=== PATIENT | male | born 1950 | race Caucasian/White ===

== ENCOUNTER → 2020-01-22 08:43 | Outpatient (BNVA) | payer MEDICARE, OTHER, SELFPAY | PROVIDERS: Family Provider Internal Medicine; PCP Internal Medicine; Visit Provider Internal Medicine | DX: D50.9 Iron deficiency anemia, unspecified (principal) | CPT/HCPCS: 80053; 82607; 83550; 84443; 85025 ==

== ENCOUNTER 2020-02-01 10:41 | Outpatient (CLI) | payer MEDICARE, OTHER, SELFPAY ==
[2020-02-01 11:18] VITALS: BP 116/69; PULSE 96; RESP 18; TEMP 36.6; O2SAT 96
== END 2020-02-01 10:42 | disposition home or self-care (01) ==
LOC: GILAB 10:47
PROVIDERS: Family Provider Internal Medicine; PCP Internal Medicine; Visit Provider Internal Medicine
DX: D50.9 Iron deficiency anemia, unspecified (principal)
CPT/HCPCS: 96365; 96374; 96375; J1439

== ENCOUNTER → 2020-06-03 11:39 | Outpatient (BNVA) | payer MEDICARE, OTHER, SELFPAY | PROVIDERS: Family Provider Internal Medicine; PCP Internal Medicine; Visit Provider Internal Medicine | DX: J06.9 Acute upper respiratory infection, unspecified (principal) | CPT/HCPCS: 87635 ==

== ENCOUNTER → 2020-06-23 08:06 | Outpatient (BNVA) | payer MEDICARE, OTHER, SELFPAY | PROVIDERS: Family Provider Internal Medicine; PCP Internal Medicine; Visit Provider Internal Medicine | DX: E11.9 Type 2 diabetes mellitus without complications (principal); D50.9 Iron deficiency anemia, unspecified; D51.9 Vitamin B12 deficiency anemia, unspecified; I10 Essential (primary) hypertension | CPT/HCPCS: 80053; 82607; 82746; 83036; 83550; 84443; 85025 ==

== ENCOUNTER 2020-07-06 08:47 | Outpatient (CLI) | payer MEDICARE, OTHER, SELFPAY ==
[2020-07-06] MEDS: iohexol 300 mg/mL 50 mL Btl PO (09:07)
--- NOTE | 2020-07-06 10:30 | CT_ITS ---
WS: [id number] CT ABDOMEN PELVIS TECHNIQUE: Contrast-enhanced CT of the abdomen and pelvis with coronal and sagittal reformatted image s. CLINICAL INFORMATION: JAUNDICE COMPARISON: May 28, 2018 DLP: 1231.[address] scans at [facility] use at least one of these dose optimization techniques: automat ed exposure control; mA and/or kV adjustment per patient size (includes targeted exams where dose is matched to clinical indication); or iterative reconstruction. FINDINGS: Polycystic left kidney with the largest cyst measuring 12.2 x 14.4 x 15.1 CM. This is not significant ly changed since 2019. Anterior upper pole cyst larger today measuring 7.3 x 6.7 x 6.5 cm. Remainder of the cysts are relatively stable in size. No hydronephrosis. Right kidney is unchanged in appearanc e. Largest cyst right kidney measures 3.6 cm. Adrenal glands are normal. Normal liver. Normal portal vein and splenic vein. Normal gallbladder. Sma ll splenule. Large esophageal hiatal hernia with intrathoracic stomach. Lung bases are well aerated. Normal caliber abdominal aorta. No aneurysm. Prior postoperative changes proctocolectomy with right lower quadrant ileostomy. Stable peristomal f at-containing hernia. Supraumbilical hernia appears to have been repaired in the interval. No herniat ed bowel. Prominent lymph nodes along the peristomal hernia likely reactive. These were present previ ously. No evidence of high-grade small or large bowel obstruction. Moderate to severe central canal s tenosis L2-L3 L3-L4 and L4-L5 unchanged. Prostate TURP defect CT/CT abdomen pelvis w con* [id number] IMPRESSION: 1. Polycystic left kidney with the largest cyst measuring 12.2 x 14.4 x 15.1 C M described above. No hydronephrosis in either kidney. 2. Prior postoperative changes proctocolectomy with right lower quadrant ileos thad. No evidence of high-grade small or large bowel obstruction. 3. Stable right peristomal fat-containing hernia. No obstruction. 4. Interval repair of small supraumbilical hernia today containing only fat. N o herniated bowel. 5. Moderate to severe central canal stenosis L2-L3 and L3-L4 unchanged.
[2020-07-06] MEDS: iodixanol 320 mg/mL 100mL Btl IV (10:41)
== END 2020-07-06 08:48 | disposition home or self-care (01) ==
LOC: RADWPI 08:53
PROVIDERS: Family Provider Internal Medicine; PCP Internal Medicine; Visit Provider Internal Medicine
DX: R17 Unspecified jaundice (principal); R94.5 Abnormal results of liver function studies; Q61.3 Polycystic kidney, unspecified; M48.061 Spinal stenosis, lumbar region without neurogenic claudication; K46.9 Unspecified abdominal hernia without obstruction or gangrene
CPT/HCPCS: 74177; Q9967

== ENCOUNTER 2020-07-12 14:42 | Outpatient (CLI) | payer MEDICARE, OTHER, SELFPAY | END 2020-07-12 14:43 | disposition home or self-care (01) | LOC: LAB 14:46 | PROVIDERS: PCP Internal Medicine; Visit Provider Internal Medicine | DX: R19.7 Diarrhea, unspecified (principal) | CPT/HCPCS: 83630; 87493; 87506 ==

== ENCOUNTER → 2020-08-25 08:42 | Outpatient (BNVA) | payer MEDICARE, OTHER, SELFPAY | PROVIDERS: PCP Internal Medicine; Visit Provider Pediatrics | DX: Z20.828 Contact with and (suspected) exposure to other viral communicable diseases (principal) | CPT/HCPCS: 87635 ==

== ENCOUNTER 2020-09-17 11:29 | Emergency (ER) | payer MEDICARE, OTHER, SELFPAY ==
[2020-09-17 11:38] VITALS: BP 123/86; PULSE 85; RESP 18; TEMP 36.4; O2SAT 96; BMI 36.6
[2020-09-17 12:34] VITALS: BP 121/78; PULSE 87; RESP 18; O2SAT 93
--- NOTE | 2020-09-17 13:01 | ED_ITS ---
HPI - Skin/Abscess/Foreign Bdy General: Chief complaint: Skin/Abscess/Foreign Body Stated complaint: SPIDER BITE Time Seen by Provider: 09/17/20 11:33 Source: patient Mode of arrival: ambulatory Limitations: no limitations History of Present Illness: HPI narrative: 70-year-old male patient presents to the emergency department with what appears to be an abscess to his right fore arm. Patient states he believes it started with a spider bite and has progressively worsened over the last few days. Patient states he has had some doxycycline at home that he is trying to take but it has not improved his symptoms. Patient denies any fever. Patient denies any spreading of erythema. Patient denies any chest pain or shortness of breath. Patient denies any other complaints at this time Associated symptoms: Deny chills, fever(s), nausea or vomiting Review of Systems Const: Denies: fever(s) or chills Card: Denies: chest pain, palpitations or irregular heart rhythm Resp: Denies: dyspnea, productive cough, non-productive cough or wheezing GI: Denies: abdominal pain, nausea, vomiting, diarrhea or constipation : Denies: flank pain, difficulty urinating or dysuria Musc: Reports: extremity pain; Denies: neck pain, back pain, joint pain or joint swelling Skin/Breast: Reports: new lesions Neuro: Denies: headache(s), numbness in extremities or weakness in extremities Psych: Denies: anxiety, depression, suicidal ideation or homicidal ideation [facility] ED PFSH: Medical History GERD (gastroesophageal reflux disease) HTN (hypertension) Iron deficiency anemia EDITH on CPAP Paroxysmal atrial fibrillation Surgical History History of shoulder surgery History of total colectomy Family History Mother Atrial fibrillation Social History Smoking and tobacco status: never smoked Alcohol intake: never Physical Exam Const: COMMON NORMALS: no acute distress, average body habitus, patient oriented x3, no limitations, healthy appearing, alert and well nourished HENMT: COMMON NORMALS: normocephalic and atraumatic HEAD & SCALP: normocephalic and atraumatic FACE & SINUS: normal facial exam Eye: COMMON NORMALS: Equal, round and reactive pupils present, EOMs intact bilaterally and conjunctivae normal CONJUNCTIVA: Yes conjunctivae normal PUPIL: Yes Equal, round and reactive pupils present Neck/C-Spine: COMMON NORMALS: full ROM, no lymphadenopathy and no JVD Lymph: LYMPHATIC: no lymphadenopathy noted and no lymphedema noted Resp: COMMON NORMALS: normal respiratory effort and No retractions Cardio: COMMON NORMALS: no JVD, regular rate and regular rhythm RATE: regular rate RHYTHM: regular rhythm Extremity: COMMON NORMALS: normal to inspection, full ROM, capillary refill normal, no joint enlargement and no clubbing, cyanosis or edema RIGHT UPPER EXTREMITY: Yes upper arm (There is a 2 cm area consistent with an abscess that has fluctuation and po) Neuro: COMMON NORMALS: patient oriented x3, CN's II-XII intact bilaterally, moves all extremities, no focal motor deficits and no sensory deficits noted SENSORIUM/ORIENTATION: Yes alert Psych: COMMON NORMALS: denies homicidal ideation and denies suicidal ideation Skin: NARRATIVE SKIN EXAM: There is a 2 cm area consistent with an abscess that has fluctuation and po SKIN IMAGES (MALE): 1. There is a 2 cm area consistent with an abscess that has fluctuation and po Procedures Abscess I/D Site: upper extremity Side (if applicable): right Sedation/analgesia: none Local Anesthetic: lidocaine 1% Amount of anesthesia used (mL): 2 Technique: incised with #11 blade Amount of fluid expressed (mL): 2 Irrigation: Yes Packing used?: plain Course Vital Signs: Vital signs: Vital Signs Temperature 97.6 F 09/17/20 11:38 Pulse Rate 87 09/17/20 12:34 Respiratory Rate 18 09/17/20 12:34 Blood Pressure 121/78 09/17/20 12:34 Pulse Oximetry 93 09/17/20 12:34 MDM - Skin/Abscess/Foreign Bdy MDM Narrative: Medical decision making narrative: Patient is well-appearing nontoxic and in no acute distress. Patient does not have any systemic symptoms of illness. Patient does have what appears to be an abscess to the right upper arm please see procedure note for incision and drainage.There is a 2 cm area consistent with an abscess that has fluctuation and pointing. Incision and drainage was successful and packing was applied. Patient has been advised to return to the emergency department in 24 to 48 hours for packing removal and wound recheck. Patient tolerated procedure well. I will place patient on clindamycin at this time. Return precautions have been advised home care instructions have been reviewed patient is medically cleared and appropriate for discharge Discharge Plan Discharge Patient Disposition: Home Clinical Impression: Abscess of skin or subcutaneous tissue Qualifiers: Site of cutaneous abscess: extremity Site of cutaneous abscess of extremity: upper extremity Laterality: right Qualified Code(s): L02.413 - Cutaneous abscess of right upper limb Condition: Stable Prescriptions: New clindamycin HCl 300 mg capsule 300 mg PO BID 7 Days Qty: 14 RF: 0 No Action triamcinolone acetonide 0.1 % ointment 1 applic TOPICAL DAILY PRNRF: 0 Xarelto 20 mg tablet 20 mg PO DAILY RF: 0 lisinopril 2.5 mg tablet 2.5 mg PO DAILY RF: 0 melatonin 5 mg capsule PO .hs RF: 0 B-complex with vitamin C [Super B Complex-Vitamin C] Tablet 1 tab PO DAILY RF: 0 pantoprazole 40 mg tablet,delayed release (DR/EC) 40 mg PO BID Qty: 60 RF: 8 Questran Light 4 gram powder 4 gm PO DAILY Qty: 210 RF: 6 metoprolol succinate 50 mg tablet extended release 24 hr 75 mg PO BID RF: 0 simvastatin 40 mg tablet 40 mg PO .AT BEDTIME 90 Days Qty: 90 RF: 3 chlorthalidone 25 mg tablet 25 mg PO DAILY Qty: 90 RF: 3 syringe with needle, safety [BD Safety-Sally Detachable Needl] 3 mL 22 gauge x 1 1/2 syringe See Rx Instructions .ROUTE .COMPLEX Qty: 12 RF: 0 clopidogrel [Plavix] 75 mg tablet 75 mg PO DAILY Qty: 30 RF: 5 cyanocobalamin (vitamin B-12) 1,000 mcg/mL solution 1,000 mcg IM .monthly Qty: 1 RF: 3 levofloxacin 750 mg tablet 750 mg PO DAILY 7 Days Qty: 7 RF: 0 prednisone 20 mg tablet 20 mg PO DAILY 5 Days Qty: 5 RF: 0 Discharge Orders: Discharge ED (Routine); Ordered 09/17/20 Ordered By: Natalie Roach Referrals: Luis Yang MD [Primary Care Provider] - Discharge Diet: Advance as tolerated Discharge Activity: Resume usual activity Activity Restrictions/Additional Instructions: Please take medications as prescribed Please return to ER in 24-48 hours for packing removal and wound recheck or sooner as needed Please follow wound care instructions as discussed Coding Level of Care Code ED Trace Clerk for Pankaj Mooney
== END 2020-09-17 12:34 | disposition home or self-care (01) ==
PROVIDERS: Emergency Provider Registered Nurse; PCP Internal Medicine
DX: L02.413 Cutaneous abscess of right upper limb (principal); Z79.02 Long term (current) use of antithrombotics/antiplatelets; I10 Essential (primary) hypertension; I48.0 Paroxysmal atrial fibrillation
CPT/HCPCS: 10060; 12345; 99281; 99282

== ENCOUNTER 2020-09-30 12:20 | Inpatient (IN) | payer MEDICARE, OTHER, SELFPAY ==
[2020-09-30] VITALS (11 sets, daily range): BP systolic 85–131; BP diastolic 52–64; PULSE 49–96; RESP 16–20; TEMP 36.4–36.8; O2SAT 95–99; BMI 34.5
--- NOTE | 2020-09-30 13:09 | W.ED.MALEGU ---
HPI - Male Genitourinary General: Chief complaint: Urogenital-Male Stated complaint: kidney pain/ reanal failure Time Seen by Provider: 09/30/20 12:48 Source: patient Mode of arrival: ambulatory History of Present Illness: HPI Narrative: 70-year-old male presenting with complaints of dysuria and hesitancy with onset this morning. He has history of BPH, and has had a TURP in the past. Denies any abdominal pain or distention. No diarrhea or constipation. He noticed that his urine was very dark this morning, and it was hard to urinate. After that he started trying to drink a lot of fluids. He has a history of renal insufficiency, and PCKD. He was recently treated for an abscess and developed antibiotic associated diarrhea for which he was prescribed Xifaxan which he is currently still taking. He denies any new lower extremity weakness or sensory changes. No difficulty walking this morning. He has had frequent dizziness on standing recently, as well as low blood pressure readings. No fever. No night sweats. Occasional intermittent nausea without vomiting. Associated symptoms: Reports dysuria, hematuria, nausea and urinary retention; Deny vomiting Review of Systems General: Reports: 10 or more systems reviewed and unremarkable except in HPI and below Const: Reports: fatigue and malaise; Denies: fever(s), chills, body aches or change in weight Eyes: Denies: change in vision or blurry vision ENMT: Denies: hoarseness or swelling of lips/tongue Card: Denies: chest pain, palpitations or irregular heart rhythm Resp: Denies: dyspnea, productive cough or wheezing GI: Reports: nausea; Denies: abdominal pain, vomiting, fecal incontinence, change in bowel habits or rectal pain : Reports: difficulty urinating, dysuria, urinary frequency, urinary urgency, urinary hesitancy, urinary dribbling, oliguria and hematuria; Denies: flank pain Musc: Denies: muscle weakness or decrease in muscle mass Skin/Breast: Denies: rash, erythema or skin swelling Neuro: Denies: headache(s), numbness in extremities, weakness in extremities or lack of coordination Psych: Denies: anxiety or depression PFS ED PFSH: Medical History GERD (gastroesophageal reflux disease) Gout of ankle History of SCC (squamous cell carcinoma) of skin HTN (hypertension) Iron deficiency anemia EDITH on CPAP Paroxysmal atrial fibrillation Polycystic kidney disease Surgical History History of circumcision History of colectomy History of hernia repair History of shoulder surgery History of total colectomy History of total knee replacement Family History Mother Atrial fibrillation Social History Smoking and tobacco status: never smoked Alcohol intake: never Substance/Drug Use: never Household members: spouse Housing: House Physical Exam Const: COMMON NORMALS: no acute distress, patient oriented x3 and alert GENERAL APPEARANCE: cooperative; not in distress, not ill appearing and not diaphoretic NUTRITIONAL APPEARANCE: overweight ORIENTATION/CONSCIOUSNESS: Yes oriented to person and Yes oriented to place HENMT: COMMON NORMALS: normocephalic and atraumatic HEAD & SCALP: normocephalic and atraumatic FACE & SINUS: normal facial exam and face symmetric Eye: COMMON NORMALS: Equal, round and reactive pupils present, EOMs intact bilaterally, conjunctivae normal and no scleral icterus CONJUNCTIVA: Yes conjunctivae normal PUPIL: Yes Equal, round and reactive pupils present Resp: COMMON NORMALS: normal respiratory effort and No use of accessory muscles EFFORT & INSPECTION: Yes able to speak in complete sentences Cardio: COMMON NORMALS: regular rate and regular rhythm RATE: regular rate RHYTHM: regular rhythm GI: COMMON NORMALS: Soft to palpation INSPECTION: No abdominal wall ecchymosis, No Abdominal wall edema, Yes abdominal distension and Yes GI ostomy present PALPATION: Yes Soft to palpation, Yes Tenderness to palpation present (GI), No Guarding due to palpation present (GI), No Rigid due to palpation, Yes Palpable mass present, No Pulsatile mass present, No Rebound tenderness present and No Bladder palpation abnormal : BLADDER/KIDNEY EXAM: No Bladder palpation abnormal Extremity: COMMON NORMALS: normal to inspection, full ROM and capillary refill normal GENERAL: Yes normal exam except as noted Neuro: COMMON NORMALS: patient oriented x3, moves all extremities, no focal motor deficits and no sensory deficits noted SENSORIUM/ORIENTATION: Yes alert, Yes oriented to person and Yes oriented to place CRANIAL NERVES: Yes CN normal except as noted SPEECH: speech normal Skin: COMMON NORMALS: no rashes or lesions noted GENERAL SKIN EXAM: no rashes or lesions noted, no ecchymo and no erythema Course Vital Signs: Vital signs: Vital Signs Temperature 98.6 F 10/02/20 04:00 Pulse Rate 89 10/02/20 04:00 Respiratory Rate 19 H 10/02/20 04:00 Blood Pressure 93/55 10/02/20 04:00 Pulse Oximetry 94 10/02/20 04:00 MDM - Male MDM Narrative: Medical decision making narrative: 70-year-old male with acute acute urinary retention since this morning. Initial bladder scan showed near 0 residual volume. Repeat scan slightly superior position showed greater than 999 mL. Dixon catheter was placed but no urine output. Due to discomfort catheter was removed. After looking at some of his previous imaging, he does have very large cyst, especially on the left and that was probably what the bladder scan was registering as residual volume. His lab work shows that he is in acute kidney failure with creatinine of 12.2. His urine is concentrated, I suspect prerenal JULES. No acute infection. Potassium 5.9, without any significant EKG changes. He is in A. fib which is his baseline. We will repeat chemistry after second fluid bolus?if there is significant improvement will discuss admission for further fluids and monitoring his renal function. If it is unchanged or worsen, he will need to be transferred to [facility] for nephrology consult. Differential Diagnosis: Urogenital Male Differential Diagnosis: Likely urinary tract infection, urethritis, prostatitis and acute retention of urine Medical Records: Attestation: I reviewed the patient's medical records. Lab Data: Attestation: I reviewed the patient's lab results. Labs: Lab Results 09/30/20 09/30/20 09/30/20 Range/Units 13:04 13:13 13:13 WBC 10.2 H (4.0-10.0) 10^3/ uL RBC 6.93 H (4.1-5.3) 10^6/u L Hgb 18.8 H (11.7-16.6) g/dL Hct 58.3 H (42.0-52.0) % MCV 84.1 (80-94) fL MCH 27.1 L (28.0-34.0) pg MCHC 32.2 (30.0-36.0) g/dL RDW 17.4 H (12.1-15.1) % Plt Count 240 (130-400) 10^3/c mm MPV 9.6 (7.4-10.4) fL Neut % (Auto) 66.4 % Lymph % (Auto) 20.8 % [place] % (Auto) 12.0 % Eos % (Auto) 0.0 % Baso % (Auto) 0.4 % Neut # (Auto) 6.80 (1.8-7.7) 10^3/u L Lymph # (Auto) 2.1 (0.8-4.8) 10^3/u L [place] # (Auto) 1.2 H (0.2-0.9) 10^3/u L Eos # (Auto) 0.0 (0.0-0.8) 10^3/u L Baso # (Auto) 0.0 (0.0-0.1) 10^3/u L Nucleated RBC % (a uto) 0 % Nucleated RBCs # 0.0 /100WBC Sodium Cancelled Potassium Cancelled Chloride Cancelled Carbon Dioxide Cancelled Anion Gap Cancelled BUN Cancelled Creatinine Cancelled GFR Calculation Cancelled Glucose Cancelled Calculated Osmolal ity Cancelled Calcium Cancelled Total Bilirubin Cancelled AST Cancelled ALT Cancelled Alkaline Phosphata se Cancelled Creatine Kinase (39-308) U/L Total Protein Cancelled Albumin Cancelled Globulin Cancelled Urine Color Brown (Yellow) Urine Appearance Cloudy (CLEAR) Urine pH 5 (5-7) Ur Specific Gravit y 1.030 (1.005-1.030) Urine Protein 3+ H (Negative) Urine Glucose (UA) Norm (Normal) Urine Ketones 1+ H (Negative) Urine Blood 3+ H (Negative) Urine Nitrate Negative (Negative) Urine Bilirubin 1+ H (Negative) Urine Urobilinogen Norm (Negative) mg/dL Ur Leukocyte Priti ase Negative (Negative) Urine RBC Too numerous to c nt H (0-2) /hpf Urine WBC 5-10 H (0-5) /hpf Ur Squamous Epith Cells 0-4 H (0-5) /hpf Amorphous Sediment Not Reportable Urine Bacteria 1+ H (NONE) /hpf 09/30/20 09/30/20 09/30/20 Range/Units 14:30 14:30 17:27 WBC (4.0-10.0) 10^3/ uL RBC (4.1-5.3) 10^6/u L Hgb (11.7-16.6) g/dL Hct (42.0-52.0) % MCV (80-94) fL MCH (28.0-34.0) pg MCHC (30.0-36.0) g/dL RDW (12.1-15.1) % Plt Count (130-400) 10^3/c mm MPV (7.4-10.4) fL Neut % (Auto) % Lymph % (Auto) % [place] % (Auto) % Eos % (Auto) % Baso % (Auto) % Neut # (Auto) (1.8-7.7) 10^3/u L Lymph # (Auto) (0.8-4.8) 10^3/u L [place] # (Auto) (0.2-0.9) 10^3/u L Eos # (Auto) (0.0-0.8) 10^3/u L Baso # (Auto) (0.0-0.1) 10^3/u L Nucleated RBC % (a uto) % Nucleated RBCs # /100WBC Sodium 134 L 135 L Potassium 5.9 H 5.1 Chloride 99 105 Carbon Dioxide 19 L 17 L Anion Gap 21.9 H 18.1 BUN 69 H 67 H Creatinine 12.2 H* 9.2 H* GFR Calculation 4.1 L 5.7 L Glucose 78 92 Calculated Osmolal ity 297 H 299 H Calcium 8.5 7.2 L Total Bilirubin 1.7 H AST 12 ALT 14 Alkaline Phosphata se 76 Creatine Kinase 39 (39-308) U/L Total Protein 6.6 Albumin 3.5 Globulin 3.1 Urine Color (Yellow) Urine Appearance (CLEAR) Urine pH (5-7) Ur Specific Gravit y (1.005-1.030) Urine Protein (Negative) Urine Glucose (UA) (Normal) Urine Ketones (Negative) Urine Blood (Negative) Urine Nitrate (Negative) Urine Bilirubin (Negative) Urine Urobilinogen (Negative) mg/dL Ur Leukocyte Priti ase (Negative) Urine RBC (0-2) /hpf Urine WBC (0-5) /hpf Ur Squamous Epith Cells (0-5) /hpf Amorphous Sediment Urine Bacteria (NONE) /hpf EKG Data: EKG 1: Attestation: I personally reviewed and interpreted this EKG as follows: EKG Data: 09/30/20 EKG interpretation time: 15:35 Prior EKG tracings: not available for review Interpretation: Atrial fibrillation, rate 87 Normal axis No acute ST segment elevation or depression. No abnormal T wave inversion. Critical Care Time Critical Care Time: Critical Care Time: Yes Total Critical Care Time: 45 Attestation: This case had a high probability of a clinically significant, sudden, or life threatening deterioration of this patient's condition which required my full and direct attention, intervention and personal management. Acute kidney failure with hyperkalemia, repeat lab work, serial patient exam, frequent monitoring Dehydration with significant metabolic changes Discharge Plan Discharge Patient Disposition: Admitted As Inpatient Admit Provider: Dina Taveras Clinical Impression: Abdominal pain in male, Acute urinary retention, Acute kidney injury superimposed on chronic kidney disease Condition: Stable Coding Level of Care Code ED Mental Health Technician for Chg Fwd Exam Comprehensive
[2020-09-30 13:20] LABS: Basophils % 0.4 %; Hematocrit 58.3 % (42.0-52.0); Hemoglobin 18.8 g/dL (11.7-16.6); Lymphocytes # 2.1 10^3/uL (0.8-4.8); Lymphocytes % 20.8 %; Mean Corpuscular HGB Conc 32.2 g/dL (30.0-36.0); Mean Corpuscular Hemoglobin 27.1 pg (28.0-34.0); Mean Corpuscular Volume 84.1 fL (80-94); Mean Platelet Volume 9.6 fL (7.4-10.4); Monocytes # 1.2 10^3/uL (0.2-0.9); Neutrophils % 66.4 %; Nucleated Red Blood Cells % 0 %; Platelet Count 240 10^3/cmm (130-400); Red Blood Count 6.93 10^6/uL (4.1-5.3); Red Cell Distribution Width 17.4 % (12.1-15.1); White Blood Count 10.2 10^3/uL (4.0-10.0)
[2020-09-30] MEDS: lactated ringers 1,000 ML 999 ML IV (13:24)
[2020-09-30] MEDS: tamsulosin 0.4 mg Capsule 0.8 MG PO ×2 (13:24→13:34)
[2020-09-30 14:08] LABS: Glucose Urine UA Norm (Normal); Ketones Urine 1+ (Negative); Protein Urine 3+ (Negative); Urine Appearance Cloudy (CLEAR); Urine Color Brown (Yellow); pH Urine 5 (5-7)
[2020-09-30 14:09] LABS: Add Urine Microscopic? YES; Bilirubin Urine 1+ (Negative); Blood Urine 3+ (Negative); Leukocyte Esterase Urine Negative (Negative); Nitrate Urine Negative (Negative); Urobilinogen Urine Norm (Negative)
[2020-09-30 14:11] LABS: Add Urine Culture? Yes; Bacteria Urine 1+ /hpf; RBC Urine TOO NUMEROUS TO CNT /hpf (0-2); Squamous Epithelial Cell Urine 0-4 /hpf (0-5)
--- NOTE | 2020-09-30 14:50 | XRR_ITS ---
PROCEDURE INFORMATION: Exam: XR Abdomen, 1 View Exam date and time: 09/30/2020 2:51 PM Age: 70 years old Clinical indication: Abdominal pain; Generalized; Prior surgery; Surgery type: Colon, hernina; Additional info: Pain, distention, TECHNIQUE: Imaging protocol: XR of the abdomen. Views: Frontal supine view of the abdomen. 1 View. COMPARISON: CT abdomen pelvis w con* [id number] 07/06/2020 10:37 AM FINDINGS: Gastrointestinal tract: Unremarkable. No bowel dilation. Organs: Enlarged left kidney (multiple large cysts) redemonstrated. Vasculature: Right pelvic phleboliths. Bones/joints: There is degenerative disc disease at multiple lumbar spine disk levels. XR/XR abdomen 1V* [id number] IMPRESSION: 1. Enlarged left kidney redemonstrated. 2. No acute abdominal or pelvic abnormality identified.
[2020-09-30 15:03] LABS: Alanine Aminotransferase 14 U/L (0-41); Albumin Level 3.5 g/dL (3.5-5.2); Alkaline Phosphatase 76 IU/L (40-130); Anion Gap 21.9 (5-19); Aspartate Amino Transferase 12 U/L (0-40); Blood Urea Nitrogen 69 mg/dL (8-23); Calcium 8.5 mg/dL (8.5-10.5); Carbon Dioxide 19 mmol/L (22-29); Chloride 99 mmol/L (98-107); Globulin 3.1 g/dL (1.3-4.6); Glomerular Filtration Rate 4.1 mL/min (90-130); Glucose 78 mg/dL (65-115); Osmolality Calculated 297 mOsm/kg (285-295); Potassium 5.9 mmol/L (3.5-5.1); Sodium 134 mmol/L (136-145); Total Bilirubin 1.7 mg/dL (0.15-1.2); Total Protein 6.6 g/dL (6.6-8.7)
--- NOTE | 2020-09-30 15:16 | ECG_ITS ---
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 Measurements Intervals [place] Rate: 87 P: HI: QRS: 112 QRSD: 111 T: 8 QT: 361 QTc: 436 Interpretive Statements ATRIAL FIBRILLATION INCOMPLETE RIGHT BUNDLE BRANCH BLOCK [90+ ms QRS DURATION, TERMINAL R IN V1/V2, 40+ ms S IN I/aVL/V4/V5/V6] POSSIBLE RIGHT VENTRICULAR HYPERTROPHY [SOME/ALL OF: PROMINENT R IN V1, LATE TRANSITION, RAD, ALYSHA, SSS] Compared to ECG 10/22/2018 16:17:47 Left-axis deviation no longer present Myocardial infarct finding no longer present Electronically Signed On 09-30-2020 17:50:45 [employer] by Garry Russell M.D. [id number]
[2020-09-30] MEDS: sodium chloride 0.9% 1,000 ML 999 ML IV (15:28)
[2020-09-30 15:48] LABS: Creatine Phosphokinase 39 U/L (39-308)
[2020-09-30 18:02] LABS: Blood Urea Nitrogen 67 mg/dL (8-23); Calcium 7.2 mg/dL (8.5-10.5); Carbon Dioxide 17 mmol/L (22-29); Chloride 105 mmol/L (98-107); Glomerular Filtration Rate 5.7 mL/min (90-130); Glucose 92 mg/dL (65-115); Osmolality Calculated 299 mOsm/kg (285-295); Sodium 135 mmol/L (136-145)
[2020-09-30 18:03] LABS: Anion Gap 18.1 (5-19); Potassium 5.1 mmol/L (3.5-5.1)
[2020-09-30] MEDS: lactated ringers 1,000 ML 250 ML IV (18:56)
--- NOTE | 2020-09-30 19:36 | PC.NURSE ---
report recd from rn @ [id number]
--- NOTE | 2020-09-30 19:46 | PM.HP ---
Providers/Chief Complaint Primary Care Provider: Luis Yang MD Chief Complaint: kidney pain/ reanal failure History of Present Illness Earle Mireles is a 70 year old male who has history of BPH, status post TURP, left sided polycystic kidney disease presented to the hospital with chief complaint of not been able to urinate for last few days. Patient is stating that his symptoms started last with increased output from colostomy bag, Dr. Yang started him on cholestyramine, he also came to the ER for evaluation of skin ulcer on right arm for which she was prescribed doxycycline, he thinks his colostomy output increased after taking antibiotic, he did not notice any fever, nausea, vomiting but his urine output has been decreasing, is trying to eat and drink regular amount, he also eats junk food such as chocolate and chips but urine output has been decreasing for last 3 to 4 days and today it started bothering him. He started feeling heaviness in hypogastric region when he went to the bathroom he only could pass few drops of urine, his urine color would be very dark and muddy brown. 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 Of note, he recently started taking colchicine as well for gout for right ankle pain, his Protonix dose was also increased due to increased colostomy bag output Review of Systems Const: Reports: chills, body aches and fatigue; Denies: fever(s) Eyes: Denies: change in vision ENMT: Denies: throat pain Card: Denies: chest pain Resp: Denies: dyspnea GI: Reports: abdominal pain and diarrhea; Denies: nausea or vomiting : Reports: difficulty urinating, difficulty starting urination, oliguria and hematuria; Denies: flank pain Musc: Denies: neck pain Skin/Breast: Reports: lesions Neuro: Denies: headache(s) Endo: Reports: polydipsia and tired all the time Yoseph/Lymph: Denies: easy bruising All/Imm: Denies: urticaria Medications/Allergies Home Medications Medication Instructions Recorded Confirmed Last Taken Type B-complex with vitamin C 1 tab PO DAILY@1200 01/07/20 09/30/20 09/30/20 History melatonin 5 mg capsule 5 mg PO BEDTIME@2200 cap 01/07/20 09/30/20 Unknown History rivaroxaban 20 mg tablet 20 mg PO DAILY@2200 tab 01/07/20 09/30/20 09/29/20 History triamcinolone acetonide 0.1 % 1 applic TOPICAL DAILY PRN 01/07/20 09/30/20 Unknown History topical ointment syringe with needle, safety 3 mL See Rx Instructions .ROUTE 05/16/20 09/30/20 Unknown Rx 22 gauge x 1 1/2 .COMPLEX #12 each cyanocobalamin (vitamin B-12) 1,000 mcg IM .monthly #1 ml 08/05/20 09/30/20 Unknown Rx 1,000 mcg/mL injection solution lisinopril 2.5 mg tablet See Rx Instructions .ROUTE 09/19/20 09/30/20 09/29/20 Rx .COMPLEX #90 tab ondansetron HCl 4 mg tablet 4 mg PO Q8H PRN #30 tab 09/26/20 09/30/20 09/30/20 Rx Plavix 75 mg PO DAILY@1200 09/30/20 09/30/20 09/30/20 History chlorthalidone 25 mg PO DAILY@1200 09/30/20 09/30/20 09/30/20 History metoprolol tartrate 25 mg PO BID@1200,2200 09/30/20 09/30/20 09/30/20 History metoprolol tartrate 50 mg PO BID@1200,2200 09/30/20 09/30/20 09/30/20 History pantoprazole 40 mg PO BID@1200,2200 09/30/20 09/30/20 09/30/20 History simvastatin 40 mg PO BEDTIME@2200 09/30/20 09/30/20 09/29/20 History Allergies Allergy/AdvReac Type Severity Reaction Status Date / Time No Known Allergies Allergy Verified 09/26/20 12:03 PFSH Acute PFSH: Medical History (Updated 09/30/20 @ 19:49 by Dina Taveras MD) GERD (gastroesophageal reflux disease) Gout of ankle History of SCC (squamous cell carcinoma) of skin HTN (hypertension) Iron deficiency anemia EDITH on CPAP Paroxysmal atrial fibrillation Polycystic kidney disease Surgical History (Updated 09/30/20 @ 19:49 by Dina Taveras MD) History of circumcision History of colectomy History of hernia repair History of shoulder surgery History of total colectomy History of total knee replacement Family History Mother Atrial fibrillation Social History (Updated 09/30/20 @ 22:52 by Dina Taveras MD) Smoking and tobacco status: never smoked Alcohol intake: never Substance/Drug Use: never Household members: spouse Housing: House Vitals/I&O/Wt Last Vital Signs Temp 97.5 F L 09/30/20 18:41 Pulse 70 09/30/20 19:10 Resp 18 09/30/20 19:10 BP 98/64 09/30/20 19:10 Pulse Ox 97 09/30/20 19:10 09/30/20 09/30/20 09/30/20 06:59 14:59 22:59 Intake Total 1000 / 1000 Output Total 5 / 5 Balance 995 / 995 Weight last 48 hrs Weight 115.666 kg Physical Exam Narrative: EXAM NARRATIVE: Very pleasant elderly male who appears younger than stated age Well-hydrated does not look dehydrated No active distress No chest pain or shortness of breath S1, S2 variable no active signs of heart failure Abdomen soft nondistended colostomy bag with minimal stool no active drainage or tenderness, peristomal hernia Lower extremity no edema gangrene or ulcer Right forearm has open ulcer without active drainage Appropriate mood and affect EOMI, PERRLA GCS 15 Bilateral breath sounds without adventitious rhonchi or crackles No genital edema Urinary Catheter Management^: Dixon: Cath Placed During This Visit: yes Urinary Catheter Date of Insertion: 09/30/20 Urinary Catheter Time of Insertion: 14:40 Data : 09/30/20 13:13 09/30/20 17:27 A&P Assessment and plan (1) Acute urinary retention: Status: Acute (2) Abdominal pain in male: Status: Acute (3) Acute kidney injury superimposed on chronic kidney disease: Status: Acute (4) Diarrhea: Status: Acute Additional A&P Information Acute on chronic kidney disease stage IV Left polycystic kidney disease, also taking lisinopril, recently has been noticing increased output from colostomy bag has tried cholestyramine, & higher Protonix dose History of TURP and BPH I would request Dixon catheter for accurate urine output measurement We will keep him on fluids overnight for hydration Stop lisinopril Reduce rivaroxaban dosage to 10 mg His creatinine improved from 12 to 9 , potassium 5.1 without any EKG changes I do suspect ATN oliguria secondary to dehydration with underlying polycystic kidney disease, if his creatinine is worsening would recommend nephro consult in the morning no urgent need of dialysis at this point No signs of uremia CT abdomen did not reveal hydronephrosis, no acute pathologies were noted A. fib without RVR continue AV nikolay blocking agent home regimen Full code Renal dialysis diet DVT prophylaxis not needed currently he is on rivaroxaban For skin ulcer I would only use topical antibiotics for now Attestations Medical Necessity Statement*: Anticipating stay in the hospital course more than 2 midnights I do suspect ATN secondary to dehydration for now which takes long time to recover Time Spent in Patient Care: (>than 50% of time spent in counselling and/or direct pt care on unit). 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
--- NOTE | 2020-09-30 19:47 | CTR_ITS ---
PROCEDURE INFORMATION: Exam: CT Abdomen And Pelvis Without Contrast Exam date and time: 09/30/2020 7:49 PM Age: 70 years old Clinical indication: Patient HX: Dysuria. ; Additional info: Deangelo TECHNIQUE: Imaging protocol: Computed tomography of the abdomen and pelvis without contrast. Sagittal and coronal reformatted images were created and reviewed. Radiation optimization: All CT scans at this facility use at least one of these dose optimization techniques: automated exposure control; mA and/or kV adjustment per patient size (includes targeted exams where dose is matched to clinical indication); or iterative reconstruction. COMPARISON: CT abdomen pelvis w con* [id number] 07/06/2020 10:37 AM RADIATION DOSE METRICS: Total DLP (mGy-cm): 1678.69 FINDINGS: Limitations: Evaluation of solid organs and vasculature is limited without intravenous contrast. Lungs: Compressive atelectasis in the left lower lobe secondary to a large hiatal hernia. Pleural space: No pleural effusion. Heart: Stable mild enlargement of the visualized portions of the heart. Mediastinal space: Stable large hiatal hernia. Liver: The liver is unremarkable. Gallbladder and bile ducts: The gallbladder is contracted. This may be due to a postprandial state. No pericholecystic fluid. No biliary ductal dilatation. Pancreas: The pancreas is unremarkable. No pancreatic ductal dilatation. Spleen: The spleen is unremarkable. Small splenule in the left upper quadrant. Adrenal glands: The right and left adrenal glands are unremarkable. Kidneys and ureters: Four cysts in the right kidney, the largest measures 2.7 x 3.8 cm (series 2, image 38). Numerous cysts in the left kidney, some of which show foci of wall calcification. The largest mildly complex cyst measures 11.0 x 14.5 cm (series 2, image 61). The largest simple cyst in the left kidney measures 7.1 x 7.5 cm (series 2, image 36). The right and left ureters are unremarkable. Stomach and bowel: Ingested contents in the stomach. Stable findings consistent with a prior subtotal colectomy and right lower quadrant ileostomy. No evidence for bowel obstruction. Appendix: The patient has had a previous appendectomy. Intraperitoneal space: No free intraperitoneal air. No ascites. No loculated fluid collections to suggest an abscess. Vasculature: Mild atherosclerotic calcification in the coronary arteries. Mild atherosclerotic changes in the visualized arteries. No evidence for aortic aneurysm. Lymph nodes: No lymphadenopathy. Urinary bladder: The bladder is incompletely filled, which can limit evaluation. No focal abnormality in the bladder however. Reproductive: There are findings suggesting a prior TURP in the prostate gland. Findings are stable. Bones/joints: Moderate degenerative changes at both the right and left hips. Moderate degenerative changes of the right and left sacroiliac joints. Multilevel degenerative changes of varying severity in the visualized spine. Moderate spinal canal stenosis at L2-L3, L3-L4, and L4-L5. Multilevel foraminal stenosis of varying severity in the lumbar spine. Soft tissues: Small fat containing parastomal hernia at the right lower quadrant ileostomy site. No evidence for strangulation. No acute abnormality in the extra-abdominal soft tissues. CT/CT abdomen pelvis wo con [id number] IMPRESSION: 1. No acute abnormality in the abdomen or pelvis. 2. Stable polycystic left kidney with both simple and Bosniak type 2 cysts. 3. Four cysts in the right kidney are stable. 4. Stable large hiatal hernia. 5. Stable findings consistent with a prior subtotal colectomy and right lower quadrant ileostomy. No evidence for bowel obstruction. 6. Small fat containing parastomal hernia at the right lower quadrant ileostomy site. No evidence for strangulation. 7. Incidental/nonacute findings are listed in the report. COMMENTS: Consistent with the [employer]'s Incidental Findings Committee white paper (J Am Oleg Radiol 2018): Any incidental renal lesion less than 1 cm or classified as too small to characterize, or any incidental cystic renal lesion characterized as simple-appearing, is likely benign. No follow-up imaging is recommended for these lesions per consensus recommendations based on imaging criteria. Radiation Dose CTDIVOL = (mGy): DLP = 1678.69 (mGy-cm)
[2020-10-01] MEDS: rivaroxaban 10 mg Tablet PO ×2 (01:06→21:50)
[2020-10-01] MEDS: sodium chloride 0.9% 1,000 ML 75 ML IV (01:07)
[2020-10-01 05:00] VITALS: BP 84/50; PULSE 92; RESP 21; TEMP 36.7; O2SAT 94
[2020-10-01 05:37] LABS: Basophils % 0.4 %; Hematocrit 52.3 % (42.0-52.0); Hemoglobin 16.5 g/dL (11.7-16.6); Lymphocytes # 1.7 10^3/uL (0.8-4.8); Lymphocytes % 20.7 %; Mean Corpuscular HGB Conc 31.5 g/dL (30.0-36.0); Mean Corpuscular Volume 85.5 fL (80-94); Mean Platelet Volume 9.7 fL (7.4-10.4); Monocytes # 0.8 10^3/uL (0.2-0.9); Monocytes % 9.3 %; Neutrophils # 5.62 10^3/uL (1.8-7.7); Neutrophils % 69.1 %; Nucleated Red Blood Cells % 0 %; Platelet Count 204 10^3/cmm (130-400); Red Blood Count 6.12 10^6/uL (4.1-5.3); Red Cell Distribution Width 16.9 % (12.1-15.1); White Blood Count 8.1 10^3/uL (4.0-10.0)
[2020-10-01 06:03] LABS: Blood Urea Nitrogen 67 mg/dL (8-23); Calcium 8.3 mg/dL (8.5-10.5); Carbon Dioxide 19 mmol/L (22-29); Chloride 103 mmol/L (98-107); Glomerular Filtration Rate 5.8 mL/min (90-130); Glucose 93 mg/dL (65-115); Osmolality Calculated 299 mOsm/kg (285-295); Sodium 135 mmol/L (136-145)
[2020-10-01 07:00] VITALS: BP 94/57; PULSE 96; RESP 18; TEMP 36.7; O2SAT 95
--- NOTE | 2020-10-01 08:40 | P.CONIM_ITS ---
Providers/Reason For Consult Consulting Physican/Specialty*: Teresa Handy DO, [email or web address] Reason for Consult*: Acute kidney injury Attending Physician: Geovanni Rich MD Primary Care Provider: Luis Yang MD History of Present Illness History of Present Illness Earle Mireles is a 70 year old male, presented for evaluation yesterday due to difficulty urinating. He was bit by a spider a couple of weeks ago, developed an abscess, was treated with antibiotic. Towards end of antibiotic, he developed diarrhea. Has ileostomy. Reports a couple of days of water coming out of ileostomy. Was prescribed Xifaxin. States diarrhea has improved. Reports a prior episode of UJLES with serum Cr in the 9s in 2018, also related to volume depletion. 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 Does not regularly weigh himself at home. Does not use NSAIDs. Meds/Allergies Home Medications and Allergies Home Medications Medication Instructions Recorded Confirmed Last Taken Type B-complex with vitamin C 1 tab PO DAILY@1200 01/07/20 09/30/20 09/30/20 History melatonin 5 mg capsule 5 mg PO BEDTIME@2200 cap 01/07/20 09/30/20 Unknown History rivaroxaban 20 mg tablet 20 mg PO DAILY@2200 tab 01/07/20 09/30/20 09/29/20 History triamcinolone acetonide 0.1 % 1 applic TOPICAL DAILY PRN 01/07/20 09/30/20 Unknown History topical ointment syringe with needle, safety 3 mL See Rx Instructions .ROUTE 05/16/20 09/30/20 Unknown Rx 22 gauge x 1 1/2 .COMPLEX #12 each cyanocobalamin (vitamin B-12) 1,000 mcg IM .monthly #1 ml 08/05/20 09/30/20 Unknown Rx 1,000 mcg/mL injection solution lisinopril 2.5 mg tablet See Rx Instructions .ROUTE 09/19/20 09/30/20 09/29/20 Rx .COMPLEX #90 tab ondansetron HCl 4 mg tablet 4 mg PO Q8H PRN #30 tab 09/26/20 09/30/20 09/30/20 Rx Plavix 75 mg PO DAILY@1200 09/30/20 09/30/20 09/30/20 History chlorthalidone 25 mg PO DAILY@1200 09/30/20 09/30/20 09/30/20 History metoprolol tartrate 25 mg PO BID@1200,2200 09/30/20 09/30/20 09/30/20 History metoprolol tartrate 50 mg PO BID@1200,2200 09/30/20 09/30/20 09/30/20 History pantoprazole 40 mg PO BID@1200,2200 09/30/20 09/30/20 09/30/20 History simvastatin 40 mg PO BEDTIME@2200 09/30/20 09/30/20 09/29/20 History Allergies Allergy/AdvReac Type Severity Reaction Status Date / Time No Known Allergies Allergy Verified 09/26/20 12:03 Current Medications Current Medications Generic Name Dose Route Start Last Admin Trade Name Freq PRN Reason Stop Dose Admin Sodium Chloride 1,000 mls @ 75 mls/hr 09/30/20 23:35 10/01/20 01:07 Sodium Chloride 0.9% IV 75 mls/hr .[id number] KELLEN Administration Rivaroxaban 10 mg 09/30/20 23:35 10/01/20 01:06 Rivaroxaban 10 Mg Tablet PO 10 mg DAILY@2200 KELLEN Administration PFSH Acute PFSH: Medical History GERD (gastroesophageal reflux disease) Gout of ankle History of SCC (squamous cell carcinoma) of skin HTN (hypertension) Iron deficiency anemia EDITH on CPAP Paroxysmal atrial fibrillation Polycystic kidney disease Surgical History History of circumcision History of colectomy History of hernia repair History of shoulder surgery History of total colectomy History of total knee replacement Family History Mother Atrial fibrillation Social History Smoking and tobacco status: never smoked Alcohol intake: never Substance/Drug Use: never Household members: spouse Housing: House Vitals/I&O/Wt Last Vital Signs Temp 98.1 F 10/01/20 07:00 Pulse 96 10/01/20 07:00 Resp 18 10/01/20 07:00 BP 94/57 10/01/20 07:00 Pulse Ox 95 10/01/20 07:00 09/30/20 10/01/20 10/01/20 22:59 06:59 14:59 Intake Total 300 / 1300 Output Total 600 / 605 400 / 400 Balance -300 / 695 -400 / -400 Weight last 48 hrs Weight 115.666 kg Physical Exam Const: COMMON NORMALS: no acute distress Extremity: COMMON NORMALS: no pedal edema Urinary Catheter Management^: Yu: Cath Placed During This Visit: yes Reason for Continuing Indwelling Catheter: Not indwelling catheter Urinary Catheter Date of Insertion: 09/30/20 Urinary Catheter Time of Insertion: 14:40 Data Imaging^: CT Abd/Pel: Radiologist's impression: Kidneys and ureters: Four cysts in the right kidney, the largest measures 2.7 x 3.8 cm (series 2, image 38). Numerous cysts in the left kidney, some of which show foci of wall calcification. The largest mildly complex cyst measures 11.0 x 14.5 cm (series 2, image 61). The largest simple cyst in the left kidney measures 7.1 x 7.5 cm (series 2, image 36). The right and left ureters are unremarkable. Stomach and bowel: Ingested contents in the stomach. Stable findings consistent with a prior subtotal colectomy and right lower quadrant ileostomy. No evidence for bowel obstruction. Appendix: The patient has had a previous appendectomy. Intraperitoneal space: No free intraperitoneal air. No ascites. No loculated fluid collections to suggest an abscess. Vasculature: Mild atherosclerotic calcification in the coronary arteries. Mild atherosclerotic changes in the visualized arteries. No evidence for aortic aneurysm. Lymph nodes: No lymphadenopathy. Urinary bladder: The bladder is incompletely filled, which can limit evaluation. No focal abnormality in the bladder however. Reproductive: There are findings suggesting a prior TURP in the prostate gland. Findings are stable. A&P Additional A&P Information 1. Acute kidney injury due to volume depletion, diarrhea related to antibiotic 2. Chronic kidney disease due to polycystic kidney disease 3. Hyperkalemia, resolved 4. Metabolic acidosis, possibly chronic due to ileostomy 5. Hematuria, possibly related to yu trauma and/or ADPKD Recommend: continue IVF hydration. Add oral sodium bicarbonate. Keep off ACEi for now. We discussed daily weights at home and oral hydration solution when illness occurs. 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
[2020-10-01 09:00] VITALS: BP 95/57; PULSE 95; RESP 18; TEMP 36.7; O2SAT 95
[2020-10-01] MEDS: pantoprazole DR 40 mg Tablet 20 MG PO (09:18)
[2020-10-01 11:00] VITALS: BP 97/55; PULSE 90; RESP 17; TEMP 36.8; O2SAT 95
[2020-10-01] MEDS: clopidogrel 75 mg Tablet PO (11:57)
[2020-10-01] MEDS: sodium chloride 0.9% 1,000 ML 125 ML IV ×2 (13:34→21:51)
--- NOTE | 2020-10-01 14:17 | P.PN_ITS ---
Subjective Subjective: Interval history: Patient deny any difficulty passing urine, has no dysuria, good urine output. Was complaining of dizziness while standing.But deny any chest pain, sob, naus ea, vomiting. Has remained afebrile, is tolerating diet, saturating well on room air. Total urine output: 2.2Ls Medications: Reviewed: Yes Vitals/I&O/Wt Last Vital Signs Temp 98.3 F 10/01/20 11:00 Pulse 90 10/01/20 11:00 Resp 17 10/01/20 11:00 BP 97/55 10/01/20 11:00 Pulse Ox 95 10/01/20 11:00 09/30/20 10/01/20 10/01/20 22:59 06:59 14:59 Intake Total 300 / 1300 1353.75 / 1353.75 Output Total 600 / 605 600 / 600 Balance -300 / 695 753.75 / 753.75 Weight last 48 hrs Weight 115.666 kg Physical Exam Const: COMMON NORMALS: patient oriented x3 HENMT: COMMON NORMALS: normocephalic and atraumatic HEAD & SCALP: normocephalic and atraumatic Chest: COMMONS NORMALS: normal inspection of the chest CHEST: Yes Symmetrical chest wall rise Resp: COMMON NORMALS: normal respiratory effort and clear to auscultation bilaterally EFFORT & INSPECTION: Yes symmetric chest movement AUSCULTATION: clear to auscultation bilaterally Cardio: COMMON NORMALS: regular rate, regular rhythm, S1 normal heart sound present, S2 normal heart sound present, No gallops present (Cardio), No murmurs present (Cardio), No rub (Cardio) and Peripheral pulses 2+ throughout RATE: regular rate RHYTHM: regular rhythm HEART SOUNDS: S1 normal heart sound present and S2 normal heart sound present PERIPHERAL PULSES: Peripheral pulses 2+ throughout GI: COMMON NORMALS: Normal to inspection, nondistended, normoactive bowel sounds present, Soft to palpation, non-tender, No hepatosplenomegaly present and no masses AUSCULTATION: Yes normoactive bowel sounds PALPATION: Yes Soft to palpation and Yes No hepatosplenomegaly present RECTAL EXAM: Yes deferred Extremity: COMMON NORMALS: no clubbing, cyanosis or edema and no pedal edema Neuro: COMMON NORMALS: patient oriented x3 Urinary Catheter Management^: Dixon: Cath Placed During This Visit: yes, but has since been removed by the nurse Reason for Continuing Indwelling Catheter: Decision to DC Catheter Urinary Catheter Date of Insertion: 09/30/20 Urinary Catheter Time of Insertion: 14:40 Date Urinary Catheter Removed: 10/01/20 Time Urinary Catheter Discontinued: 06:00 Data : 10/01/20 04:36 10/01/20 04:36 Micro: Microbiology 09/30/20 13:04 Urine Culture - Preliminary Urine,Clean Catch A&P Assessment and plan (1) Acute urinary retention: Status: Acute (2) Acute kidney injury superimposed on chronic kidney disease: Status: Acute (3) Diarrhea: Status: Acute (4) A-fib: Status: Acute (5) Elevated brain natriuretic peptide (BNP) level: Status: Acute (6) EDITH on CPAP: Status: Acute (7) HTN (hypertension): Status: Acute Additional A&P Information #Acute on chronic kidney disease stage IV: Pre renal due to dirrhea, diuretic,poor oral intake. Left polycystic kidney disease, also taking lisinopril, recently has been noticing increased output from colostomy bag has tried cholestyramine, & higher Protonix dose History of TURP and BPH Continue Stop lisinopril Continue I.V Hydration ( ns @125 cc/hr) His creatinine improved from 12 to 9 I do suspect ATN oliguria secondary to dehydration with underlying polycystic kidney disease, if his creatinine is worsening would recommend nephro consult in the morning no urgent need of dialysis at this point No signs of uremia CT abdomen did not reveal hydronephrosis, no acute pathologies were noted #A. fib rate controlled. 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
[2020-10-01 16:00] VITALS: BP 113/60; PULSE 94; RESP 19; TEMP 36.3; O2SAT 97
[2020-10-01] MEDS: sodium bicarbonate 650 mg Tablet PO ×2 (17:18→21:50)
[2020-10-01 18:13] LABS: NT Pro B Type Natriuretic Pept 1160 pg/mL (0-125)
[2020-10-01 20:00] VITALS: BP 91/60; PULSE 81; RESP 20; TEMP 37.1; O2SAT 99
[2020-10-01 20:05] LABS: Anion Gap 13.8 (5-19); Blood Urea Nitrogen 60 mg/dL (8-23); Calcium 8.3 mg/dL (8.5-10.5); Carbon Dioxide 22 mmol/L (22-29); Chloride 106 mmol/L (98-107); Glomerular Filtration Rate 11.3 mL/min (90-130); Glucose 118 mg/dL (65-115); Osmolality Calculated 302 mOsm/kg (285-295); Potassium 4.8 mmol/L (3.5-5.1); Sodium 137 mmol/L (136-145)
[2020-10-01] MEDS: metoprolol tartrate 50 mg Tablet PO (21:50)
[2020-10-02] VITALS (8 sets, daily range): BP systolic 87–131; BP diastolic 53–76; PULSE 72–111; RESP 16–20; TEMP 36.4–37; O2SAT 91–98
[2020-10-02] MEDS: sodium bicarbonate 650 mg Tablet PO ×2 (08:36→17:37)
[2020-10-02] MEDS: pantoprazole DR 40 mg Tablet 20 MG PO (08:37)
[2020-10-02] MEDS: sodium chloride 0.9% 1,000 ML 125 ML IV (08:39)
--- NOTE | 2020-10-02 09:16 | PM.PN ---
Subjective Subjective: Interval history: feels better. still w/ high ostomy output. no sob or cp. + nausea Medications: Reviewed: Yes Medication Review Details: Current Medications Clopidogrel Bisulfate (Clopidogrel 75 Mg Tablet) 75 mg PO DAILY@1200 [facility] Last Admin: 10/01/20 11:57 Dose: 75 mg Documented by: Sodium Chloride (Sodium Chloride 0.9%) 1,000 mls @ 125 mls/hr IV .Q8H [facility] Last Admin: 10/02/20 08:39 Dose: 125 mls/hr Documented by: Metoprolol Tartrate (Metoprolol Tartrate 50 Mg Tablet) 50 mg PO BID@1200,2200 [facility] Last Admin: 10/01/20 21:50 Dose: 50 mg Documented by: Pantoprazole Sodium (Pantoprazole Dr 40 Mg Tablet) 20 mg PO DAILY [facility] Last Admin: 10/02/20 08:37 Dose: 20 mg Documented by: Rivaroxaban (Rivaroxaban 10 Mg Tablet) 10 mg PO DAILY@2200 [facility] Last Admin: 10/01/20 21:50 Dose: 10 mg Documented by: Sodium Bicarbonate (Sodium Bicarbonate 650 Mg Tablet) 650 mg PO TID [facility] Last Admin: 10/02/20 08:36 Dose: 650 mg Documented by: Vitals/I&O/Wt Last Vital Signs Temp 97.6 F 10/02/20 08:00 Pulse 111 H 10/02/20 08:00 Resp 17 10/02/20 08:00 BP 124/72 10/02/20 08:00 Pulse Ox 94 10/02/20 08:00 10/01/20 10/02/20 10/02/20 22:59 06:59 14:59 Intake Total 1000 / 2353.75 1240 / 3593.75 Output Total 1800 / 2400 1750 / 4150 Balance -800 / -46.25 -510 / -556.25 Weight last 48 hrs Weight 115.666 kg Physical Exam Narrative: EXAM NARRATIVE: comfortable in bed, NARD vss heent- nc/at, eomi, anicteric neck no jvp, supple lungs clear heart reg abd soft, + bs, diffuse tenderness, ileostomy+ ext no edema neuro- a,a, o x 3 Urinary Catheter Management^: Yu: Cath Placed During This Visit: yes, but has since been removed by the nurse Reason for Continuing Indwelling Catheter: Decision to DC Catheter Urinary Catheter Date of Insertion: 09/30/20 Urinary Catheter Time of Insertion: 14:40 Date Urinary Catheter Removed: 10/01/20 Time Urinary Catheter Discontinued: 06:00 Data : 10/01/20 04:36 10/01/20 19:18 Micro: Microbiology 09/30/20 13:04 Urine Culture - Final Urine,Clean Catch A&P Additional A&P Information 1. Acute kidney injury due to volume depletion, diarrhea related to antibiotic 2. Chronic kidney disease due to polycystic kidney disease- stage 3 ckd baseline cr 1.8 3. Hyperkalemia, resolved 4. Metabolic acidosis, possibly chronic due to ileostomy - improved- lower na bicarb pills 5. Hematuria, possibly related to yu trauma and/or ADPKD - outpt eval and f/u 6. high ileostomy output and diarrhea per medicine Recommend: continue IVF hydration. Add oral sodium bicarbonate. Keep off ACEi for now. We discussed daily weights at home and oral hydration solution when illness occurs. Attestations Medical Necessity Statement*: diarrhea, JULES Time Spent in Patient Care: 16 - 35 minutes Coding Level of Care Code Acute Carburetor Rebuilder for Pankaj Mooney
[2020-10-02 09:46] LABS: Basophils % 0.3 %; Hematocrit 52.1 % (42.0-52.0); Hemoglobin 16.6 g/dL (11.7-16.6); Lymphocytes # 1.1 10^3/uL (0.8-4.8); Mean Corpuscular HGB Conc 31.9 g/dL (30.0-36.0); Mean Corpuscular Hemoglobin 26.9 pg (28.0-34.0); Mean Corpuscular Volume 84.3 fL (80-94); Mean Platelet Volume 9.2 fL (7.4-10.4); Monocytes # 0.6 10^3/uL (0.2-0.9); Monocytes % 8.9 %; Neutrophils # 5.12 10^3/uL (1.8-7.7); Neutrophils % 74.5 %; Nucleated Red Blood Cells % 0 %; Platelet Count 202 10^3/cmm (130-400); Red Blood Count 6.18 10^6/uL (4.1-5.3); Red Cell Distribution Width 17.2 % (12.1-15.1); White Blood Count 6.9 10^3/uL (4.0-10.0)
[2020-10-02 10:14] LABS: Alanine Aminotransferase 10 U/L (0-41); Albumin Level 3.4 g/dL (3.5-5.2); Alkaline Phosphatase 64 IU/L (40-130); Anion Gap 15.7 (5-19); Aspartate Amino Transferase 11 U/L (0-40); Blood Urea Nitrogen 47 mg/dL (8-23); Calcium 8.7 mg/dL (8.5-10.5); Carbon Dioxide 19 mmol/L (22-29); Chloride 111 mmol/L (98-107); Globulin 2.6 g/dL (1.3-4.6); Glucose 131 mg/dL (65-115); Osmolality Calculated 306 mOsm/kg (285-295); Phosphorus 3.5 mg/dL (2.5-4.5); Potassium 4.7 mmol/L (3.5-5.1); Sodium 141 mmol/L (136-145); Total Bilirubin 1.6 mg/dL (0.15-1.2)
[2020-10-02 11:52] LABS: Glucose Urine UA Norm (Normal); Ketones Urine Negative (Negative); Protein Urine Neg (Negative); Urine Appearance Clear (CLEAR); Urine Color Yellow (Yellow); pH Urine 5 (5-7)
[2020-10-02 11:53] LABS: Bilirubin Urine Neg (Negative); Blood Urine 2+ (Negative); Leukocyte Esterase Urine Negative (Negative); Nitrate Urine Negative (Negative); Urobilinogen Urine Norm (Negative)
[2020-10-02 12:03] LABS: Bacteria Urine TRACE /hpf; RBC Urine 0-4 /hpf (0-2); Squamous Epithelial Cell Urine RARE /hpf (0-5); WBC Urine RARE /hpf (0-5)
[2020-10-02 12:04] LABS: Add Urine Culture? No
[2020-10-02] MEDS: clopidogrel 75 mg Tablet PO (12:10)
--- NOTE | 2020-10-02 13:14 | PM.PN ---
Subjective Subjective: Interval history: is doing fine.Though he still has diarrhea.But his SCR has significantly improved with I.V hydration. He deny any other complain. Vital and labs have been reviewed. Medications: Reviewed: Yes Vitals/I&O/Wt Last Vital Signs Temp 98.0 F 10/02/20 12:00 Pulse 93 10/02/20 12:00 Resp 16 10/02/20 12:00 BP 105/70 10/02/20 12:00 Pulse Ox 98 10/02/20 12:00 10/01/20 10/02/20 10/02/20 22:59 06:59 14:59 Intake Total 1000 / 2353.75 1240 / 3593.75 722.917 / 722.917 Output Total 1800 / 2400 1750 / 4150 Balance -800 / -46.25 -510 / -556.25 722.917 / 722.917 Physical Exam Const: COMMON NORMALS: patient oriented x3 HENMT: COMMON NORMALS: normocephalic and atraumatic HEAD & SCALP: normocephalic and atraumatic Chest: COMMONS NORMALS: normal inspection of the chest and normal palpation of entire chest wall CHEST: Yes Symmetrical chest wall rise Resp: COMMON NORMALS: normal respiratory effort and clear to auscultation bilaterally EFFORT & INSPECTION: Yes symmetric chest movement AUSCULTATION: clear to auscultation bilaterally Cardio: COMMON NORMALS: regular rate, regular rhythm, S1 normal heart sound present, S2 normal heart sound present, No gallops present (Cardio), No murmurs present (Cardio), No rub (Cardio) and Peripheral pulses 2+ throughout RATE: regular rate RHYTHM: regular rhythm HEART SOUNDS: S1 normal heart sound present and S2 normal heart sound present PERIPHERAL PULSES: Peripheral pulses 2+ throughout GI: COMMON NORMALS: Soft to palpation, non-tender, No hepatosplenomegaly present and no masses AUSCULTATION: Yes normoactive bowel sounds PALPATION: Yes Soft to palpation and Yes No hepatosplenomegaly present RECTAL EXAM: Yes deferred OTHER: colostomy bag with minimal watery stool. Extremity: COMMON NORMALS: no clubbing, cyanosis or edema and no pedal edema Neuro: COMMON NORMALS: patient oriented x3 Urinary Catheter Management^: Dixon: Cath Placed During This Visit: yes, but has since been removed by the nurse Reason for Continuing Indwelling Catheter: Decision to DC Catheter Urinary Catheter Date of Insertion: 09/30/20 Urinary Catheter Time of Insertion: 14:40 Date Urinary Catheter Removed: 10/01/20 Time Urinary Catheter Discontinued: 06:00 Data : 10/02/20 09:15 10/02/20 09:15 Micro: Microbiology 09/30/20 13:04 Urine Culture - Final Urine,Clean Catch A&P Assessment and plan (1) Acute urinary retention: Resolved Status: Acute (2) Acute kidney injury superimposed on chronic kidney disease: Improving Status: Acute (3) Diarrhea: Chronic diarrhea likely 2/2 to Short Bowel Syndrome Status: Acute (4) A-fib: Status: Acute (5) Elevated brain natriuretic peptide (BNP) level: Status: Acute (6) EDITH on CPAP: Status: Acute (7) HTN (hypertension): Status: Acute Additional A&P Information #Acute on chronic kidney disease stage IV: Pre renal due to dirrhea, diuretic,poor oral intake. Left polycystic kidney disease, also taking lisinopril, recently has been noticing increased output from colostomy bag has tried cholestyramine, & higher Protonix dose History of TURP and BPH Continue Stop lisinopril Continue I.V Hydration ( ns @125 cc/hr) His creatinine improved from 12 to 3.4 I do suspect ATN oliguria secondary to dehydration with underlying polycystic kidney disease, if his creatinine is worsening would No signs of uremia CT abdomen did not reveal hydronephrosis, no acute pathologies were noted #A. fib rate controlled. rivaroxaban 10 mg oral daily per GFR ( Will adjust dose accordingly ) M.T: 50 MG Q12 H DAILY #Diarrhea Patient started having Diarrhea after he took abxs for spider bite from ER.Going on for the last 10 days. He has completed Rifaximin course as outpatient.Which has improved his diarrhea some. Stool Studies Pending.Including and not limited to C.Diff. Currently no indications for ABXs Will continue with I.V Hydration #Renal dialysis diet #DVT prophylaxis not needed currently he is on rivaroxaban #skin Ulcer : topical antibiotics for now #Full code Disposition : Likely DC in am Attestations Medical Necessity Statement*: Patient needs to be in hospital for the management of JULES on CKD Coding Level of Care Code Acute Calculating Machine Operator for Yung Fwd Diagnoses Acute urinary retention R33.8 Acute kidney injury superimposed on chronic kidney disease N17.9; N18.9 Diarrhea R19.7 A-fib I48.91 Elevated brain natriuretic peptide (BNP) level R79.89 EDITH on CPAP G47.33; Z99.89 HTN (hypertension) I10
[2020-10-02] MEDS: sodium chloride 0.9% 1,000 ML 90 ML IV (20:34)
[2020-10-02] MEDS: metoprolol tartrate 50 mg Tablet PO (23:22)
[2020-10-02] MEDS: rivaroxaban 10 mg Tablet PO (23:23)
[2020-10-03] VITALS (8 sets, daily range): BP systolic 91–141; BP diastolic 37–86; PULSE 81–106; RESP 18–20; TEMP 36.4–36.7; O2SAT 94–99
--- NOTE | 2020-10-03 05:43 | NUR.SHIFT ---
Patient mainly slept, no issues, appeared eager to be discharged.
--- NOTE | 2020-10-03 07:19 | PM.PN ---
Subjective Subjective: Interval history: feels better. stool still liquid- eating. no n/v/sob/cp Medications: Reviewed: Yes Medication Review Details: Current Medications Clopidogrel Bisulfate (Clopidogrel 75 Mg Tablet) 75 mg PO DAILY@1200 [facility] Last Admin: 10/02/20 12:10 Dose: 75 mg Documented by: Sodium Chloride (Sodium Chloride 0.9%) 1,000 mls @ 90 mls/hr IV .Q11H7M [facility] Last Admin: 10/02/20 20:34 Dose: 90 mls/hr Documented by: Metoprolol Tartrate (Metoprolol Tartrate 50 Mg Tablet) 50 mg PO BID@1200,2200 [facility] Last Admin: 10/02/20 23:22 Dose: 50 mg Documented by: Pantoprazole Sodium (Pantoprazole Dr 40 Mg Tablet) 20 mg PO DAILY [facility] Last Admin: 10/02/20 08:37 Dose: 20 mg Documented by: Rivaroxaban (Rivaroxaban 10 Mg Tablet) 10 mg PO DAILY@2200 [facility] Last Admin: 10/02/20 23:23 Dose: 10 mg Documented by: Sodium Bicarbonate (Sodium Bicarbonate 650 Mg Tablet) 650 mg PO BID [facility] Last Admin: 10/02/20 17:37 Dose: 650 mg Documented by: Vitals/I&O/Wt Last Vital Signs Temp 97.6 F 10/03/20 04:00 Pulse 81 10/03/20 04:00 Resp 20 H 10/03/20 04:00 BP 103/69 10/03/20 04:00 Pulse Ox 96 10/03/20 04:00 10/02/20 10/03/20 10/03/20 22:59 06:59 14:59 Intake Total 1777.083 / 2760.000 Output Total 0 / 0 300 / 300 Balance 1777.083 / 2760.000 -300 / 2460.000 Physical Exam Narrative: EXAM NARRATIVE: comfortable in bed, NARD vss heent- nc/at, eomi, anicteric neck no jvp, supple lungs clear heart reg abd soft, + bs, non tender, ileostomy+ ext no edema neuro- a,a, o x 3 Urinary Catheter Management^: Yu: Cath Placed During This Visit: yes, but has since been removed by the nurse Reason for Continuing Indwelling Catheter: Decision to DC Catheter Urinary Catheter Date of Insertion: 09/30/20 Urinary Catheter Time of Insertion: 14:40 Date Urinary Catheter Removed: 10/01/20 Time Urinary Catheter Discontinued: 06:00 Data : 10/02/20 09:15 10/02/20 09:15 Micro: Microbiology 09/30/20 13:04 Urine Culture - Final Urine,Clean Catch A&P Additional A&P Information 1. Acute kidney injury due to volume depletion, diarrhea related to antibiotic 2. Chronic kidney disease due to polycystic kidney disease- stage 3 ckd baseline cr 1.8 3. Hyperkalemia, resolved 4. Metabolic acidosis, possibly chronic due to ileostomy - improved 5. Hematuria, possibly related to yu trauma and/or ADPKD - outpt eval and f/u 6. high ileostomy output and diarrhea per medicine if eating well- can d/c ivf. Attestations Medical Necessity Statement*: davey, high ileostomy output Time Spent in Patient Care: 16 - 35 minutes Coding Level of Care Code Acute Marine Service Operator for Pankaj Mooney
[2020-10-03] MEDS: pantoprazole DR 40 mg Tablet 20 MG PO (10:15)
[2020-10-03] MEDS: sodium chloride 0.9% 1,000 ML 90 ML IV (10:16)
[2020-10-03] MEDS: sodium bicarbonate 650 mg Tablet PO (10:16)
--- NOTE | 2020-10-03 10:39 | PC.SOCIAL ---
IMM Update Pg. 2 of IMM updated and reviewed with patient who verbalized understanding. Copy provided.
[2020-10-03 11:38] LABS: Basophils % 0.4 %; Hematocrit 52.3 % (42.0-52.0); Hemoglobin 16.8 g/dL (11.7-16.6); Lymphocytes # 1.1 10^3/uL (0.8-4.8); Lymphocytes % 20.5 %; Mean Corpuscular HGB Conc 32.1 g/dL (30.0-36.0); Mean Corpuscular Hemoglobin 27.2 pg (28.0-34.0); Mean Corpuscular Volume 84.6 fL (80-94); Mean Platelet Volume 9.3 fL (7.4-10.4); Monocytes # 0.7 10^3/uL (0.2-0.9); Monocytes % 14.5 %; Neutrophils # 3.29 10^3/uL (1.8-7.7); Neutrophils % 64.4 %; Nucleated Red Blood Cells % 0 %; Platelet Count 192 10^3/cmm (130-400); Red Blood Count 6.18 10^6/uL (4.1-5.3); Red Cell Distribution Width 17.2 % (12.1-15.1); White Blood Count 5.1 10^3/uL (4.0-10.0)
[2020-10-03 12:05] LABS: Alanine Aminotransferase 9 U/L (0-41); Albumin Level 3.5 g/dL (3.5-5.2); Alkaline Phosphatase 61 IU/L (40-130); Aspartate Amino Transferase 12 U/L (0-40); Blood Urea Nitrogen 29 mg/dL (8-23); Calcium 8.8 mg/dL (8.5-10.5); Carbon Dioxide 24 mmol/L (22-29); Chloride 108 mmol/L (98-107); Globulin 2.6 g/dL (1.3-4.6); Glomerular Filtration Rate 35.2 mL/min (90-130); Glucose 87 mg/dL (65-115); Magnesium 1.4 mg/dL (1.7-2.3); Osmolality Calculated 299 mOsm/kg (285-295); Sodium 142 mmol/L (136-145); Total Bilirubin 1.9 mg/dL (0.15-1.2); Total Protein 6.1 g/dL (6.6-8.7)
[2020-10-03] MEDS: metoprolol tartrate 25 mg Tablet PO (13:23)
[2020-10-03] MEDS: clopidogrel 75 mg Tablet PO (13:23)
--- NOTE | 2020-10-03 15:13 | PM.DCS ---
Discharge Providers Date of Admission: 09/30/20 18:23 Date of Discharge: October 03, 2020 Attending Provider at Admission: Dina Taveras MD Attending Provider at Discharge: Geovanni Rich MD Primary Care Provider: Luis Yang MD Diagnoses at Discharge Discharge Diagnosis (1) Acute urinary retention: Permanent problem details: Resolved (2) Acute kidney injury superimposed on chronic kidney disease: Permanent problem details: Resolved (3) Diarrhea: Permanent problem details: Chronic (4) A-fib: (5) Elevated brain natriuretic peptide (BNP) level: (6) EDITH on CPAP: (7) HTN (hypertension): Reason for Visit Reason for Visit: kidney pain/ reanal failure Hospital Course Hospital Course Earle Mireles is a 70 year old male who has history of BPH, status post TURP, s/p colostomy , left sided polycystic kidney disease presented to the hospital with chief complaint of not been able to urinate for last few days.On the day of admission he was stating that his symptoms started last with increased output from colostomy bag, Dr. Yang started him on cholestyramine, he also came to the ER for evaluation of skin ulcer on right arm for which she was prescribed doxycycline, he thinks his colostomy output increased after taking antibiotic, he did not notice any fever, nausea, vomiting but his urine output has been decreasing, is trying to eat and drink regular amount, he also eats junk food such as chocolate and chips but urine output has been decreasing for last 3 to 4 days and today it started bothering him. He started feeling heaviness in hypogastric region when he went to the bathroom he only could pass few drops of urine, his urine color would be very dark and muddy brown. Work up in ER revealed soft blood pressure 98/64, he was afebrile, Dixon catheter did not increase urine output, however after catheterization he was able to urinate about 15 mL which was muddy brown, he was not complaining of abdominal pain, CT abdomen without contrast failed to show any hydronephrosis, he has history of polycystic kidney disease left greater than right, has seen rotary furnace tender who prescribed him lisinopril to decrease progression of cholecystic kidney disease. Of note, he recently started taking colchicine as well for gout for right ankle pain,one possibilty of worsening diarrhea in his case could be recent initiation of colchicine (colchicine is notorious for causing diarrhea ) his Protonix dose was also increased due to increased colostomy bag output. He was admitted for the management of pre renal JULES with superimposed ATN on chronic kidney disease stage IV multifactorial likely 2/2 severe dehydration, lisinopril use.His admission SCR was 12 baseline SCR ( 1.5-1.8 ) ,he was started on I.V hydration, anti hypertensive medications were kept on hold , dose of rivaroxaban was reduced to 10 mg.Renal was on board,with continued I.V hydration his SCR at the time of discharge was back to baseline. Hyperkalemia without EKG changes on day of admission also resolved with conservative management.Chronic A.fib was rate controlled on nikolay blocking agent.Had no urinary retention during the hospital stay,Dixon was not used,hematuria present on admission which was likely due to traumatic Dixon insertion had resolved on repeat u/a,he will continue to follow and as outpatient ( both are good friends of him ) unfortunately his another good friend ( brick and blocker aid labor has retired and he is in search of a new hotel housekeeper ). Patient has h/o of chronic diarrhea for which he sees and has been tried on Rifaximin, as well as metro and cipro, imodium, recent C.Diff studies have been negative. At least for this recent episode of Acutely worsening diarrhea I will prefer to focus on his recent initiation of colchicine notorious to cause diarrhea and leave upto the discretion of his PCP to decide on its continued use. Stool studies for Ova cyst and parasite was negative. His in all likelihood is a big fan of [employer] shows and gets too much information from there ( was contemplating bowel transplant,will leave upto the discretion of his ). At the time of discharge he was stable and diarrhea was not overtly bad.He was advised to continue with proper oral hydration and continue to hold Anti HTN medications till he sees his PCP. Physical Exam Narrative: EXAM NARRATIVE: Const COMMON NORMALS: patient oriented x3 [facility] COMMON NORMALS: normocephalic and atraumatic HEAD & SCALP: normocephalic and atraumatic Chest COMMONS NORMALS: normal inspection of the chest and normal palpation of entire chest wall CHEST: Yes Symmetrical chest wall rise Resp COMMON NORMALS: normal respiratory effort and clear to auscultation bilaterally EFFORT & INSPECTION: Yes symmetric chest movement AUSCULTATION: clear to auscultation bilaterally Cardio COMMON NORMALS: regular rate, regular rhythm, S1 normal heart sound present, S2 normal heart sound present, No gallops present (Cardio), No murmurs present (Cardio), No rub (Cardio) and Peripheral pulses 2+ throughout RATE: regular rate RHYTHM: regular rhythm HEART SOUNDS: S1 normal heart sound present and S2 normal heart sound present PERIPHERAL PULSES: Peripheral pulses 2+ throughout GI COMMON NORMALS: Soft to palpation, non-tender, No hepatosplenomegaly present and no masses AUSCULTATION: Yes normoactive bowel sounds PALPATION: Yes Soft to palpation and Yes No hepatosplenomegaly present RECTAL EXAM: Yes deferred OTHER: colostomy bag with minimal watery stool. Extremity COMMON NORMALS: no clubbing, cyanosis or edema and no pedal edema Neuro COMMON NORMALS: patient oriented x3 Urinary Catheter Management^: Dixon: Cath Placed During This Visit: yes, but has since been removed by the nurse Reason for Continuing Indwelling Catheter: Decision to DC Catheter Urinary Catheter Date of Insertion: 09/30/20 Urinary Catheter Time of Insertion: 14:40 Date Urinary Catheter Removed: 10/01/20 Time Urinary Catheter Discontinued: 06:00 Discharge Data Data Completed and Pending: Completed Studies During Hospitalization Category Date Time Status CT abdomen pelvis wo con [id number] Stat Cat Scan 09/30/20 19:47 Completed XR abdomen 1V* [id number] Stat Exams 09/30/20 14:50 Completed Pending at discharge Category Date Time Status Complete Blood Co unt w/Auto AM LABS Lab 10/04/20 04:00 Ordered Complete Blood Co unt w/Auto AM LABS Lab 10/05/20 04:00 Ordered Comprehensive Met abolic Panel AM LA BS Lab 10/04/20 04:00 Ordered Comprehensive Met abolic Panel AM LA BS Lab 10/05/20 04:00 Ordered Magnesium AM LABS Lab 10/04/20 04:00 Ordered Magnesium AM LABS Lab 10/05/20 04:00 Ordered Miscellaneous Lauren t Routine Lab 10/03/20 10:30 Received Miscellaneous Lauren t Routine Lab 10/03/20 10:30 Received OVA and Parasites , Conc and PE Rout ine Lab 10/03/20 10:30 Received Phosphorus AM LAB S Lab 10/04/20 04:00 Ordered Phosphorus AM LAB S Lab 10/05/20 04:00 Ordered Labs from last 24 hours 10/03/20 10/03/20 10/03/20 11:20 11:20 10:30 WBC 5.1 RBC 6.18 H Hgb 16.8 H Hct 52.3 H MCV 84.6 MCH 27.2 L MCHC 32.1 RDW 17.2 H Plt Count 192 MPV 9.3 Neut % (Auto) 64.4 Lymph % (Auto) 20.5 [place] % (Auto) 14.5 Eos % (Auto) 0.0 Baso % (Auto) 0.4 Neut # (Auto) 3.29 Lymph # (Auto) 1.1 [place] # (Auto) 0.7 Eos # (Auto) 0.0 Baso # (Auto) 0.0 Nucleated RBC % (a uto) 0 Nucleated RBCs # 0.0 Sodium 142 Potassium 4.0 Chloride 108 H Carbon Dioxide 24 Anion Gap 14.0 BUN 29 H Creatinine 1.9 H GFR Calculation 35.2 L Glucose 87 Calculated Osmolal ity 299 H Calcium 8.8 Phosphorus 2.0 L Magnesium 1.4 L Total Bilirubin 1.9 H AST 12 ALT 9 Alkaline Phosphata se 61 Total Protein 6.1 L Albumin 3.5 Globulin 2.6 Misc Test Referenc e Pending 10/03/20 10/01/20 10:30 17:25 WBC RBC Hgb Hct MCV MCH MCHC RDW Plt Count MPV Neut % (Auto) Lymph % (Auto) [place] % (Auto) Eos % (Auto) Baso % (Auto) Neut # (Auto) Lymph # (Auto) [place] # (Auto) Eos # (Auto) Baso # (Auto) Nucleated RBC % (a uto) Nucleated RBCs # Sodium Potassium Chloride Carbon Dioxide Anion Gap BUN Creatinine GFR Calculation Glucose Calculated Osmolal ity Calcium Phosphorus Magnesium Total Bilirubin AST ALT Alkaline Phosphata se Total Protein Albumin Globulin Misc Test Referenc e Pending See comment Vitals: Last Vital Signs Temp 97.7 F 10/03/20 12:00 Pulse 87 10/03/20 13:00 Resp 18 10/03/20 12:00 BP 141/70 10/03/20 13:00 Pulse Ox 99 10/03/20 12:00 Discharge Plan Discharge Patient Disposition: Home Condition: Stable Prescriptions: Continued triamcinolone acetonide 0.1 % ointment 1 applic TOPICAL DAILY PRN (Reason: unknown) RF: 0 Xarelto 20 mg tablet 20 mg PO DAILY@2200 RF: 0 melatonin 5 mg capsule 5 mg PO BEDTIME@2200 RF: 0 B-complex with vitamin C [Super B Complex-Vitamin C] Tablet 1 tab PO DAILY@1200 RF: 0 ondansetron HCl [Zofran] 4 mg tablet 4 mg PO Q8H PRN (Reason: nausea and vomiting) Qty: 30 RF: 0 syringe with needle, safety [BD Safety-Sally Detachable Needl] 3 mL 22 gauge x 1 1/2 syringe See Rx Instructions .ROUTE .COMPLEX Qty: 12 RF: 0 cyanocobalamin (vitamin B-12) 1,000 mcg/mL solution 1,000 mcg IM .monthly Qty: 1 RF: 3 metoprolol tartrate 25 mg tablet 25 mg PO BID@1200,2200 RF: 0 Plavix 75 mg tablet 75 mg PO DAILY@1200 RF: 0 simvastatin 40 mg tablet 40 mg PO BEDTIME@2200 RF: 0 pantoprazole 40 mg tablet,delayed release (DR/EC) 40 mg PO BID@1200,2200 RF: 0 Held lisinopril 2.5 mg tablet See Rx Instructions .ROUTE .COMPLEX Qty: 90 RF: 0 Hold Instructions: Resume on 10/10/20. chlorthalidone 25 mg tablet 25 mg PO DAILY@1200 RF: 0 Hold Instructions: Resume on 10/10/20. Discontinued metoprolol tartrate 50 mg tablet 50 mg PO BID@1200,2200 RF: 0 No Action ciprofloxacin HCl [Cipro] 500 mg tablet 500 mg PO BID Qty: 60 RF: 0 metronidazole [Flagyl] 500 mg tablet 500 mg PO BID Qty: 60 RF: 0 codeine sulfate 30 mg tablet 30 mg PO BID 30 Days Qty: 60 RF: 0 Discharge Orders: Discharge Order (Routine); Ordered 10/03/20 Ordered By: Geovanni Rich Referrals: Luis Yang MD [Primary Care Provider] - 10/13/20 10:45 am Discharge Diet: Usual diet Discharge Activity: Resume usual activity Patient Instructions: Atrial Fibrillation (DC), Urinary Retention in Men (GEN), Abdominal Pain (ED) Discharge Attestations Time Spent in Discharge Care*: greater than 30 min Specific Discharge Activities: educating patient, educating and/or supporting family/caregiver, discussing with pcp/other providers, discussing with nurse case management/social workers/dc planners, documenting/other paperwork and evaluating patient/reviewing data Status at Discharge: Cognitive status at discharge: cognitively intact, Behavioral status at discharge: cooperative, Functional status at discharge: independent ambulation Overall status at discharge: patient is back to baseline Quality Metrics Clinical Quality Measures During this hospital stay, did patient experience: None Coding Level of Care Code Acute Palaeontologist for Chg Fwd Diagnoses Acute urinary retention R33.8 Acute kidney injury superimposed on chronic kidney disease N17.9; N18.9 Diarrhea R19.7 A-fib I48.91 Elevated brain natriuretic peptide (BNP) level R79.89 EDITH on CPAP G47.33; Z99.89 HTN (hypertension) I10
== END 2020-10-03 15:45 | disposition home or self-care (01) | DRG 683 ==
LOC: ER 16:01 → MEDSURG 21:55
PROVIDERS: Internal Medicine; Internal Medicine Nephrology; Admitting Provider Internal Medicine; Emergency Provider Family Medicine; PCP Internal Medicine; Visit Provider Internal Medicine
DX: N17.0 Acute kidney failure with tubular necrosis (principal); Q61.3 Polycystic kidney, unspecified; E87.2 Acidosis; I48.20 Chronic atrial fibrillation, unspecified; N40.1 Benign prostatic hyperplasia with lower urinary tract symptoms; R33.8 Other retention of urine; Z93.3 Colostomy status; K21.9 Gastro-esophageal reflux disease without esophagitis; M10.9 Gout, unspecified; Z85.828 Personal history of other malignant neoplasm of skin; I12.9 Hypertensive chronic kidney disease with stage 1 through stage 4 chronic kidney disease, or unspecified chronic kidney disease; N18.4 Chronic kidney disease, stage 4 (severe); D50.9 Iron deficiency anemia, unspecified; G47.33 Obstructive sleep apnea (adult) (pediatric); I48.0 Paroxysmal atrial fibrillation; Z96.659 Presence of unspecified artificial knee joint; K52.9 Noninfective gastroenteritis and colitis, unspecified; T50.4X5A Adverse effect of drugs affecting uric acid metabolism, initial encounter; E86.0 Dehydration; E87.5 Hyperkalemia; R31.9 Hematuria, unspecified; Z79.01 Long term (current) use of anticoagulants; Z79.02 Long term (current) use of antithrombotics/antiplatelets
CPT/HCPCS: 12345; 36415; 51702; 74018; 74176; 80048; 80053; 81001; 82550; 83630; 83735; 83880; 84100; 85025; 87046; 87086; 87177; 87209; 87493; 93005; 99283; J7030; Q3014

== ENCOUNTER → 2020-10-05 16:41 | Outpatient (BNVA) | payer MEDICARE, OTHER, SELFPAY | PROVIDERS: PCP Internal Medicine; Visit Provider Internal Medicine | DX: K52.9 Noninfective gastroenteritis and colitis, unspecified (principal); E87.6 Hypokalemia | CPT/HCPCS: 80048 ==

== ENCOUNTER → 2021-01-25 16:14 | Outpatient (BNVA) | payer MEDICARE, OTHER, SELFPAY | PROVIDERS: PCP Internal Medicine; Visit Provider Internal Medicine | DX: G62.9 Polyneuropathy, unspecified (principal); M10.9 Gout, unspecified; K52.9 Noninfective gastroenteritis and colitis, unspecified; I10 Essential (primary) hypertension; I82.409 Acute embolism and thrombosis of unspecified deep veins of unspecified lower extremity; D50.9 Iron deficiency anemia, unspecified; K21.9 Gastro-esophageal reflux disease without esophagitis | CPT/HCPCS: 83036; 83550 ==

== ENCOUNTER → 2021-02-08 08:54 | Day surgery (SDC) | payer MEDICARE, OTHER, SELFPAY ==
[2021-02-08] MEDS: ferric carboxy (IVPB) 750 MG in sodium chloride 0.9% (100 ml) 100 ML 345 MG IV (09:21)
[2021-02-08 09:26] VITALS: BP 136/82; PULSE 84; RESP 18; TEMP 36.4; O2SAT 96
== END ==
PROVIDERS: PCP Internal Medicine; Visit Provider Internal Medicine
DX: D50.9 Iron deficiency anemia, unspecified (principal)
CPT/HCPCS: 96365; J1439

== ENCOUNTER → 2021-02-15 08:52 | Day surgery (SDC) | payer MEDICARE, OTHER, SELFPAY ==
[2021-02-15 09:09] VITALS: BP 125/71; PULSE 88; RESP 18; TEMP 36.4; O2SAT 96; BMI 36.6
[2021-02-15] MEDS: ferric carboxy (IVPB) 750 MG in sodium chloride 0.9% (100 ml) 100 ML 345 MG IV (09:18)
== END ==
PROVIDERS: PCP Internal Medicine; Visit Provider Internal Medicine
DX: D50.9 Iron deficiency anemia, unspecified (principal)
CPT/HCPCS: 96365; J1439

== ENCOUNTER 2021-03-24 09:17 | Outpatient (CLI) | payer MEDICARE, OTHER, SELFPAY ==
[2021-03-24 09:30] VITALS: BMI 36.6
--- NOTE | 2021-03-24 09:53 | ECG_ITS ---
[facility] Test Date: 2021-03-24 Pat Name: Earle Mireles Department: Room: Gender: Male Hand Clerical Verifier: : 1950 Requested By: Luis Yang Order Number: [id number] Ana MD: Paula Walker M.D. Interpretive Statements Name of study: Lexiscan sestamibi myocardial perfusion imaging Indication: Shortness of breath PROCEDURE: At the baseline, the blood pressure was 141/85 mmHg with a heart rate of 86 beats per minute. The electrocardiogram showed atrial fibrillation, left axis deviation. Incomplete right bundle branch block. Nonspecific ST-T wave changes. The Lexiscan was infused over a period of 20 seconds. A total of 0.4 milligrams of Lexiscan was infused. The stress phase was continued for a total of 5 minutes. Heart rate at the end of the stress phase was 100 bpm with a blood pressure of 157/88 mmHg. The EKG at the peak infusion revealed no significant ST-T wave changes. The study was terminated due to protocol completion. Sestamibi was injected 20 seconds after the Lexiscan infusion. Blood pressure at the end of the recovery phase was 134/87 mmHg with a heart rate of 98 beats per minute. CONCLUSION: 1. No significant EKG changes with the LexiScan infusion. 2. No LexiScan induced chest pain or cardiac arrhythmia. 3. Normal blood pressure and heart rate response. 4. Sestamibi/sestamibi perfusion scan pending; see separate report. Electronically Signed On 03-27-2021 13:08:03 CDT by Paula Walker M.D. [email or web address]
--- NOTE | 2021-03-24 09:54 | NMCV_ITS ---
NM akin perf SPECT r/s* [id number] Earle Mireles Age: 70 Gender: M : 1950 Exam Date: 03/24/2021 10:27 Ordering Phys: Luis Yang MD Technologist: SMOOTH Sloan Exam Location: [facility] Indications: SHORTNESS OF BREATH STRESS TEST Please see separate stress [facility] for full findings IMAGE PROTOCOL Rest/Stress 1 Lexiscan Day Radiopharmaceutical Dose (mCi) Administration Site Administered by Rest: Tc-99m 10.9 IV Ole Canada, SMOOTH Sestamibi Stress:Tc-99m 32.2 IV SMOOTH Champion Sestamibi Rest: 24-Mar-2021 60 Discovery 630 Stress: 24-Mar-2021 30 Discovery 630 0.4mg Lexiscan. Images obtained in supine and prone position. SPECT RESULTS Technical Quality: Excellent Raw Data Analysis: Normal Image Corrections: No attenuation or motion correction applied Summed Stress Score: 8 Summed Rest Score: 13 Summed Difference Score: 0 PERFUSION FINDINGS Large size perfusion abnormality of mild to moderate severity of basal to apical inferior, apical septal, apical lateral, apical anterior and apical nunez on rest images with improved tracer uptake in entire inferior, apical septal and apical lateral nunez on stress images. FUNCTIONAL RESULTS (calculated via Gated SPECT) Stress Image LV EF (%): 70 Stress EDV (mL):104 TID: 1.12 Stress ESV (mL):31 FUNCTIONAL FINDINGS: The left ventricle is normal in size. Transient Ischemia Dilatation of 1.1. There is normal left ventricular systolic function. The left ventricular ejection fraction is normal with a value of 70%. There is normal left ventricular wall thickening with no regional wall motion abnormality. Normal end-diastolic and end-systolic volumes. IMPRESSIONS 1. Large sized perfusion abnormality of mild to moderate severity of basal to apical inferior, apical septal, apical lateral, apical anterior and apical nunez with improved tracer uptake on stress images. 2. This likely represents attenuation artifact. However old myocardial infarction in right coronary artery territory cannot be completely ruled out. 3. Overall left ventricular systolic function is normal without regional wall motion abnormalities. 4. The left ventricular ejection fraction is normal with a value of 70%. 5. No significant coronary ischemia based on the study. Paula Walker MD (Electronically Signed) Final Date: 27 March 2021 13:18 S
[2021-03-24] MEDS: regadenoson 0.4 Mg/5 ml Syringe IVP (11:15)
[2021-03-24 11:28] VITALS: BP 134/87; PULSE 97
== END 2021-03-24 09:18 | disposition home or self-care (01) ==
LOC: CDL 09:18
PROVIDERS: PCP Internal Medicine; Visit Provider Internal Medicine
DX: R06.00 Dyspnea, unspecified (principal); R06.02 Shortness of breath
CPT/HCPCS: 78452; 93017; A9500; J2785

== ENCOUNTER → 2021-03-28 08:29 | Outpatient (BNVA) | payer MEDICARE, OTHER, SELFPAY | PROVIDERS: PCP Internal Medicine; Visit Provider Internal Medicine | DX: D50.9 Iron deficiency anemia, unspecified (principal) | CPT/HCPCS: 83550 ==

== ENCOUNTER 2021-05-10 14:58 | Outpatient (CLI) | payer MEDICARE, OTHER, SELFPAY ==
--- NOTE | 2021-05-10 15:00 | US_ITS ---
WS: [id number] ULTRASOUND SOFT TISSUES inner RIGHT thigh. HISTORY: Cellulitis of groin COMPARISON: None available. TECHNIQUE: 2-D and color Doppler imaging is submitted. Moderate amount of soft tissue edema infiltrating throughout the soft tissues of the inner RIGHT thig h in the area of clinical concern. There is no focal area of consolidation or localized collection. US/US soft tissue/extremity [id number] IMPRESSION: Cellulitis inner RIGHT thigh. No focal abscess.
== END 2021-05-10 14:59 | disposition home or self-care (01) ==
PROVIDERS: PCP Internal Medicine; Visit Provider Internal Medicine
DX: L03.314 Cellulitis of groin (principal)
CPT/HCPCS: 76882

== ENCOUNTER → 2021-05-16 10:52 | Outpatient (BNVA) | payer MEDICARE, OTHER, SELFPAY | PROVIDERS: PCP Internal Medicine; Visit Provider Internal Medicine | DX: M10.9 Gout, unspecified (principal); R09.1 Pleurisy | CPT/HCPCS: 80053 ==

== ENCOUNTER → 2021-05-24 13:38 | Outpatient (BNVA) | payer MEDICARE, OTHER, SELFPAY | PROVIDERS: PCP Internal Medicine; Visit Provider Internal Medicine | DX: N52.2 Drug-induced erectile dysfunction (principal); M10.9 Gout, unspecified | CPT/HCPCS: 84403; G0103 ==

== ENCOUNTER 2021-05-31 15:01 | Outpatient (CLI) | payer MEDICARE, OTHER, SELFPAY ==
--- NOTE | 2021-05-31 15:06 | XR_ITS ---
WS: [id number] Exam: XR ankle LT 2V [id number] Date/Time of Exam: 05/31/2021 3:17 PM Reason For Exam: ankle pain No acute fracture or dislocation. Fracture of the midportion of the fibula partially visualized. Soft tissue swelling or mass seen along the lateral aspect of the ankle. XR/XR ankle LT 2V [id number] IMPRESSION: 1. No acute fracture. 2. Old fibular fracture partially visualized. 3. Soft tissue swelling and/or mass along the lower fibula.
== END 2021-05-31 15:02 | disposition home or self-care (01) ==
PROVIDERS: PCP Internal Medicine; Visit Provider Internal Medicine
DX: M25.572 Pain in left ankle and joints of left foot (principal)
CPT/HCPCS: 73600

== ENCOUNTER 2021-06-03 22:35 | Emergency (ER) | payer MEDICARE, OTHER, SELFPAY ==
[2021-06-03 23:04] VITALS: BP 146/84; PULSE 91; RESP 16; TEMP 36.8; O2SAT 93; BMI 37.3
--- NOTE | 2021-06-04 00:53 | ED_ITS ---
HPI - General Adult General: Chief complaint: General Medical Stated complaint: lump in scrotum Time Seen by Provider: 06/04/21 00:53 History of Present Illness: HPI narrative: 71-year-old male patient comes in today with complaints of swelling and tenderness to the lower scrotum. Patient reports noticing the area yesterday. Patient appears well. Patient appears no acute distress. Patient does have a history of intact ileostomy, gout, GERD, anemia, and recent cellulitis of the groin. Patient has to take Cipro routinely for chronic loose stools. Patient reports the Cipro helps control the diarrhea. Patient denies any history of diabetes. Review of Systems General: Reports: 10 or more systems reviewed and unremarkable except in HPI and below Skin/Breast: Reports: other (knot to the scrotum) PFSH ED PFSH: Medical History A-fib Abdominal pain in male Acute kidney injury superimposed on chronic kidney disease Resolved Acute urinary retention Resolved Diarrhea Chronic Elevated brain natriuretic peptide (BNP) level GERD (gastroesophageal reflux disease) Gout of ankle History of SCC (squamous cell carcinoma) of skin HTN (hypertension) Iron deficiency anemia EDITH on CPAP Paroxysmal atrial fibrillation Polycystic kidney disease Surgical History History of circumcision History of colectomy History of hernia repair History of shoulder surgery History of total colectomy History of total knee replacement Family History Mother Atrial fibrillation Social History Smoking and tobacco status: never smoked Alcohol intake: never Household members: spouse Housing: House History of recent travel: No Physical Exam Const: COMMON NORMALS: no acute distress and patient oriented x3 GENERAL APPEARANCE: cooperative HENMT: COMMON NORMALS: normocephalic and Normal external nose present HEAD & SCALP: normal to inspection and normocephalic NOSE: Normal external nose present Eye: GENERAL EYE: appearance normal, both eyes and all related structures Neck/C-Spine: COMMON NORMALS: full ROM Chest: COMMONS NORMALS: normal inspection of the chest Resp: COMMON NORMALS: normal respiratory effort EFFORT & INSPECTION: Yes able to speak in complete sentences Cardio: COMMON NORMALS: regular rate and regular rhythm RATE: regular rate RHYTHM: regular rhythm GI: COMMON NORMALS: non-tender Extremity: COMMON NORMALS: normal to inspection Neuro: COMMON NORMALS: patient oriented x3 and moves all extremities Psych: COMMON NORMALS: mental status grossly normal and cooperative Skin: NARRATIVE SKIN EXAM: To the lower scrotum on the right side there is a 1 cm nodule with some serous drainage from a pinpoint opening. Surrounding tissue has about a 2 cm area of redness with mild induration. Course Vital Signs: Vital signs: Vital Signs Temperature 98.2 F 06/03/21 23:04 Pulse Rate 91 06/03/21 23:04 Respiratory Rate 16 06/03/21 23:04 Blood Pressure 146/84 06/03/21 23:04 Pulse Oximetry 93 06/03/21 23:04 MDM - General Adult MDM Narrative: Medical decision making narrative: Patient comes in today with complaints of a knot to the lower scrotum. On exam there is a palpable 1 cm knot to the lower scrotum with a area of drainage. There is a surrounding redness to the nodule that does not extend off the scrotum. Vital signs are normal. Differential diagnosis includes abscess, inclusion of cyst, cellulitis. Will place patient on Bactrim 1 tablet twice a day for 10 days. Case management to refer to surgery for further evaluation and treatment. Patient will monitor for high fever and worsening symptoms return as needed. Discharge Plan Discharge Patient Disposition: Home Clinical Impression: Scrotal abscess Condition: Stable Prescriptions: New Bactrim DS 800-160 mg tablet 1 tab PO DAILY 10 Days RF: 0 No Action triamcinolone acetonide 0.1 % ointment 1 applic TOPICAL DAILY PRN (Reason: unknown) RF: 0 melatonin 5 mg capsule 5 mg PO BEDTIME@2200 RF: 0 B-complex with vitamin C [Super B Complex-Vitamin C] Tablet 1 tab PO DAILY@1200 RF: 0 ondansetron HCl [Zofran] 4 mg tablet 4 mg PO Q8H PRN (Reason: nausea and vomiting) Qty: 30 RF: 0 codeine sulfate 30 mg tablet 30 mg PO BID 30 Days Qty: 60 RF: 0 ciprofloxacin HCl [Cipro] 500 mg tablet 500 mg PO BID Qty: 180 RF: 3 amoxicillin-pot clavulanate [Augmentin] 875-125 mg tablet 1 tab PO BID Qty: 20 RF: 0 Plavix 75 mg tablet 75 mg PO DAILY@1200 Qty: 90 RF: 3 chlorthalidone 25 mg tablet 25 mg PO DAILY Qty: 90 RF: 3 cyanocobalamin (vitamin B-12) 1,000 mcg/mL solution 1,000 mcg IM .monthly Qty: 1 RF: 3 Xarelto 20 mg tablet 20 mg PO DAILY@2200 Qty: 90 RF: 3 simvastatin 40 mg tablet 40 mg PO BEDTIME@2200 Qty: 90 RF: 3 pantoprazole 40 mg tablet,delayed release (DR/EC) 40 mg PO BID@1200,2200 Qty: 180 RF: 3 febuxostat [Uloric] 40 mg tablet 40 mg PO DAILY Qty: 90 RF: 3 prednisone 10 mg tablet See Rx Instructions .Route .COMPLEX Qty: 1 RF: 0 lisinopril 2.5 mg tablet See Rx Instructions .ROUTE .COMPLEX Qty: 90 RF: 0 Hold Instructions: Resume on 10/10/20. colchicine [Colcrys] 0.6 mg tablet 0.6 mg PO .COMPLEX Qty: 30 RF: 8 oxycodone-acetaminophen [Percocet] 5-325 mg tablet 1 tab PO Q8H PRN (Reason: pain) 7 Days Qty: 7 RF: 0 metoprolol tartrate 50 mg tablet See Rx Instructions .ROUTE .COMPLEX Qty: 180 RF: 0 Discharge Orders: Discharge ED (Routine); Ordered 06/04/21 Ordered By: Robbin Donahue Referrals: Luis Yang MD [Primary Care Provider] - Discharge Diet: Usual diet Discharge Activity: Increase activity as tolerated Patient Instructions: Abscess (ED), Opioid Safety Activity Restrictions/Additional Instructions: Take antibiotic as directed. Use warm moist packs to the area to promote drainage of abscess. Do not pinch or apply pressure to the area. Follow-up with primary care as needed. Return to the ER for worsening symptoms. Case management will contact you regarding follow-up appointment with surgeon for further evaluation and consideration of drainage of site. Coding Level of Care Code ED Servomechanism Designer for Pankaj Mooney
[2021-06-04] MEDS: sulfamethoxazole-trimeth DS 160-800 mg Tablet 1 TAB PO (01:24)
[2021-06-04 01:32] VITALS: BP 139/92; PULSE 87; RESP 16; TEMP 36.8; O2SAT 95
--- NOTE | 2021-06-06 15:58 | DCPLANNER ---
employee communications manager had message to schedule a follow up appointment for patient with general surgery. employee communications manager emailed patients information to both Alida and Sia at [facility] General Surgery. Patients information will be printed and reviewed. Clinic will call patient with appointment information.
--- NOTE | 2021-06-15 08:13 | DCPLANNER ---
Patient has a follow up appointment scheduled for Sunday, June 20, 2021 at 10:[address] Herrmann. Clinic will call patient with appointment information.
--- NOTE | 2021-06-23 13:59 | DCPLANNER ---
Patient had a follow up appointment scheduled for 06.20.21 with general surgery - patient did not attend appointment.
== END 2021-06-04 01:33 | disposition home or self-care (01) ==
PROVIDERS: Emergency Provider Nurse Practitioner Family; PCP Internal Medicine
DX: N49.2 Inflammatory disorders of scrotum (principal); Z79.02 Long term (current) use of antithrombotics/antiplatelets; I10 Essential (primary) hypertension
CPT/HCPCS: 99283

== ENCOUNTER → 2021-08-03 08:16 | Outpatient (BNVA) | payer MEDICARE, OTHER, SELFPAY | PROVIDERS: PCP Internal Medicine; Visit Provider Urology | DX: Z01.812 Encounter for preprocedural laboratory examination (principal); Z20.822 Contact with and (suspected) exposure to COVID-19 | CPT/HCPCS: 87635 ==

== ENCOUNTER 2021-08-15 16:19 | Inpatient (IN) | payer MEDICARE, OTHER, SELFPAY ==
--- NOTE | 2021-08-15 16:38 | ECG_ITS ---
[facility] Test Date: 2021-08-15 Pat Name: Earle Mireles Department: Room: 112 Gender: Male Assistant Federal Public Defender: : 1950 Requested By: Luis Yang Order Number: [id number] Ana MD: Paula Walker M.D. Measurements Intervals [place] Rate: 91 P: [place]: QRS: -26 QRSD: 125 T: -9 QT: 396 QTc: 488 Interpretive Statements ATRIAL FIBRILLATION WITH ABERRANT CONDUCTION OR VENTRICULAR PREMATURE COMPLEXES INDETERMINATE AXIS POSSIBLE RIGHT VENTRICULAR CONDUCTION DELAY [RSR (QR) IN V1/V2] ABNORMAL RHYTHM ECG Compared to ECG 09/30/2020 15:28:33 Ventricular premature complex(es) now present Aberrant conduction of supraventricular beat(s) now present Indeterminate axis now present Incomplete right bundle-branch block no longer present Atrial abnormality no longer present Electronically Signed On 08-16-2021 7:37:01 HYDROCHLORIC ACID OPERATOR by Paula Walker M.D. [id number]
--- NOTE | 2021-08-15 16:40 | PM.HP ---
Providers/Chief Complaint Admitting Physician: Luis Yang MD Primary Care Provider: Luis Yang MD Chief Complaint: accute kylee History of Present Illness Earle Mireles is a 71 year old male who carries a history of atrial fibrillation, has been getting iron infusion for last 2 years(twice a year), BPH status post TURP, left-sided polycystic kidney disease, chronic kidney disease stage IV(takes lisinopril),Presented to Dr. Yang's clinic today for chief complaint of fatigue lethargy and dark urine. Patient is stating that he had a penile implant done on Saturday from [facility], since then he has been feeling extreme lethargic, fatigued, he is not able to sit for long peroid of time, he does feel pressure around his perineal area. He has not noticed any increased drainage, he has not noticed any fever. He has been noticing normal output from his ileostomy bag. His urine has been dark, he does have symptoms of obstructive uropathy. His symptoms of weakness fatigue and lethargy are just 1 week old. Patient is stating that he has not taken testosterone regular basis, he does not wear dentures. His house is 26 years old less likely to have any lead poisoning. No previous history of seizure coarse tremors or strokelike features. No family history of liver cirrhosis. He has never been diagnosed with hepatitis. No recent traveling. Please note today patient started experiencing chest pain when he was at rest, he is describing this pain as heaviness, substernal nonradiating which got relieved after taking sublingual nitroglycerin, his pain last only for 30 minutes. He does have history of coronary disease with stent placed in the past Work-up showed acute liver failure I have requested CT abdomen pelvis, hemochromatosis work-up with iron panel drug screen In case I find anything significant related to his recent penile implant, would recommend transfer back to [facility] Penile implant is AMS 700 (silicone) Polycythemia Bilirubin 11 Coagulopathy related to liver failure Patient is able to give above-mentioned history son at the bedside Imaging is pending He is afebrile, no leukocytosis N.p.o. after midnight, stress test in the morning serial troponin and EKG Review of Systems Const: Reports: body aches, change in appetite, change in weight, fatigue, malaise and night sweats; Denies: fever(s) Eyes: Denies: change in vision ENMT: Denies: throat pain Card: Reports: chest pain and irregular heart rhythm Resp: Reports: dyspnea GI: Reports: nausea and GI cramping : Denies: flank pain Musc: Denies: neck pain Skin/Breast: Reports: changes in skin color Neuro: Denies: headache(s) Psych: Denies: anxiety Endo: Denies: polyuria Yoseph/Lymph: Denies: easy bruising All/Imm: Denies: urticaria Medications/Allergies Home Medications Medication Instructions Recorded Confirmed Last Taken Type B-complex with vitamin C 1 tab PO DAILY@1200 01/07/20 08/15/21 02/14/21 History melatonin 5 mg capsule 5 mg PO BEDTIME@2200 cap 01/07/20 08/15/21 02/14/21 History triamcinolone acetonide 0.1 % 1 applic TOPICAL DAILY PRN 01/07/20 08/15/21 02/14/21 History topical ointment lisinopril 2.5 mg tablet See Rx Instructions .ROUTE 09/19/20 08/15/21 02/14/21 Rx .COMPLEX #90 tab ondansetron HCl 4 mg tablet 4 mg PO Q8H PRN #30 tab 09/26/20 08/15/21 02/14/21 Rx codeine sulfate 30 mg tablet 30 mg PO BID 30 Days #60 tab 10/10/20 08/15/21 02/14/21 Rx chlorthalidone 25 mg tablet 25 mg PO DAILY #90 tab 01/25/21 08/15/21 02/14/21 Rx clopidogrel 75 mg tablet 75 mg PO DAILY@1200 #90 tab 01/25/21 08/15/21 02/14/21 Rx pantoprazole 40 mg tablet,delayed 40 mg PO BID@1200,2200 #180 tab 01/25/21 08/15/21 02/14/21 Rx release rivaroxaban 20 mg tablet 20 mg PO DAILY@2200 #90 tab 01/25/21 08/15/21 02/14/21 Rx simvastatin 40 mg tablet 40 mg PO BEDTIME@2200 #90 tab 01/25/21 08/15/21 02/14/21 Rx ciprofloxacin HCl 500 mg tablet 500 mg PO BID #180 tab 02/23/21 08/15/21 Unknown Rx colchicine 0.6 mg tablet 0.6 mg PO .COMPLEX #30 tab 05/14/21 08/15/21 Unknown Rx oxycodone-acetaminophen 5 mg-325 1 tab PO Q8H PRN 7 Days #7 tab 05/14/21 08/15/21 Unknown Rx mg tablet febuxostat 40 mg tablet 40 mg PO DAILY #90 tab 05/16/21 08/15/21 Unknown Rx metoprolol tartrate 50 mg tablet See Rx Instructions .ROUTE 05/30/21 08/15/21 Unknown Rx .COMPLEX #180 tab cyanocobalamin (vitamin B-12) 1,000 mcg IM .monthly #1 ml 07/24/21 08/15/21 Unknown Rx 1,000 mcg/mL injection solution prednisone 20 mg tablet 20 mg PO DAILY PRN tab 07/31/21 08/15/21 Unknown History tamsulosin 0.4 mg capsule 0.4 mg PO QDAY #30 cap 08/01/21 08/15/21 Unknown Rx Allergies Allergy/AdvReac Type Severity Reaction Status Date / Time No Known Allergies Allergy Verified 08/15/21 13:33 PFSH Acute PFSH: Medical History (Updated 08/15/21 @ 18:41 by Dina Taveras MD) A-fib Abdominal pain in male Acute kidney injury superimposed on chronic kidney disease Resolved Acute urinary retention Resolved Coagulopathy Diarrhea Chronic Elevated brain natriuretic peptide (BNP) level GERD (gastroesophageal reflux disease) Gout of ankle History of SCC (squamous cell carcinoma) of skin HTN (hypertension) Iron deficiency anemia EDITH on CPAP Paroxysmal atrial fibrillation Polycystic kidney disease Polycythemia Surgical History (Updated 08/15/21 @ 18:41 by Dina Taveras MD) History of circumcision History of colectomy History of hernia repair History of penile implant History of shoulder surgery History of total colectomy History of total knee replacement Family History Mother Atrial fibrillation Social History Smoking and tobacco status: never smoked Alcohol intake: current Alcohol intake frequency: holidays/special occasions only Household members: spouse Housing: House Current occupational status: retired History of recent travel: No Physical Exam Narrative: EXAM NARRATIVE: Very pleasant cooperative elderly male Laying in left lateral position Comfortable Hyperpigmented skin Scleral icterus No asterixis No signs of cyanosis Prominent abdominal wall vessels Splenomegaly however I was not able to able to palpate lower border of liver Ileostomy bag with stool content penile implant with drain No strokelike symptoms Nonfocal neuro exam No audible stridor or wheezing Saturating well on room air Data : 08/15/21 17:25 A&P Assessment and plan (1) Acute liver failure: Status: Acute (2) Unstable angina: Status: Acute (3) Erectile dysfunction: Status: Acute Qualifiers: Erectile dysfunction type: drug-induced Qualified Code(s): N52.2 - Drug-induced erectile dysfunction (4) Peripheral neuropathy: Status: Acute (5) Iron deficiency anemia: Status: Acute (6) Paroxysmal atrial fibrillation: Status: Acute (7) Jaundice: Status: Acute Additional A&P Information Unstable angina Moderate risk factors Will require stress test in the morning Serial troponin EKG History of established coronary disease No active chest pain Hold metoprolol for cardiac stress test Acute liver failure My suspicion is related to iron toxicity/iron overload he has been getting iron IV infusions for last 2 years Rule out hemochromatosis he does have ferritin close to 1000, low iron level We will touch base with junior database administrator in the morning He also have polycythemia, he might benefit from phlebotomy to keep ferritin between 50-1 50 Albumin is not significantly low PT high coagulopathy related to acute liver failure, that would support acute liver injury hepatitis panel is negative Clinically does not look fluid overloaded Afebrile no leukocytosis Direct bilirubin is high Drug screen check, patient does not drink alcohol on daily basis, Coagulopathy related to acute liver failure Patient is not bleeding he is polycythemic Treatment of underlying cause will be the best treatment at this point Penile implant does not look infected, I do not think this is DIC, coagulopathy most letter related to acute liver failure Polycythemia after getting iron infusions for iron deficiency anemia in the past, might benefit from phlebotomy BPH status post TURP: Creatinine is normal patient is making dark concentrated urine related to jaundice Discomfort peroneal: We will follow up with CT chest abdomen pelvis if there is any postoperative remarkable/acute changes he should go back to the [facility] for reexploration N.p.o. after midnight for stress test Full code DVT prophylaxis Xarelto A. fib without RVR Attestations Medical Necessity Statement*: More than 2 midnights in the hospital Time Spent in Patient Care: Greater than 35 minutes Coding Level of Care Code Acute Bacteriology Teacher for g Fwd Diagnoses Acute liver failure K72.00 Unstable angina I20.0 Erectile dysfunction N52.2 Erectile dysfunction type: drug-induced Peripheral neuropathy G62.9 Iron deficiency anemia D50.9 Paroxysmal atrial fibrillation I48.0 Jaundice R17
[2021-08-15 16:45] VITALS: BP 133/77; PULSE 94; RESP 18; TEMP 36.3; O2SAT 96
--- NOTE | 2021-08-15 16:46 | CTR_ITS ---
PROCEDURE INFORMATION: Exam: CT Abdomen And Pelvis With Contrast Exam date and time: 08/15/2021 4:46 PM Age: 71 years old Clinical indication: Other: Jaundice; Abdominal pain; Prior surgery; Surgery type: Penile implant, hernia, colectomy; Additional info: Liver failure, bronze skin TECHNIQUE: Imaging protocol: Computed tomography of the abdomen and pelvis with contrast. Radiation optimization: All CT scans at this facility use at least one of these dose optimization techniques: automated exposure control; mA and/or kV adjustment per patient size (includes targeted exams where dose is matched to clinical indication); or iterative reconstruction. Contrast material: OMNI 350; Contrast volume: 95 ml; Contrast route: INTRAVENOUS (IV); COMPARISON: CT abdomen pelvis wo con [id number] 09/30/2020 7:47 PM RADIATION DOSE METRICS: Total DLP (mGy-cm): 1981.38 FINDINGS: Tubes, catheters and devices: Penile implant and associated reservoir are in place. Liver: Hepatic steatosis. Gallbladder and bile ducts: Elongated gallbladder distension noted with mucosal enhancement and wall edema or pericholecystic fluid. Pancreas: Normal. No ductal dilation. Spleen: Accessory splenule noted. No focal splenic abnormalities or enlargement. Adrenal glands: Normal. No mass. Kidneys and ureters: Extensive left renal cystic changes and milder cystic findings on the right are similar to prior study. Stomach and bowel: Large hiatal hernia is noted with at least half of the stomach intrathoracic. Changes of colectomy. Ileostomy in place. No abnormal bowel distention. Appendix: No evidence of appendicitis. Intraperitoneal space: Unremarkable. No free air. No significant fluid collection. Vasculature: Unremarkable. No abdominal aortic aneurysm. Lymph nodes: Unremarkable. No enlarged lymph nodes. Urinary bladder: Unremarkable as visualized. Reproductive: There are findings suggesting prostatectomy. Bones/joints: No acute fracture. Soft tissues: Small supraumbilical ventral hernia contains a loop of small bowel which is not obstructed. Peristomal hernia also noted. Trace air suggested at the lower rectus sheath. CT/CT abdomen pelvis w con* [id number] IMPRESSION: Gallbladder findings raise consideration of acute cholecystitis; reactive changes to hepatitis are also possible. COMMENTS: Consistent with the [employer]'s Incidental Findings Committee white paper (J Am Oleg Radiol 2018): Any incidental renal lesion less than 1 cm or classified as too small to characterize, or any incidental cystic renal lesion characterized as simple-appearing, is likely benign. No follow-up imaging is recommended for these lesions per consensus recommendations based on imaging criteria. Radiation Dose CTDIVOL = (mGy): DLP = 1981.38 (mGy-cm)
[2021-08-15 17:46] LABS: INR 1.45 (0.8-1.2)
[2021-08-15 17:48] LABS: Fibrinogen 803 mg/dL (174-498)
[2021-08-15 18:10] VITALS: O2SAT 95
[2021-08-15 18:11] LABS: Platelet Count 299 10^3/cmm (130-400)
[2021-08-15 18:12] LABS: Procalcitonin 0.33 ng/mL (0-0.5); Thyroid Stimulating Hormone 1.07 uIU/mL (0.27-4.20); Vitamin B12 700 pg/mL (232-1245)
[2021-08-15 18:22] LABS: Hepatitis A Antibody IgM Non-Reactive (Nonreactive); Hepatitis B Core AB, Total Non-Reactive (Nonreactive); Hepatitis B Surface AB 3.5 (11.5-1000); Hepatitis B Surface Antigen Non-Reactive (Nonreactive); Hepatitis C Virus Antibody Non-Reactive (Nonreactive)
[2021-08-15 18:24] LABS: Chol HDL Ratio 4.09 mg/dL (1.0-5.00); Cholesterol 90 mg/dL (0-200); Ferritin 902 ng/mL (30-400); HDL Cholesterol 22 mg/dL (60-100); Iron 47 ug/dL (59-158); LDL Cholesterol Calculated 49 mg/dL (50-129); LDL HDL Ratio 2.23 RATIO (0.00-3.22); Lactate Dehydrogenase 218 U/L (135-225); Percent Saturation 16.9 % (20-50); Total Iron Binding Capacity 277 mcg/dl; Triglycerides 93 mg/dL (0-150); Unsaturated Iron Binding 230 ug/dL (112-347); Uric Acid 5.3 mg/dL (3.4-7.0)
[2021-08-15 18:25] LABS: Alcohol Level < 10 mg/dL (0-10)
[2021-08-15 18:30] LABS: Total Bilirubin 11.6 mg/dL (0.15-1.2)
[2021-08-15 18:53] LABS: Troponin(5th) Baseline 27 ng/L (0-15)
--- NOTE | 2021-08-15 20:25 | ECG_ITS ---
[facility] Test Date: 2021-08-15 Pat Name: Earle Mireles Department: Room: 112 Gender: Male Business Relationship Manager: : 1950 Requested By: Dina Taveras Order Number: [id number] Ana MD: Paula Walker M.D. Measurements Intervals [place] Rate: 89 P: [place]: QRS: -16 QRSD: 120 T: 31 QT: 386 QTc: 472 Interpretive Statements ATRIAL FIBRILLATION INDETERMINATE AXIS RIGHT BUNDLE BRANCH BLOCK [120+ ms QRS DURATION, UPRIGHT V1, 40+ ms S IN I/aVL/V4/V5/V6] Compared to ECG 08/15/2021 17:36:40 Right bundle-branch block now present Ventricular premature complex(es) no longer present Aberrant conduction of supraventricular beat(s) no longer present Electronically Signed On 08-16-2021 7:36:40 AGRICULTURAL EQUIPMENT MECHANIC by Paula Walker M.D. [id number]
[2021-08-15 20:39] VITALS: BP 130/82; PULSE 83; RESP 20; TEMP 36.6; O2SAT 94
--- NOTE | 2021-08-15 20:40 | PC.NURSE ---
patient to CT at this time via wc.
[2021-08-15] MEDS: iohexol 350 mg/mL 100 mL Btl IV (20:43)
[2021-08-15] MEDS: tamsulosin 0.4 mg Capsule PO (21:59)
[2021-08-15] MEDS: sodium chloride 0.9% 1,000 ML 75 ML IV (21:59)
[2021-08-15] MEDS: pantoprazole DR 40 mg Tablet PO (21:59)
[2021-08-15 22:16] LABS: Lipase 16 U/L (13-60)
[2021-08-15 22:23] LABS: Tumor Marker Alpha Fetoprotein 0.6 ng/mL (0-8.3)
[2021-08-15] MEDS: piperacillin-tazobactam 3.375 GM in sodium chloride 0.9% (plus) 50 ML IV (22:28)
[2021-08-15 23:39] VITALS: BP 122/75; PULSE 101; RESP 26; TEMP 36.3; O2SAT 94
--- NOTE | 2021-08-16 00:25 | ECG_ITS ---
[facility] Test Date: 2021-08-16 Pat Name: Earle Mireles Department: Room: 107 Gender: Male Blind Installer: : 1950 Requested By: Dina Taveras Order Number: [id number] Ana MD: Jak Pandey M.D. Measurements Intervals [place] Rate: 112 P: ME: QRS: -52 QRSD: 120 T: 27 QT: 373 QTc: 511 Interpretive Statements ATRIAL FIBRILLATION WITH RAPID VENTRICULAR RESPONSE RIGHT BUNDLE BRANCH BLOCK [120+ ms QRS DURATION, UPRIGHT V1, 40+ ms S IN I/aVL/V4/V5/V6] LEFT ANTERIOR FASCICULAR BLOCK [QRS AXIS <= -45, QR IN I, RS IN II] Compared to ECG 08/15/2021 23:02:28 Left anterior fascicular block now present Indeterminate axis no longer present Electronically Signed On 08-16-2021 20:48:16 CLEANER AND PRESSER by Jak Pandey M.D. [id number]
[2021-08-16 00:37] LABS: Basophils % 0.2 %; Hematocrit 52.4 % (42.0-52.0); Hemoglobin 17.1 g/dL (11.7-16.6); Lymphocytes # 0.8 10^3/uL (0.8-4.8); Mean Corpuscular HGB Conc 32.6 g/dL (30.0-36.0); Mean Corpuscular Hemoglobin 26.5 pg (28.0-34.0); Mean Corpuscular Volume 81.1 fl (80-94); Mean Platelet Volume 9.7 fL (7.4-10.4); Monocytes % 12.1 %; Neutrophils # 6.28 10^3/uL (1.8-7.7); Neutrophils % 77.3 %; Nucleated Red Blood Cells % 0 %; Platelet Count 270 10^3/cmm (130-400); Red Blood Count 6.46 10^6/uL (4.1-5.3); Red Cell Distribution Width 15.2 % (12.1-15.1); White Blood Count 8.1 10^3/uL (4.0-10.0)
[2021-08-16 00:43] LABS: Troponin 5 6HR 29.31 ng/L (0-15); Troponin 5 6HR Delta 2.31 ng/L (0-12)
[2021-08-16 00:46] LABS: Alanine Aminotransferase 102 U/L (0-41); Albumin Level 3.2 g/dL (3.5-5.2); Alkaline Phosphatase 220 IU/L (40-130); Anion Gap 17.8 (5-19); Aspartate Amino Transferase 148 U/L (0-40); Blood Urea Nitrogen 18 mg/dL (8-23); C Reactive Protein 116.3 mg/L (0.0-4.9); Calcium 8.6 mg/dL (8.5-10.5); Carbon Dioxide 24 mmol/L (22-29); Chloride 89 mmol/L (98-107); Globulin 3.6 g/dL (1.3-4.6); Glucose 113 mg/dL (65-115); Magnesium 1.9 mg/dL (1.7-2.3); Osmolality Calculated 269 mOsm/kg (285-295); Phosphorus 2.5 mg/dL (2.5-4.5); Sodium 128 mmol/L (136-145); Total Protein 6.8 g/dL (6.6-8.7)
[2021-08-16 00:48] LABS: Potassium 2.8 mmol/L (3.5-5.1); Total Bilirubin 10.4 mg/dL (0.15-1.2)
[2021-08-16] MEDS: potassium chloride ER 20 mEq Tablet PO (01:19)
[2021-08-16 03:49] VITALS: BP 128/81; PULSE 109; RESP 23; TEMP 36.6; O2SAT 92
[2021-08-16] MEDS: piperacillin-tazobactam 3.375 GM in sodium chloride 0.9% (plus) 50 ML IV ×3 (06:07→21:48)
[2021-08-16 06:48] LABS: Potassium 3.2 mmol/L (3.5-5.1)
--- NOTE | 2021-08-16 07:26 | PC.NURSE ---
pt left floor for stress test
--- NOTE | 2021-08-16 07:35 | ECG_ITS ---
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 Interpretive Statements NAME OF STUDY: LEXISCAN SESTAMIBI STRESS TEST INDICATION: Chest Pain PROCEDURE: At the baseline, the blood pressure was 121/85 mmHg with a heart rate of 131 bpm. The electrocardiogram showed atrial fibrillation with rapid ventricle response, right axis deviation. Nonspecific ST depression. The Lexiscan was infused over a period of 20 seconds. A total of 0.4 milligrams of Lexiscan was infused. The stress phase was continued for a total of 5 minutes. Heart rate at the end of the stress phase was 140 bpm with a blood pressure 121/85 mmHg. The EKG at the peak infusion revealed atrial fibrillation with rapid response with no significant ST-T wave changes. Sestamibi was injected 20 seconds after the Lexiscan infusion. Blood pressure at the end of the recovery phase was 121/85 mmHg with a heart rate of 125 beats per minute. CONCLUSION: 1. No significant EKG changes with the] LexiScan infusion. 2. No LexiScan induced chest pain or cardiac arrhythmia. 3. Normal blood pressure and heart rate response. 4. Sestamibi/sestamibi perfusion scan pending; see separate report. Electronically Signed On 08-16-2021 18:01:13 HOSIERY REPAIRER by Paula Walker M.D. [id number]
[2021-08-16 07:51] LABS: Basophils % 0.4 %; Hematocrit 53.6 % (42.0-52.0); Hemoglobin 17.3 g/dL (11.7-16.6); Lymphocytes % 10.8 %; Mean Corpuscular HGB Conc 32.3 g/dL (30.0-36.0); Mean Corpuscular Hemoglobin 26.5 pg (28.0-34.0); Mean Corpuscular Volume 82.1 fl (80-94); Mean Platelet Volume 9.8 fL (7.4-10.4); Monocytes # 1.1 10^3/uL (0.2-0.9); Monocytes % 12.5 %; Neutrophils # 6.79 10^3/uL (1.8-7.7); Neutrophils % 75.9 %; Nucleated Red Blood Cells % 0 %; Platelet Count 308 10^3/cmm (130-400); Red Blood Count 6.53 10^6/uL (4.1-5.3); Red Cell Distribution Width 15.5 % (12.1-15.1)
[2021-08-16 08:02] LABS: Amphetamines Screen Urine Negative (Negative); Barbiturates Screen Urine Negative (Negative); Benzodiazepines Screen Urine Negative (Negative); Cocaine Screen Urine Negative (Negative); Opiate Screen Urine Positive (Negative); PCP Screen Urine Negative (Negative); THC Screen Urine Negative (Negative)
[2021-08-16 08:11] LABS: Alanine Aminotransferase 98 U/L (0-41); Albumin Level 3.2 g/dL (3.5-5.2); Alkaline Phosphatase 233 IU/L (40-130); Anion Gap 17.2 (5-19); Aspartate Amino Transferase 132 U/L (0-40); Blood Urea Nitrogen 21 mg/dL (8-23); Calcium 8.9 mg/dL (8.5-10.5); Carbon Dioxide 26 mmol/L (22-29); Chloride 92 mmol/L (98-107); Gamma Glutamyl Transferase 208 U/L (8-61); Globulin 3.9 g/dL (1.3-4.6); Glucose 115 mg/dL (65-115); Osmolality Calculated 278 mOsm/kg (285-295); Potassium 3.2 mmol/L (3.5-5.1); Sodium 132 mmol/L (136-145); Total Protein 7.1 g/dL (6.6-8.7)
[2021-08-16] MEDS: regadenoson 0.4 Mg/5 ml Syringe IVP (08:13)
[2021-08-16 08:14] VITALS: BP 121/85; PULSE 130
[2021-08-16] MEDS: tamsulosin 0.4 mg Capsule PO (09:05)
[2021-08-16] MEDS: lisinopril 5 mg Tablet PO (09:06)
--- NOTE | 2021-08-16 09:27 | PC.PHAR ---
pts marilou verified pts medications-pts states she thinks this is all the medications the pt has been taking states she couldnt get on his phone to check on his health list-rx written on 07/2521 for prednisone 20mg daily prn from Dr. Núñez pts states the pt doesnt have this medication at home
--- NOTE | 2021-08-16 09:30 | PC.NURSE ---
pt back from stress test
--- NOTE | 2021-08-16 10:17 | PC.CHAP ---
Pastoral Care Encounter/Spiritual Assessment Type of Contact [] Declined bathhouse attendant visit [] Patient/Family/Request visit [] Outpatient visit [] Follow-up visit [] Physician referral [] Code/Alert [x] Routine visit [] Staff referral [] Actively dying [] Patient sleeping [x] Family support [] [] Out of room [] Palliative care [] [] Receiving care in room [] Pre-surgical visit [] Trauma [] Long length of stay [] ICU visit [] Other: Relational/Emotional Strength [] Patient feels connected with others/family/visitors/staff [] Distress [] Loneliness/isolation [] Abandonment Spirituality of Patient [] Person of Shannan [] Attends Confucianism of their Shannan [] Believes in Prayer [] Reads Bible or Bahai materials [] There are Spiritual issues to be addressed Tool And Die Designer Interventions [x] Prayer [x] Active listening [x] Non-anxious presence [x] Spiritual/emotional support [] Crisis/trauma care [] Spiritual counseling [] Bereavement support [] Provided bereavement packet [] Provided Bible/devotional materials [] Provided toy/stuffed animal, coloring book to patient or family member [] Provided Communion [] Anointing/[place] [] Salvation [x] Completed spiritual assessment [] Other: Impact on Illness or Injury [] Angry [] Fearful [] Anxious [] Often cries [] Exhaustion [] Unable to work [] Unable to attend scientologist [] Unable to walk/stand [] Unable to read [] Unable to drive [] Unable to eat/drink [] Unable to sleep [] Unable to be with family [] Patient intubated [] Other: Summary feeding patient... issues with heart-- concerned but seems confident all will work out.. patient may wish for to remain over night he seems to rest better Time spent with patient 10 min
--- NOTE | 2021-08-16 10:57 | PC.NURSE ---
Upon restarting patients IV fluids, IV was noted to be bad. Redness around site and tenderness. IV was discontinued. Nurse will attempt new line.
[2021-08-16] MEDS: clopidogrel 75 mg Tablet PO (11:59)
[2021-08-16] MEDS: pantoprazole DR 40 mg Tablet PO ×2 (11:59→21:49)
[2021-08-16] MEDS: metoprolol tartrate 25 mg Tablet PO ×2 (11:59→20:55)
[2021-08-16] MEDS: potassium chloride oral liq 20 mEq/15 mL UDC 40 MEQ PO (12:03)
--- NOTE | 2021-08-16 12:06 | MRR_ITS ---
PROCEDURE INFORMATION: Exam: MR Abdomen Without Contrast Exam date and time: 08/16/2021 12:06 PM Age: 71 years old Clinical indication: Other: Obstructive jaundice; Prior surgery; Surgery date: 6+ months; Surgery type: Colectomy; Additional info: Obstructuve jaundice TECHNIQUE: Imaging protocol: MR of the abdomen without contrast. COMPARISON: CT abdomen pelvis w con* [id number] 08/15/2021 8:35 PM FINDINGS: Liver: Mild hepatic steatosis. No evidence of iron deposition. No mass. No intrahepatic biliary dilation. Gallbladder and bile ducts: Diffuse gallbladder wall thickening up to 6 mm. No filling defects/stones. No ductal dilation. Pancreas: Unremarkable. No ductal dilation. Spleen: Unremarkable. No splenomegaly. Adrenal glands: Unremarkable. No mass. 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 No hydronephrosis. Stomach and bowel: Visualized stomach and intestines are unremarkable. Moderate hiatal hernia. Intraperitoneal space: No free fluid. Arteries: No abdominal aortic aneurysm. Bones/joints: Unremarkable. Soft tissues: Unremarkable. MR/MR MRCP [id number] IMPRESSION: 1. Gallbladder wall thickening without findings of cholelithiasis or biliary obstruction. Findings may be indicative of underlying liver disease/hepatitis. 2. Mild hepatic steatosis, no evident iron deposition within the liver. COMMENTS: Consistent with the [place] [employer]'s Incidental Findings Committee white paper (J Am Oleg Radiol 2018): Any incidental renal lesion less than 1 cm or classified as too small to characterize, or any incidental cystic renal lesion characterized as simple-appearing, is likely benign. No follow-up imaging is recommended for these lesions per consensus recommendations based on imaging criteria. Radiation Dose CTDIVOL = (mGy): DLP = (mGy-cm)
[2021-08-16 12:49] LABS: SARS Covid-2 Antigen Negative (Negative)
--- NOTE | 2021-08-16 13:13 | ECG_ITS ---
[facility] Test Date: 2021-08-16 Pat Name: Earle Mireles Department: Room: 107 Gender: Male Garage Supervisor: : 1950 Requested By: Isabel Middleton Order Number: [id number] Ana MD: Jak Pandey M.D. Measurements Intervals [place] Rate: 136 P: [place]: QRS: -35 QRSD: 103 T: 12 QT: 348 QTc: 525 Interpretive Statements ATRIAL FIBRILLATION WITH RAPID VENTRICULAR RESPONSE INDETERMINATE AXIS INCOMPLETE RIGHT BUNDLE BRANCH BLOCK [90+ ms QRS DURATION, TERMINAL R IN V1/V2, 40+ ms S IN I/aVL/V4/V5/V6] Compared to ECG 08/16/2021 00:56:15 Indeterminate axis now present Incomplete right bundle-branch block now present Right bundle-branch block no longer present Left anterior fascicular block no longer present Electronically Signed On 08-16-2021 20:43:30 INCOME TAX ADJUSTER by Jak Pandey M.D. [id number]
[2021-08-16] MEDS: metoprolol tartrate 1 mg/1 mL SDV 5 mL 5 MG IVP (13:29)
[2021-08-16 13:30] LABS: INR 1.22 (0.8-1.2)
[2021-08-16 13:46] LABS: Alanine Aminotransferase 86 U/L (0-41); Albumin Level 3.1 g/dL (3.5-5.2); Alkaline Phosphatase 212 IU/L (40-130); Anion Gap 14.4 (5-19); Aspartate Amino Transferase 102 U/L (0-40); Blood Urea Nitrogen 20 mg/dL (8-23); Calcium 8.7 mg/dL (8.5-10.5); Carbon Dioxide 28 mmol/L (22-29); Chloride 94 mmol/L (98-107); Globulin 3.5 g/dL (1.3-4.6); Glucose 128 mg/dL (65-115); Osmolality Calculated 280 mOsm/kg (285-295); Potassium 3.4 mmol/L (3.5-5.1); Sodium 133 mmol/L (136-145); Total Bilirubin 6.2 mg/dL (0.15-1.2); Total Protein 6.6 g/dL (6.6-8.7)
--- NOTE | 2021-08-16 14:27 | PM.PN ---
Subjective Subjective: Interval history: Patient seen and examined this morning. He did not have any complaints except feeling a pressure in his rectal area ever since he has had a penile implant placed. He states his rectum was taken out in the 1970s he has had a colostomy since. and son present at bedside. They were updated very detailed. [facility] was also called today for possible transfer for GI consult. MRCP has been requested. Patient went into A. fib RVR this afternoon blood rate of 170. Metoprolol was held last night for stress test. Stress test results are pending at this point. Patient was given IV metoprolol and oral and was given one-time digoxin. Vitals/I&O/Wt Last Vital Signs Temp 98 F 08/16/21 03:49 Pulse 130 H 08/16/21 08:14 Resp 23 H 08/16/21 03:49 BP 121/85 08/16/21 08:14 Pulse Ox 92 08/16/21 03:49 08/15/21 08/16/21 08/16/21 22:59 06:59 14:59 Intake Total 300 / 300 961.416 / 961.416 Output Total 850 / 850 300 / 300 Balance -550 / -550 661.416 / 661.416 Physical Exam Narrative: EXAM NARRATIVE: General: Alert oriented x3, patient seen laying in bed appearing very comfortable. HEENT: Normocephalic, atraumatic, EOMI, breathing room air. and son at bedside. Cardio: Irregularly irregular rhythm, normal S1-S2, no murmurs rubs gallops, Respiratory: Good bilateral air entry, no wheezes no rhonchi appreciated GI: Abdomen soft, nontender, nondistended, bowel sounds + midline scar present at pelvic area from previous surgery. Colostomy bag present at right lower quadrant. Mejia sign negative, unable to accurately assess for hepatosplenomegaly due to obese rounded abdomen. Behavior: Appropriate and cooperative Extremities: Pulses 2+, no edema, no cyanosis Data : 08/16/21 07:25 08/16/21 12:59 Other data: Echocardiogram CONCLUSIONS Normal left ventricular size and systolic function, EF 61 %. No regional wall motion abnormalities. Mild biatrial enlargement. Prominent coronary sinus. There is no pericardial effusion. There are no intracardiac masses. Compared to the study from 10/22/2018, there may not be a significant change. Because of the differences in the technical qualities, exact comparison is difficult A&P Assessment and plan (1) Unstable angina: Status: Acute (2) Jaundice: Status: Acute (3) Painless jaundice: Status: Acute (4) Acute liver failure: Status: Acute (5) Atrial fibrillation with RVR: Status: Acute (6) History of penile implant: Status: Acute Additional A&P Information #Painless Jaundice - Secondary hemochromatosis ruled out. Liver enzymes are trending down at this point Total bilirubin trending down We will request for stat MRCP. Patient has evidence of painless jaundice. CA 19?9 level is pending. AMA SMA levels pending. Suspicion of underlying malignancy. Urine tox negative. Hepatitis panel is negative Hemochromatosis panel is pending Coagulopathy most likely related to acute liver failure. INR also trending down at 1.2 this point. Penile implant does not look infected. Notes reviewed from oncology visit last year. Patient has evidence of iron deficiency without anemia. He could benefit from phlebotomy but must be cautious due to low iron levels. He was receiving iron infusions almost twice a year. Frequency has decreased compared to prior years. Patient will go for MRCP at 4:30 PM today. Patient will definitely benefit from a gastroenterology consult. We currently do not have the service. I have called [facility] for potential transfer. Further to be decided after MRCP results. #Discomfort in perineal region ever since patient received a penile implant. There does not seem to be an active infection going on. Patient will benefit if he goes back to [facility] for re-exploration. #Atrial fibrillation with RVR #Unstable Angina #Type 2 demand ischemia #Hx of CAD s/p 2 stents rates upto 170's - metroprolol 25 BID at home. BP soft therefore not increasing dose at this point - Digoxin started today - Cardio consulted -Echocardiogram did not show any gross wall motion abnormalities Patient's chest pain on admission was relieved by nitro. He has not had chest pain ever since. Patient had stress test this morning results are pending Troponin elevation on admission most likely secondary to demand ischemia continue plavix #Polycythemia ?Notes reviewed from oncology visit last year. Patient has evidence of iron deficiency without anemia. He could benefit from phlebotomy but must be cautious due to low iron levels. He was receiving iron infusions almost twice a year. Frequency has decreased compared to prior years. DVT PPX: on xarelto Attestations Medical Necessity Statement*: > 48 hours stay required Time Spent in Patient Care: Greater than 35 minutes (>than 50% of time spent in counselling and/or direct pt care on unit). Coding Level of Care Code Acute Senior Principal for Pankaj Fwd Diagnoses Unstable angina I20.0 Jaundice R17 Painless jaundice R17 Acute liver failure K72.00 Atrial fibrillation with RVR I48.91 History of penile implant Z96.0
[2021-08-16] MEDS: digoxin 250 mcg/ml INJ 2 mL 125 MCG IVP ×2 (14:28→16:22)
[2021-08-16] MEDS: sodium chloride 0.9% 500 ML 999 ML IV (14:30)
[2021-08-16 15:38] VITALS: BP 107/72; PULSE 96; RESP 29; TEMP 36.7; O2SAT 93
[2021-08-16] MEDS: sodium chloride 0.9% 1,000 ML 75 ML IV ×2 (15:50→23:33)
--- NOTE | 2021-08-16 16:50 | PC.NURSE ---
Pt left floor for MRI
--- NOTE | 2021-08-16 18:06 | PC.NURSE ---
Pt back from MRI
--- NOTE | 2021-08-16 18:22 | P.CONIM_ITS ---
Providers/Reason For Consult Consulting Physician/Specialty*: SAE Pandey MD/cardiology Reason for Consult*: Patient with atrial fibrillation's and rapid ventricular rate/elevated troponin T Requesting Physician: Dr. Middleton Attending Physician: Isabel Middleton MD Primary Care Provider: Luis Yang MD History of Present Illness History of Present Illness Earle Mireles is a 71 year old male, who is admitted to hospital from Dr. Yang's office where he presented with complaints of chest pain/tightness. He was found to have elevated bilirubins, liver enzymes and troponin T. He is admitted to hospital for further evaluation management. He was found to be in atrial fibrillation with rapid ventricular rate intermittently while being in the telemetry floor. Ventricular rate goes up especially when he tries to get up and move around. Cardiology consult is requested for further cardiac evaluation recommendations. This patient is known to have chronic atrial fibrillation. He is on long-term oral anticoagulation. He also is known to have atherosclerotic heart disease and previous PCI in 2010 and 2012. Apparently he has been doing okay since the last PCI with no significant chest pains or any other specific cardiac symptoms. 2 days ago, he had an episode of prolonged chest discomfort. This was described as a pressure-like pain in the upper substernal area. He was given 1 sublingual nitro by his . The symptoms gradually subsided. He had the symptoms lasting for almost half an hour. He denied any associated nausea, vomiting or sweating. No dizziness or syncopal episodes. He may have had some palpitations. No other associated symptoms. According to his , for the last couple of months, he has been not feeling well. He had easy fatigability and dyspnea on exertion. No orthopnea or PND. He had a penile implant couple of weeks ago. Prior to this, he had a prolonged bicycle ride for 27 miles or so. He has a lot of pain and discomfort in the perineal region. He denies any fever, chills or cough. No abdominal pain or dysuria. He has a colostomy bag. Denies any hematemesis or melena. Meds/Allergies Home Medications and Allergies Home Medications Medication Instructions Recorded Confirmed Last Taken Type triamcinolone acetonide 0.1 % 1 applic TOPICAL DAILY PRN 01/07/20 08/16/21 02/14/21 History topical ointment chlorthalidone 25 mg tablet 25 mg PO DAILY #90 tab 01/25/21 08/16/21 02/14/21 Rx clopidogrel 75 mg tablet 75 mg PO DAILY@1200 #90 tab 01/25/21 08/16/21 02/14/21 Rx pantoprazole 40 mg tablet,delayed 40 mg PO BID@1200,2200 #180 tab 01/25/21 08/16/21 02/14/21 Rx release rivaroxaban 20 mg tablet 20 mg PO DAILY@2200 #90 tab 01/25/21 08/16/21 02/14/21 Rx simvastatin 40 mg tablet 40 mg PO BEDTIME@2200 #90 tab 01/25/21 08/16/21 02/14/21 Rx ciprofloxacin HCl 500 mg tablet 500 mg PO BID #180 tab 02/23/21 08/16/21 Unknown Rx febuxostat 40 mg tablet 40 mg PO DAILY #90 tab 05/16/21 08/16/21 Unknown Rx cyanocobalamin (vitamin B-12) 1,000 mcg IM .monthly #1 ml 07/24/21 08/16/21 Unknown Rx 1,000 mcg/mL injection solution tamsulosin 0.4 mg capsule 0.4 mg PO QDAY #30 cap 08/01/21 08/16/21 Unknown Rx cefdinir 300 mg PO BID 08/16/21 08/16/21 08/15/21 History hydrocodone-acetaminophen [[place]] 1 tab PO Q4H PRN 08/16/21 08/16/21 08/15/21 13:00 History melatonin 10 mg PO BEDTIME PRN 08/16/21 08/16/21 Unknown History metoprolol tartrate 25 mg PO BID 08/16/21 08/16/21 Unknown History metoprolol tartrate 50 mg PO BID 08/16/21 08/16/21 Unknown History tramadol 50 mg PO QID PRN 08/16/21 08/16/21 08/14/21 History Allergies Allergy/AdvReac Type Severity Reaction Status Date / Time Penicillins Allergy Unknown Verified 08/16/21 08:55 Current Medications Current Medications Generic Name Dose Route Start Last Admin Trade Name Freq PRN Reason Stop Dose Admin Clopidogrel Bisulfate 75 mg 08/16/21 12:00 08/16/21 11:59 Clopidogrel 75 Mg Tablet PO 75 mg DAILY@1200 KELLEN Administration Sodium Chloride 1,000 mls @ 75 mls/hr 08/15/21 16:45 08/16/21 18:11 Sodium Chloride 0.9% IV 75 mls/hr .[id number] KELLEN Infusion Piperacillin Sod/Tazobactam 50 mls @ 12.5 mls/hr 08/16/21 15:00 08/16/21 18:12 Sod 3.375 gm/ Sodium Chloride IV 12.5 mls/hr Q8H KELLEN Infusion Protocol Lisinopril 5 mg 08/16/21 09:00 08/16/21 09:06 Lisinopril 5 Mg Tablet PO 5 mg DAILY KELLEN Administration Metoprolol Tartrate 25 mg 08/16/21 11:30 08/16/21 11:59 Metoprolol Tartrate 25 Mg Tablet PO 25 mg BID@0900,2100 KELLEN Administration Pantoprazole Sodium 40 mg 08/15/21 22:00 08/16/21 11:[address] 40 Mg Tablet PO 40 mg BID@1200,2200 KLELEN Administration Senna/Docusate Sodium 1 tab 08/16/21 09:00 08/16/21 09:06 Sennosides-Docusate Tablet PO Not Given DAILY KELLEN Tamsulosin HCl 0.4 mg 08/15/21 18:00 08/16/21 09:05 Tamsulosin 0.4 Mg Capsule PO 0.4 mg DAILY KELLEN Administration PFSH Acute PFSH: Medical History (Updated 08/16/21 @ 18:34 by Jak Pandey MD) A-fib Abdominal pain in male Acute kidney injury superimposed on chronic kidney disease Resolved Acute urinary retention Resolved Coagulopathy Diarrhea Chronic Elevated brain natriuretic peptide (BNP) level GERD (gastroesophageal reflux disease) Gout of ankle History of SCC (squamous cell carcinoma) of skin HTN (hypertension) Iron deficiency anemia EDITH on CPAP Paroxysmal atrial fibrillation Polycystic kidney disease Polycythemia Surgical History (Updated 08/16/21 @ 14:34 by Isabel Middleton MD) History of circumcision History of colectomy History of hernia repair History of penile implant History of shoulder surgery History of total colectomy History of total knee replacement Family History Mother Atrial fibrillation Social History Smoking and tobacco status: never smoked Alcohol intake: current Alcohol intake frequency: holidays/special occasions only Household members: spouse Housing: House Current occupational status: retired History of recent travel: No Vitals/I&O/Wt Last Vital Signs Temp 98.1 F 08/16/21 15:38 Pulse 96 08/16/21 15:38 Resp 29 H 08/16/21 15:38 BP 107/72 08/16/21 15:38 Pulse Ox 93 08/16/21 15:38 08/16/21 08/16/21 08/16/21 06:59 14:59 22:59 Intake Total 300 / 300 961.416 / 961.416 811.042 / 1772.458 Output Total 850 / 850 300 / 300 Balance -550 / -550 661.416 / 661.416 811.042 / 1472.458 Weight last 48 hrs Weight 276 lb 1.6 oz Physical Exam Narrative: EXAM NARRATIVE: GENERAL: The patient is alert and oriented times three. Not in any acute distress. HEENT: Icterus present. No lymphadenopathy. The pupils are symmetric: Oral cavity: There are no mucous membrane lesions. Funduscopic examination: The fundus is not visualized NECK: Trachea appears to be central. No masses noted. No JVD or thyromegaly appreciated. No carotid bruit. RESPIRATORY: Chest is symmetrical. No intercostals muscle retraction or any accessory muscle activation. There is no chest wall tenderness. Breath sounds are heard bilaterally. No rales or rhonchi heard. No evidence of any consolidation. BREASTS: Deferred. HEART: The PMI could not be palpated.. No palpable precordial events. S1 and S2 are normal. No S3 or S4 heard. No pericardial rub or any click heard. ABDOMEN: Abdomen is obese. No vessel pulsations or distention. No tenderness. No organomegaly appreciated. No abdominal bruit. Bowel sounds are normally heard. Colostomy bag is draining : Deferred. RECTAL: Deferred. LYMPHATIC: No lymphadenopathy noted in the neck or groin. EXTREMITIES: No edema or cyanosis. No clubbing. The pulses are symmetrical bilaterally. The radial, femoral, dorsalis pedis and the posterior tibial pulses are palpated and found to be in good volume and amplitude. MUSCULOSKELETAL: No acute joint deformities or swelling SKIN: Yellowish discoloration of the skin is present NEUROPSYCHIATRIC: The patient is alert and oriented x3. Appears to be in a good mood. The higher functions are grossly within normal limits. No tremors or rigidity noted. Data Labs: Other Labs: Laboratory Last Values WBC 9.0 10^3/uL (4.0- 10.0) 08/16/21 07:25 RBC 6.53 10^6/uL (4.1 -5.3) H 08/16/21 07:25 Hgb 17.3 g/dL (11.7-1 6.6) H 08/16/21 07:25 Hct 53.6 % (42.0-52.0 ) H 08/16/21 07:25 MCV 82.1 fl (80-94) 08/16/21 07:25 MCH 26.5 pg (28.0-34. 0) L 08/16/21 07:25 MCHC 32.3 g/dL (30.0-3 6.0) 08/16/21 07:25 RDW 15.5 % (12.1-15.1 ) H 08/16/21 07:25 Plt Count 308 10^3/cmm (130 -400) 08/16/21 07:25 MPV 9.8 fL (7.4-10.4) 08/16/21 07:25 Neut % (Auto) 75.9 % 08/16/21 07:25 Lymph % (Auto) 10.8 % 08/16/21 07:25 [place] % (Auto) 12.5 % 08/16/21 07:25 Eos % (Auto) 0.0 % 08/16/21 07:25 Baso % (Auto) 0.4 % 08/16/21 07:25 Neut # (Auto) 6.79 10^3/uL (1.8 -7.7) 08/16/21 07:25 Lymph # (Auto) 1.0 10^3/uL (0.8- 4.8) 08/16/21 07:25 [place] # (Auto) 1.1 10^3/uL (0.2- 0.9) H 08/16/21 07:25 Eos # (Auto) 0.0 10^3/uL (0.0- 0.8) 08/16/21 07:25 Baso # (Auto) 0.0 10^3/uL (0.0- 0.1) 08/16/21 07:25 Nucleated RBC % (a uto) 0 % 08/16/21 07:25 Nucleated RBCs # 0.0 /100WBC 08/16/21 07:25 Haptoglobin 297.0 mg/L (30-20 0) H 08/15/21 17:25 PT 15.80 SECONDS (12 .1-14.9) H 08/16/21 12:59 INR 1.22 (0.8-1.2) H 08/16/21 12:59 APTT 37.0 SECONDS (23. 9-36.7) H 08/15/21 17:25 Fibrinogen 803 mg/dL (174-49 8) H 08/15/21 17:25 Sodium 133 mmol/L (136-1 45) L 08/16/21 12:59 Potassium 3.4 mmol/L (3.5-5 .1) L 08/16/21 12:59 Chloride 94 mmol/L (98-107 ) L 08/16/21 12:59 Carbon Dioxide 28 mmol/L (22-29) 08/16/21 12:59 Anion Gap 14.4 (5-19) 08/16/21 12:59 BUN 20 mg/dL (8-23) 08/16/21 12:59 Creatinine 1.3 mg/dL (0.7-1. 2) H 08/16/21 12:59 GFR Calculation Not Reportable 08/16/21 12:59 Glucose 128 mg/dL (65-115 ) H 08/16/21 12:59 Calculated Osmolal ity 280 mOsm/kg (285- 295) L 08/16/21 12:59 Lactate 1.0 mmol/L (0.5-2 .2) 08/15/21 17:25 Uric Acid 5.3 mg/dL (3.4-7. 0) 08/15/21 17:25 Calcium 8.7 mg/dL (8.5-10 .5) 08/16/21 12:59 Phosphorus 2.5 mg/dL (2.5-4. 5) 08/16/21 00:12 Magnesium 2.0 mg/dL (1.7-2. 3) 08/16/21 05:49 Iron 47 ug/dL (59-158) L 08/15/21 17:25 TIBC 277 mcg/dl 08/15/21 17:25 % Saturation 16.9 % (20-50) L 08/15/21 17:25 Unsat Iron Binding 230 ug/dL (112-34 7) 08/15/21 17:25 Ferritin 902 ng/mL (30-400 ) H 08/15/21 17:25 Total Bilirubin 6.2 mg/dL (0.15-1 .2) H 08/16/21 12:59 Direct Bilirubin 8.10 mg/dL (0.00- 0.30) H 08/15/21 17:25 Indirect Bilirubin 3.50 08/15/21 17:25 GGT 208 U/L (8-61) H 08/16/21 07:25 AST 102 U/L (0-40) H 08/16/21 12:59 ALT 86 U/L (0-41) H 08/16/21 12:59 Alkaline Phosphata se 212 IU/L (40-130) H 08/16/21 12:59 Lactate Dehydrogen ase 218 U/L (135-225) 08/15/21 17:25 Troponin T Baselin e 27 ng/L (0-15) H 08/15/21 17:25 Troponin T 120 Min sadaf 27.90 ng/L (0-15) H 08/15/21 19:31 Delta Troponin T 0.90 ABS# (0-10) 08/15/21 19:31 Troponin T Hi Sens 6Hr 29.31 ng/L (0-15) H 08/16/21 00:12 Troponin T Hi Sens 6Hr Delta 2.31 ng/L (0-12) 08/16/21 00:12 C-Reactive Protein 116.3 mg/L (0.0-4 .9) H 08/16/21 00:12 Total Protein 6.6 g/dL (6.6-8.7 ) 08/16/21 12:59 Albumin 3.1 g/dL (3.5-5.2 ) L 08/16/21 12:59 Globulin 3.5 g/dL (1.3-4.6 ) 08/16/21 12:59 Triglycerides 93 mg/dL (0-150) 08/15/21 17:25 Cholesterol 90 mg/dL (0-200) 08/15/21 17:25 LDL Cholesterol, C alc 49 mg/dL (50-129) L 08/15/21 17:25 HDL Cholesterol 22 mg/dL (60-100) L 08/15/21 17:25 LDL/HDL Ratio 2.23 RATIO (0.00- 3.22) 08/15/21 17:25 Cholesterol/HDL Ra jeremy 4.09 mg/dL (1.0-5 .00) 08/15/21 17:25 Lipase 16 U/L (13-60) 08/15/21 19:31 Tumor Marker AFP 0.6 ng/mL (0-8.3) 08/15/21 17:25 CA 19-9 Antigen 83.10 U/mL (0-35) H 08/16/21 12:59 Vitamin B12 700 pg/mL (232-12 45) 08/15/21 17:25 Procalcitonin 0.33 ng/mL (0-0.5 ) 08/15/21 17:25 TSH 1.07 uIU/mL (0.27 -4.20) 08/15/21 17:25 Urine Opiates Scre en Positive ng/mL (N egative) H 08/16/21 02:20 Ur Barbiturates Sc reen Negative ng/mL (N egative) 08/16/21 02:20 Ur Phencyclidine S crn Negative ng/mL (N egative) 08/16/21 02:20 Ur Amphetamines Sc reen Negative ng/mL (N egative) 08/16/21 02:20 U Benzodiazepines Scrn Negative ng/mL (N egative) 08/16/21 02:20 Urine Cocaine Scre en Negative ng/mL (N egative) 08/16/21 02:20 U Marijuana (THC) Screen Negative ng/mL (N egative) 08/16/21 02:20 Ethyl Alcohol < 10 mg/dL (0-10) 08/15/21 17:25 Hepatitis A IgM Ab Non-reactive (No nreactive) 08/15/21 17:25 Hep Bs Antigen Non-reactive (No nreactive) 08/15/21 17:25 Hep Bs Antibody 3.5 (11.5-1000) L 08/15/21 17:25 Hep B Core Total A b Non-reactive (No nreactive) 08/15/21 17:25 Hepatitis C Antibo dy Non-reactive (No nreactive) 08/15/21 17:25 SARS-CoV-2 Ag (Rap id) Negative (Negati ve) 08/16/21 11:55 Imaging^: Myocardial perfusion imaging: My impression: The myocardial perfusion imaging from today 1. Small sized perfusion abnormality of mild severity of mid inferior and mid inferolateral nunez with subtle reversibility in mid inferolateral wall. 2. This may represent old myocardial infarction in circumflex artery territory with minimal marcel-infarct ischemia. 3. Overall left ventricular systolic function is normal without regional wall motion abnormalities, LVEF=70%. 4. No significant EKG changes with Lexiscan infusion. The EKG response to pharmacological stress 1. No significant EKG changes with the LexiScan infusion. 2. No LexiScan induced chest pain or cardiac arrhythmia. 3. Normal blood pressure and heart rate response. 4. Sestamibi/sestamibi perfusion scan pending; see separate report. Echo: My impression: Normal left ventricular size and systolic function, EF 61 %. No regional wall motion abnormalities. Mild biatrial enlargement. Prominent coronary sinus. There is no pericardial effusion. There are no intracardiac masses. Compared to the study from 10/22/2018, there may not be a significant change. Because of the differences in the technical qualities, exact comparison is difficult EKG^: EKG 1: My Interpretation: The EKG showed atrial fibrillation with rapid ventricular rate of 136 bpm. Incomplete right bundle branch block pattern. No significant ST-T changes. A&P Assessment and plan (1) Atrial fibrillation with RVR: For better control of the heart rate, patient is metoprolol may be gradually increased to the tolerable dose. He also may be given IV digoxin, total of 1 mg within 24 hours. Status: Acute (2) Atypical chest pain: The chest pain may assess underlying coronary ischemia. The perfusion scan shows mainly fixed defects with small areas of reversible defects suggesting myocardial scarring with marcel-infarction ischemia. It is not convincing that the small area of ischemia is causing the chest pain. Status: Acute (3) Elevated troponin: Status: Acute (4) Atherosclerotic heart disease of [place] coronary artery with other forms of angina pectoris: Patient is known to have coronary disease and had a PCI x2 in the past. Possibility of in-stent stenosis or progression of disease in the other vessels are considerations. Patient may require a cardiac catheterization, to further evaluate his coronary status and decide on further management. However at this point since he seems to be stable, that may not be an urgency in doing the procedure. May continue on the medical treatment. Status: Acute (5) Jaundice: Patient seems to have some form of obstructive jaundice. Etiology is not known at this point. Patient had a MRCP today. Results are pending. Status: Acute Additional A&P Information Other problems are Elevated liver enzymes Elevated hemoglobin hematocrit Dyslipidemia Based on the patient's clinical progress and the results of the above, further recommendations will be made. Thank you for the opportunity to eval this patient make these recommendations Consult Attestations Medical Necessity Statement: Patient requires continued hospital stay for close monitoring and further management Coding Level of Care Code Acute Paper Control Clerk for Chg Fwd History Detailed Exam Detailed Medical Decision Making High Complexity Diagnoses Atrial fibrillation with RVR I48.91 Atypical chest pain R07.89 Elevated troponin R77.8 Atherosclerotic heart disease of [place] coronary artery with other forms of angina pectoris I25.118 Jaundice R17
--- NOTE | 2021-08-16 18:25 | USCV_ITS ---
Earle Mireles Age: 71 Gender: M : 1950 Exam Date: 08/16/2021 06:44 Ordering Phys: Dina Taveras MD Technologist: Exam Location[place] [facility] [place] Indication: murmur BP: 128 / 81 HR: 129 Rhythm: Sinus Technical Quality: Fair MEASUREMENTS (Male / Female) Normal Values 2D ECHO LV Diastolic Diameter PLAX 4.5 cm 4.2 - 5.9 / 3.9 - 5.3 cm LV Systolic Diameter PLAX 3.0 cm IVS Diastolic Thickness 1.3 cm 0.6 - 1.0 / 0.6 - 0.9 cm IVS Systolic Thickness 1.3 cm LVPW Diastolic Thickness 1.0 cm 0.6 - 1.0 / 0.6 - 0.9 cm LVPW Systolic Thickness 1.5 cm LVOT Diameter 2.1 cm LV Ejection Fraction 2D Teich 63.2 % LV Ejection Fraction MOD 2C 64.8 % LV Ejection Fraction 2C AL 64.9 % LA Diameter 3.5 cm LA Width 4.3 cm LA Height 6.0 cm RA Width 3.9 cm RA Height 4.8 cm M-MODE Aortic Annulus Diameter 2.9 cm LA Ao Ratio MM 1.3 DOPPLER AV Peak Velocity 139.0 cm/s LVOT Peak Velocity 89.0 cm/s AV Area Cont Eq vti 2.5 cm squared AV Area Cont Eq pk 2.1 cm squared MV Area PHT 5.0 cm squared Mitral E to A Ratio 3.9 MV E' Velocity 51.0 cm/s Mitral E to MV E' Ratio 10.6 Mitral E to LV E' Lateral Ratio 7.3 Mitral E to LV E' Septal Ratio 20.0 TR Peak Velocity 137.0 cm/s TR Peak Gradient 7.5 mmHg Right Atrial Pressure 3.0 mmHg Pulmonary Artery Systolic Pressu 10.5 mmHg FINDINGS Left Ventricle Normal left ventricular size and systolic function, EF 61 %. No regional wall motion abnormalities. Right Ventricle The right ventricle is normal in size and function. Right Atrium Mildly increased right atrial size. Left Atrium Mildly increased left atrial size. Mitral Valve No gross abnormalities noted Aortic Valve No gross abnormalities noted Tricuspid Valve No gross abnormalities noted Pulmonic Valve Pulmonic valve not well visualized. Pericardium Prominent coronary sinus Aorta Normal ascending aorta dimension. CONCLUSIONS Normal left ventricular size and systolic function, EF 61 %. No regional wall motion abnormalities. Mild biatrial enlargement. Prominent coronary sinus. There is no pericardial effusion. There are no intracardiac masses. Compared to the study from 10/22/2018, there may not be a significant change. Because of the differences in the technical qualities, exact comparison is difficult Dr Jak Pandey MD [facility] (Electronically Signed) Final Date: 16 August 2021 11:36 S
--- NOTE | 2021-08-16 18:26 | NMCV_ITS ---
NM akin perf SPECT r/s* [id number] Earle Mireles Age: 71 Gender: M : 1950 Exam Date: 08/16/2021 07:04 Ordering Phys: Dina Taveras MD Technologist: SMOOTH Sloan Exam Location: [facility] Indications: Chest pain, atrial fibrillation STRESS TEST Please see separate stress [facility] for [facility] findings IMAGE PROTOCOL Rest/Stress 1 Lexiscan Day Radiopharmaceutical Dose (mCi) Administration Site Administered by Rest: Tc-99m 10.9 IV SMOOTH Champion Sestamibi Stress:Tc-99m 33.0 IV SMOOTH Sloan Sestamiashwini Rest: 16-Aug-2021 60 Discovery 630 Stress: 16-Aug-2021 30 Discovery 630 0.4mg Lexiscan. Supine position only as patient was unable to lay prone. SPECT RESULTS Technical Quality: Excellent Raw Data Analysis: Normal Image Corrections: No attenuation or motion correction applied Summed Stress Score: 3 Summed Rest Score: 4 Summed Difference Score: 2 PERFUSION FINDINGS Small sized perfusion abnormality of mild severity of mid inferior and mid inferolateral nunez on rest images with subtle reversibility in mid inferolateral wall on supine stress images. FUNCTIONAL RESULTS (calculated via Gated SPECT) Stress Image LV EF (%): 70 Stress EDV (mL):101 TID: 1.1 Stress ESV (mL):30 FUNCTIONAL FINDINGS: The left ventricle is normal in size. Transient Ischemia Dilatation of 1.1. There is normal left ventricular systolic function. The left ventricular ejection fraction is normal with a value of 70%. There is normal left ventricular wall thickening with no regional wall motion abnormality. Normal end-diastolic end-systolic volumes. IMPRESSIONS 1. Small sized perfusion abnormality of mild severity of mid inferior and mid inferolateral nunez with subtle reversibility in mid inferolateral wall. 2. This may represent old myocardial infarction in circumflex artery territory with minimal marcel-infarct ischemia. 3. Overall left ventricular systolic function is normal without regional wall motion abnormalities, LVEF=70%. 4. No significant EKG changes with Lexiscan infusion. Paula Walker MD (Electronically Signed) Final Date: 16 August 2021 18:09 S
--- NOTE | 2021-08-16 18:40 | PC.NURSE ---
instructions received at bedside to give x1 Digoxin 250 mcg IVP at 2230
[2021-08-16 20:20] VITALS: BP 108/64; PULSE 88; RESP 30; TEMP 36.6; O2SAT 94
[2021-08-16] MEDS: digoxin 250 mcg/ml INJ 2 mL IVP (21:48)
[2021-08-16] MEDS: ALPRAZolam 0.5 mg Tablet 0.125 MG PO (21:49)
[2021-08-16 23:27] VITALS: BP 109/67; PULSE 95; RESP 28; TEMP 36.6; O2SAT 92
[2021-08-17 03:25] VITALS: BP 107/74; PULSE 98; RESP 14; TEMP 36.4; O2SAT 94
[2021-08-17 03:49] LABS: Basophils # 0.1 10^3/uL (0.0-0.1); Basophils % 0.8 %; Hematocrit 51.6 % (42.0-52.0); Hemoglobin 16.6 g/dL (11.7-16.6); Lymphocytes # 0.9 10^3/uL (0.8-4.8); Lymphocytes % 11.1 %; Mean Corpuscular HGB Conc 32.2 g/dL (30.0-36.0); Mean Corpuscular Hemoglobin 26.5 pg (28.0-34.0); Mean Corpuscular Volume 82.3 fl (80-94); Mean Platelet Volume 9.9 fL (7.4-10.4); Monocytes # 1.1 10^3/uL (0.2-0.9); Monocytes % 14.1 %; Neutrophils # 5.81 10^3/uL (1.8-7.7); Neutrophils % 73.2 %; Nucleated Red Blood Cells % 0 %; Platelet Count 294 10^3/cmm (130-400); Red Blood Count 6.27 10^6/uL (4.1-5.3); Red Cell Distribution Width 15.3 % (12.1-15.1); White Blood Count 7.9 10^3/uL (4.0-10.0)
[2021-08-17 04:08] LABS: INR 1.19 (0.8-1.2)
[2021-08-17] MEDS: HYDROcodone-acetaminophen 5-325 mg Tablet 1 TAB PO ×4 (04:13→23:55)
[2021-08-17 04:18] LABS: Alanine Aminotransferase 67 U/L (0-41); Alkaline Phosphatase 187 IU/L (40-130); Anion Gap 15.3 (5-19); Aspartate Amino Transferase 58 U/L (0-40); Blood Urea Nitrogen 19 mg/dL (8-23); Calcium 8.5 mg/dL (8.5-10.5); Carbon Dioxide 24 mmol/L (22-29); Chloride 100 mmol/L (98-107); Globulin 3.4 g/dL (1.3-4.6); Glucose 107 mg/dL (65-115); Magnesium 2.1 mg/dL (1.7-2.3); Osmolality Calculated 285 mOsm/kg (285-295); Potassium 3.3 mmol/L (3.5-5.1); Sodium 136 mmol/L (136-145); Total Bilirubin 4.5 mg/dL (0.15-1.2); Total Protein 6.4 g/dL (6.6-8.7)
[2021-08-17] MEDS: piperacillin-tazobactam 3.375 GM in sodium chloride 0.9% (plus) 50 ML IV ×2 (06:09→14:43)
[2021-08-17] MEDS: metoprolol tartrate 25 mg Tablet PO (07:58)
[2021-08-17] MEDS: lisinopril 5 mg Tablet PO (07:58)
[2021-08-17] MEDS: rivaroxaban 10 mg Tablet 20 MG PO (07:59)
[2021-08-17] MEDS: tamsulosin 0.4 mg Capsule PO (07:59)
--- NOTE | 2021-08-17 08:46 | PM.CONSULT ---
Providers/Reason For Consult Consulting Physician/Specialty*: Urology/Núñez Reason for Consult*: LUTS Penile pain Attending Physician: Isabel Middleton MD Primary Care Provider: Luis Yang MD History of Present Illness History of Present Illness Date of consultation: 08/17/2021 Earle Mireles is a 71 year old male known to me for recent evaluation preop penile implantation by Dr. Wilfredo Howard at [facility]. He had the procedure about a week before this consultation and felt that everything went well. Surprisingly he developed episode of transient jaundice and that has been outlined clearly in the chart. Please see of the records and notes for that information. Was complaining of some pain in the penile area and the perineal area and I was consulted for further evaluation. Physical findings revealed a left groin suction drain with a small amount of bloody fluid. Scrotal pump was in good position and functioning. Phallus was partially inflated with no evidence of infectious concerns. Incision in the mons pubis area was healing well. No perineal discomfort or fluctuance. He had had a CT scan and upon admission and showed somewhat distended bladder but no evidence of abnormal fluid collections. Did have some marked polycystic left greater than sign right kidney changes. Also complained of some intermittent frequency urgency small voids that seem to be improving by the time I saw him. He is on tamsulosin. Bladder scan showed that he was emptying well and his voiding witnessed showed a good stream and a large volume voided. Laboratory values do not point to a picture of infection. I spoke with Dr. Howard and reviewed the findings with him regarding the status of the penile implant and he felt that things were progressing as they should be. He recommended no longer maintaining inflation requirement. Was comfortable with the drain being removed today. Procedure: Left groin drain removal. Bulb was taken off of suction. Securing stitch was divided. Drain was removed without difficulty. Sterile dressing applied. Review of Systems Const: Denies: fever(s) or chills Eyes: Denies: change in vision or blurry vision ENMT: Denies: hoarseness Card: Denies: chest pain or palpitations Resp: Denies: dyspnea or productive cough GI: Denies: nausea or vomiting : Reports: other (Penile pain, see HPI) Musc: Denies: joint redness or joint warmth Skin/Breast: Denies: sores or jaundice Neuro: Denies: confusion, Slurred speech present or seizure-like activity Psych: Denies: anxiety (Mild and situational) Endo: Denies: flushing or hot flashes Yoseph/Lymph: Denies: easy bruising, easy bleeding or tender lymph nodes All/Imm: Denies: urticaria or acute wheezing Meds/Allergies Home Medications and Allergies Home Medications Medication Instructions Recorded Confirmed Last Taken Type triamcinolone acetonide 0.1 % 1 applic TOPICAL DAILY PRN 01/07/20 08/16/21 02/14/21 History topical ointment chlorthalidone 25 mg tablet 25 mg PO DAILY #90 tab 01/25/21 08/16/21 02/14/21 Rx clopidogrel 75 mg tablet 75 mg PO DAILY@1200 #90 tab 01/25/21 08/16/21 02/14/21 Rx pantoprazole 40 mg tablet,delayed 40 mg PO BID@1200,2200 #180 tab 01/25/21 08/16/21 02/14/21 Rx release rivaroxaban 20 mg tablet 20 mg PO DAILY@2200 #90 tab 01/25/21 08/16/21 02/14/21 Rx simvastatin 40 mg tablet 40 mg PO BEDTIME@2200 #90 tab 01/25/21 08/16/21 02/14/21 Rx febuxostat 40 mg tablet 40 mg PO DAILY #90 tab 05/16/21 08/16/21 Unknown Rx cyanocobalamin (vitamin B-12) 1,000 mcg IM .monthly #1 ml 07/24/21 08/16/21 Unknown Rx 1,000 mcg/mL injection solution tamsulosin 0.4 mg capsule 0.4 mg PO QDAY #30 cap 08/01/21 08/16/21 Unknown Rx hydrocodone-acetaminophen 1 tab PO Q4H PRN 08/16/21 08/16/21 08/15/21 13:00 History melatonin 10 mg PO BEDTIME PRN 08/16/21 08/16/21 Unknown History tramadol 50 mg PO QID PRN 08/16/21 08/16/21 08/14/21 History amoxicillin-pot clavulanate 1 tab PO BID 3 Days #6 tab 08/18/21 Unknown Rx [Augmentin] lisinopril 5 mg PO DAILY 30 Days #30 tab 08/18/21 Unknown Rx metoprolol tartrate 100 mg PO BID #0 tab 08/18/21 08/16/21 Unknown Rx Allergies Allergy/AdvReac Type Severity Reaction Status Date / Time No Known Allergies Allergy Verified 08/17/21 20:48 Current Medications Current Medications Generic Name Dose Route Start Last Admin Trade Name Freq PRN Reason Stop Dose Admin Hydrocodone Bitart/Acetaminophen 1 tab 08/17/21 04:06 08/17/21 23:55 Hydrocodone-Acetaminophen 5-325 Mg Tablet PO 1 tab Q6H PRN Administration MODERATE PAIN Alprazolam 0.125 mg 08/16/21 21:34 08/17/21 19:45 Alprazolam 0.5 Mg Tablet PO 0.125 mg TID PRN Administration ANXIETY Clopidogrel Bisulfate 75 mg 08/16/21 12:00 08/17/21 11:42 Clopidogrel 75 Mg Tablet PO 75 mg DAILY@1200 KELLEN Administration Sodium Chloride 1,000 mls @ 75 mls/hr 08/15/21 16:45 08/17/21 14:02 Sodium Chloride 0.9% IV 75 mls/hr .[id number] KELLEN Infusion Piperacillin Sod/Tazobactam 50 mls @ 12.5 mls/hr 08/16/21 15:00 08/18/21 07:58 Sod 3.375 gm/ Sodium Chloride IV 12.5 mls/hr Q8H KELLEN Administration Protocol Lisinopril 5 mg 08/16/21 09:00 08/18/21 08:03 Lisinopril 5 Mg Tablet PO 5 mg DAILY KELLEN Administration Metoprolol Tartrate 100 mg 08/18/21 09:00 08/18/21 08:03 Metoprolol Tartrate 50 Mg Tablet PO 100 mg BID@0900,2100 KELLEN Administration Pantoprazole Sodium 40 mg 08/15/21 22:00 08/17/21 21:[address] 40 Mg Tablet PO 40 mg BID@1200,2200 KELLEN Administration Rivaroxaban 20 mg 08/17/21 09:00 08/18/21 08:03 Rivaroxaban 10 Mg Tablet PO 20 mg DAILY KELLEN Administration Senna/Docusate Sodium 1 tab 08/16/21 09:00 08/18/21 08:03 Sennosides-Docusate Tablet PO Not Given DAILY KELLEN Tamsulosin HCl 0.4 mg 08/15/21 18:00 08/18/21 08:03 Tamsulosin 0.4 Mg Capsule PO 0.4 mg DAILY KELLEN Administration PFSH Acute PFSH: Medical History A-fib Abdominal pain in male Acute kidney injury superimposed on chronic kidney disease Resolved Acute urinary retention Resolved Coagulopathy Diarrhea Chronic Elevated brain natriuretic peptide (BNP) level GERD (gastroesophageal reflux disease) Gout of ankle History of SCC (squamous cell carcinoma) of skin HTN (hypertension) Iron deficiency anemia EDITH on CPAP Paroxysmal atrial fibrillation Polycystic kidney disease Polycythemia Surgical History History of circumcision History of colectomy History of hernia repair History of penile implant History of shoulder surgery History of total colectomy History of total knee replacement Family History Mother Atrial fibrillation Social History Smoking and tobacco status: never smoked Alcohol intake: current Alcohol intake frequency: holidays/special occasions only Household members: spouse Housing: House Current occupational status: retired History of recent travel: No Vitals/I&O/Wt Last Vital Signs Temp 98.1 F 08/18/21 08:23 Pulse 79 08/18/21 04:09 Resp 16 08/18/21 04:09 BP 114/79 08/18/21 04:09 Pulse Ox 95 08/17/21 20:16 08/17/21 08/18/21 08/18/21 22:59 06:59 14:59 Intake Total 536 / 2940.45 12..075 Output Total 825 / 1875 300 / 2175 Balance -289 / 1065.45 -300 / 765.45 ..075 Weight last 48 hrs Weight 276 lb 1.6 oz Physical Exam Const: COMMON NORMALS: no acute distress, alert and well nourished GENERAL APPEARANCE: well kempt and well developed ORIENTATION/CONSCIOUSNESS: not confused HENMT: COMMON NORMALS: normocephalic and atraumatic HEAD & SCALP: normocephalic and atraumatic Eye: COMMON NORMALS: conjunctivae normal CONJUNCTIVA: Yes conjunctivae normal Neck/C-Spine: COMMON NORMALS: full ROM GENERAL: Yes normal visual inspection Lymph: LYMPHATIC: no lymphadenopathy noted Resp: COMMON NORMALS: normal respiratory effort EFFORT & INSPECTION: No labored and No Actively coughing Cardio: COMMON NORMALS: regular rate RATE: regular rate GI: COMMON NORMALS: Soft to palpation PALPATION: Yes Soft to palpation and No Tenderness to palpation present (GI) : MEATUS: meatus normal, no meatla discharge and No Blood at meatus present SCROTUM: Yes testes descended bilaterally, No edematous and No scrotal swelling TESTES: No absent testicle, No testicular tenderness, No testicular mass, Yes epididymides normal and No epididymal tenderness OTHER: Postop penile implantation. No evidence of infection. Mild tenderness. Healing well Extremity: COMMON NORMALS: no clubbing, cyanosis or edema Neuro: COMMON NORMALS: no focal motor deficits SENSORIUM/ORIENTATION: Yes alert Psych: COMMON NORMALS: mental status grossly normal APPEARANCE: Yes grossly normal and Yes well kempt ATTITUDE: Yes calm and Yes engaged Skin: COMMON NORMALS: no rashes or lesions noted GENERAL SKIN EXAM: no rashes or lesions noted A&P Assessment and plan (1) Incomplete bladder emptying: Has been experiencing increasing lower urinary tract symptoms. Bladder looked distended on CT scan. He thinks he is doing better today. Status: Acute (2) Pain of male genitalia: Appears to be doing well post implantation surgery about a week ago in [facility]. No obvious concerns related to the implant. Status: Acute Consult Attestations Medical Necessity Statement: See attending Coding Level of Care Code Acute Client Insights Consultant for [facility] Fwd Diagnoses Incomplete bladder emptying R33.9 Pain of male genitalia N50.89
[2021-08-17 09:31] VITALS: RESP 29
[2021-08-17] MEDS: morphine 4 mg/mL SDV 1 mL 0.5 MG IVP (09:31)
[2021-08-17 09:43] VITALS: BP 149/99; PULSE 88; RESP 22; TEMP 36.8; O2SAT 100
[2021-08-17] MEDS: clopidogrel 75 mg Tablet PO (11:42)
[2021-08-17] MEDS: pantoprazole DR 40 mg Tablet PO ×2 (11:42→21:20)
[2021-08-17 13:03] LABS: Ceruloplasmin 41 mg/dL (18-36)
[2021-08-17] MEDS: sodium chloride 0.9% 1,000 ML 999 ML IV (13:09)
--- NOTE | 2021-08-17 13:11 | PC.NURSE ---
Insturcted by physician to give 500cc bolus. See titrate/infusion. Bolus given off 1000ml back.
--- NOTE | 2021-08-17 13:12 | PC.NURSE ---
Physician orders to start Metoprolol 50mg this evening
[2021-08-17 14:13] VITALS: PULSE 85
[2021-08-17 14:27] LABS: Osmolality Serum 273 mOsm/kg (278-305)
[2021-08-17 14:27] LABS: Osmolality Urine 349 mOsm/kg (50-1200)
--- NOTE | 2021-08-17 15:55 | PM.PN ---
Subjective Subjective: Interval history: Seen and examined this morning. Patient was complaining of penile pain at the implant site. He states the implant is 30% inflated. The and patient state that they were not given any instructions at discharge from [facility] regarding the implant. He was supposed to go back there today to have the drain removed. He would prefer to see urology in house at this point. There is no redness swelling fever at this point. Heart rate is much better controlled but patient still tachycardia upon standing up. His beta-una dose has been increased today. Vitals/I&O/Wt Last Vital Signs Temp 98.2 F 08/17/21 09:43 Pulse 85 08/17/21 14:13 Resp 22 H 08/17/21 09:43 BP 149/99 08/17/21 09:43 Pulse Ox 100 08/17/21 09:43 08/17/21 08/17/21 08/17/21 06:59 14:59 22:59 Intake Total 602.5 / 2418.916 2404.45 / 2404.45 Output Total 500 / 1400 1050 / 1050 Balance 102.5 / 9418.533 5296.45 / 1354.45 Weight last 48 hrs Weight 125.237 kg Physical Exam Narrative: EXAM NARRATIVE: General: Alert oriented x3, patient seen laying in bed, no acute distress. HEENT: Normocephalic, atraumatic, EOMI, breathing room air. present at bedside. Cardio: Irregularly irregular rhythm, normal S1-S2, no murmurs rubs gallops, Respiratory: Good bilateral air entry, no wheezes no rhonchi appreciated GI: Abdomen soft, nontender, nondistended, bowel sounds + midline scar present at pelvic area from previous surgery. Colostomy bag present at right lower quadrant. Mejia sign negative, unable to accurately assess for hepatosplenomegaly due to obese rounded abdomen. Genitourinary: Penis and scrotum nonerythematous, drain draining bloody fluid. Implant site does not seem to be infected at this time. It is nontender to palpation. Implant is inflated. Behavior: Appropriate and cooperative Extremities: Pulses 2+, no edema, no cyanosis Data : 08/17/21 03:18 08/17/21 03:18 A&P Assessment and plan (1) Unstable angina: Status: Acute (2) Jaundice: Status: Acute (3) Painless jaundice: Status: Acute (4) Acute liver failure: Status: Acute (5) Atrial fibrillation with RVR: Status: Acute (6) History of penile implant: Status: Acute Additional A&P Information #Painless Jaundice - Secondary hemochromatosis ruled out. Liver enzymes are trending down at this point Total bilirubin trending down Patient has evidence of painless jaundice. CA 19?9 level elevated at 83.3.. AMA SMA levels pending. Suspicion of underlying malignancy. Urine tox negative. Hepatitis panel is negative Hemochromatosis panel is pending Coagulopathy most likely related to acute liver failure. INR also trending down at 1.2 this point. Penile implant does not look infected. Notes reviewed from oncology visit last year. Patient has evidence of iron deficiency without anemia. He could benefit from phlebotomy but must be cautious due to low iron levels. He was receiving iron infusions almost twice a year. Frequency has decreased compared to prior years. MRCP did not show any obstruction. All labs are trending down at this point. Patient is improving. Patient will definitely benefit from a gastroenterology consult. We currently do not have the service. I have called [facility] for potential transfer. Since MRCP was clear and labs are trending down we will not transfer the patient as an inpatient to [facility]. Patient will follow up with gastroenterology as an outpatient. We will repeat labs in the morning. Discussed with Dr. Yang patient's primary care physician and he will follow up on repeat labs and see patient in his clinic after discharge. #Discomfort in perineal region ever since patient received a penile implant. There does not seem to be an active infection going on. Patient did have a 27 mile bike ride right before the surgery and since then his perineal area has been sore due to the bike seat being very small. There is no evidence of infection at this time. Patient does have pain in his penile implant today. He was given pain medication. Scrotal and penis was examined with no evidence of active infection at this point. Urology was consulted. Discussed case with Dr. Núñez who said he will see the patient. Will await recommendations. #Atrial fibrillation with RVR #Unstable Angina #Type 2 demand ischemia #Hx of CAD s/p 2 stents rates upto 170's - metroprolol 25 BID at home. BP soft therefore not increasing dose at this point - Digoxin started today - Cardio consulted -Echocardiogram did not show any gross wall motion abnormalities Patient's chest pain on admission was relieved by nitro. He has not had chest pain ever since. Patient had stress test which did show a very small reversible defect. He might benefit from an angiogram but not on an emergent basis at this time. Troponin elevation on admission most likely secondary to demand ischemia continue plavix Heart rate much better controlled after 2 L of digoxin. Blood pressure has started to recover as well. Will increase patient's metoprolol dosage and optimize him. I will also give additional fluid bolus today. #Polycythemia ?Notes reviewed from oncology visit last year. Patient has evidence of iron deficiency without anemia. He could benefit from phlebotomy but must be cautious due to low iron levels. He was receiving iron infusions almost twice a year. Frequency has decreased compared to prior years. DVT PPX: on xarelto Attestations Medical Necessity Statement*: > 24 hours. HR not fully controlled Time Spent in Patient Care: Greater than 35 minutes Coding Level of Care Code Acute Post Secondary Professional for Chg Fwd Diagnoses Unstable angina I20.0 Jaundice R17 Painless jaundice R17 Acute liver failure K72.00 Atrial fibrillation with RVR I48.91 History of penile implant Z96.0
--- NOTE | 2021-08-17 16:27 | PM.PN ---
Subjective Subjective: Interval history: Patient is feeling okay. His liver functions are getting better. The MRCP did not reveal any significant abnormalities. He still has episodes of atrial fibrillation rapid ventricular rate as he gets up and move around. Medications: Reviewed: Yes Medication Review Details: Current Medications Hydrocodone Bitart/Acetaminophen (Hydrocodone-Acetaminophen 5-325 Mg Tablet) 1 tab PO Q6H PRN PRN Reason: MODERATE PAIN Last Admin: 08/17/21 10:16 Dose: 1 tab Documented by: Albuterol/Ipratropium (Ipratropium-Albuterol 3 Ml Neb) 3 ml INHALATION Q6H.RESPIRATORY PRN PRN Reason: SHORTNESS OF BREATH Alprazolam (Alprazolam 0.5 Mg Tablet) 0.125 mg PO TID PRN PRN Reason: ANXIETY Last Admin: 08/16/21 21:49 Dose: 0.125 mg Documented by: Clopidogrel Bisulfate (Clopidogrel 75 Mg Tablet) 75 mg PO DAILY@1200 [facility] Last Admin: 08/17/21 11:42 Dose: 75 mg Documented by: Sodium Chloride (Sodium Chloride 0.9%) 1,000 mls @ 75 mls/hr IV .[id number] [facility] Last Infusion: 08/17/21 14:02 Dose: 75 mls/hr Documented by: Piperacillin Sod/Tazobactam (Sod 3.375 gm/ Sodium Chloride) 50 mls @ 12.5 mls/hr IV Q8H [facility]; Protocol Last Admin: 08/17/21 14:43 Dose: 12.5 mls/hr Documented by: Lisinopril (Lisinopril 5 Mg Tablet) 5 mg PO DAILY [facility] Last Admin: 08/17/21 07:58 Dose: 5 mg Documented by: Metoprolol Tartrate (Metoprolol Tartrate 25 Mg Tablet) 50 mg PO BID@0900,2100 [facility] Last Admin: 08/17/21 13:12 Dose: Not Given Documented by: Ondansetron HCl (Ondansetron 2 Mg/Ml Sdv 2 Ml) 4 mg IVP Q6H PRN PRN Reason: NAUSEA AND VOMITING Ondansetron HCl (Ondansetron 2 Mg/Ml Sdv 2 Ml) 4 mg IVP Q2M PRN PRN Reason: NAUSEA Pantoprazole Sodium (Pantoprazole Dr 40 Mg Tablet) 40 mg PO BID@1200,2200 [facility] Last Admin: 08/17/21 11:42 Dose: 40 mg Documented by: Rivaroxaban (Rivaroxaban 10 Mg Tablet) 20 mg PO DAILY [facility] Last Admin: 08/17/21 07:59 Dose: 20 mg Documented by: Senna/Docusate Sodium (Sennosides-Docusate Tablet) 1 tab PO DAILY [facility] Last Admin: 08/17/21 07:18 Dose: Not Given Documented by: Tamsulosin HCl (Tamsulosin 0.4 Mg Capsule) 0.4 mg PO DAILY [facility] Last Admin: 08/17/21 07:59 Dose: 0.4 mg Documented by: Vitals/I&O/Wt Last Vital Signs Temp 98.2 F 08/17/21 09:43 Pulse 85 08/17/21 14:13 Resp 22 H 08/17/21 09:43 BP 149/99 08/17/21 09:43 Pulse Ox 100 08/17/21 09:43 08/17/21 08/17/21 08/17/21 06:59 14:59 22:59 Intake Total 602.5 / 2418.916 2404.45 / 2404.45 Output Total 500 / 1400 1050 / 1050 Balance 102.5 / 6411.580 7465.45 / 1354.45 Weight last 48 hrs Weight 276 lb 1.6 oz Physical Exam Narrative: EXAM NARRATIVE: GENERAL: The patient is alert and oriented times three. Not in any acute distress. HEENT: Icterus present. No lymphadenopathy. The pupils are symmetric: Oral cavity: There are no mucous membrane lesions. NECK: Trachea appears to be central. No masses noted. No JVD or thyromegaly appreciated. No carotid bruit. RESPIRATORY: Chest is symmetrical. No intercostals muscle retraction or any accessory muscle activation. There is no chest wall tenderness. Breath sounds are heard bilaterally. No rales or rhonchi heard. No evidence of any consolidation. BREASTS: Deferred. HEART: The PMI could not be palpated.. No palpable precordial events. S1 and S2 are normal. No S3 or S4 heard. No pericardial rub or any click heard. ABDOMEN: Abdomen is obese. No vessel pulsations or distention. No tenderness. No organomegaly appreciated. No abdominal bruit. Bowel sounds are normally heard. Colostomy bag is draining : Deferred. RECTAL: Deferred. LYMPHATIC: No lymphadenopathy noted in the neck or groin. EXTREMITIES: No edema or cyanosis. No clubbing. The pulses are symmetrical bilaterally. The radial, femoral, dorsalis pedis and the posterior tibial pulses are palpated and found to be in good volume and amplitude. MUSCULOSKELETAL: No acute joint deformities or swelling SKIN: Yellowish discoloration of the skin is present NEUROPSYCHIATRIC: The patient is alert and oriented x3. Appears to be in a good mood. The higher functions are grossly within normal limits. No tremors or rigidity noted. Data : 08/17/21 03:18 08/17/21 03:18 A&P Assessment and plan (1) Atrial fibrillation with RVR: The dose of the metoprolol may be increased to 50 mg p.o. twice daily. Since her blood pressure is of stage II, may go up on the dose of the metoprolol up to 100 mg p.o. twice daily. Status: Acute (2) Atypical chest pain: Since the area of ischemia appears to be very small, and also since the patient has no recurrence of chest pain, it may be appropriate to continue the medical treatment for the time being. May consider cardiac catheterization, if there is any plan for any major surgeries. Status: Acute (3) Elevated troponin: As mentioned above Status: Acute (4) Atherosclerotic heart disease of [place] coronary artery with other forms of angina pectoris: Patient is known to have coronary disease and had a PCI x2 in the past. Possibility of in-stent stenosis or progression of disease in the other vessels are considerations. Patient may require a cardiac catheterization, to further evaluate his coronary status and decide on further management. However at this point since he seems to be stable, that may not be an urgency in doing the procedure. May continue on the medical treatment. Status: Acute (5) Jaundice: Management as per the hospitalist service Status: Acute Additional A&P Information Other problems are Elevated liver enzymes Elevated hemoglobin hematocrit Dyslipidemia If the patient continues remain stable, may be discharged home from a cardiac standpoint. May consider further cardiac work-up as an outpatient Attestations Medical Necessity Statement*: Deferred to the primary Coding Level of Care Code Acute Dry Yard Worker for [facility]andrad Diagnoses Atrial fibrillation with RVR I48.91 Atypical chest pain R07.89 Elevated troponin R77.8 Atherosclerotic heart disease of [place] coronary artery with other forms of angina pectoris I25.118 Jaundice R17
[2021-08-17] MEDS: ALPRAZolam 0.5 mg Tablet 0.125 MG PO (19:45)
[2021-08-17 20:16] VITALS: BP 133/84; PULSE 108; RESP 13; O2SAT 95
[2021-08-17 20:49] VITALS: TEMP 36.9
[2021-08-17] MEDS: metoprolol tartrate 25 mg Tablet 50 MG PO (20:49)
[2021-08-17] MEDS: piperacillin-tazobactam 3.375 GM in sodium chloride 0.9% (plus) 50 ML 1.5 GM IV (23:55)
[2021-08-18 00:45] VITALS: BP 100/56; PULSE 83
[2021-08-18 04:09] VITALS: BP 114/79; PULSE 79; RESP 16; TEMP 36.6
[2021-08-18 05:03] LABS: Basophils # 0.1 10^3/uL (0.0-0.1); Basophils % 0.6 %; Hematocrit 52.8 % (42.0-52.0); Hemoglobin 16.4 g/dL (11.7-16.6); Lymphocytes # 1.1 10^3/uL (0.8-4.8); Lymphocytes % 13.3 %; Mean Corpuscular HGB Conc 31.1 g/dL (30.0-36.0); Mean Corpuscular Hemoglobin 26.6 pg (28.0-34.0); Mean Corpuscular Volume 85.6 fl (80-94); Mean Platelet Volume 9.6 fL (7.4-10.4); Monocytes % 12.1 %; Neutrophils # 6.23 10^3/uL (1.8-7.7); Neutrophils % 72.8 %; Nucleated Red Blood Cells % 0 %; Platelet Count 312 10^3/cmm (130-400); Red Blood Count 6.17 10^6/uL (4.1-5.3); Red Cell Distribution Width 15.9 % (12.1-15.1); White Blood Count 8.6 10^3/uL (4.0-10.0)
[2021-08-18 05:24] LABS: Alanine Aminotransferase 45 U/L (0-41); Alkaline Phosphatase 147 IU/L (40-130); Anion Gap 13.5 (5-19); Aspartate Amino Transferase 30 U/L (0-40); Blood Urea Nitrogen 17 mg/dL (8-23); Calcium 8.7 mg/dL (8.5-10.5); Carbon Dioxide 26 mmol/L (22-29); Chloride 98 mmol/L (98-107); Globulin 3.3 g/dL (1.3-4.6); Glucose 95 mg/dL (65-115); Osmolality Calculated 279 mOsm/kg (285-295); Potassium 3.5 mmol/L (3.5-5.1); Sodium 134 mmol/L (136-145); Total Bilirubin 2.8 mg/dL (0.15-1.2); Total Protein 6.3 g/dL (6.6-8.7)
[2021-08-18] MEDS: piperacillin-tazobactam 3.375 GM in sodium chloride 0.9% (plus) 50 ML IV (07:58)
[2021-08-18] MEDS: rivaroxaban 10 mg Tablet 20 MG PO (08:03)
[2021-08-18] MEDS: lisinopril 5 mg Tablet PO (08:03)
[2021-08-18] MEDS: metoprolol tartrate 50 mg Tablet 100 MG PO (08:03)
[2021-08-18] MEDS: tamsulosin 0.4 mg Capsule PO (08:03)
[2021-08-18 08:23] VITALS: TEMP 36.7
--- NOTE | 2021-08-18 09:18 | P.PN_ITS ---
Subjective Subjective: Interval history: Patient continues to have episodes of atrial fibrillation with rapid ventricular rate. We also came to know that the patient has been taking metoprolol 75 mg twice daily at home. For this reason, he was given 100 mg of metoprolol this morning and will continue on the milligrams twice daily. His blood pressure seems to be staying in the normal range. Denies any fever or chills. No other specific complaints. Medications: Reviewed: Yes Medication Review Details: Current Medications Hydrocodone Bitart/Acetaminophen (Hydrocodone-Acetaminophen 5-325 Mg Tablet) 1 tab PO Q6H PRN PRN Reason: MODERATE PAIN Last Admin: 08/17/21 23:55 Dose: 1 tab Documented by: Albuterol/Ipratropium (Ipratropium-Albuterol 3 Ml Neb) 3 ml INHALATION Q6H.RESPIRATORY PRN PRN Reason: SHORTNESS OF BREATH Alprazolam (Alprazolam 0.5 Mg Tablet) 0.125 mg PO TID PRN PRN Reason: ANXIETY Last Admin: 08/17/21 19:45 Dose: 0.125 mg Documented by: Clopidogrel Bisulfate (Clopidogrel 75 Mg Tablet) 75 mg PO DAILY@1200 [facility] Last Admin: 08/17/21 11:42 Dose: 75 mg Documented by: Sodium Chloride (Sodium Chloride 0.9%) 1,000 mls @ 75 mls/hr IV .[id number] [facility] Last Infusion: 08/17/21 14:02 Dose: 75 mls/hr Documented by: Piperacillin Sod/Tazobactam (Sod 3.375 gm/ Sodium Chloride) 50 mls @ 12.5 mls/hr IV Q8H [facility]; Protocol Last Admin: 08/18/21 07:58 Dose: 12.5 mls/hr Documented by: Lisinopril (Lisinopril 5 Mg Tablet) 5 mg PO DAILY [facility] Last Admin: 08/18/21 08:03 Dose: 5 mg Documented by: Metoprolol Tartrate (Metoprolol Tartrate 50 Mg Tablet) 100 mg PO BID@0900,2100 [facility] Last Admin: 08/18/21 08:03 Dose: 100 mg Documented by: Ondansetron HCl (Ondansetron 2 Mg/Ml Sdv 2 Ml) 4 mg IVP Q6H PRN PRN Reason: NAUSEA AND VOMITING Ondansetron HCl (Ondansetron 2 Mg/Ml Sdv 2 Ml) 4 mg IVP Q2M PRN PRN Reason: NAUSEA Pantoprazole Sodium (Pantoprazole Dr 40 Mg Tablet) 40 mg PO BID@1200,2200 [facility] Last Admin: 08/17/21 21:20 Dose: 40 mg Documented by: Rivaroxaban (Rivaroxaban 10 Mg Tablet) 20 mg PO DAILY [facility] Last Admin: 08/18/21 08:03 Dose: 20 mg Documented by: Senna/Docusate Sodium (Sennosides-Docusate Tablet) 1 tab PO DAILY [facility] Last Admin: 08/18/21 08:03 Dose: Not Given Documented by: Tamsulosin HCl (Tamsulosin 0.4 Mg Capsule) 0.4 mg PO DAILY [facility] Last Admin: 08/18/21 08:03 Dose: 0.4 mg Documented by: Vitals/I&O/Wt Last Vital Signs Temp 98.1 F 08/18/21 08:23 Pulse 79 08/18/21 04:09 Resp 16 08/18/21 04:09 BP 114/79 08/18/21 04:09 Pulse Ox 95 08/17/21 20:16 08/17/21 08/18/21 08/18/21 22:59 06:59 14:59 Intake Total 536 / 2940.45 12.075 / 12.075 Output Total 825 / 1875 300 / 2175 Balance -289 / 1065.45 -300 / 765.45 12.075 / 12.075 Weight last 48 hrs Weight 276 lb 1.6 oz Physical Exam Narrative: EXAM NARRATIVE: GENERAL: The patient is alert and oriented times three. Not in any acute distress. HEENT: Minimal icterus.. No lymphadenopathy. The pupils are symmetric: Oral cavity: There are no mucous membrane lesions. NECK: Trachea appears to be central. No masses noted. No JVD or thyromegaly appreciated. No carotid bruit. RESPIRATORY: Chest is symmetrical. No intercostals muscle retraction or any accessory muscle activation. There is no chest wall tenderness. Breath sounds are heard bilaterally. No rales or rhonchi heard. No evidence of any consolidation. BREASTS: Deferred. HEART: The PMI could not be palpated.. No palpable precordial events. S1 and S2 are normal. No S3 or S4 heard. No pericardial rub or any click heard. ABDOMEN: Abdomen is obese. No vessel pulsations or distention. No tenderness. No organomegaly appreciated. No abdominal bruit. Bowel sounds are normally heard. Colostomy bag is draining : Deferred. RECTAL: Deferred. LYMPHATIC: No lymphadenopathy noted in the neck or groin. EXTREMITIES: No edema or cyanosis. No clubbing. The peripheral pulses are felt in fairly good volume and amplitude. MUSCULOSKELETAL: No acute joint deformities or swelling SKIN: Yellowish discoloration of the skin has significantly improved. NEUROPSYCHIATRIC: The patient is alert and oriented x3. Appears to be in a good mood. The higher functions are grossly within normal limits. No tremors or rigidity noted. Data : 08/18/21 04:14 08/18/21 04:14 Other Labs: Laboratory Last Values WBC 8.6 10^3/uL (4.0-10.0) 08/18/21 04:14 RBC 6.17 10^6/uL (4.1-5.3) H 08/18/21 04:14 Hgb 16.4 g/dL (11.7-16.6) 08/18/21 04:14 Hct 52.8 % (42.0-52.0) H 08/18/21 04:14 MCV 85.6 fl (80-94) 08/18/21 04:14 MCH 26.6 pg (28.0-34.0) L 08/18/21 04:14 MCHC 31.1 g/dL (30.0-36.0) 08/18/21 04:14 RDW 15.9 % (12.1-15.1) H 08/18/21 04:14 Plt Count 312 10^3/cmm (130-400) 08/18/21 04:14 MPV 9.6 fL (7.4-10.4) 08/18/21 04:14 Neut % (Auto) 72.8 % 08/18/21 04:14 Lymph % (Auto) 13.3 % 08/18/21 04:14 [place] % (Auto) 12.1 % 08/18/21 04:14 Eos % (Auto) 0.0 % 08/18/21 04:14 Baso % (Auto) 0.6 % 08/18/21 04:14 Neut # (Auto) 6.23 10^3/uL (1.8-7.7) 08/18/21 04:14 Lymph # (Auto) 1.1 10^3/uL (0.8-4.8) 08/18/21 04:14 [place] # (Auto) 1.0 10^3/uL (0.2-0.9) H 08/18/21 04:14 Eos # (Auto) 0.0 10^3/uL (0.0-0.8) 08/18/21 04:14 Baso # (Auto) 0.1 10^3/uL (0.0-0.1) 08/18/21 04:14 Nucleated RBC % (auto) 0 % 08/18/21 04:14 Nucleated RBCs # 0.0 /100WBC 08/18/21 04:14 Haptoglobin 297.0 mg/L (30-200) H 08/15/21 17:25 PT 15.50 SECONDS (12.1-14.9) H 08/17/21 03:18 INR 1.19 (0.8-1.2) 08/17/21 03:18 APTT 37.0 SECONDS (23.9-36.7) H 08/15/21 17:25 Fibrinogen 803 mg/dL (174-498) H 08/15/21 17:25 Sodium 134 mmol/L (136-145) L 08/18/21 04:14 Potassium 3.5 mmol/L (3.5-5.1) 08/18/21 04:14 Chloride 98 mmol/L (98-107) 08/18/21 04:14 Carbon Dioxide 26 mmol/L (22-29) 08/18/21 04:14 Anion Gap 13.5 (5-19) 08/18/21 04:14 BUN 17 mg/dL (8-23) 08/18/21 04:14 Creatinine 1.1 mg/dL (0.7-1.2) 08/18/21 04:14 GFR Calculation Not Reportable 08/18/21 04:14 Glucose 95 mg/dL (65-115) 08/18/21 04:14 Serum Osmolality 273 mOsm/kg (278-305) L 08/15/21 17:25 Calculated Osmolality 279 mOsm/kg (285-295) L 08/18/21 04:14 Lactate 1.0 mmol/L (0.5-2.2) 08/15/21 17:25 Uric Acid 5.3 mg/dL (3.4-7.0) 08/15/21 17:25 Calcium 8.7 mg/dL (8.5-10.5) 08/18/21 04:14 Phosphorus 2.5 mg/dL (2.5-4.5) 08/16/21 00:12 Magnesium 2.0 mg/dL (1.7-2.3) 08/18/21 04:14 Iron 47 ug/dL (59-158) L 08/15/21 17:25 TIBC 277 mcg/dl 08/15/21 17:25 % Saturation 16.9 % (20-50) L 08/15/21 17:25 Unsat Iron Binding 230 ug/dL (112-347) 08/15/21 17:25 Ferritin 902 ng/mL (30-400) H 08/15/21 17:25 Total Bilirubin 2.8 mg/dL (0.15-1.2) H 08/18/21 04:14 Direct Bilirubin 8.10 mg/dL (0.00-0.30) H 08/15/21 17:25 Indirect Bilirubin 3.50 08/15/21 17:25 GGT 208 U/L (8-61) H 08/16/21 07:25 AST 30 U/L (0-40) 08/18/21 04:14 ALT 45 U/L (0-41) H 08/18/21 04:14 Alkaline Phosphatase 147 IU/L (40-130) H 08/18/21 04:14 Lactate Dehydrogenase 218 U/L (135-225) 08/15/21 17:25 Troponin T Baseline 27 ng/L (0-15) H 08/15/21 17:25 Troponin T 120 Minute 27.90 ng/L (0-15) H 08/15/21 19:31 Delta Troponin T 0.90 ABS# (0-10) 08/15/21 19:31 Troponin T Hi Sens 6Hr 29.31 ng/L (0-15) H 08/16/21 00:12 Troponin T Hi Sens 6Hr Delta 2.31 ng/L (0-12) 08/16/21 00:12 C-Reactive Protein 116.3 mg/L (0.0-4.9) H 08/16/21 00:12 Total Protein 6.3 g/dL (6.6-8.7) L 08/18/21 04:14 Albumin 3.0 g/dL (3.5-5.2) L 08/18/21 04:14 Globulin 3.3 g/dL (1.3-4.6) 08/18/21 04:14 Ceruloplasmin 41 mg/dL (18-36) H 08/15/21 17:25 Triglycerides 93 mg/dL (0-150) 08/15/21 17:25 Cholesterol 90 mg/dL (0-200) 08/15/21 17:25 LDL Cholesterol, Calc 49 mg/dL (50-129) L 08/15/21 17:25 HDL Cholesterol 22 mg/dL (60-100) L 08/15/21 17:25 LDL/HDL Ratio 2.23 RATIO (0.00-3.22) 08/15/21 17:25 Cholesterol/HDL Ratio 4.09 mg/dL (1.0-5.00) 08/15/21 17:25 Lipase 16 U/L (13-60) 08/15/21 19:31 Tumor Marker AFP 0.6 ng/mL (0-8.3) 08/15/21 17:25 CA 19-9 Antigen 83.10 U/mL (0-35) H 08/16/21 12:59 Vitamin B12 700 pg/mL (232-1245) 08/15/21 17:25 Procalcitonin 0.33 ng/mL (0-0.5) 08/15/21 17:25 TSH 1.07 uIU/mL (0.27-4.20) 08/15/21 17:25 Urine Osmolality 349 mOsm/kg (50-1200) 08/16/21 02:20 Urine Opiates Screen Positive ng/mL (Negative) H 08/16/21 02:20 Ur Barbiturates Screen Negative ng/mL (Negative) 08/16/21 02:20 Ur Phencyclidine Scrn Negative ng/mL (Negative) 08/16/21 02:20 Ur Amphetamines Screen Negative ng/mL (Negative) 08/16/21 02:20 U Benzodiazepines Scrn Negative ng/mL (Negative) 08/16/21 02:20 Urine Cocaine Screen Negative ng/mL (Negative) 08/16/21 02:20 U Marijuana (THC) Screen Negative ng/mL (Negative) 08/16/21 02:20 Ethyl Alcohol < 10 mg/dL (0-10) 08/15/21 17:25 Hepatitis A IgM Ab Non-reactive (Nonreactive) 08/15/21 17:25 Hep Bs Antigen Non-reactive (Nonreactive) 08/15/21 17:25 Hep Bs Antibody 3.5 (11.5-1000) L 08/15/21 17:25 Hep B Core Total Ab Non-reactive (Nonreactive) 08/15/21 17:25 Hepatitis C Antibody Non-reactive (Nonreactive) 08/15/21 17:25 SARS-CoV-2 Ag (Rapid) Negative (Negative) 08/16/21 11:55 A&P Assessment and plan (1) Atrial fibrillation with RVR: Currently the dose of metoprolol has increased to 100 mg p.o. twice daily. Patient seems to be tolerating the medication so far well. Is encouraged to do ambulation on telemetry. Status: Acute (2) Atypical chest pain: Since the area of ischemia appears to be very small, and also since the patient has no recurrence of chest pain, it may be appropriate to continue the medical treatment for the time being. May consider cardiac catheterization, if there is any plan for any major surgeries/develops recurrence of chest pain. Status: Acute (3) Elevated troponin: As mentioned above Status: Acute (4) Atherosclerotic heart disease of [place] coronary artery with other forms of angina pectoris: Patient is known to have coronary disease and had a PCI x2 in the past. Possibility of in-stent stenosis or progression of disease in the other vessels are considerations. Patient may require a cardiac catheterization, to further evaluate his coronary status and decide on further management. However at this p oint since he seems to be stable, that may not be an urgency in doing the procedure. May continue on the medical treatment. If he continues to remain stable, may be discharged home today. I will see him in the office for follow-up Status: Acute (5) Jaundice: Management as per the hospitalist service Status: Acute Additional A&P Information Other problems are Elevated liver enzymes Elevated hemoglobin hematocrit Dyslipidemia If the patient continues remain stable, may be discharged home from a cardiac standpoint. May consider further cardiac work-up as an outpatient. Please make an appointment to be seen by nurse practitioner next week. I may see him in the office in 1 month. In the event of developing recurrence of chest pain or any other specific cardiac symptoms, advised to contact our office or come back to the hospital. Attestations Medical Necessity Statement*: Possible discharge home today. Coding Level of Care Code Acute [employer] Specialist for [employer] Diagnoses Atrial fibrillation with RVR I48.91 Atypical chest pain R07.89 Elevated troponin R77.8 Atherosclerotic heart disease of [place] coronary artery with other forms of angina pectoris I25.118 Jaundice R17
[2021-08-18 10:27] VITALS: PULSE 83; RESP 18; O2SAT 97
--- NOTE | 2021-08-18 10:36 | PC.SOCIAL ---
Pg 2 IMM Explained to pt Pg 2 IMM. No questions voiced. Provided pt a copy. Initialed, dated, & timed a copy & placed in chart.
[2021-08-18 11:57] VITALS: BP 102/62; PULSE 79; RESP 21; TEMP 36.3
--- NOTE | 2021-08-18 12:05 | P.DS_ITS ---
Discharge Providers Date of Admission: 08/15/21 16:19 Date of Discharge: August 18, 2021 Attending Provider at Admission: Luis Yang MD Attending Provider at Discharge: Isabel Middleton MD Primary Care Provider: Luis Yang MD Diagnoses at Discharge Discharge Diagnosis (1) Atrial fibrillation with RVR: Status: Acute (2) Atypical chest pain: Status: Acute (3) Elevated troponin: Status: Acute (4) Atherosclerotic heart disease of [place] coronary artery with other forms of angina pectoris: Status: Acute (5) Jaundice: Status: Acute Reason for Visit Reason for Visit: [facility] Course Hospital Course HPI as per Dr. Nitin Og Kacie Mireles is a 71 year old male who carries a history of atrial fibrillation, has been getting iron infusion for last 2 years(twice a year), BPH status post TURP, left-sided polycystic kidney disease, chronic kidney disease stage IV(takes lisinopril),Presented to Dr. Yang's clinic today for chief complaint of fatigue lethargy and dark urine. Patient is stating that he had a penile implant done on Saturday from [facility], since then he has been feeling extreme lethargic, fatigued, he is not able to sit for long peroid of time, he does feel pressure around his perineal area. He has not noticed any increased drainage, he has not noticed any fever. He has been noticing normal output from his ileostomy bag. His urine has been dark, he does have symptoms of obstructive uropathy. His symptoms of weakness fatigue and lethargy are just 1 week old. Patient is stating that he has not taken testosterone regular basis, he does not wear dentures. His house is 26 years old less likely to have any lead poisoning. No previous history of seizure coarse tremors or strokelike features. No family history of liver cirrhosis. He has never been diagnosed with hepatitis. No recent traveling. Please note today patient started experiencing chest pain when he was at rest, he is describing this pain as heaviness, substernal nonradiating which got relieved after taking sublingual nitroglycerin, his pain last only for 30 minutes. He does have history of coronary disease with stent placed in the past Work-up showed acute liver failure I have requested CT abdomen pelvis, hemochromatosis work-up with iron panel drug screen In case I find anything significant related to his recent penile implant, would recommend transfer back to [facility] Penile implant is AMS 700 (silicone) Polycythemia Bilirubin 11 Coagulopathy related to liver failure Patient is able to give above-mentioned history son at the bedside Imaging is pending He is afebrile, no leukocytosis N.p.o. after midnight, stress test in the morning serial troponin and EKG Course: #Painless Jaundice - Secondary hemochromatosis ruled out. Liver enzymes are trending down at this point Labs on admission: Hb 17.3, INR 1.45, PT 18, Total Bili: 11, Direct bili 8, AST ALT evelated, GGT 220, ALK phos 212. CA 19-9 83.1 Total bilirubin trending down Patient has evidence of painless jaundice. CA 19?9 level elevated at 83.3.. AMA SMA levels pending. Suspicion of underlying malignancy. Urine tox negative. Hepatitis panel is negative Hemochromatosis panel is pending Coagulopathy most likely related to acute liver failure. INR also trending down at 1.2 this point. Penile implant does not look infected. Notes reviewed from oncology visit last year. Patient has evidence of iron deficiency without anemia. He could benefit from phlebotomy but must be cautious due to low iron levels. He was receiving iron infusions almost twice a year. Frequency has decreased compared to prior years. MRCP did not show any obstruction. All labs are trending down at this point. Patient is improving. Patient will definitely benefit from a gastroenterology consult. We currently do not have the service. I have called [facility] for potential transfer. Since MRCP was clear and labs are trending down we will not transfer the patient as an inpatient to [facility]. Patient will follow up with gastroenterology as an outpatient. We will repeat labs in the morning. Discussed with Dr. Yang patient's primary care physician and he will follow up on repeat labs and see patient in his clinic after discharge. #Discomfort in perineal region ever since patient received a penile implant. There does not seem to be an active infection going on. Patient did have a 27 mile bike ride right before the surgery and since then his perineal area has been sore due to the bike seat being very small. There is no evidence of infection at this time. Patient does have pain in his penile implant today. He was given pain medication. Scrotal and penis was examined with no evidence of active infection at this point. Urology was consulted. Discussed case with Dr. Núñez who said he will see the patient. Will await recommendations. #Atrial fibrillation with RVR #Unstable Angina #Type 2 demand ischemia #Hx of CAD s/p 2 stents rates upto 170's - metroprolol 25 BID at home. BP soft therefore not increasing dose at this point - Digoxin started today - Cardio consulted -Echocardiogram did not show any gross wall motion abnormalities Patient's chest pain on admission was relieved by nitro. He has not had chest pain ever since. Patient had stress test which did show a very small reversible defect. He might benefit from an angiogram but not on an emergent basis at this time. Troponin elevation on admission most likely secondary to demand ischemia continue plavix Heart rate much better controlled after 2 L of digoxin. Placed on metoprolol 100 BID at discharge. #Polycythemia ?Notes reviewed from oncology visit last year. Patient has evidence of iron deficiency without anemia. He could benefit from phlebotomy but must be cautious due to low iron levels. He was receiving iron infusions almost twice a year. Frequency has decreased compared to prior years. Dr. Yang, Dr. Pandey updated over the phone regarding patient's hospital course. Patient will follow up outpatient with Dr. Pandey. He will also follow-up with Dr. Yang and gastroenterology in [facility]. Physical Exam Narrative: EXAM NARRATIVE: General: Alert oriented x3, patient seen laying in bed, no acute distress. HEENT: Normocephalic, atraumatic, EOMI, breathing room air. present at bedside. Cardio: Irregularly irregular rhythm, normal S1-S2, no murmurs rubs gallops, Respiratory: Good bilateral air entry, no wheezes no rhonchi appreciated GI: Abdomen soft, nontender, nondistended, bowel sounds + midline scar present at pelvic area from previous surgery. Colostomy bag present at right lower quadrant. Mejia sign negative, unable to accurately assess for hepatosplenomegaly due to obese rounded abdomen. Genitourinary: Penis and scrotum nonerythematous, drain draining bloody fluid. Implant site does not seem to be infected at this time. It is nontender to palpation. Implant is inflated. Behavior: Appropriate and cooperative Extremities: Pulses 2+, no edema, no cyanosis Discharge Data Data Completed and Pending: Completed Studies During Hospitalization Category Date Time Status CT abdomen pelvis w con* [id number] Stat Cat Scan 08/15/21 16:46 Com[address] Stress Te st MIBI [Sestamibi Stress Test Reque st Exams 08/16/21 07:35 Completed ] Routine MR MRCP [id number] Sta t MRI 08/16/21 12:06 Completed NM akin perf SPECT r/s* [id number] Routin e Nuc Med 08/16/21 18:26 Completed CV. echo complete * [id number] Routine Ultrasound 08/16/21 18:25 Completed Pending at discharge Category Date Time Status Hemochromatosis D NA Routine Lab 08/15/21 16:30 Received Mitochondrial AB Screen Stat Lab 08/16/21 12:59 Received Smooth Muscle AB Screen w/Refl Stat Lab 08/16/21 12:59 Received Labs from last 24 hours 08/18/21 08/18/21 08/16/21 04:14 04:14 02:20 WBC 8.6 RBC 6.17 H Hgb 16.4 Hct 52.8 H MCV 85.6 MCH 26.6 L MCHC 31.1 RDW 15.9 H Plt Count 312 MPV 9.6 Neut % (Auto) 72.8 Lymph % (Auto) 13.3 [place] % (Auto) 12.1 Eos % (Auto) 0.0 Baso % (Auto) 0.6 Neut # (Auto) 6.23 Lymph # (Auto) 1.1 [place] # (Auto) 1.0 H Eos # (Auto) 0.0 Baso # (Auto) 0.1 Nucleated RBC % (a uto) 0 Nucleated RBCs # 0.0 Sodium 134 L Potassium 3.5 Chloride 98 Carbon Dioxide 26 Anion Gap 13.5 BUN 17 Creatinine 1.1 GFR Calculation Not Reportable Glucose 95 Serum Osmolality Calculated Osmolal ity 279 L Calcium 8.7 Magnesium 2.0 Total Bilirubin 2.8 H AST 30 ALT 45 H Alkaline Phosphata se 147 H Total Protein 6.3 L Albumin 3.0 L Globulin 3.3 Ceruloplasmin Urine Osmolality 349 08/15/21 08/15/21 17:25 17:25 WBC RBC Hgb Hct MCV MCH MCHC RDW Plt Count MPV Neut % (Auto) Lymph % (Auto) [place] % (Auto) Eos % (Auto) Baso % (Auto) Neut # (Auto) Lymph # (Auto) [place] # (Auto) Eos # (Auto) Baso # (Auto) Nucleated RBC % (a uto) Nucleated RBCs # Sodium Potassium Chloride Carbon Dioxide Anion Gap BUN Creatinine GFR Calculation Glucose Serum Osmolality 273 L Calculated Osmolal ity Calcium Magnesium Total Bilirubin AST ALT Alkaline Phosphata se Total Protein Albumin Globulin Ceruloplasmin 41 H Urine Osmolality Vitals: Last Vital Signs Temp 97.3 F L 08/18/21 11:57 Pulse 79 08/18/21 11:57 Resp 21 H 08/18/21 11:57 BP 102/62 08/18/21 11:57 Pulse Ox 97 08/18/21 10:27 Discharge Plan Discharge Patient Disposition: Home Condition: Stable Prescriptions: New lisinopril 5 mg Tablet 5 mg PO DAILY 30 Days Qty: 30 RF: 0 Augmentin 875-125 mg tablet 1 tab PO BID 3 Days Qty: 6 RF: 0 Continued triamcinolone acetonide 0.1 % ointment 1 applic TOPICAL DAILY PRN (Reason: unknown) RF: 0 tamsulosin 0.4 mg capsule 0.4 mg PO QDAY Qty: 30 RF: 12 Plavix 75 mg tablet 75 mg PO DAILY@1200 Qty: 90 RF: 3 Xarelto 20 mg tablet 20 mg PO DAILY@2200 Qty: 90 RF: 3 pantoprazole 40 mg tablet,delayed release (DR/EC) 40 mg PO BID@1200,2200 Qty: 180 RF: 3 cyanocobalamin (vitamin B-12) 1,000 mcg/mL solution 1,000 mcg IM .monthly Qty: 1 RF: 3 hydrocodone-acetaminophen 5-325 mg Tablet 1 tab PO Q4H PRN (Reason: pts states this was an old rx) RF: 0 tramadol 50 mg tablet 50 mg PO QID PRN (Reason: Pain) RF: 0 melatonin 10 mg Tablet 10 mg PO BEDTIME PRN (Reason: Sleep) RF: 0 Changed metoprolol tartrate 50 mg tablet 100 mg PO BID Qty: 0 RF: 0 Held chlorthalidone 25 mg tablet 25 mg PO DAILY Qty: 90 RF: 3 Hold Instructions: see pcp simvastatin 40 mg tablet 40 mg PO BEDTIME@2200 Qty: 90 RF: 3 Hold Instructions: see PCP febuxostat [Uloric] 40 mg tablet 40 mg PO DAILY Qty: 90 RF: 3 Hold Instructions: see pcp Discontinued cefdinir 300 mg capsule 300 mg PO BID RF: 0 metoprolol tartrate 25 mg tablet 25 mg PO BID RF: 0 Discharge Orders: Discharge Order (Routine); Ordered 08/18/21 Ordered By: Isabel Middleton Other Ambulatory Orders: Comprehensive Metabolic Panel (Routine) Timeframe: 2 Days Facility: [facility] - Location: Lab - Main Lab Ordered By: Isabel Middleton Referrals: Luis Yang MD [Primary Care Provider] - 08/24/21 2:15 pm (You have a hospital followup with Dr. Yang at [facility] Internal Medicine in August 24 at 2:15pm) Jak Pandey MD [Physician] - 1 week ([facility] will be calling to schedule a cardiology followup with Dr. Pandey to be seen in 1 week. If you don't hear from them by Saturday, Please give them a call. Thank you) Discharge Diet: Cardiac, Low Salt, Low Cholesterol and Low Fat Discharge Activity: Increase activity as tolerated Patient Instructions: Lisinopril (By mouth) (Prinivil, Zestril), Amoxicillin/Clavulanate Potassium (By mouth) (Augmentin, Augmentin..., Chest Pain (DC), Penile Prosthesis (DC), Opioid Safety Activity Restrictions/Additional Instructions: F/u [facility] for penile implant F/U with gasteroenterology in [place], [place], Dr. Faisal Babcock [phone] Please stop by [facility] in 2 days to have CMP Blood work done. You don't need an appointment for this. Please check in at admissions prior to going to the lab. Thank you Discharge Attestations Time Spent in Discharge Care*: greater than 30 min Status at Discharge: Cognitive status at discharge: cognitively intact , Behavioral status at discharge: cooperative , Quality Metrics Clinical Quality Measures During this hospital stay, did patient experience: None Coding Level of Care Code Acute Chg FW DC note Diagnoses Atrial fibrillation with RVR I48.91 Atypical chest pain R07.89 Elevated troponin R77.8 Atherosclerotic heart disease of [place] coronary artery with other forms of angina pectoris I25.118 Jaundice R17
[2021-08-18] MEDS: clopidogrel 75 mg Tablet PO (12:16)
[2021-08-18] MEDS: pantoprazole DR 40 mg Tablet PO (12:16)
[2021-08-18 12:41] VITALS: BP 102/62; PULSE 79; RESP 21; TEMP 36.3
--- NOTE | 2021-08-18 13:19 | PC.CHAP ---
Pastoral Care Encounter/Spiritual Assessment Type of Contact [] Declined casino cashier manager visit [] Patient/Family/Request visit [] Outpatient visit [xx] Follow-up visit [] Physician referral [] Code/Alert [xx] Routine visit [] Staff referral [] Actively dying [] Patient sleeping [] Family support [] [] Out of room [] Palliative care [] [] Receiving care in room [] Pre-surgical visit [] Trauma [] Long length of stay [] ICU visit [] Other: Relational/Emotional Strength [xx] Patient feels connected with others/family/visitors/staff [] Distress [] Loneliness/isolation [] Abandonment Spirituality of Patient [xx] Person of Shannan [xx] Attends Scientology of their Shannan [xx] Believes in Prayer [xx] Reads Bible or Protestant materials [] There are Spiritual issues to be addressed Commissioner Of [employer] Interventions [xx] Prayer [xx] Active listening [xx] Non-anxious presence [] Spiritual/emotional support [] Crisis/trauma care [] Spiritual counseling [] Bereavement support [] Provided bereavement packet [] Provided Bible/devotional materials [] Provided toy/stuffed animal, coloring book to patient or family member [] Provided Communion [] Anointing/[place] [] Salvation [xx] Completed spiritual assessment [] Other: Impact on Illness or Injury [] Angry [] Fearful [] Anxious [] Often cries [] Exhaustion [] Unable to work [] Unable to attend quaker [] Unable to walk/stand [] Unable to read [] Unable to drive [] Unable to eat/drink [] Unable to sleep [] Unable to be with family [] Patient intubated [] Other: Summary Patient is being dischargbed later today. He stated he has much to be thankful for this season. He will be with family for Thanksgiving. Time spent with patient 6 minutes
--- NOTE | 2021-08-18 13:26 | PC.NURSE ---
Pt education provided to self and . Patient or has no questions or concerns. Pt VS stable upon departure.
--- NOTE | 2021-08-18 16:39 | PM.PN ---
Subjective Subjective: Interval history: Urology follow-up: Continues to improve. He feels that he is voiding much better this morning. Emptied his bladder well on bladder scan. No catheterization was required. Still having some perineal pain. No evidence of infection on exam today. Abdomen is soft. Wounds look good. Reviewed the status with Dr. Howard today. He will arrange follow-up as indicated Will sign off. Vitals/I&O/Wt Last Vital Signs Temp 97.3 F L 08/18/21 12:41 Pulse 79 08/18/21 12:41 Resp 21 H 08/18/21 12:41 BP 102/62 08/18/21 12:41 Pulse Ox 97 08/18/21 10:27 08/18/21 08/18/21 08/18/21 06:59 14:59 22:59 Intake Total 415.625 / 415.625 Output Total 300 / 2175 850 / 850 Balance -300 / 765.45 -434.375 / -434.375 Physical Exam Const: COMMON NORMALS: no acute distress, alert and well nourished GENERAL APPEARANCE: well kempt and well developed ORIENTATION/CONSCIOUSNESS: not confused Resp: COMMON NORMALS: normal respiratory effort EFFORT & INSPECTION: No labored and No Actively coughing : OTHER: MEATUS: meatus normal, no meatla discharge and No Blood at meatus present SCROTUM: Yes testes descended bilaterally, No edematous and No scrotal swelling OTHER: Postop penile implantation. No evidence of infection. Mild tenderness but seems to be a little bit better today.. Healing well No perineal fluctuance or tenderness Neuro: SENSORIUM/ORIENTATION: Yes alert Psych: COMMON NORMALS: mental status grossly normal APPEARANCE: Yes grossly normal and Yes well kempt ATTITUDE: Yes calm and Yes engaged Data : 08/18/21 04:14 08/18/21 04:14 A&P Assessment and plan (1) Incomplete bladder emptying: Thinks his voiding is much better today. Emptied well on bladder scan. Status: Acute (2) Pain of male genitalia: No physical signs of infection. He has plans to follow-up with Dr. Howard. Status: Acute Attestations Medical Necessity Statement*: See attending Coding Level of Care Code Acute Leveling Machine Operator for [facility] Fwd Diagnoses Incomplete bladder emptying R33.9 Pain of male genitalia N50.89
[2021-08-18 18:58] LABS: Smooth Muscle Ab Screen NEGATIVE (NEGATIVE)
== END 2021-08-18 13:27 | disposition home or self-care (01) | DRG 442 ==
PROVIDERS: Internal Medicine; Admitting Provider Internal Medicine; PCP Internal Medicine; Visit Provider Internal Medicine
DX: K72.00 Acute and subacute hepatic failure without coma (principal); I48.20 Chronic atrial fibrillation, unspecified; Q61.3 Polycystic kidney, unspecified; N18.4 Chronic kidney disease, stage 4 (severe); D68.4 Acquired coagulation factor deficiency; I24.8 Other forms of acute ischemic heart disease; N40.1 Benign prostatic hyperplasia with lower urinary tract symptoms; R39.14 Feeling of incomplete bladder emptying; Z93.3 Colostomy status; D75.1 Secondary polycythemia; K21.9 Gastro-esophageal reflux disease without esophagitis; M10.9 Gout, unspecified; Z85.828 Personal history of other malignant neoplasm of skin; D50.9 Iron deficiency anemia, unspecified; G47.33 Obstructive sleep apnea (adult) (pediatric); Z99.89 Dependence on other enabling machines and devices; Z90.49 Acquired absence of other specified parts of digestive tract; Z96.0 Presence of urogenital implants; N52.2 Drug-induced erectile dysfunction; T50.905A Adverse effect of unspecified drugs, medicaments and biological substances, initial encounter; Z79.891 Long term (current) use of opiate analgesic; Z79.01 Long term (current) use of anticoagulants; Z79.02 Long term (current) use of antithrombotics/antiplatelets; I25.118 Atherosclerotic heart disease of native coronary artery with other forms of angina pectoris; Z95.5 Presence of coronary angioplasty implant and graft
CPT/HCPCS: 36415; 74177; 74181; 78452; 80053; 80061; 80306; 80307; 81256; 82105; 82247; 82248; 82390; 82607; 82728; 82977; 83010; 83516; 83540; 83550; 83605; 83615; 83690; 83735; 83930; 83935; 84100; 84132; 84145; 84443; 84484; 84550; 85025; 85049; 85384; 85610; 85730; 86140; 86301; 86705; 86706; 86709; 86803; 87340; 87426; 93005; 93017; 93306; A9500; J1160; J2270; J2543; J2785; J3490; J7030; J7040; Q9967

== ENCOUNTER → 2021-08-23 11:00 | Outpatient (BNVA) | payer MEDICARE, OTHER, SELFPAY | PROVIDERS: PCP Internal Medicine; Visit Provider Internal Medicine | DX: D50.9 Iron deficiency anemia, unspecified (principal); I10 Essential (primary) hypertension | CPT/HCPCS: 80053; 85025 ==

== ENCOUNTER → 2021-10-11 16:20 | Outpatient (BNVA) | payer MEDICARE, SELFPAY | PROVIDERS: PCP Internal Medicine; Visit Provider Internal Medicine Cardiovascular Disease | DX: I25.118 Atherosclerotic heart disease of native coronary artery with other forms of angina pectoris (principal); R74.8 Abnormal levels of other serum enzymes; N18.2 Chronic kidney disease, stage 2 (mild); R94.39 Abnormal result of other cardiovascular function study; R06.00 Dyspnea, unspecified; I48.0 Paroxysmal atrial fibrillation | CPT/HCPCS: 80048; 80076; 83880 ==

== ENCOUNTER → 2021-10-19 09:55 | Outpatient (BNVA) | payer MEDICARE, SELFPAY | PROVIDERS: PCP Internal Medicine; Visit Provider Internal Medicine Cardiovascular Disease | DX: I25.118 Atherosclerotic heart disease of native coronary artery with other forms of angina pectoris (principal); R06.00 Dyspnea, unspecified; N18.2 Chronic kidney disease, stage 2 (mild) | CPT/HCPCS: 80048; 83880 ==

== ENCOUNTER → 2021-10-26 11:29 | Outpatient (BNVA) | payer MEDICARE, SELFPAY | PROVIDERS: PCP Internal Medicine; Visit Provider Internal Medicine Cardiovascular Disease | DX: Z20.822 Contact with and (suspected) exposure to COVID-19 (principal); R94.39 Abnormal result of other cardiovascular function study; R74.8 Abnormal levels of other serum enzymes; I25.118 Atherosclerotic heart disease of native coronary artery with other forms of angina pectoris; D50.9 Iron deficiency anemia, unspecified; I48.0 Paroxysmal atrial fibrillation | CPT/HCPCS: 80048; 80076; 85025; 87635 ==

== ENCOUNTER 2021-10-31 06:05 | Outpatient (CLI) | payer MEDICARE, SELFPAY ==
[2021-10-31] VITALS (13 sets, daily range): BP systolic 89–109; BP diastolic 55–73; PULSE 60–86; RESP 14–23; TEMP 36.6; O2SAT 94–98; BMI 38.7
--- NOTE | 2021-10-31 06:53 | XACV_ITS ---
Exam Room: 2 Ht: 183 cm Wt: 130 kg BSA: 2.62 m2 Gender: Male : 1950 Any Known Allergies: No known allergies Exam Priority: Routine Procedure(s): Procedure Description: Diagnostic procedure Procedure Description: Left Heart Catheterization Procedure Description: Left ventriculography Procedure Description: Coronary Angiography Diagnostic Cath Status: Elective Diagnostic Findings * The left main is extremely short, looks as if the LAD and the circumflex artery have separate ostia. * Left anterior descending artery is a medium caliber vessel which appears to have mild diffuse intimal irregularities throughout the vessel. The artery appears to wrap around the LV apex minimally. There was a 50% tubular narrowing need to the LV apex. The first diagonal branch was found to have a proximal stented area which was widely patent. There is around 50% tubular narrowing, distal to the stented segment. Minimal narrowing also was noted proximal to the stented area as well. * The left circumflex artery was found to have separate ostia. The mid circumflex artery was found to have a stent in its segment with no significant in-stent narrowing. Proximal to the stented segment, there was a 40% narrowing in the circumflex artery. Mild diffuse intimal irregularities were noted in the distal vessel. The artery gives of a high obtuse marginal branch which was found to have around 20 to 30% diffuse narrowing proximally. No significant stenotic lesions were noted. * The right coronary artery is a medium caliber dominant vessel which he was found to have diffuse intimal irregularities. Around the takeoff of the sinus nikolay branch, there is around 40% tubular narrowing. No other significant stenotic lesions were noted.. Conclusions 1. 71-year-old white male with history of coronary artery disease and previous PCI's, presenting with increasing fatigue and dyspnea on exertion. Myocardial imaging revealing areas of fixed events with a very small areas of reversible defects. In view of the patient's ongoing and worsening symptoms, in order to further evaluate his coronary status, and cardiac catheterization was recommended. Because of the patient's chronic kidney disease, possibility for contrast use nephropathy also was explained in detail. Patient understood the risks and benefits well and consented to proceed. Patient underwent left heart catheterization with left and right coronary angiogram today. The findings are as follows.. 2. Mild to moderate diffuse coronary artery disease. Patent stented segments in the diagonal and circumflex arteries. The LAD and the circumflex artery were found to have separate ostia. Elevated LVEDP suggesting left renal diastolic dysfunction(end-diastolic pressure of 22 mmHg). 3. Based on the angiographic findings, it was opted to treat the patient medically. Diagnostic RX Recommendation: medical therapy and/or counseling LV EDP: 22 mmHg Left Ventriculography Findings: * The LV gram was not performed because of the concern about the dye overload and patient is a history of chronic kidney disease. Pressures Phase:Rest AO : 96 / 69 ( 82 ) @ 5:30:00 AM 110 / 67 ( 88 ) @ 5:40:00 AM 110 / 67 ( 88 ) @ 5:40:00 AM LV : 112 / 6 / 22 @ 5:39:00 AM 110 / 6 / 22 @ 5:40:00 AM Valves Phase:DefaultPhase AV : 0.0 @ 7:51:44 AM AV Mean Gradient: 0.0 @ 7:51:44 AM Clinical Evaluation EBL: 5mL-10mL Procedural Details Pre-Procedure Time Out. Identified patient by full name and date of as verbalized by the patient/guarantor. Does the consent match the physician's order: Yes. Accurate & Complete Informed Consent: Yes. Inpatient/Outpatient History & Physical on Chart: Yes. Visualize and Verify Site with Patient/Guarantor: N/A. Relevant Radiology Images available: N/A. Pre-op teaching completed and patient verbalized understanding. The risks, benefits, and alternatives of sedation and/or procedure were discussed by physician. The patient agrees to continue. Procedure started. [facility] Clinical Fraility Score: 3: Managing Well. Svp Group Director Indications: Worsening Angina. Chest Pain Symptom Assessment: Atypical Angina. Correct patient, site and procedure confirmed by cath team. Current diagnosis: Chest Pain. PERRLA. Strong, equal hand beading machine operator bilaterally. Lungs clear x 5 lobes. IV Site on Arrival: 20 gauge in the right anticubital. IV Fluids: 0.9% NaCl at KVO. 0 mL infused prior to clinical laboratory technologist. Pre Procedural Pulses: bilateral radial was 1+. Pre Procedural Pulses: right dorsalis pedis was 3+. Pre Procedural Pulses: left dorsalis pedis was 1+. Oxygen started at 2liters/min via nasal canula. right groin was prepped with chloroprep then draped in the usual sterile fashion. right radial was prepped with chloroprep then draped in the usual sterile fashion. Physician notified. Baseline sample Acquired. HR: 75 BPM. Physician arrived. Physician scrubbed in. Immediate Pre-Procedure Time Out. Correct Patient: Yes; Correct Procedure: Yes; Correct Site: Yes; Correct Patient Position: Yes; Correct Supplies: Yes; Dried Flammable Prep: Yes; Blood Products Available: n/A. Lidocaine 1% infiltrated to the right radial. Arterial access obtained. Admit Source: Out Patient. A 5 dominican Yanick catheter in over wire. Multiple views taken of left coronary artery. Catheter redirected to the RCA. Catheter removed over the exchange wire. A 5 dominican JR4 catheter in over wire. Multiple views taken of right coronary artery. Catheter out. A 5 dominican Angled Pig catheter in over wire. EDP Sample taken: LV 112/6,22; HR: 76 BPM; SpO2: 96%. Pullback taken: LV 110/6,22; AO 110/67(88); Mean: 0mmHg, Peak to Peak: 0mmHg, SEP: 5sec/min; HR: 80 BPM; SpO2: 97%. Catheter out. Physician scrubbed out. Physician review of cine films. A TR Band was successful obtaining hemostatsis at the Right Radial artery insertion site. Post Procedure: Pulses reassessed and unchanged. PERRLA. Strong, equal hand beading machine operator bilaterally. No VTE prophylaxis required. Post-op diagnosis: Patent stents, moderate diffuse disease. Complications: none. Estimated blood loss: 5mL-10mL. Responsiveness - Normal response to verbal stimuli; alert and oriented, PERRLA. Airway - Unaffected, no intervention required; spontaneous ventilation. Circulation: W/N/L, pulses unchanged. Nausea/Vomiting: No. Medication's Wasted: Lidocaine 1% = 18 mL. Medication's Wasted: Nitro = 50 mg. Medication's Wasted: Heparin = 1000 u. Total IV fluids: 280 mL. Procedure completed. Patient transferred by wheelchair to CPRU. Vital chart was stopped. Access Site Site: Right Radial artery Sheath Size: 6 Fr Hemostasis Method: TR Band Hemostasis Success: Successful Procedure Medications Start: 7:16 AM Stop: 7:16 AM Medication: Versed Amount: 2 mg Route: I.V. Start: 7:16 AM Stop: 7:16 AM Medication: Fentanyl Amount: 50 mcg Route: I.V. Start: 7:21 AM Stop: 7:21 AM Medication: Verapamil Amount: 5 mg Route: I.A. Start: 7:22 AM Stop: 7:22 AM Medication: 0.9% Saline Amount: 250 ml Route: I.V. bolus Start: 7:24 AM Stop: 7:24 AM Medication: Heparin Amount: 5000 units Route: I.V. I, the attending physician, have reviewed and verified all procedure medications. Yes, all medications given per verbal order History/Risk Factors Hypertension: Yes Dyslipidemia: No Peripheral Arterial Disease (PAD): No Myocardial Infarction (TX): No Obesity: Yes Renal Disease: No Tobacco Use: Never Prior Interventions PCI: Yes CABG: No Valve Surgery: No Date of PCI: 02/03/2014 Report Signatures Finalized by Dr Jak Pandey MD [facility] on 10/31/2021 11:56 AM
--- NOTE | 2021-10-31 07:07 | W.PM.OPSUD ---
Surgery/Procedure H&P Update DATE OF PROCEDURE: October 31, 2021 DATE H&P PERFORMED: 10/11/21 PRIMARY INDICATION FOR PROCEDURE: chest pain/ASHD/Abnormal MPI PLANNED PROCEDURE: Operation Date: 10/31/21 07:00 Proposed Procedures p Cardiac Catheterization(Left) - Jak Pandey MD PHYSICAL EXAM: alert, oriented x 3, clear to auscultation bilaterally and regular rate & rhythm (IRREGULAR) AIRWAY EVAL/ANESTHESIA PLAN: normal airway, ASA III, Monitored Anesthesia, Local Anesthesia, Risks, benefits & alternatives of sedation and/or procedure discussed and Patient agrees to continue as planned
--- NOTE | 2021-10-31 08:07 | PC.NURSE ---
recovery received pt from lab tester post diagnostic [facility]. pt alert and oriented x3. pt complains of no pain. tr band or right wrist dry and intact. no hematoma present and distal pulse palpable. pt and family at bedside educated on restrictions of right wrist. both acknowledged understanding. plan to dc from cpru in 3 hrs. pt placed on monitor and will be monitored per protocol.
== END 2021-10-31 10:58 | disposition home or self-care (01) ==
PROVIDERS: PCP Internal Medicine; Visit Provider Internal Medicine Cardiovascular Disease
DX: I25.10 Atherosclerotic heart disease of native coronary artery without angina pectoris (principal); E78.5 Hyperlipidemia, unspecified; E66.9 Obesity, unspecified; Z68.38 Body mass index [BMI] 38.0-38.9, adult; I48.91 Unspecified atrial fibrillation; Z79.01 Long term (current) use of anticoagulants; G47.33 Obstructive sleep apnea (adult) (pediatric); I12.9 Hypertensive chronic kidney disease with stage 1 through stage 4 chronic kidney disease, or unspecified chronic kidney disease; N18.9 Chronic kidney disease, unspecified; Z82.49 Family history of ischemic heart disease and other diseases of the circulatory system
CPT/HCPCS: 36415; 93452; 93458; C1769; C1887; C1894; J1644; J2250; J3010; J3490; J7030; Q9967

== ENCOUNTER → 2021-12-12 10:41 | Outpatient (BNVA) | payer MEDICARE, SELFPAY | PROVIDERS: PCP Internal Medicine; Visit Provider Internal Medicine Cardiovascular Disease | DX: I48.91 Unspecified atrial fibrillation (principal) | CPT/HCPCS: 93225 ==

== ENCOUNTER → 2021-12-26 10:50 | Outpatient (BNVA) | payer MEDICARE, SELFPAY | PROVIDERS: PCP Internal Medicine; Visit Provider Internal Medicine Cardiovascular Disease | DX: I13.0 Hypertensive heart and chronic kidney disease with heart failure and stage 1 through stage 4 chronic kidney disease, or unspecified chronic kidney disease (principal); N18.2 Chronic kidney disease, stage 2 (mild); I50.32 Chronic diastolic (congestive) heart failure; I25.118 Atherosclerotic heart disease of native coronary artery with other forms of angina pectoris; R74.8 Abnormal levels of other serum enzymes; I48.20 Chronic atrial fibrillation, unspecified | CPT/HCPCS: 80048; 83880; 99214 ==

== ENCOUNTER → 2022-01-08 15:54 | Outpatient (BNVA) | payer MEDICARE, SELFPAY | PROVIDERS: PCP Internal Medicine; Visit Provider Internal Medicine | DX: E86.0 Dehydration (principal); K52.9 Noninfective gastroenteritis and colitis, unspecified | CPT/HCPCS: 80048 ==

== ENCOUNTER 2022-01-09 16:28 | Observation (INO) | payer MEDICARE, SELFPAY ==
[2022-01-09] VITALS (11 sets, daily range): BP systolic 83–120; BP diastolic 54–68; PULSE 76–104; RESP 15–29; TEMP 36.5–36.6; O2SAT 92–98; BMI 36.7
--- NOTE | 2022-01-09 16:59 | W.ED.DIZZY ---
HPI - Dizziness General: Chief Complaint: Dizziness Stated Complaint: low blood pressure Time Seen by Provider: 01/09/22 16:58 [facility] PFSH: Medical History A-fib Abdominal pain in male Acute kidney injury superimposed on chronic kidney disease Resolved Acute urinary retention Resolved Coagulopathy Diarrhea Chronic Elevated brain natriuretic peptide (BNP) level GERD (gastroesophageal reflux disease) Gout of ankle History of SCC (squamous cell carcinoma) of skin HTN (hypertension) Iron deficiency anemia EDITH on CPAP Paroxysmal atrial fibrillation Polycystic kidney disease Polycythemia Surgical History History of circumcision History of colectomy History of hernia repair History of penile implant History of shoulder surgery History of total colectomy History of total knee replacement Family History Mother Atrial fibrillation Cancer Father CAD (coronary artery disease) [place] 64 Brother Diabetes Denies family history of Clotting disorder Dementia Chronic kidney disease (CKD) Suicide Anesthesia complication Bleeding disorder Lung disease Stroke Social History Smoking and tobacco status: never smoked Alcohol intake: current Alcohol intake frequency: holidays/special occasions only Household members: spouse Housing: House Current occupational status: retired History of recent travel: No Course Vital Signs: Vital signs: Vital Signs Temperature 97.7 F 01/09/22 16:46 Pulse Rate 104 H 01/09/22 16:51 Respiratory Rate 26 H 01/09/22 16:51 Blood Pressure 102/68 01/09/22 16:51 Pulse Oximetry 93 01/09/22 16:51 Discharge Plan Discharge Condition: Stable Prescriptions: No Action triamcinolone acetonide 0.1 % ointment 1 applic TOPICAL DAILY PRN (Reason: unknown) 0RF tamsulosin 0.4 mg capsule 0.4 mg PO QDAY Qty: 30 12RF metoprolol tartrate 25 mg tablet 25 mg PO BID 30 Days Qty: 60 5RF diltiazem HCl 60 mg capsule,extended release 12 hr 60 mg PO BID Qty: 60 2RF Rx Instructions: hold metoprolol for 24 hours, then start diltiazem, add metoprolol back in IF BP above 110/60 Plavix 75 mg tablet 75 mg PO DAILY@1200 Qty: 90 3RF Xarelto 20 mg tablet 20 mg PO DAILY@2200 Qty: 90 3RF Rx Instructions: must administer with a meal/food pantoprazole 40 mg tablet,delayed release (DR/EC) 40 mg PO BID@1200,2200 Qty: 180 3RF furosemide 80 mg tablet 80 mg PO DAILY Qty: 30 5RF potassium chloride 20 mEq tablet extended release 20 meq PO DAILY Qty: 30 5RF lisinopril 5 mg tablet 5 mg PO DAILY 90 Days Qty: 90 3RF Rx Instructions: UPDATED TO 90 DAY SUPPLY Referrals: Luis Yang MD [Primary Care Provider] - Coding Level of Care Code ED Supervisor Wool Shearing for Pankaj Mooney
[2022-01-09 17:10] LABS: Basophils % 0.3 %; Hematocrit 60.5 % (42.0-52.0); Hemoglobin 18.8 g/dL (11.7-16.6); Lymphocytes # 1.2 10^3/uL (0.8-4.8); Lymphocytes % 11.7 %; Mean Corpuscular HGB Conc 31.1 g/dL (30.0-36.0); Mean Corpuscular Hemoglobin 26.9 pg (28.0-34.0); Mean Corpuscular Volume 86.7 fl (80-94); Mean Platelet Volume 9.8 fL (7.4-10.4); Monocytes # 0.8 10^3/uL (0.2-0.9); Monocytes % 7.4 %; Neutrophils # 8.46 10^3/uL (1.8-7.7); Neutrophils % 80.3 %; Nucleated Red Blood Cells % 0 %; Platelet Count 251 10^3/cmm (130-400); Red Blood Count 6.98 10^6/uL (4.1-5.3); Red Cell Distribution Width 15.7 % (12.1-15.1); White Blood Count 10.5 10^3/uL (4.0-10.0)
[2022-01-09 17:34] LABS: Alanine Aminotransferase 25 U/L (0-41); Albumin Level 4.1 g/dL (3.5-5.2); Alkaline Phosphatase 112 IU/L (40-130); Aspartate Amino Transferase 22 U/L (0-40); Blood Urea Nitrogen 55 mg/dL (8-23); Carbon Dioxide 18 mmol/L (22-29); Chloride 105 mmol/L (98-107); Globulin 2.6 g/dL (1.3-4.6); Glucose 114 mg/dL (65-115); Lipase 42 U/L (13-60); Osmolality Calculated 298 mOsm/kg (285-295); Sodium 136 mmol/L (136-145); Total Bilirubin 1.5 mg/dL (0.15-1.2); Total Protein 6.7 g/dL (6.6-8.7)
[2022-01-09 17:35] LABS: Anion Gap 18.7 (5-19); Potassium 5.7 mmol/L (3.5-5.1)
--- NOTE | 2022-01-09 17:52 | ED_ITS ---
HPI - General Adult General: Chief complaint: Dizziness Stated complaint: low blood pressure Time Seen by Provider: 01/09/22 16:58 History of Present Illness: Patient is a 71-year-old male with a history atrial fibrillation on Eliquis, hypertension, polycystic kidney disease, CKD, ulcerative colitis complicated by total colectomy s/p ostomy presenting to the emergency room with request of Dr. Yang for evaluation of kidney function. Patient for the last few days has had increased ostomy output. At baseline, patient outputs around 3-4 pouches a day. However over the last 2 to 3 days, patient has had 8 full pouches of output every day. In addition, patient reports feeling lightheaded and near passing out upon standing up. Patient denies any urinary complaints, vomiting, abdominal pain, fever or chills. She reports decreased p.o. intake due to nausea. Denies any new chest pain, shortness breath, palpitation, melena hematochezia. Onset:3 days ago Duration:3 days Location:home Severity:moderate Associated symptoms: Deny chest pain, dyspnea, nausea, rash, palpitations or vomiting Review of Systems Const: Denies: fever(s) or chills Eyes: Denies: change in vision ENMT: Denies: mouth pain Card: Denies: chest pain or palpitations Resp: Denies: dyspnea or non-productive cough GI: Reports: diarrhea (+increased ostomy output); Denies: abdominal pain, nausea or vomiting : Denies: dysuria Musc: Denies: extremity pain Skin/Breast: Denies: rash or new lesions Neuro: Reports: other (+light-headedness); Denies: weakness in extremities Psych: Reports: other (Normal mood) Yoseph/Lymph: Denies: easy bruising PFSH ED PFSH: Medical History A-fib Abdominal pain in male Acute kidney injury superimposed on chronic kidney disease Resolved Acute urinary retention Resolved Coagulopathy Diarrhea Chronic Elevated brain natriuretic peptide (BNP) level GERD (gastroesophageal reflux disease) Gout of ankle History of SCC (squamous cell carcinoma) of skin HTN (hypertension) Iron deficiency anemia EDITH on CPAP Paroxysmal atrial fibrillation Polycystic kidney disease Polycythemia Surgical History History of circumcision History of colectomy History of hernia repair History of penile implant History of shoulder surgery History of total colectomy History of total knee replacement Family History Mother Atrial fibrillation Cancer Father CAD (coronary artery disease) [place] 64 Brother Diabetes Denies family history of Clotting disorder Dementia Chronic kidney disease (CKD) Suicide Anesthesia complication Bleeding disorder Lung disease Stroke Social History Smoking and tobacco status: never smoked Alcohol intake: current Alcohol intake frequency: holidays/special occasions only Household members: spouse Housing: House Current occupational status: retired History of recent travel: No Physical Exam Const: COMMON NORMALS: alert HENMT: COMMON NORMALS: atraumatic HEAD & SCALP: atraumatic MOUTH: moist mucous membranes abnormal Eye: COMMON NORMALS: EOMs intact bilaterally and conjunctivae normal CONJUNCTIVA: Yes conjunctivae normal Neck/C-Spine: COMMON NORMALS: full ROM and supple Resp: COMMON NORMALS: normal respiratory effort and clear to auscultation bilaterally AUSCULTATION: clear to auscultation bilaterally Cardio: RATE: tachycardic OTHER: +irregular irregular tacyhcardia GI: COMMON NORMALS: Soft to palpation and non-tender PALPATION: Yes Soft to palpation OTHER: No focal TTP. NO guarding rebound, guarding, rigidity. No CVA tenderness to percussion. Neg Mejia/Neg McBurney's point tenderness, no suprabupic tenderness to palpation. +ostomy bag in the R side Extremity: COMMON NORMALS: full ROM Neuro: SENSORIUM/ORIENTATION: Yes alert MOTOR EXAM: No Abnormal motor strength present and Other motor observations present (no focal motor deficits) Psych: COMMON NORMALS: speech normal SPEECH: Yes normal speech MOOD & AFFECT: Yes euthymic mood Course Vital Signs: Vital signs: Vital Signs Temperature 97.8 F 01/11/22 08:00 Pulse Rate 98 01/11/22 10:31 Respiratory Rate 15 01/11/22 10:31 Blood Pressure 128/80 01/11/22 08:00 Pulse Oximetry 94 01/11/22 10:31 [facility] - General Adult Medical Decision Making 71-year-old male presented to the emergency room for increased ostomy output. On exam, patient appears to be dry and tachycardic. Patient felt lightheaded upon standing. The ostomy bag appears to be full. We will send for stool O&P/culture. He has a new JULES on CKD with creatinine of 4.0 from baseline 2.7. Patient has hyperkalemia to 5.7. Patient received 5 unit regular insulin and D50 glucose. S/p 2L of IVF with mild improvement of HR. EKG did not show any signs of hyperkalemic changes. He will be admitted to hospital for rehydration. Disposition: admission Lab Data : 01/10/22 05:16 01/11/22 05:14 Radiology Impressions Abdomen/Pelvis CT 01/09/22 18:49 IMPRESSION: No acute intra-abdominal or intrapelvic pathology. Laboratory Results WBC 10.5 10^3/uL (4.0-10.0) H 01/09/22 17:02 RBC 6.98 10^6/uL (4.1-5.3) H 01/09/22 17:02 Hgb 18.8 g/dL (11.7-16.6) H 01/09/22 17:02 Hct 60.5 % (42.0-52.0) H 01/09/22 17:02 MCV 86.7 fl (80-94) 01/09/22 17:02 MCH 26.9 pg (28.0-34.0) L 01/09/22 17:02 MCHC 31.1 g/dL (30.0-36.0) 01/09/22 17:02 RDW 15.7 % (12.1-15.1) H 01/09/22 17:02 Plt Count 251 10^3/cmm (130-400) 01/09/22 17:02 MPV 9.8 fL (7.4-10.4) 01/09/22 17:02 Neut % (Auto) 80.3 % 01/09/22 17:02 Lymph % (Auto) 11.7 % 01/09/22 17:02 [place] % (Auto) 7.4 % 01/09/22 17:02 Eos % (Auto) 0.0 % 01/09/22 17:02 Baso % (Auto) 0.3 % 01/09/22 17:02 Neut # (Auto) 8.46 10^3/uL (1.8-7.7) H 01/09/22 17:02 Lymph # (Auto) 1.2 10^3/uL (0.8-4.8) 01/09/22 17:02 [place] # (Auto) 0.8 10^3/uL (0.2-0.9) 01/09/22 17:02 Eos # (Auto) 0.0 10^3/uL (0.0-0.8) 01/09/22 17:02 Baso # (Auto) 0.0 10^3/uL (0.0-0.1) 01/09/22 17:02 Nucleated RBC % (auto) 0 % 01/09/22 17:02 Nucleated RBCs # 0.0 /100WBC 01/09/22 17:02 Sodium 136 mmol/L (136-145) 01/09/22 17:02 Potassium 5.7 mmol/L (3.5-5.1) H 01/09/22 17:02 Chloride 105 mmol/L (98-107) 01/09/22 17:02 Carbon Dioxide 18 mmol/L (22-29) L 01/09/22 17:02 Anion Gap 18.7 (5-19) 01/09/22 17:02 BUN 55 mg/dL (8-23) H 01/09/22 17:02 Creatinine 4.0 mg/dL (0.7-1.2) H 01/09/22 17:02 GFR Calculation Not Reportable 01/09/22 17:02 Glucose 114 mg/dL (65-115) 01/09/22 17:02 POC Glucose 197 mg/dL (70-110) H 01/09/22 18:25 Calculated Osmolality 298 mOsm/kg (285-295) H 01/09/22 17:02 Calcium 9.0 mg/dL (8.5-10.5) 01/09/22 17:02 Total Bilirubin 1.5 mg/dL (0.15-1.2) H 01/09/22 17:02 AST 22 U/L (0-40) 01/09/22 17:02 ALT 25 U/L (0-41) 01/09/22 17:02 Alkaline Phosphatase 112 IU/L (40-130) 01/09/22 17:02 Total Protein 6.7 g/dL (6.6-8.7) 01/09/22 17:02 Albumin 4.1 g/dL (3.5-5.2) 01/09/22 17:02 Globulin 2.6 g/dL (1.3-4.6) 01/09/22 17:02 Lipase 42 U/L (13-60) 01/09/22 17:02 Procalcitonin 0.12 ng/mL (0-0.5) 01/09/22 17:02 Urine Color Yellow (Yellow) 01/09/22 17:35 Urine Appearance Clear (CLEAR) 01/09/22 17:35 Urine pH 5 (5-7) 01/09/22 17:35 Ur Specific [place] 1.025 (1.005-1.030) 01/09/22 17:35 Urine Protein Neg (Negative) 01/09/22 17:35 Urine Glucose (UA) Norm (Normal) 01/09/22 17:35 Urine Ketones Negative (Negative) 01/09/22 17:35 Urine Blood Neg (Negative) 01/09/22 17:35 Urine Nitrate Negative (Negative) 01/09/22 17:35 Urine Bilirubin 1+ (Negative) H 01/09/22 17:35 Urine Urobilinogen Neg mg/dL (Negative) 01/09/22 17:35 Ur Leukocyte Esterase Negative (Negative) 01/09/22 17:35 Discharge Plan Discharge Patient Disposition: Admitted As Inpatient Admit Provider: Dina Taveras Clinical Impression: JULES (acute kidney injury), Acute dehydration Condition: Stable Discharge Diet: Cardiac Discharge Activity: Increase activity as tolerated Coding Level of Care Code ED Supervisor Fleshing for Chg Fwd Exam Comprehensive
--- NOTE | 2022-01-09 17:56 | ECG_ITS ---
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 Measurements Intervals Turner Rate: 91 P: [place]: QRS: -79 QRSD: 109 T: 62 QT: 331 QTc: 407 Interpretive Statements ATRIAL FIBRILLATION PATTERN CONSISTENT WITH PULMONARY DISEASE RIGHT BUNDLE BRANCH BLOCK [120+ ms QRS DURATION, UPRIGHT V1, 40+ ms S IN I/aVL/V4/V5/V6] LEFT ANTERIOR FASCICULAR BLOCK [QRS AXIS <= -45, QR IN I, RS IN II] Compared to ECG 08/16/2021 13:17:53 Right bundle-branch block now present Left anterior fascicular block now present Indeterminate axis no longer present Incomplete right bundle-branch block no longer present Electronically Signed On 01-09-2022 22:57:03 CDT by Jak Pandey M.D. [id number]
[2022-01-09] MEDS: sodium chloride 0.9% 1,000 ML 999 ML IV ×2 (18:10)
[2022-01-09] MEDS: insulin regular-human 100 units/1 mL 5 UNIT IVP (18:10)
[2022-01-09 18:19] LABS: Add Urine Microscopic? NO; Charge for UA Resulting for Rev
[2022-01-09 18:27] LABS: Urine Appearance Clear (CLEAR); Urine Color Yellow (Yellow)
[2022-01-09 18:28] LABS: Bilirubin Urine 1+ (Negative); Blood Urine Neg (Negative); Glucose Urine UA Norm (Normal); Ketones Urine Negative (Negative); Leukocyte Esterase Urine Negative (Negative); Nitrate Urine Negative (Negative); Protein Urine Neg (Negative); Specific Gravity, Urine 1.025 (1.005-1.030); Urobilinogen Urine Neg (Negative); pH Urine 5 (5-7)
[2022-01-09 18:29] LABS: Glucose Point of Care 197 mg/dL (70-110)
--- NOTE | 2022-01-09 18:46 | PM.HP ---
Providers/Chief Complaint Primary Care Provider: Luis Yang MD Chief Complaint: low blood pressure History of Present Illness Earle Mireles is a 71 year old male with history of ulcerative colitis status post colectomy, chronic anticoagulation for chronic A. fib presented today for increased output from his ostomy. Patient is stating that normally he empties his bag 5-8 times a day, since Saturday he has been emptying 10-15 times a day and it is very liquid in consistency, normally it would be like applesauce consistency. He has not noticed any fever, emesis,. On Saturday his PCP prescribed ciprofloxacin and Flagyl. His output has not improved. Today he was sent to the ER for low blood pressure and high output from ostomy evaluation and management. I requested CT abdomen pelvis to rule out enteritis, will rule out C. difficile, he has received 2 L bolus, will give him another bolus in the ER, keep him on regular diet, if C. difficile negative can prescribe him Imodium as per the patient Imodium has not helped which she has tried 2 days ago. I would add cholestyramine as well No active signs of sepsis. Signs of dehydration, hemoconcentrated hemoglobin. JULES on chronic kidney disease Review of Systems Const: Denies: fever(s) Eyes: Denies: change in vision ENMT: Denies: throat pain Card: Denies: chest pain Resp: Denies: dyspnea GI: Reports: nausea, diarrhea and bloating Musc: Denies: neck pain Skin/Breast: Reports: lesions Psych: Denies: anxiety Endo: Denies: polyuria Yoseph/Lymph: Denies: easy bruising All/Imm: Denies: urticaria Medications/Allergies Home Medications Medication Instructions Recorded Confirmed Last Taken Type triamcinolone acetonide 0.1 % 1 applic TOPICAL DAILY PRN 01/07/20 01/09/22 02/14/21 History topical ointment clopidogrel 75 mg tablet (Plavix) 75 mg PO DAILY@1200 #90 tab 01/25/21 01/09/22 01/09/22 Rx pantoprazole 40 mg tablet,delayed 40 mg PO BID@1200,2200 #180 tab 01/25/21 01/09/22 01/09/22 Rx release rivaroxaban 20 mg tablet (Xarelto) 20 mg PO DAILY@2200 #90 tab 01/25/21 01/09/2222 Rx furosemide 80 mg tablet 80 mg PO DAILY #30 tab 10/12/21 01/09/22 01/05/22 Rx potassium chloride 20 mEq 20 meq PO DAILY #30 tab 10/12/21 01/09/22 01/09/22 Rx tablet,extended release lisinopril 5 mg tablet 5 mg PO DAILY 90 Days #90 tab 10/30/21 01/09/22 01/09/22 Rx diltiazem HCl 60 mg 60 mg PO BID #60 cap 11/08/21 01/09/22 01/09/22 Rx capsule,extended release 12 hr metoprolol tartrate 25 mg tablet 25 mg PO BID 30 Days #60 tab 12/26/21 01/09/22 01/09/22 Rx ciprofloxacin HCl 500 mg tablet 500 mg PO BID 01/09/22 01/09/22 01/09/22 History tamsulosin 0.4 mg capsule 0.4 mg PO DAILY 01/09/22 01/09/22 01/09/22 History Allergies Allergy/AdvReac Type Severity Reaction Status Date / Time No Known Allergies Allergy Verified 01/09/22 18:22 PFSH Acute PFSH: Medical History A-fib Abdominal pain in male Acute kidney injury superimposed on chronic kidney disease Resolved Acute urinary retention Resolved Coagulopathy Diarrhea Chronic Elevated brain natriuretic peptide (BNP) level GERD (gastroesophageal reflux disease) Gout of ankle History of SCC (squamous cell carcinoma) of skin HTN (hypertension) Iron deficiency anemia EDITH on CPAP Paroxysmal atrial fibrillation Polycystic kidney disease Polycythemia Surgical History History of circumcision History of colectomy History of hernia repair History of penile implant History of shoulder surgery History of total colectomy History of total knee replacement Family History Mother Atrial fibrillation Cancer Father CAD (coronary artery disease) OR 64 Brother Diabetes Denies family history of Clotting disorder Dementia Chronic kidney disease (CKD) Suicide Anesthesia complication Bleeding disorder Lung disease Stroke Social History Smoking and tobacco status: never smoked Alcohol intake: current Alcohol intake frequency: holidays/special occasions only Household members: spouse Housing: House Current occupational status: retired History of recent travel: No Vitals/I&O/Wt Last Vital Signs Temp 97.7 F 01/09/22 16:46 Pulse 94 01/09/22 18:26 Resp 25 H 01/09/22 18:26 BP 97/61 01/09/22 18:26 Pulse Ox 25 L 01/09/22 18:26 Weight last 48 hrs Weight 122.924 kg Physical Exam Narrative: Very pleasant elderly male Morbidly obese Ostomy bag without any skin irritation or cellulitis signs Abdomen is distended, bloated, nontender Patient does look dehydrated with dry mucous membranes Venous stasis dermatitis Nonfocal neuro exam Saturating well on room air Family at the bedside Appropriate mood and affect Data : 01/09/22 17:02 01/09/22 17:02 A&P Assessment and plan (1) JULES (acute kidney injury): Status: Acute (2) Acute dehydration: Status: Acute (3) Dehydration determined by examination: Status: Acute (4) Polycystic kidney disease: Status: Acute Plan Dehydration related to increased output from ostomy Rule out C. difficile Aggressive fluid hydration overnight Hold antihypertensive regimen Acute on chronic kidney disease related to dehydration, anticipating provement with IV fluid hydration A. fib without RVR Hold AV nikolay blocking agent, continue anticoagulating agent If he becomes hypotensive overnight can resume his antihypertensive, His blood pressure responding adequately to fluid resuscitation Hyperkalemia: He was given insulin in the ER Hold potassium supplementation Regular diet Rule out C. difficile Add cholestyramine Full code Attestations Medical Necessity Statement*: For JULES, increased output from the ostomy bag, hypotension he will need less than 2 midnights in the hospital for resuscitation Time Spent in Patient Care: 40mins Coding Level of Care Code Acute Inspector And Hand Packager for [facility] Diagnoses JULES (acute kidney injury) N17.9 Acute dehydration E86.0 Dehydration determined by examination E86.0 Polycystic kidney disease Q61.3
--- NOTE | 2022-01-09 18:49 | CTR_ITS ---
PROCEDURE INFORMATION: Exam: CT Abdomen And Pelvis Without Contrast Exam date and time: 01/09/2022 7:35 PM Age: 71 years old Clinical indication: Other: Low blood pressure; Additional info: Colitis TECHNIQUE: Imaging protocol: Computed tomography of the abdomen and pelvis without contrast. Radiation optimization: All CT scans at this facility use at least one of these dose optimization techniques: automated exposure control; mA and/or kV adjustment per patient size (includes targeted exams where dose is matched to clinical indication); or iterative reconstruction. COMPARISON: MR MRCP [id number] 08/16/2021 5:12 PM RADIATION DOSE METRICS: Total DLP (mGy-cm): 2690.76 FINDINGS: Lungs: Minimal compressive atelectasis noted in the left lower lobe. Tiny calcified granuloma noted in the right middle lobe. Heart: Normal heart size. Coronary atherosclerotic calcifications seen. No pericardial effusion. Diaphragm: Mid anterior abdominal wall surgical changes seen.A moderate size hiatal hernia is present. Liver: Normal. No mass. Gallbladder and bile ducts: Cholelithiasis is present. No pericholecystic inflammatory changes to suggest cholecystitis. Pancreas: Normal. No ductal dilation. Spleen: A small accessory splenule is noted in the left upper quadrant. The spleen is unremarkable. Adrenal glands: Normal. No mass. Kidneys and ureters: Multiple cysts are again seen in both kidneys, left greater than right. The largest cyst measures 14.1 cm. Some of the cysts demonstrate thin wall calcifications. No hydronephrosis or nephrolithiasis. Stomach and bowel: The patient is status post total colostomy and right lower quadrant ileostomy creation. Appendix: No evidence of appendicitis. Intraperitoneal space: Unremarkable. No free air. No significant fluid collection. Vasculature: Mild diffuse atherosclerotic disease is present. Lymph nodes: Unremarkable. No enlarged lymph nodes. Urinary bladder: Unremarkable as visualized. Reproductive: Unremarkable as visualized. Resvoir noted in the left anterior pelvic region. Bones/joints: Degenerative changes of the spine seen. Soft tissues: A small fat containing right inguinal hernia is present. CT/CT abdomen pelvis wo con [id number] IMPRESSION: No acute intra-abdominal or intrapelvic pathology.
[2022-01-09] MEDS: lactated ringers 1,000 ML 999 ML IV (18:57)
[2022-01-09 19:22] LABS: Procalcitonin 0.12 ng/mL (0-0.5)
[2022-01-09] MEDS: sodium chloride 0.9% 1,000 ML 75 ML IV (21:41)
[2022-01-09] MEDS: rivaroxaban 10 mg Tablet 20 MG PO (21:42)
[2022-01-10] VITALS (7 sets, daily range): BP systolic 94–147; BP diastolic 58–80; PULSE 79–103; RESP 17–18; TEMP 36.4–36.8; O2SAT 92–95
[2022-01-10 05:36] LABS: Basophils % 0.5 %; Hematocrit 53.1 % (42.0-52.0); Hemoglobin 16.4 g/dL (11.7-16.6); Lymphocytes # 1.5 10^3/uL (0.8-4.8); Lymphocytes % 19.5 %; Mean Corpuscular HGB Conc 30.9 g/dL (30.0-36.0); Mean Corpuscular Hemoglobin 27.2 pg (28.0-34.0); Mean Corpuscular Volume 88.2 fl (80-94); Mean Platelet Volume 9.8 fL (7.4-10.4); Monocytes # 0.8 10^3/uL (0.2-0.9); Monocytes % 10.6 %; Neutrophils # 5.43 10^3/uL (1.8-7.7); Neutrophils % 69.1 %; Nucleated Red Blood Cells % 0 %; Platelet Count 187 10^3/cmm (130-400); Red Blood Count 6.02 10^6/uL (4.1-5.3); Red Cell Distribution Width 14.9 % (12.1-15.1); White Blood Count 7.9 10^3/uL (4.0-10.0)
[2022-01-10 05:45] LABS: Anion Gap 12.5 (5-19); Blood Urea Nitrogen 48 mg/dL (8-23); Calcium 8.5 mg/dL (8.5-10.5); Carbon Dioxide 21 mmol/L (22-29); Chloride 107 mmol/L (98-107); Glucose 107 mg/dL (65-115); Magnesium 2.1 mg/dL (1.7-2.3); Osmolality Calculated 293 mOsm/kg (285-295); Potassium 5.5 mmol/L (3.5-5.1); Sodium 135 mmol/L (136-145)
--- NOTE | 2022-01-10 09:17 | PM.PN ---
Subjective Subjective: Output from ostomy has improved Afebrile Patient is endorsing feeling better Blood pressure is stable as well A. fib without RVR Currently doing well on room air I asked patient to stay 1 more day as creatinine is showing good improvement with IV fluids Patient is agreeable, making adequate urine Vitals/I&O/Wt Last Vital Signs Temp 97.9 F 01/10/22 04:00 Pulse 83 01/10/22 04:00 Resp 18 01/10/22 04:00 BP 105/70 01/10/22 04:00 Pulse Ox 94 01/10/22 04:00 01/09/22 01/10/22 01/10/22 22:59 06:59 14:59 Intake Total 3290 / 3290 640 / 3930 Output Total 480 / 480 Balance 3290 / 3290 160 / 3450 Weight last 48 hrs Weight 129.818 kg Weight 122.924 kg Weight 122.924 kg Physical Exam Narrative: Very pleasant cooperative male Laying flat Saturating well on room air EOMI, PERRLA Venous stasis dermatitis A. fib without RVR Distended abdomen visceral obesity Nontender abdomen Data : 01/10/22 05:16 01/10/22 05:16 Micro: Microbiology 01/09/22 19:29 C.difficile Toxin B Gene (PCR) - Final Stool A&P Assessment and plan (1) JULES (acute kidney injury): Status: Acute (2) Acute dehydration: Status: Acute Plan JULES related to dehydration: Improving with IV fluids, continue with fluids for next 24 hours Blood pressure has been stable with IV fluid hydration A. fib without RVR continue metoprolol, Planning to discharge him tomorrow Creatinine is improving adequately to IV fluid hydration, will release him tomorrow Patient is agreeable C. difficile negative We will start cholestyramine and Imodium for as needed use For hyperkalemia related to JULES we will give him a dose of Kayexalate No signs of enteritis Attestations Medical Necessity Statement*: Discharge tomorrow Time Spent in Patient Care: 20mins Coding Level of Care Code Acute Suede Brusher for [facility] Diagnoses JULES (acute kidney injury) N17.9 Acute dehydration E86.0
[2022-01-10] MEDS: sodium polystyrene sulfonate 15 gm/60 mL Btl PO (09:44)
[2022-01-10] MEDS: tamsulosin 0.4 mg Capsule PO (09:44)
[2022-01-10] MEDS: cholestyramine powder 4 gm Pkt PO ×2 (09:44→18:25)
[2022-01-10] MEDS: sodium chloride 0.9% 1,000 ML 75 ML IV ×2 (09:52→22:28)
--- NOTE | 2022-01-10 10:12 | PC.CHAP ---
Pastoral Care Encounter/Spiritual Assessment Type of Contact [] Declined servomechanism assembler visit [] Patient/Family/Request visit [] Outpatient visit [] Follow-up visit [] Physician referral [] Code/Alert [x] Routine visit [] Staff referral [] Actively dying [] Patient sleeping [] Family support [] [] Out of room [] Palliative care [] [x] Receiving care in room [] Pre-surgical visit [] Trauma [] Long length of stay [] ICU visit [] Other: Relational/Emotional Strength [] Patient feels connected with others/family/visitors/staff [] Distress [] Loneliness/isolation [] Abandonment Spirituality of Patient [] Person of Shannan [] Attends Spiritism of their Shannan [] Believes in Prayer [] Reads Bible or Anglican materials [] There are Spiritual issues to be addressed Caser Interventions [] Prayer [] Active listening [] Non-anxious presence [] Spiritual/emotional support [] Crisis/trauma care [] Spiritual counseling [] Bereavement support [] Provided bereavement packet [] Provided Bible/devotional materials [] Provided toy/stuffed animal, coloring book to patient or family member [] Provided Communion [] Anointing/[place] [] Salvation [] Completed spiritual assessment [] Other: Impact on Illness or Injury [] Angry [] Fearful [] Anxious [] Often cries [] Exhaustion [] Unable to work [] Unable to attend mu-ism [] Unable to walk/stand [] Unable to read [] Unable to drive [] Unable to eat/drink [] Unable to sleep [] Unable to be with family [] Patient intubated [] Other: Summary Time spent with patient x
[2022-01-10] MEDS: clopidogrel 75 mg Tablet PO (14:05)
[2022-01-10] MEDS: metoprolol tartrate 25 mg Tablet PO (18:24)
[2022-01-10] MEDS: dilTIAZem ER (12HR) 60 mg Capsule PO (18:25)
[2022-01-10] MEDS: rivaroxaban 10 mg Tablet 20 MG PO (22:19)
[2022-01-11] VITALS: BP 105/71; PULSE 92; RESP 18; TEMP 36.9; O2SAT 93
[2022-01-11 04:00] VITALS: BP 126/73; PULSE 81; RESP 20; TEMP 36.6; O2SAT 93
[2022-01-11 05:42] LABS: Blood Urea Nitrogen 29 mg/dL (8-23); Calcium 8.6 mg/dL (8.5-10.5); Carbon Dioxide 20 mmol/L (22-29); Chloride 109 mmol/L (98-107); Glucose 105 mg/dL (65-115); Osmolality Calculated 288 mOsm/kg (285-295); Sodium 136 mmol/L (136-145)
--- NOTE | 2022-01-11 06:26 | PC.NURSE ---
Patient AAOx4, no c/o pain, VSS, no new events over night, no needs at this time. Room clean and clutter free with call light in near patient.
[2022-01-11 08:00] VITALS: BP 128/80; PULSE 89; RESP 16; TEMP 36.6; O2SAT 94
[2022-01-11] MEDS: dilTIAZem ER (12HR) 60 mg Capsule PO (08:21)
[2022-01-11] MEDS: tamsulosin 0.4 mg Capsule PO (08:21)
[2022-01-11] MEDS: metoprolol tartrate 25 mg Tablet PO (08:21)
[2022-01-11] MEDS: cholestyramine powder 4 gm Pkt PO (08:22)
[2022-01-11 09:42] VITALS: PULSE 98; RESP 15; O2SAT 94
--- NOTE | 2022-01-11 10:30 | PC.NURSE ---
patient verbalized understanding of discharge instructions, home medications, and follow up appointments.
[2022-01-11 10:31] VITALS: PULSE 98; RESP 15; O2SAT 94
--- NOTE | 2022-01-11 14:09 | PM.DCS ---
Discharge Providers Date of Admission: 01/09/22 19:15 Date of Discharge: January 11, 2022 Attending Provider at Admission: Dina Taveras MD Attending Provider at Discharge: Dina Taveras MD Primary Care Provider: Luis Yang MD Diagnoses at Discharge Discharge Diagnosis (1) JULES (acute kidney injury): Status: Acute (2) Acute dehydration: Status: Acute Reason for Visit Reason for Visit: low blood pressure Hospital Course Hospital Course 71-year-old male who was admitted for increased output from his ostomy bag. C. difficile was ruled out. He was aggressively hydrated with IV fluids. That improved his blood pressure. He was not septic or bacteremic. C. difficile panel and bacterial cultures negative. His output improved with use of Imodium and cholestyramine. Potassium improved with use of Kayexalate. He has history of A. fib, he did not experience RVR during hospitalization, on 01/11 he will be discharged home on reduced dose of potassium, I instructed him to hold off on using Lasix or potassium until 01/15. I counseled him to stop taking his antibiotics. CT abdomen pelvis was unremarkable. He will be discharged in stable condition. Physical Exam Narrative: Very pleasant cooperative male Laying flat Saturating well on room air EOMI, PERRLA Venous stasis dermatitis A. fib without RVR Distended abdomen visceral obesity Nontender abdomen Discharge Data Studies Completed and Pending Completed Studies During Hospitalization Category Date Time Status CT abdomen pelvis con [id number] Urgent Cat Scan 01/09/22 18:49 Completed Radiology Impressions Abdomen/Pelvis CT 01/09/22 18:49 IMPRESSION: No acute intra-abdominal or intrapelvic pathology. Laboratory Results WBC 7.9 10^3/uL (4.0-10.0) 01/10/22 05:16 RBC 6.02 10^6/uL (4.1-5.3) H 01/10/22 05:16 Hgb 16.4 g/dL (11.7-16.6) 01/10/22 05:16 Hct 53.1 % (42.0-52.0) H 01/10/22 05:16 MCV 88.2 fl (80-94) 01/10/22 05:16 MCH 27.2 pg (28.0-34.0) L 01/10/22 05:16 MCHC 30.9 g/dL (30.0-36.0) 01/10/22 05:16 RDW 14.9 % (12.1-15.1) 01/10/22 05:16 Plt Count 187 10^3/cmm (130-400) 01/10/22 05:16 MPV 9.8 fL (7.4-10.4) 01/10/22 05:16 Neut % (Auto) 69.1 % 01/10/22 05:16 Lymph % (Auto) 19.5 % 01/10/22 05:16 [place] % (Auto) 10.6 % 01/10/22 05:16 Eos % (Auto) 0.0 % 01/10/22 05:16 Baso % (Auto) 0.5 % 01/10/22 05:16 Neut # (Auto) 5.43 10^3/uL (1.8-7.7) 01/10/22 05:16 Lymph # (Auto) 1.5 10^3/uL (0.8-4.8) 01/10/22 05:16 [place] # (Auto) 0.8 10^3/uL (0.2-0.9) 01/10/22 05:16 Eos # (Auto) 0.0 10^3/uL (0.0-0.8) 01/10/22 05:16 Baso # (Auto) 0.0 10^3/uL (0.0-0.1) 01/10/22 05:16 Nucleated RBC % (auto) 0 % 01/10/22 05:16 Nucleated RBCs # 0.0 /100WBC 01/10/22 05:16 Sodium 136 mmol/L (136-145) 01/11/22 05:14 Potassium 5.0 mmol/L (3.5-5.1) 01/11/22 05:14 Chloride 109 mmol/L (98-107) H 01/11/22 05:14 Carbon Dioxide 20 mmol/L (22-29) L 01/11/22 05:14 Anion Gap 12.0 (5-19) 01/11/22 05:14 BUN 29 mg/dL (8-23) H 01/11/22 05:14 Creatinine 1.5 mg/dL (0.7-1.2) H 01/11/22 05:14 GFR Calculation Not Reportable 01/11/22 05:14 Glucose 105 mg/dL (65-115) 01/11/22 05:14 POC Glucose 197 mg/dL (70-110) H 01/09/22 18:25 Calculated Osmolality 288 mOsm/kg (285-295) 01/11/22 05:14 Calcium 8.6 mg/dL (8.5-10.5) 01/11/22 05:14 Magnesium 2.1 mg/dL (1.7-2.3) 01/10/22 05:16 Total Bilirubin 1.5 mg/dL (0.15-1.2) H 01/09/22 17:02 AST 22 U/L (0-40) 01/09/22 17:02 ALT 25 U/L (0-41) 01/09/22 17:02 Alkaline Phosphatase 112 IU/L (40-130) 01/09/22 17:02 C-Reactive Protein 3.0 mg/L (0.0-4.9) 01/10/22 05:16 Total Protein 6.7 g/dL (6.6-8.7) 01/09/22 17:02 Albumin 4.1 g/dL (3.5-5.2) 01/09/22 17:02 Globulin 2.6 g/dL (1.3-4.6) 01/09/22 17:02 Lipase 42 U/L (13-60) 01/09/22 17:02 Procalcitonin 0.12 ng/mL (0-0.5) 01/09/22 17:02 Urine Color Yellow (Yellow) 01/09/22 17:35 Urine Appearance Clear (CLEAR) 01/09/22 17:35 Urine pH 5 (5-7) 01/09/22 17:35 Ur Specific [place] 1.025 (1.005-1.030) 01/09/22 17:35 Urine Protein Neg (Negative) 01/09/22 17:35 Urine Glucose (UA) Norm (Normal) 01/09/22 17:35 Urine Ketones Negative (Negative) 01/09/22 17:35 Urine Blood Neg (Negative) 01/09/22 17:35 Urine Nitrate Negative (Negative) 01/09/22 17:35 Urine Bilirubin 1+ (Negative) H 01/09/22 17:35 Urine Urobilinogen Neg mg/dL (Negative) 01/09/22 17:35 Ur Leukocyte Esterase Negative (Negative) 01/09/22 17:35 Vitals Last Vital Signs Temp 97.8 F 01/11/22 08:00 Pulse 98 01/11/22 10:31 Resp 15 01/11/22 10:31 BP 128/80 01/11/22 08:00 Pulse Ox 94 01/11/22 10:31 Discharge Plan Discharge Patient Disposition: Home Condition: Stable Prescriptions: Continued triamcinolone acetonide 0.1 % ointment 1 applic TOPICAL DAILY PRN (Reason: unknown) 0RF metoprolol tartrate 25 mg tablet 25 mg PO BID 30 Days Qty: 60 5RF diltiazem HCl 60 mg capsule,extended release 12 hr 60 mg PO BID Qty: 60 2RF Rx Instructions: hold metoprolol for 24 hours, then start diltiazem, add metoprolol back in IF BP above 110/60 Plavix 75 mg tablet 75 mg PO DAILY@1200 Qty: 90 3RF Xarelto 20 mg tablet 20 mg PO DAILY@2200 Qty: 90 3RF Rx Instructions: must administer with a meal/food pantoprazole 40 mg tablet,delayed release (DR/EC) 40 mg PO BID@1200,2200 Qty: 180 3RF tamsulosin 0.4 mg capsule 0.4 mg PO DAILY 0RF Changed potassium chloride 20 mEq tablet extended release 10 meq PO DAILY Qty: 30 5RF Held furosemide 80 mg tablet 80 mg PO DAILY Qty: 30 5RF Hold Instructions: Resume on 01/15/22. lisinopril 5 mg tablet 5 mg PO DAILY 90 Days Qty: 90 3RF Hold Instructions: Resume on 01/13/22. Discontinued ciprofloxacin HCl 500 mg tablet 500 mg PO BID 0RF Discharge Orders: Discharge Order (Routine); Ordered 01/11/22 Ordered By: Dina Taveras Referrals: Luis Yang MD [Primary Care Provider] - 01/18/22 11:30 am Discharge Diet: Cardiac Discharge Activity: Increase activity as tolerated Patient Instructions: Dehydration (DC), Acute Kidney Injury (DC), Opioid Safety Discharge Attestations Time Spent in Discharge Care*: less than 30 min Status at Discharge: Cognitive status at discharge: cognitively intact, Behavioral status at discharge: cooperative, Quality Metrics Clinical Quality Measures [ No reported AMI, CVA or VTE this stay] Coding Level of Care Code Acute Chg FW DC note Diagnoses JULES (acute kidney injury) N17.9 Acute dehydration E86.0
== END 2022-01-11 10:32 | disposition home or self-care (01) ==
LOC: ER 18:14 → MEDSURG 19:56
PROVIDERS: Admitting Provider Internal Medicine; Emergency Provider Emergency Medicine; PCP Internal Medicine; Visit Provider Internal Medicine
DX: N17.9 Acute kidney failure, unspecified (principal); E86.0 Dehydration; Q61.3 Polycystic kidney, unspecified; Z90.49 Acquired absence of other specified parts of digestive tract; Z79.01 Long term (current) use of anticoagulants; I48.91 Unspecified atrial fibrillation; G47.33 Obstructive sleep apnea (adult) (pediatric); I10 Essential (primary) hypertension; I48.0 Paroxysmal atrial fibrillation; Z79.02 Long term (current) use of antithrombotics/antiplatelets
CPT/HCPCS: 36415; 36416; 74176; 80048; 80053; 81003; 82962; 83690; 83735; 84145; 85025; 86140; 87493; 87506; 93005; 96361; 96374; 96375; 99285; G0378; J1815; J7030

== ENCOUNTER → 2022-03-08 10:09 | Outpatient (BNVA) | payer MEDICARE, SELFPAY | PROVIDERS: PCP Internal Medicine; Visit Provider Urology | DX: N40.1 Benign prostatic hyperplasia with lower urinary tract symptoms (principal); R39.9 Unspecified symptoms and signs involving the genitourinary system; N52.2 Drug-induced erectile dysfunction | CPT/HCPCS: 51741; 51798; 81003; 99213 ==

== ENCOUNTER → 2022-04-03 13:04 | Outpatient (BNVA) | payer MEDICARE, SELFPAY | PROVIDERS: PCP Internal Medicine; Visit Provider Internal Medicine Cardiovascular Disease | DX: I48.21 Permanent atrial fibrillation (principal); D50.9 Iron deficiency anemia, unspecified; I25.118 Atherosclerotic heart disease of native coronary artery with other forms of angina pectoris; I12.9 Hypertensive chronic kidney disease with stage 1 through stage 4 chronic kidney disease, or unspecified chronic kidney disease; N18.2 Chronic kidney disease, stage 2 (mild) | CPT/HCPCS: 99213; 99214 ==

== ENCOUNTER → 2022-05-07 16:23 | Outpatient (BNVA) | payer MEDICARE, SELFPAY | PROVIDERS: PCP Internal Medicine; Visit Provider Nurse Practitioner Family | DX: R31.9 Hematuria, unspecified (principal) | CPT/HCPCS: 80053; 81003; 85025; 87086 ==

== ENCOUNTER → 2022-05-08 08:37 | Outpatient (BNVA) | payer MEDICARE, SELFPAY | PROVIDERS: PCP Internal Medicine; Visit Provider Urology | DX: N40.1 Benign prostatic hyperplasia with lower urinary tract symptoms (principal); R31.0 Gross hematuria; N52.2 Drug-induced erectile dysfunction | CPT/HCPCS: 51798; 52000; 81003; 87086; 88112; 99214 ==

== ENCOUNTER → 2022-05-25 09:07 | Outpatient (BNVA) | payer MEDICARE, SELFPAY | PROVIDERS: PCP Internal Medicine; Visit Provider Urology | DX: R31.0 Gross hematuria (principal) | CPT/HCPCS: 81003; 99213 ==

== ENCOUNTER → 2022-06-04 14:06 | Outpatient (BNVA) | payer MEDICARE, SELFPAY | PROVIDERS: PCP Internal Medicine; Visit Provider Urology | DX: R31.0 Gross hematuria (principal) | CPT/HCPCS: 52000; 81003; 87086; 99213 ==

== ENCOUNTER 2022-06-08 10:16 | Outpatient (CLI) | payer MEDICARE, SELFPAY ==
--- NOTE | 2022-06-08 10:45 | CT_ITS ---
WS: [id number] CT ABDOMEN AND PELVIS WITH AND WITHOUT CONTRAST HISTORY: GROSS HEMATURIA TECHNIQUE: Unenhanced 5 mm axial imaging first performed through the abdomen. Post contrast imaging t hrough the abdomen and pelvis. Oral contrast has not been provided. Sagittal and coronal reformats a re submitted. All CT scans at [facility] use at least one of these dose optimization techniqu es: automated exposure control; mA and/or kV adjustment per patient size (includes targeted exams whe re dose is matched to clinical indication); or iterative reconstruction. CONTRAST: Omnipaque 350; 95 mL IV. DLP: 4186.83 mGy.cm COMPARISON: 01/09/2022 Lung bases are clear. Heart size is normal. Greater than 50% of the stomach is intrathoracic. RIGHT kidney: Mild perinephric stranding. No renal or ureteral calcifications. No hydronephrosis or h ydroureter. Multiple cystic masses associated the renal cortex. The largest measures 4.1 x 3.0 cm. Th ere are additional cortical hypodensities which are too small to characterize completely. No renal he morrhage is appreciated. No filling defects within the ureter or uroepithelial system on delayed imag ing. Nearly the entire ureter is well-opacified. LEFT kidney: Markedly enlarged LEFT kidney. Innumerable cystic masses throughout the kidney. There ar e a few scattered areas of calcification and increased density within the nunez of some the cyst. No large area of hemorrhage. The renal pelvis is not dilated. No dilatation of the ureter. No enhancing renal mass identified. Delayed excretion from the LEFT kidney. There is no IV contrast in the ureter. There is a small amount contrast in the renal pelvis. Nondistended urinary bladder. On the delayed images there is a small amount of excreted contrast in t he bladder. No enhancing mass or nodule. Mild dilatation of the prosthetic portion of the urethra. Al so noted is a penile implant with reservoir in the pelvis. Very small lymph nodes in the pelvis. Liver, spleen, gallbladder, pancreas and adrenal glands are unremarkable. No masses are identified. N o bile duct dilatation. No adenopathy or ascites. Prior colectomy. Ileostomy RIGHT lower quadrant. Th ere is a small lymph node within the ileostomy tract. Small umbilical hernia contains a short segment small bowel loop. No obstruction. Mild atherosclerosis aorta. No aneurysm. CT/CT abdomen pelvis wo/w [id number] IMPRESSION: 1. No renal or ureteral calcifications or obstruction. 2. Innumerable cystic masses throughout the LEFT kidney. Delayed excretion fro m the kidney. These masses have been previously described. No obvious interval change or solid mass or calcification. 3. Urinary bladder is not distended. No intraluminal filling defect or abnorma l enhancement. 4. Mild perinephric stranding around the RIGHT kidney. 5. Large portion of the stomach is intrathoracic. 6. Status post colectomy with a RIGHT lower quadrant ileostomy.
[2022-06-08] MEDS: iohexol 350 mg/mL 100 mL Btl IV (10:59)
[2022-06-08 12:37] LABS: Basophils % 0.5 %; Eosinophils # 0.2 10^3/uL (0.0-0.8); Eosinophils % 2.5 %; Hematocrit 49.9 % (42.0-52.0); Hemoglobin 14.7 g/dL (11.7-16.6); Lymphocytes # 1.3 10^3/uL (0.8-4.8); Lymphocytes % 19.2 %; Mean Corpuscular HGB Conc 29.5 g/dL (30.0-36.0); Mean Corpuscular Hemoglobin 24.3 pg (28.0-34.0); Mean Corpuscular Volume 82.5 fl (80-94); Mean Platelet Volume 9.9 fL (7.4-10.4); Monocytes # 0.7 10^3/uL (0.2-0.9); Monocytes % 10.7 %; Neutrophils # 4.36 10^3/uL (1.8-7.7); Neutrophils % 66.8 %; Nucleated Red Blood Cells % 0 %; Platelet Count 226 10^3/cmm (130-400); Red Blood Count 6.05 10^6/uL (4.1-5.3); Red Cell Distribution Width 17.6 % (12.1-15.1); White Blood Count 6.5 10^3/uL (4.0-10.0)
== END 2022-06-08 10:17 | disposition home or self-care (01) ==
LOC: RAD 10:16
PROVIDERS: PCP Internal Medicine; Visit Provider Urology
DX: R31.0 Gross hematuria (principal)
CPT/HCPCS: 74178; 85025; 99024

== ENCOUNTER → 2022-07-11 15:14 | Outpatient (BNVA) | payer MEDICARE, SELFPAY | PROVIDERS: PCP Internal Medicine; Visit Provider Internal Medicine Cardiovascular Disease | DX: I25.118 Atherosclerotic heart disease of native coronary artery with other forms of angina pectoris (principal); I48.0 Paroxysmal atrial fibrillation; Z79.01 Long term (current) use of anticoagulants; I13.0 Hypertensive heart and chronic kidney disease with heart failure and stage 1 through stage 4 chronic kidney disease, or unspecified chronic kidney disease; N18.2 Chronic kidney disease, stage 2 (mild); I50.32 Chronic diastolic (congestive) heart failure; R06.02 Shortness of breath; R07.9 Chest pain, unspecified | CPT/HCPCS: 36415; 80048; 83880; 99214 ==

== ENCOUNTER 2022-07-16 19:20 | Emergency (ER) | payer MEDICARE, SELFPAY ==
[2022-07-16 20:08] VITALS: BP 147/77; PULSE 95; RESP 18; TEMP 36.7; O2SAT 98; BMI 36.6
[2022-07-16 20:51] LABS: Basophils % 0.3 %; Hematocrit 56.3 % (42.0-52.0); Hemoglobin 17.3 g/dL (11.7-16.6); Lymphocytes # 1.6 10^3/uL (0.8-4.8); Lymphocytes % 17.4 %; Mean Corpuscular HGB Conc 30.7 g/dL (30.0-36.0); Mean Corpuscular Hemoglobin 23.7 pg (28.0-34.0); Mean Corpuscular Volume 77.1 fl (80-94); Mean Platelet Volume 9.7 fL (7.4-10.4); Monocytes # 1.1 10^3/uL (0.2-0.9); Monocytes % 12.5 %; Neutrophils # 6.19 10^3/uL (1.8-7.7); Neutrophils % 69.4 %; Nucleated Red Blood Cells % 0 %; Platelet Count 299 10^3/cmm (130-400); Red Cell Distribution Width 18.6 % (12.1-15.1); White Blood Count 8.9 10^3/uL (4.0-10.0)
[2022-07-16 21:08] LABS: Lactate (Lactic Acid level) 1.6 mmol/L (0.5-2.2)
[2022-07-16 21:09] LABS: Alanine Aminotransferase 18 U/L (0-41); Albumin Level 4.7 g/dL (3.5-5.2); Alkaline Phosphatase 109 U/L (40-130); Anion Gap 19.4 (5-19); Aspartate Amino Transferase 25 U/L (0-40); Blood Urea Nitrogen 38 mg/dL (8-23); Calcium 9.5 mg/dL (8.5-10.5); Carbon Dioxide 23 mmol/L (22-29); Chloride 92 mmol/L (98-107); Globulin 3.6 g/dL (1.3-4.6); Glucose 120 mg/dL (65-115); Lipase 45 U/L (13-60); Magnesium 2.1 mg/dL (1.7-2.3); Osmolality Calculated 280 mOsm/kg (285-295); Potassium 4.4 mmol/L (3.5-5.1); Sodium 130 mmol/L (136-145); Total Bilirubin 3.7 mg/dL (0.15-1.2); Total Protein 8.3 g/dL (6.6-8.7)
[2022-07-16 22:01] LABS: Add Urine Microscopic? NO; Charge for UA Resulting for Rev
[2022-07-16] MEDS: lactated ringers 1,000 ML 999 ML IV (22:05)
[2022-07-16 22:07] LABS: Bilirubin Urine Neg (Negative); Blood Urine Neg (Negative); Glucose Urine UA Norm (Normal); Ketones Urine 1+ (Negative); Leukocyte Esterase Urine Negative (Negative); Nitrate Urine Negative (Negative); Protein Urine Neg (Negative); Urine Appearance Clear (CLEAR); Urine Color Yellow (Yellow); Urobilinogen Urine Norm (Negative); pH Urine 5 (5-7)
[2022-07-16 22:14] VITALS: BP 137/94; PULSE 105; RESP 18; O2SAT 92
--- NOTE | 2022-07-16 22:17 | ED_ITS ---
HPI - General Adult General: Chief complaint: Nausea/Vomiting/Diarrhea Stated complaint: N/D, weakness Time Seen by Provider: 07/16/22 21:44 History of Present Illness: 72-year-old male presents because he thinks he is dehydrated. Patient reports that he has been having a lot of fluid at his ileostomy. He has had an ileostomy for since due to ulcerative colitis. That he typically takes Cipro twice a day. That he has been out for 4 days because what sounds like miscommunication between the pharmacy and his primary care provider. Reports when he is not on the Cipro daily he gets real watery stools he has had real watery stool for the last couple days. Patient reports that he has some dry heaves which is consistent with that. Patient thinks feels that he needs some IV fluids. He reports that he was just able to restart on the Cipro tonight but usually takes a day or 2 for it to take effect. Patient denies any fever, abdominal pain, vomiting, headache or other systemic complaints. Associated symptoms: Deny chest pain, dyspnea, headache(s), rash or palpitations Review of Systems Const: Reports: change in weight; Denies: fever(s) or chills Eyes: Denies: change in vision or blurry vision Card: Denies: chest pain or palpitations Resp: Denies: dyspnea, productive cough or wheezing GI: Reports: other (Please see HPI) : Denies: flank pain or difficulty urinating Musc: Reports: back pain; Denies: neck pain Skin/Breast: Denies: rash Neuro: Denies: headache(s) Psych: Denies: anxiety or depression PFSH ED PFSH: Medical History A-fib Abdominal pain in male Acute kidney injury superimposed on chronic kidney disease Resolved Acute urinary retention Resolved BPH loc w urin obs/LUTS Coagulopathy Diarrhea Chronic Elevated brain natriuretic peptide (BNP) level GERD (gastroesophageal reflux disease) Gout of ankle History of SCC (squamous cell carcinoma) of skin HTN (hypertension) Iron deficiency anemia EDITH on CPAP Paroxysmal atrial fibrillation Permanent atrial fibrillation Polycystic kidney disease Polycythemia Surgical History History of circumcision History of colectomy History of hernia repair History of penile implant History of shoulder surgery History of total colectomy History of total knee replacement Family History Mother , at age 87 Atrial fibrillation Cancer Father , at age 64 CAD (coronary artery disease) [place] 64 Brother Diabetes Denies family history of Clotting disorder Dementia Chronic kidney disease (CKD) Suicide Anesthesia complication Bleeding disorder Lung disease Stroke Social History Smoking and tobacco status: never smoked Alcohol intake: current Alcohol intake frequency: holidays/special occasions only Household members: spouse Housing: House Marital status: Current occupational status: retired History of recent travel: Yes (cruise) Physical Exam Const: COMMON NORMALS: no acute distress, patient oriented x3 and alert Resp: COMMON NORMALS: normal respiratory effort, No use of accessory muscles and clear to auscultation bilaterally AUSCULTATION: clear to auscultation bilaterally Cardio: COMMON NORMALS: regular rate and regular rhythm RATE: regular rate RHYTHM: regular rhythm GI: COMMON NORMALS: Soft to palpation INSPECTION: Yes GI ostomy present (Right lower quadrant) PALPATION: Yes Soft to palpation and No Tenderness to palpation present (GI) Extremity: COMMON NORMALS: normal to inspection and full ROM Neuro: COMMON NORMALS: patient oriented x3, CN's II-XII intact bilaterally and moves all extremities SENSORIUM/ORIENTATION: Yes alert Psych: COMMON NORMALS: mental status grossly normal, Normal thought process present, cooperative, normal affect and speech normal SPEECH: Yes normal speech THOUGHT PROCESS: Normal thought process present Skin: COMMON NORMALS: no rashes or lesions noted GENERAL SKIN EXAM: no rashes or lesions noted Course Vital Signs: Vital signs: Vital Signs Temperature 98.1 F 07/16/22 20:08 Pulse Rate 105 H 07/16/22 22:14 Respiratory Rate 18 07/16/22 22:14 Blood Pressure 137/94 07/16/22 22:14 Pulse Oximetry 92 07/16/22 22:14 Oxygen Delivery Me thod 07/16/22 22:14 MDM - General Adult Medical Decision Making Patient with slight elevation in his BUN and creatinine and low sodium consistent with concern for mild dehydration. Patient felt better following some IV fluids. Patient requested Cipro that he is on prophylactically so I gave him 500. Patient feels that he is okay to go home. He will return to the ER as needed. Patient stable upon discharge Lab Data : 07/16/22 20:40 07/16/22 20:40 Laboratory Results WBC 8.9 10^3/uL (4.0-10.0) 07/16/22 20:40 RBC 7.30 10^6/uL (4.1-5.3) H 07/16/22 20:40 Hgb 17.3 g/dL (11.7-16.6) H 07/16/22 20:40 Hct 56.3 % (42.0-52.0) H 07/16/22 20:40 MCV 77.1 fl (80-94) L 07/16/22 20:40 MCH 23.7 pg (28.0-34.0) L 07/16/22 20:40 MCHC 30.7 g/dL (30.0-36.0) 07/16/22 20:40 RDW 18.6 % (12.1-15.1) H 07/16/22 20:40 Plt Count 299 10^3/cmm (130-400) 07/16/22 20:40 MPV 9.7 fL (7.4-10.4) 07/16/22 20:40 Neut % (Auto) 69.4 % 07/16/22 20:40 Lymph % (Auto) 17.4 % 07/16/22 20:40 [place] % (Auto) 12.5 % 07/16/22 20:40 Eos % (Auto) 0.0 % 07/16/22 20:40 Baso % (Auto) 0.3 % 07/16/22 20:40 Neut # (Auto) 6.19 10^3/uL (1.8-7.7) 07/16/22 20:40 Lymph # (Auto) 1.6 10^3/uL (0.8-4.8) 07/16/22 20:40 [place] # (Auto) 1.1 10^3/uL (0.2-0.9) H 07/16/22 20:40 Eos # (Auto) 0.0 10^3/uL (0.0-0.8) 07/16/22 20:40 Baso # (Auto) 0.0 10^3/uL (0.0-0.1) 07/16/22 20:40 Nucleated RBC % (auto) 0 % 07/16/22 20:40 Nucleated RBCs # 0.0 /100WBC 07/16/22 20:40 Sodium 130 mmol/L (136-145) L 07/16/22 20:40 Potassium 4.4 mmol/L (3.5-5.1) 07/16/22 20:40 Chloride 92 mmol/L (98-107) L 07/16/22 20:40 Carbon Dioxide 23 mmol/L (22-29) 07/16/22 20:40 Anion Gap 19.4 (5-19) H 07/16/22 20:40 BUN 38 mg/dL (8-23) H 07/16/22 20:40 Creatinine 2.0 mg/dL (0.7-1.2) H 07/16/22 20:40 GFR Calculation Not Reportable 07/16/22 20:40 Glucose 120 mg/dL (65-115) H 07/16/22 20:40 Calculated Osmolality 280 mOsm/kg (285-295) L 07/16/22 20:40 Lactate 1.6 mmol/L (0.5-2.2) 07/16/22 20:40 Calcium 9.5 mg/dL (8.5-10.5) 07/16/22 20:40 Magnesium 2.1 mg/dL (1.7-2.3) 07/16/22 20:40 Total Bilirubin 3.7 mg/dL (0.15-1.2) H 07/16/22 20:40 AST 25 U/L (0-40) 07/16/22 20:40 ALT 18 U/L (0-41) 07/16/22 20:40 Alkaline Phosphatase 109 U/L (40-130) 07/16/22 20:40 Total Protein 8.3 g/dL (6.6-8.7) 07/16/22 20:40 Albumin 4.7 g/dL (3.5-5.2) 07/16/22 20:40 Globulin 3.6 g/dL (1.3-4.6) 07/16/22 20:40 Lipase 45 U/L (13-60) 07/16/22 20:40 Urine Color Yellow (Yellow) 07/16/22 20:38 Urine Appearance Clear (CLEAR) 07/16/22 20:38 Urine pH 5 (5-7) 07/16/22 20:38 Ur Specific [place] 1.030 (1.005-1.030) 07/16/22 20:38 Urine Protein Neg (Negative) 07/16/22 20:38 Urine Glucose (UA) Norm (Normal) 07/16/22 20:38 Urine Ketones 1+ (Negative) H 07/16/22 20:38 Urine Blood Neg (Negative) 07/16/22 20:38 Urine Nitrate Negative (Negative) 07/16/22 20:38 Urine Bilirubin Neg (Negative) 07/16/22 20:38 Urine Urobilinogen Norm mg/dL (Negative) 07/16/22 20:38 Ur Leukocyte Esterase Negative (Negative) 07/16/22 20:38 Discharge Plan Discharge Patient Disposition: Home Clinical Impression: High output ileostomy, Mild dehydration Condition: Stable Prescriptions: No Action triamcinolone acetonide 0.1 % ointment 1 applic TOPICAL DAILY PRN (Reason: unknown) tamsulosin 0.4 mg capsule 0.4 mg PO .Twice daily Qty: 180 3RF pantoprazole 40 mg tablet,delayed release (DR/EC) 40 mg PO DAILY potassium chloride 8 mEq capsule, extended release 8 meq PO DAILY 30 Days Qty: 30 5RF chlorthalidone 25 mg tablet 25 mg PO DAILY 30 Days Qty: 30 5RF furosemide [Lasix] 40 mg tablet 40 mg PO DAILY PRN (Reason: edema) 30 Days Qty: 30 3RF metoprolol succinate 50 mg tablet extended release 24 hr 50 mg PO BID Qty: 60 5RF lisinopril 5 mg tablet 5 mg PO DAILY 90 Days Qty: 90 3RF Hold Instructions: Resume on 01/13/22. Plavix 75 mg tablet 75 mg PO DAILY@1200 Qty: 90 3RF Hold Instructions: Home Medication placed on hold at Doctor's office Xarelto 20 mg tablet 20 mg PO DAILY@2200 Qty: 90 3RF Hold Instructions: Home Medication placed on hold at Doctor's office Rx Instructions: must administer with a meal/food ciprofloxacin HCl [Cipro] 250 mg tablet 250 mg PO BID Qty: 180 3RF Discharge Orders: Discharge ED (Routine); Ordered 07/16/22 Ordered By: Dewey Khan Referrals: Luis Yang MD [Primary Care Provider] - Discharge Diet: Advance as tolerated Discharge Activity: Resume usual activity Patient Instructions: Opioid Safety, Pain Management, Dehydration - Adult Activity Restrictions/Additional Instructions: Follow-up with your primary care provider in the next 1 to 2 days as needed. Return to the ER if symptoms worsen or with any other concerns Coding Level of Care Code ED Equalizer Operator for Yung Fwd Exam Comprehensive
[2022-07-16 22:30] VITALS: BP 127/93; PULSE 92; RESP 16; O2SAT 93
[2022-07-16 22:45] VITALS: BP 135/75; PULSE 104; RESP 15; O2SAT 94
[2022-07-16] MEDS: ciprofloxacin 500 mg Tablet PO (23:16)
[2022-07-16 23:18] VITALS: BP 129/87; PULSE 98; RESP 16; O2SAT 94
== END 2022-07-16 23:26 | disposition home or self-care (01) ==
PROVIDERS: Emergency Medicine; Emergency Provider Student in an Organized Health Care Education/Training Program; PCP Internal Medicine
DX: E86.0 Dehydration (principal); Z93.2 Ileostomy status; Z79.02 Long term (current) use of antithrombotics/antiplatelets; I10 Essential (primary) hypertension
CPT/HCPCS: 80053; 81003; 83605; 83690; 83735; 85025; 87040; 96360; 99284

== ENCOUNTER → 2022-07-31 15:16 | Day surgery (SDC) | payer MEDICARE, SELFPAY ==
[2022-07-31] MEDS: sodium chloride 0.9% 1,000 ML 999 ML IV (15:05)
[2022-07-31 15:20] VITALS: BP 109/73; PULSE 75; RESP 18; TEMP 36.2; O2SAT 94
== END ==
PROVIDERS: PCP Internal Medicine; Visit Provider Internal Medicine
DX: E86.0 Dehydration (principal)
CPT/HCPCS: 96360; J7030

== ENCOUNTER 2022-08-02 21:22 | Observation (INO) | payer MEDICARE, SELFPAY ==
[2022-08-02] VITALS (19 sets, daily range): BP systolic 66–108; BP diastolic 35–71; PULSE 79–99; RESP 15–31; TEMP 36; O2SAT 82–98; BMI 34.9
--- NOTE | 2022-08-02 22:37 | XRR_ITS ---
PROCEDURE INFORMATION: Exam: XR Chest Exam date and time: 08/02/2022 10:41 PM Age: 72 years old Clinical indication: Other: Weakness/hypotension; Prior surgery; Surgery type: Cardiac stents; Patient HX: General weakness with hypotension on monitor. TECHNIQUE: Imaging protocol: Radiologic exam of the chest. Views: 1 view. COMPARISON: CR XR chest 1V [id number] 10/22/2018 10:19 AM FINDINGS: Lungs: Unremarkable. No consolidation. Pleural spaces: Unremarkable. No pleural effusion. No pneumothorax. Heart/Mediastinum: Large hiatal hernia. Cardiomegaly. Bones/joints: Unremarkable. XR/XR chest 1V portable [id number] IMPRESSION: 1. Large hiatal hernia. 2. Cardiomegaly.
[2022-08-02] MEDS: sodium chloride 0.9% 1,000 ML 999 ML IV (22:39)
--- NOTE | 2022-08-02 22:39 | W.ED.DIZZY ---
HPI - Dizziness General: Chief Complaint: Dizziness Stated Complaint: Low BP Time Seen by Provider: 08/02/22 22:23 Source: patient Mode of arrival: ambulatory Limitations: no limitations History of Present Illness: HPI Narrative: 72-year-old male who history of a total colectomy back in the 1980s he has had short gut syndrome since. He states he has episodes of diarrhea at times he states that over the last 2 weeks he has had severe diarrhea. He states he has been feeling extremely dehydrated and weak and dizzy. He is hypotensive here with blood pressure in the 70s. He states this is happened before he had acute kidney injury from his dehydration and hypotension as well. He denies any fever denies any vomiting denies any pain. Associated symptoms: Reports malaise; Denies chest pain, chills, headache(s), nausea or vomiting Review of Systems Const: Reports: fatigue and malaise; Denies: fever(s), chills, body aches or change in appetite Eyes: Denies: blurry vision or eye discomfort ENMT: Denies: throat pain or dental pain Card: Denies: chest pain Resp: Denies: dyspnea GI: Reports: diarrhea; Denies: abdominal pain, nausea or vomiting : Denies: dysuria Musc: Denies: neck pain or back pain Skin/Breast: Denies: rash Neuro: Denies: headache(s) Psych: Denies: depression Yoseph/Lymph: Denies: easy bruising All/Imm: Denies: urticaria PFSH ED PFSH: Medical History A-fib Abdominal pain in male Acute kidney injury superimposed on chronic kidney disease Resolved Acute urinary retention Resolved BPH loc w urin obs/LUTS Coagulopathy Diarrhea Chronic Elevated brain natriuretic peptide (BNP) level GERD (gastroesophageal reflux disease) Gout of ankle History of SCC (squamous cell carcinoma) of skin HTN (hypertension) Iron deficiency anemia EDITH on CPAP Paroxysmal atrial fibrillation Permanent atrial fibrillation Polycystic kidney disease Polycythemia Surgical History History of circumcision History of colectomy History of hernia repair History of penile implant History of shoulder surgery History of total colectomy History of total knee replacement Family History Mother , at age 87 Atrial fibrillation Cancer Father , at age 64 CAD (coronary artery disease) [place] 64 Brother Diabetes Denies family history of Clotting disorder Dementia Chronic kidney disease (CKD) Suicide Anesthesia complication Bleeding disorder Lung disease Stroke Social History Smoking and tobacco status: never smoked Alcohol intake: current Alcohol intake frequency: holidays/special occasions only Household members: spouse Housing: House Marital status: Current occupational status: retired History of recent travel: Yes (cruise) Physical Exam Const: COMMON NORMALS: patient oriented x3 GENERAL APPEARANCE: ill appearing HENMT: COMMON NORMALS: normocephalic and atraumatic HEAD & SCALP: normocephalic and atraumatic Eye: COMMON NORMALS: Equal, round and reactive pupils present and EOMs intact bilaterally PUPIL: Yes Equal, round and reactive pupils present Neck/C-Spine: COMMON NORMALS: full ROM and supple Chest: COMMONS NORMALS: normal inspection of the chest and normal palpation of entire chest wall Resp: COMMON NORMALS: normal respiratory effort, No retractions, No use of accessory muscles and clear to auscultation bilaterally AUSCULTATION: clear to auscultation bilaterally Cardio: COMMON NORMALS: regular rate, regular rhythm and No murmurs present (Cardio) RATE: regular rate RHYTHM: regular rhythm GI: COMMON NORMALS: Normal to inspection, nondistended, normoactive bowel sounds present, Soft to palpation, non-tender and no masses PALPATION: Yes Soft to palpation Extremity: COMMON NORMALS: normal to inspection and full ROM Neuro: COMMON NORMALS: patient oriented x3, moves all extremities and no focal motor deficits Psych: COMMON NORMALS: mental status grossly normal, Normal thought process present and cooperative THOUGHT PROCESS: Normal thought process present Skin: COMMON NORMALS: no rashes or lesions noted and no wounds GENERAL SKIN EXAM: no rashes or lesions noted Course Vital Signs: Vital signs: Vital Signs Temperature 96.8 F L 08/02/22 21:55 Pulse Rate 81 08/02/22 23:25 Respiratory Rate 15 08/02/22 23:25 Blood Pressure 107/68 08/02/22 23:25 Pulse Oximetry 95 08/02/22 23:25 Oxygen Delivery Me thod 08/02/22 22:25 MDM - Dizziness Medical Decision Making Patient presents here with weakness along with dizziness likely from dehydration from his diarrhea. Patient was initially hypotensive his blood pressure is improved here after IV fluids. He does have acute kidney injury likely due to dehydration as well I spoke to the hospitalist and will admit at this time. No signs of infection. Lab Data : 08/02/22 22:30 08/02/22: Radiology Impressions Chest X-Ray 08/02/22: IMPRESSION: 1. Large hiatal hernia. 2. Cardiomegaly. Laboratory Results WBC 9.8 10^3/uL (4.0-10.0) 08/02/22: RBC 7.04 10^6/uL (4.1-5.3) H 08/02/22: Hgb 16.6 g/dL (11.7-16.6) 08/02/22: Hct 54.4 % (42.0-52.0) H 08/02/22: MCV 77.3 fl (80-94) L 08/02/22: MCH 23.6 pg (28.0-34.0) L 08/02/22: MCHC 30.5 g/dL (30.0-36.0) 08/02/22: RDW 19.0 % (12.1-15.1) H 08/02/22: Plt Count 306 10^3/cmm (130-400) 08/02/22: MPV 9.4 fL (7.4-10.4) 08/02/22: Neut % (Auto) 72.1 % 08/02/22: Lymph % (Auto) 17.5 % 08/02/22: [place] % (Auto) 9.7 % 08/02/22: Eos % (Auto) 0.0 % 08/02/22: Baso % (Auto) 0.3 % 08/02/22: Neut # (Auto) 7.05 10^3/uL (1.8-7.7) 08/02/22: Lymph # (Auto) 1.7 10^3/uL (0.8-4.8) 10/27/22 22:30 [place] # (Auto) 1.0 10^3/uL (0.2-0.9) H 08/02/22 22:30 Eos # (Auto) 0.0 10^3/uL (0.0-0.8) 08/02/22 22:30 Baso # (Auto) 0.0 10^3/uL (0.0-0.1) 08/02/22: Nucleated RBC % (auto) 0 % 08/02/22: Nucleated RBCs # 0.0 /100WBC 08/02/22:30 Sodium 133 mmol/L (136-145) L 08/02/22: Potassium 4.5 mmol/L (3.5-5.1) 08/02/22: Chloride 98 mmol/L (98-107) 08/02/22: Carbon Dioxide 22 mmol/L (22-29) 08/02/22: Anion Gap 17.5 (5-19) 08/02/22: BUN 52 mg/dL (8-23) H 08/02/22 22: Creatinine 4.5 mg/dL (0.7-1.2) H 08/02/22:30 GFR Calculation Not Reportable 08/02/22: Glucose 104 mg/dL (65-115) 08/02/22: Calculated Osmolality 290 mOsm/kg (285-295) 08/02/22: Lactate 1.8 mmol/L (0.5-2.2) 08/02/22 23: Calcium 9.2 mg/dL (8.5-10.5) 08/02/22: Total Bilirubin 1.8 mg/dL (0.15-1.2) H 08/02/22 22:30 AST 19 U/L (0-40) 08/02/22: ALT 18 U/L (0-41) 08/02/22: Alkaline Phosphatase 95 U/L (40-130) 08/02/22:30 Total Protein 7.3 g/dL (6.6-8.7) 08/02/22: Albumin 4.1 g/dL (3.5-5.2) 08/02/22:30 Globulin 3.2 g/dL (1.3-4.6) 08/02/22 22:30 Lipase 59 U/L (13-60) 08/02/22 22:30 EKG Data EKG 1: I personally reviewed and interpreted this EKG as follows: EKG interpretation date: 08/02/22 EKG interpretation time: 22:46 Interpretation: afib hr [address] or t wave abnormalities qrs 119 qtc 411 Discharge Plan Discharge Patient Disposition: Admitted As Inpatient Clinical Impression: Diarrhea, Acute kidney injury, Dehydration Condition: Stable Prescriptions: No Action triamcinolone acetonide 0.1 % ointment 1 applic TOPICAL DAILY PRN (Reason: unknown) tamsulosin 0.4 mg capsule 0.4 mg PO .Twice daily Qty: 180 3RF pantoprazole 40 mg tablet,delayed release (DR/EC) 40 mg PO DAILY potassium chloride 8 mEq capsule, extended release 8 meq PO DAILY 30 Days Qty: 30 5RF chlorthalidone 25 mg tablet 25 mg PO DAILY 30 Days Qty: 30 5RF furosemide [Lasix] 40 mg tablet 40 mg PO DAILY PRN (Reason: edema) 30 Days Qty: 30 3RF metoprolol succinate 50 mg tablet extended release 24 hr 50 mg PO BID Qty: 60 5RF lisinopril 5 mg tablet 5 mg PO DAILY 90 Days Qty: 90 3RF Hold Instructions: Resume on 01/13/22. Plavix 75 mg tablet 75 mg PO DAILY@1200 Qty: 90 3RF Hold Instructions: Home Medication placed on hold at Doctor's office Xarelto 20 mg tablet 20 mg PO DAILY@2200 Qty: 90 3RF Hold Instructions: Home Medication placed on hold at Doctor's office Rx Instructions: must administer with a meal/food ciprofloxacin HCl [Cipro] 250 mg tablet 250 mg PO BID Qty: 180 3RF Referrals: Luis Yang MD [Primary Care Provider] - Coding Level of Care Code ED Vinyl Hanger for Chg Fwd Exam Comprehensive
--- NOTE | 2022-08-02 22:46 | ECG_ITS ---
[facility] Test Date: 2022-08-02 Pat Name: Earle Mireles Department: Room: Gender: Male Customer Accounts Advisor: : 1950 Requested By: Rosetta Xavier Order Number: [id number] Ana MD: Paula Walker M.D. Measurements Intervals [place] Rate: 93 P: ME: QRS: -74 QRSD: 119 T: 43 QT: 361 QTc: 449 Interpretive Statements ATRIAL FIBRILLATION LEFT AXIS DEVIATION [QRS AXIS < -30] PATTERN CONSISTENT WITH PULMONARY DISEASE INCOMPLETE RIGHT BUNDLE BRANCH BLOCK [90+ ms QRS DURATION, TERMINAL R IN V1/V2, 40+ ms S IN I/aVL/V4/V5/V6] Compared to ECG 01/09/2022 18:15:14 Left-axis deviation now present Incomplete right bundle-branch block now present Right bundle-branch block no longer present Left anterior fascicular block no longer present Electronically Signed On 08-03-2022 9:11:24 CDT by Paula Walker M.D. [email or web address]
[2022-08-02 22:50] LABS: Basophils % 0.3 %; Hematocrit 54.4 % (42.0-52.0); Hemoglobin 16.6 g/dL (11.7-16.6); Lymphocytes # 1.7 10^3/uL (0.8-4.8); Lymphocytes % 17.5 %; Mean Corpuscular HGB Conc 30.5 g/dL (30.0-36.0); Mean Corpuscular Hemoglobin 23.6 pg (28.0-34.0); Mean Corpuscular Volume 77.3 fl (80-94); Mean Platelet Volume 9.4 fL (7.4-10.4); Monocytes % 9.7 %; Neutrophils # 7.05 10^3/uL (1.8-7.7); Neutrophils % 72.1 %; Nucleated Red Blood Cells % 0 %; Platelet Count 306 10^3/cmm (130-400); Red Blood Count 7.04 10^6/uL (4.1-5.3); White Blood Count 9.8 10^3/uL (4.0-10.0)
[2022-08-02] MEDS: lactated ringers 1,000 ML 999 ML IV ×2 (22:58→23:22)
[2022-08-02 23:08] LABS: Alanine Aminotransferase 18 U/L (0-41); Albumin Level 4.1 g/dL (3.5-5.2); Alkaline Phosphatase 95 U/L (40-130); Aspartate Amino Transferase 19 U/L (0-40); Blood Urea Nitrogen 52 mg/dL (8-23); Calcium 9.2 mg/dL (8.5-10.5); Carbon Dioxide 22 mmol/L (22-29); Chloride 98 mmol/L (98-107); Globulin 3.2 g/dL (1.3-4.6); Glucose 104 mg/dL (65-115); Lipase 59 U/L (13-60); Osmolality Calculated 290 mOsm/kg (285-295); Sodium 133 mmol/L (136-145); Total Bilirubin 1.8 mg/dL (0.15-1.2); Total Protein 7.3 g/dL (6.6-8.7)
[2022-08-02 23:09] LABS: Anion Gap 17.5 (5-19); Potassium 4.5 mmol/L (3.5-5.1)
[2022-08-02 23:49] LABS: Lactate (Lactic Acid level) 1.8 mmol/L (0.5-2.2)
[2022-08-03] VITALS (9 sets, daily range): BP systolic 88–120; BP diastolic 59–71; PULSE 77–99; RESP 16–30; TEMP 36.6–36.9; O2SAT 91–97
--- NOTE | 2022-08-03 00:43 | PM.HP ---
Providers/Chief Complaint Admitting Physician: Jose Handy Primary Care Provider: Luis Yang MD Chief Complaint: Low BP History of Present Illness First timePleasant 72-year-old gentleman with history of ulcerative colitis, colectomy, ileostomy, short gut syndrome, chronic diarrhea which he states has been suppressed with ciprofloxacin. CAD, stenting, congestive heart failure, reports several months ago had quite a bit of weight gain, edema, at that time was restarted on Lasix, chlorthalidone, which she continued taking up until about 2 weeks ago when he developed diarrhea after he states running out of ciprofloxacin for course about a week. Diarrhea persisted. He had since discontinued Lasix and chlorthalidone, but continue taking his other medications. In ER he complained of being dehydrated, weak and dizzy. He was found to be dehydrated but also hypotensive with blood pressure in the 70s. Noted with acute kidney injury on blood chemistries. Creatinine 4.5. He reports past history of acute kidney injury at 1 creatinine as high as 12.2. Most recently it appears on 07/16 creatinine was 2. Prior to that 07/11 creatinine was 1.2. He states he is continue taking his other medications. In the ER he is so far received three 1 L fluid boluses so far with good improvement in blood pressure, 103/67. He states that otherwise since resuming ciprofloxacin diarrhea subsided. Today he states output in ileostomy with consistency of applesauce which is usual for him. Denies past history of C diff. Review of Systems Const: Denies: fever(s), chills, body aches or malaise Eyes: Denies: change in vision, eye discomfort or eye redness ENMT: Denies: throat pain, oral sores or ear or mastoid pain Card: Denies: chest pain, edema, pre-syncope or dyspnea on exertion Resp: Denies: dyspnea, productive cough, change in phlegm color or hemoptysis GI: Denies: abdominal pain, nausea, vomiting, diarrhea, constipation, hematochezia or melena : Denies: flank pain, difficulty urinating, urinary frequency or hematuria Musc: Denies: back pain, joint swelling or joint redness Skin/Breast: Denies: rash or new lesions Neuro: Denies: headache(s), numbness in extremities, weakness in extremities, dizziness, confusion or seizure-like activity Endo: Denies: polyuria or polydipsia Yoseph/Lymph: Denies: easy bleeding or tender lymph nodes All/Imm: Denies: urticaria or tongue swelling Medications/Allergies Home Medications Medication Instructions Recorded Confirmed Last Taken Type triamcinolone acetonide 0.1 % 1 applic topical DAILY PRN unknown 01/07/20 07/31/22 02/14/21 History topical ointment lisinopril 5 mg tablet 5 mg PO DAILY 90 days #90 tabs 10/30/21 07/31/22 01/09/22 Rx tamsulosin 0.4 mg capsule 0.4 mg PO .Twice daily #180 caps 03/08/22 07/31/22 Unknown Rx rivaroxaban 20 mg tablet (Xarelto) 20 mg PO DAILY@2200 #90 tabs 06/05/22 07/31/22 Unknown Rx chlorthalidone 25 mg tablet 25 mg PO DAILY 30 days #30 tabs 07/11/22 07/31/22 Unknown Rx furosemide 40 mg tablet (Lasix) 40 mg PO DAILY PRN edema 30 days 07/11/22 07/31/22 Unknown Rx #30 tabs metoprolol succinate 50 mg 50 mg PO BID #60 tabs 07/11/22 07/31/22 Unknown Rx tablet,extended release 24 hr pantoprazole 40 mg tablet,delayed 40 mg PO DAILY 07/11/22 07/31/22 Unknown History release potassium chloride 8 mEq 8 meq PO DAILY 30 days #30 caps 07/11/22 07/31/22 Unknown Rx capsule,extended release ciprofloxacin HCl 250 mg tablet 250 mg PO BID #180 tabs 07/16/22 07/31/22 Unknown Rx (Cipro) clopidogrel 75 mg tablet (Plavix) 75 mg PO BEDTIME 08/03/22 08/03/22 2 Days Ago History ~08/01/22 Allergies Allergy/AdvReac Type Severity Reaction Status Date / Time No Known Allergies Allergy Verified 08/03/22 00:36 PFSH Acute PFSH: Medical History A-fib Abdominal pain in male Acute kidney injury superimposed on chronic kidney disease Resolved Acute urinary retention Resolved BPH loc w urin obs/LUTS Coagulopathy Diarrhea Chronic Elevated brain natriuretic peptide (BNP) level GERD (gastroesophageal reflux disease) Gout of ankle History of SCC (squamous cell carcinoma) of skin HTN (hypertension) Iron deficiency anemia EDITH on CPAP Paroxysmal atrial fibrillation Permanent atrial fibrillation Polycystic kidney disease Polycythemia Surgical History History of circumcision History of colectomy History of hernia repair History of penile implant History of shoulder surgery History of total colectomy History of total knee replacement Family History Mother , at age 87 Atrial fibrillation Cancer Father , at age 64 CAD (coronary artery disease) [place] 64 Brother Diabetes Denies family history of Clotting disorder Dementia Chronic kidney disease (CKD) Suicide Anesthesia complication Bleeding disorder Lung disease Stroke Social History Smoking and tobacco status: never smoked Alcohol intake: current Alcohol intake frequency: holidays/special occasions only Household members: spouse Housing: House Marital status: Current occupational status: retired History of recent travel: Yes (cruise) Vitals/I&O/Wt Last Vital Signs Temp 96.8 F L 08/02/22 21:55 Pulse 77 08/03/22 00:10 Resp 25 H 08/03/22 00:10 BP 103/67 08/03/22 00:10 Pulse Ox 91 08/03/22 00:10 O2 Del Method 08/02/22 22:25 08/02/22 08/02/22 08/03/22 14:59 22:59 06:59 Intake Total 1000 / 1000 1000 / 1999 Balance 1000 / 1000 1000 / 2000 Weight last 48 hrs Weight 117.027 kg Physical Exam Narrative: Accompanied by family Const: COMMON NORMALS: patient oriented x3 and alert GENERAL APPEARANCE: cooperative NUTRITIONAL APPEARANCE: obese ORIENTATION/CONSCIOUSNESS: Yes awake HENMT: COMMON NORMALS: oropharynx normal Neck/C-Spine: COMMON NORMALS: no JVD Resp: COMMON NORMALS: normal respiratory effort and clear to auscultation bilaterally AUSCULTATION: clear to auscultation bilaterally Cardio: COMMON NORMALS: no JVD, regular rhythm, S1 normal heart sound present, S2 normal heart sound present and No murmurs present (Cardio) RHYTHM: regular rhythm HEART SOUNDS: S1 normal heart sound present and S2 normal heart sound present GI: COMMON NORMALS: Normal to inspection, nondistended, normoactive bowel sounds present, Soft to palpation and non-tender PALPATION: Yes Soft to palpation OTHER: ileostomy Extremity: COMMON NORMALS: no joint enlargement and no pedal edema Neuro: COMMON NORMALS: patient oriented x3 and moves all extremities SENSORIUM/ORIENTATION: Yes alert Skin: COMMON NORMALS: no rashes or lesions noted GENERAL SKIN EXAM: no rashes or lesions noted Data : 08/02/22 22:30 08/02/22 22:30 A&P Assessment and plan (1) Diarrhea: He reports he feels timing gupta diarrhea started after he had missed about a week of ciprofloxacin dosing. He has since restarted 500 mg twice daily for now and states that so far diarrhea slightly better. Not sure if maybe he is having some intestinal bacterial overgrowth, perhaps showing mixed response. However, celiac is possible despite not having colon. Requested. At some point breath test may be consideration aspirate culture, follow-up with gastroenterology. Collect stool culture, check ova and parasites. (2) Hypotension: So far has responded to fluid resuscitation. Continue LR infusion. May be combination hypovolemic shock as well as adverse effect of medication, Cipro, metoprolol in setting of JULES. Hold antihypertensives. Continue to hold diuretics which he has not been taking recently. (3) Acute kidney injury: Creatinine up to 4.3. Has had episodes of JULES in the past. Concern may be also developing CKD. Also has PCKD. Received fluid challenge. Reassess renal function in the morning. Avoid hypotension. Check renal ultrasound. Will benefit from establishing follow-up with nephrology. (4) Dehydration: As above. Plan Hyperbilirubinemia: 1.8. Suspect secondary to dehydration. Recheck liver parameters. CHF: Several months ago with significant fluid overload, diastolic CHF exacerbation. Weight gain, worsening edema. Had at that point restarted Lasix, chlorthalidone. He has since lost quite a bit of weight and subsequently with starting diarrhea was more, with edema so far completely resolved. For now diuretics continue on hold. With resolution of diarrhea at some point he may benefit from restarting diuretics, perhaps on as needed basis. Would follow-up with PCP for reassessment. HTN: Hold lisinopril due to JULES. Would not resume until JULES improving, renal function stabilizing. Follow-up with PCP. José Miguel fib: Hold metoprolol for now. Hold Xarelto for tonight. Recehck renal function. Consider resumption depending on renal improvement. For now subcu heparin for VTE prophylaxis. BPH GERD Gout MICH EDITH PCKD Attestations Medical Necessity Statement*: Place in observation for additional assessment treatment of hypotension, dehydration JULES after persistent diarrhea. Coding Level of Care Code Acute [employer] for [facility] Fwd Diagnoses Diarrhea R19.7 Hypotension I95.9 Acute kidney injury N17.9 Dehydration E86.0
[2022-08-03] MEDS: tamsulosin 0.4 mg Capsule PO ×2 (02:11→12:57)
[2022-08-03] MEDS: lactated ringers 1,000 ML 75 ML IV ×3 (02:11→20:11)
[2022-08-03] MEDS: heparin 5,000 unit/mL INJ 1 mL 5000 UNIT SUBCUT ×2 (02:12→12:57)
[2022-08-03] MEDS: ciprofloxacin 500 mg Tablet PO ×3 (03:02→17:08)
[2022-08-03 07:18] LABS: Specific Gravity, Urine 1.025 (1.005-1.030); Urine Appearance Hazy (CLEAR); Urine Color Yellow (Yellow); pH Urine 5 (5-7)
[2022-08-03 07:19] LABS: Add Urine Microscopic? YES; Bilirubin Urine Neg (Negative); Blood Urine Neg (Negative); Glucose Urine UA Norm (Normal); Ketones Urine 1+ (Negative); Leukocyte Esterase Urine Trace (Negative); Nitrate Urine Negative (Negative); Protein Urine Neg (Negative); Urobilinogen Urine Neg (Negative)
[2022-08-03 07:20] LABS: Bacteria Urine 1+ /hpf; WBC Urine 15-25 /hpf (0-5)
[2022-08-03 07:21] LABS: Add Urine Culture? Yes
[2022-08-03] MEDS: pantoprazole DR 40 mg Tablet PO (08:00)
--- NOTE | 2022-08-03 10:42 | PM.MISC ---
Miscellaneous Note Note: Seen this morning. Blood pressures soft this AM Will continue on IV fluids for now. Patient denies lightheadedness, dizziness. Otherwise feels well. States diarrhea already seems to be improving but stool still not back to baseline. Recheck BP Q2H Check blood cultures Ostomy bag in place, no erythema around it. Will need bag changed. He said his family is bringing specific supplies for him. Rest of management as per HnP.
[2022-08-03] MEDS: sodium chloride 0.9% 500 ML 999 ML IV (12:13)
--- NOTE | 2022-08-03 12:36 | PC.NURSE ---
benefit of urinary catheter discussed with patient. patient declined yu, but was agreeable to using a urinal to measure output. Dr. Middleton notified.
[2022-08-03] MEDS: clopidogrel 75 mg Tablet PO (20:12)
[2022-08-04] VITALS: BP 104/69; PULSE 90; RESP 16; TEMP 36.8; O2SAT 94
[2022-08-04] MEDS: tamsulosin 0.4 mg Capsule PO ×2 (02:24→14:08)
[2022-08-04] MEDS: heparin 5,000 unit/mL INJ 1 mL 5000 UNIT SUBCUT ×2 (02:24→14:08)
[2022-08-04 04:00] VITALS: BP 99/70; PULSE 87; RESP 20; TEMP 36.8; O2SAT 90
[2022-08-04 04:25] LABS: Basophils % 0.5 %; Hematocrit 47.5 % (42.0-52.0); Hemoglobin 14.3 g/dL (11.7-16.6); Lymphocytes # 1.3 10^3/uL (0.8-4.8); Lymphocytes % 18.9 %; Mean Corpuscular HGB Conc 30.1 g/dL (30.0-36.0); Mean Corpuscular Hemoglobin 23.7 pg (28.0-34.0); Mean Corpuscular Volume 78.6 fl (80-94); Mean Platelet Volume 9.7 fL (7.4-10.4); Monocytes # 0.6 10^3/uL (0.2-0.9); Monocytes % 9.7 %; Neutrophils # 4.66 10^3/uL (1.8-7.7); Neutrophils % 70.6 %; Nucleated Red Blood Cells % 0 %; Platelet Count 236 10^3/cmm (130-400); Red Blood Count 6.04 10^6/uL (4.1-5.3); Red Cell Distribution Width 19.1 % (12.1-15.1); White Blood Count 6.6 10^3/uL (4.0-10.0)
[2022-08-04 04:49] LABS: Alanine Aminotransferase 13 U/L (0-41); Albumin Level 3.3 g/dL (3.5-5.2); Alkaline Phosphatase 73 U/L (40-130); Anion Gap 15.4 (5-19); Aspartate Amino Transferase 13 U/L (0-40); Blood Urea Nitrogen 39 mg/dL (8-23); Calcium 8.4 mg/dL (8.5-10.5); Carbon Dioxide 22 mmol/L (22-29); Chloride 106 mmol/L (98-107); Globulin 2.4 g/dL (1.3-4.6); Glucose 106 mg/dL (65-115); Osmolality Calculated 298 mOsm/kg (285-295); Potassium 4.4 mmol/L (3.5-5.1); Sodium 139 mmol/L (136-145); Total Bilirubin 1.2 mg/dL (0.15-1.2); Total Protein 5.7 g/dL (6.6-8.7)
[2022-08-04] MEDS: ciprofloxacin 500 mg Tablet PO ×2 (07:47→18:36)
[2022-08-04] MEDS: pantoprazole DR 40 mg Tablet PO (07:47)
[2022-08-04 08:17] VITALS: BP 115/71; PULSE 82; RESP 16; TEMP 36.6; O2SAT 94
--- NOTE | 2022-08-04 08:40 | PM.PN ---
Subjective Subjective: Seen this morning. No acute events overnight. Patient feels a lot better. Creatinine down to 2.2. He says ever since he has been back on Cipro 500 twice daily he feels back to normal. Diarrhea has improved. Blood pressure is also better. Vitals/I&O/Wt Last Vital Signs Temp 97.9 F 08/04/22 08:17 Pulse 82 08/04/22 08:17 Resp 16 08/04/22 08:17 BP 115/71 08/04/22 08:17 Pulse Ox 94 08/04/22 08:17 O2 Del Method 08/04/22 08:17 08/03/22 08/04/22 08/04/22 22:59 06:59 14:59 Intake Total 1180 / 2730 887.5 / 887.5 Output Total 1775 / 2500 300 / 2800 Balance -595 / 230 -300 / -70 887.5 / 887.5 Weight last 48 hrs Weight 117.027 kg Physical Exam Narrative: Accompanied by family Const: COMMON NORMALS: patient oriented x3 and alert GENERAL APPEARANCE: cooperative NUTRITIONAL APPEARANCE: obese ORIENTATION/CONSCIOUSNESS: Yes awake HENMT: COMMON NORMALS: oropharynx normal Neck/C-Spine: COMMON NORMALS: no JVD Resp: COMMON NORMALS: normal respiratory effort and clear to auscultation bilaterally AUSCULTATION: clear to auscultation bilaterally Cardio: COMMON NORMALS: no JVD, regular rhythm, S1 normal heart sound present, S2 normal heart sound present and No murmurs present (Cardio) RHYTHM: regular rhythm HEART SOUNDS: S1 normal heart sound present and S2 normal heart sound present GI: COMMON NORMALS: Normal to inspection, nondistended, normoactive bowel sounds present, Soft to palpation and non-tender PALPATION: Yes Soft to palpation OTHER: ileostomy Extremity: COMMON NORMALS: no joint enlargement and no pedal edema Neuro: COMMON NORMALS: patient oriented x3 and moves all extremities SENSORIUM/ORIENTATION: Yes alert Skin: COMMON NORMALS: no rashes or lesions noted GENERAL SKIN EXAM: no rashes or lesions noted Data : 08/04/22 04:10 08/04/22 04:10 Micro: Microbiology 08/03/22 06:10 C.difficile Toxin B Gene (PCR) - Final Stool - Stool Aspirate 08/03/22 11:13 Blood Culture - Preliminary Blood SPECIMEN COLLECTED 08/03/22 11:07 Blood Culture - Preliminary Blood SPECIMEN COLLECTED A&P Assessment and plan (1) Hypotension: (2) Diarrhea: (3) Acute kidney injury: (4) Dehydration: (5) Benign hypertension: (6) Paroxysmal atrial fibrillation: (7) Iron deficiency anemia: (8) GERD (gastroesophageal reflux disease): (9) CKD (chronic kidney disease): Qualifiers: Chronic kidney disease stage: stage 2 (mild) Qualified Code(s): N18.2 - Chronic kidney disease, stage 2 (mild) Plan #Diarrhea #Acute kidney injury #HTN #Diastolic heart failure, stable #Atrial fibrillation - BP better. S/P IV fluids - JULES improving. Cr 2.2. Continue xarelto once jules improves. COntinue SCDs and subcu heparin VTE PPX - Cipro 500 BID continue - Reduce IV fluids dose to 50 cc/hr - Recheck BMP around 4 PM today. - c.diff negative - large hital hernia on xray - cardiomegaly on xray - urine culture negative. Full Code DVT PPX: heparin subcu Attestations Medical Necessity Statement*: potential discharge in next 24 -48 hours. Coding Level of Care Code Acute Counter Tacker for [facility] Fwd Diagnoses Hypotension I95.9 Diarrhea R19.7 Acute kidney injury N17.9 Dehydration E86.0 Benign hypertension I10 Paroxysmal atrial fibrillation I48.0 Iron deficiency anemia D50.9 GERD (gastroesophageal reflux disease) K21.9 CKD (chronic kidney disease) N18.2 Chronic kidney disease stage: stage 2 (mild)
[2022-08-04] MEDS: lactated ringers 1,000 ML 125 ML IV (09:05)
[2022-08-04 11:53] VITALS: BP 130/76; PULSE 83; RESP 16; O2SAT 94
[2022-08-04 15:25] VITALS: BP 111/74; PULSE 76; RESP 16; TEMP 36.6; O2SAT 94
[2022-08-04 17:10] LABS: Anion Gap 14.4 (5-19); Blood Urea Nitrogen 31 mg/dL (8-23); Calcium 8.5 mg/dL (8.5-10.5); Carbon Dioxide 22 mmol/L (22-29); Chloride 103 mmol/L (98-107); Glucose 103 mg/dL (65-115); Osmolality Calculated 287 mOsm/kg (285-295); Potassium 4.4 mmol/L (3.5-5.1); Sodium 135 mmol/L (136-145)
[2022-08-04 20:00] VITALS: BP 117/74; PULSE 87; RESP 22; TEMP 36.6; O2SAT 95
[2022-08-04] MEDS: clopidogrel 75 mg Tablet PO (20:24)
[2022-08-05] VITALS: BP 94/57; PULSE 77; RESP 16; TEMP 36.7; O2SAT 94
[2022-08-05] MEDS: tamsulosin 0.4 mg Capsule PO (01:25)
[2022-08-05] MEDS: heparin 5,000 unit/mL INJ 1 mL 5000 UNIT SUBCUT (01:25)
[2022-08-05 04:00] VITALS: BP 109/58; PULSE 71; RESP 16; TEMP 36.6; O2SAT 91
[2022-08-05 05:12] LABS: Basophils % 0.5 %; Hematocrit 46.7 % (42.0-52.0); Hemoglobin 14.4 g/dL (11.7-16.6); Lymphocytes # 1.1 10^3/uL (0.8-4.8); Lymphocytes % 18.7 %; Mean Corpuscular HGB Conc 30.8 g/dL (30.0-36.0); Mean Corpuscular Volume 77.7 fl (80-94); Monocytes # 0.7 10^3/uL (0.2-0.9); Monocytes % 10.7 %; Neutrophils # 4.26 10^3/uL (1.8-7.7); Neutrophils % 69.8 %; Nucleated Red Blood Cells % 0 %; Platelet Count 237 10^3/cmm (130-400); Red Blood Count 6.01 10^6/uL (4.1-5.3); Red Cell Distribution Width 18.8 % (12.1-15.1); White Blood Count 6.1 10^3/uL (4.0-10.0)
[2022-08-05 05:31] LABS: Alanine Aminotransferase 14 U/L (0-41); Albumin Level 3.1 g/dL (3.5-5.2); Alkaline Phosphatase 73 U/L (40-130); Anion Gap 12.2 (5-19); Aspartate Amino Transferase 15 U/L (0-40); Blood Urea Nitrogen 28 mg/dL (8-23); Calcium 8.6 mg/dL (8.5-10.5); Carbon Dioxide 23 mmol/L (22-29); Chloride 102 mmol/L (98-107); Globulin 2.6 g/dL (1.3-4.6); Glucose 94 mg/dL (65-115); Osmolality Calculated 281 mOsm/kg (285-295); Potassium 4.2 mmol/L (3.5-5.1); Sodium 133 mmol/L (136-145); Total Bilirubin 1.4 mg/dL (0.15-1.2); Total Protein 5.7 g/dL (6.6-8.7)
[2022-08-05 08:00] VITALS: BP 158/75; PULSE 80; RESP 16; TEMP 36.8; O2SAT 94
[2022-08-05] MEDS: pantoprazole DR 40 mg Tablet PO (10:21)
[2022-08-05] MEDS: ciprofloxacin 500 mg Tablet PO (10:21)
--- NOTE | 2022-08-05 11:09 | PM.DCS ---
Discharge Providers Date of Admission: 08/03/22 00:08 Date of Discharge: August 05, 2022 Attending Provider at Admission: Jose Handy Attending Provider at Discharge: Vishnu Brothers MD Primary Care Provider: Luis Yang MD Diagnoses at Discharge Discharge Diagnosis (1) Hypotension: Status: Acute (2) Diarrhea: Status: Acute (3) Acute kidney injury: Status: Acute (4) Dehydration: Status: Acute (5) Benign hypertension: Status: Acute (6) Paroxysmal atrial fibrillation: Status: Acute (7) Iron deficiency anemia: Status: Acute (8) GERD (gastroesophageal reflux disease): Status: Acute (9) CKD (chronic kidney disease): Status: Acute Qualifiers: Chronic kidney disease stage: stage 2 (mild) Qualified Code(s): N18.2 - Chronic kidney disease, stage 2 (mild) Reason for Visit Reason for Visit: Low BP Hospital Course Hospital Course Pleasant 72-year-old gentleman with history of ulcerative colitis, colectomy, ileostomy, short gut syndrome, chronic diarrhea which he states has been suppressed with ciprofloxacin.? CAD, stenting, congestive heart failure, reports several months ago had quite a bit of weight gain, edema, at that time was restarted on Lasix, chlorthalidone, which she continued taking up until about 2 weeks ago when he developed diarrhea after he states running out of ciprofloxacin for course about a week.? Diarrhea persisted.? He had since discontinued Lasix and chlorthalidone, but continue taking his other medications. In ER he complained of being dehydrated, weak and dizzy.? He was found to be dehydrated but also hypotensive with blood pressure in the 70s.? Noted with acute kidney injury on blood chemistries.? Creatinine 4.5.? He reports past history of acute kidney injury at 1 creatinine as high as 12.2.? Most recently it appears on 07/16 creatinine was 2.? Prior to that 07/11 creatinine was 1.2.? He states he is continue taking his other medications. In the ER he is so far received three 1 L fluid boluses so far with good improvement in blood pressure, 103/67. He states that otherwise since resuming ciprofloxacin diarrhea subsided.? Today he states output in ileostomy with consistency of applesauce which is usual for him.? Denies past history of C diff. Patient was admitted to the hospital further evaluation and management of diarrhea and acute kidney injury. It is thought acute kidney injury secondary to dehydration from multiple episodes of diarrhea. Started on his home dose of ciprofloxacin and IV fluids. Stool studies and blood culture remain negative. His acute kidney injury also resolved with IV fluids with creatinine coming down to 1.6 on the day of discharge. Patient is tolerating oral diet well his bowel movements are back to his baseline. He will discharge in hemodynamically stable condition on adjusted antihypertensives for kidney functions, home dose of ciprofloxacin advised to follow-up with his primary care provider within next 1 week for repeat BMP. He is to monitor his blood pressures at home and maintain a blood pressure diary and follow-up with his primary care provider for further adjustment of antihypertensives as needed. Physical Exam Narrative: Accompanied by family Const: COMMON NORMALS: patient oriented x3 and alert GENERAL APPEARANCE: cooperative NUTRITIONAL APPEARANCE: obese ORIENTATION/CONSCIOUSNESS: Yes awake HENMT: COMMON NORMALS: oropharynx normal Neck/C-Spine: COMMON NORMALS: no JVD Resp: COMMON NORMALS: normal respiratory effort and clear to auscultation bilaterally AUSCULTATION: clear to auscultation bilaterally Cardio: COMMON NORMALS: no JVD, regular rhythm, S1 normal heart sound present, S2 normal heart sound present and No murmurs present (Cardio) RHYTHM: regular rhythm HEART SOUNDS: S1 normal heart sound present and S2 normal heart sound present GI: COMMON NORMALS: Normal to inspection, nondistended, normoactive bowel sounds present, Soft to palpation and non-tender PALPATION: Yes Soft to palpation OTHER: ileostomy Extremity: COMMON NORMALS: no joint enlargement and no pedal edema Neuro: COMMON NORMALS: patient oriented x3 and moves all extremities SENSORIUM/ORIENTATION: Yes alert Skin: COMMON NORMALS: no rashes or lesions noted GENERAL SKIN EXAM: no rashes or lesions noted Discharge Data Studies Completed and Pending Completed Studies During Hospitalization Category Date Time Status CXRP [XR chest 1V portable [id number]] Stat Exams 08/02/22 22:37 Completed Pending at discharge Category Date Time Status Blood Culture Stat Lab 08/03/22 11:13 Results Complete Blood Count w/Auto AM LABS Lab 08/06/22 04:00 Ordered Comprehensive Metabolic Panel AM LABS Lab 08/06/22 04:00 Ordered OVA and Parasites, Conc and PE Routine Lab 08/03/22 06:10 Received Sputum Culture and Gram Stain Stat Lab 08/03/22 10:46 Uncollected Radiology Impressions Chest X-Ray 08/02/22 22:37 IMPRESSION: 1. Large hiatal hernia. 2. Cardiomegaly. Laboratory Results WBC 6.1 10^3/uL (4.0-10.0) 08/05/22 04:18 RBC 6.01 10^6/uL (4.1-5.3) H 08/05/22 04:18 Hgb 14.4 g/dL (11.7-16.6) 08/05/22 04:18 Hct 46.7 % (42.0-52.0) 08/05/22 04:18 MCV 77.7 fl (80-94) L 08/05/22 04:18 MCH 24.0 pg (28.0-34.0) L 08/05/22 04:18 MCHC 30.8 g/dL (30.0-36.0) 08/05/22 04:18 RDW 18.8 % (12.1-15.1) H 08/05/22 04:18 Plt Count 237 10^3/cmm (130-400) 08/05/22 04:18 MPV 10.0 fL (7.4-10.4) 08/05/22 04:18 Neut % (Auto) 69.8 % 08/05/22 04:18 Lymph % (Auto) 18.7 % 08/05/22 04:18 [place] % (Auto) 10.7 % 08/05/22 04:18 Eos % (Auto) 0.0 % 08/05/22 04:18 Baso % (Auto) 0.5 % 08/05/22 04:18 Neut # (Auto) 4.26 10^3/uL (1.8-7.7) 08/05/22 04:18 Lymph # (Auto) 1.1 10^3/uL (0.8-4.8) 08/05/22 04:18 [place] # (Auto) 0.7 10^3/uL (0.2-0.9) 08/05/22 04:18 Eos # (Auto) 0.0 10^3/uL (0.0-0.8) 08/05/22 04:18 Baso # (Auto) 0.0 10^3/uL (0.0-0.1) 08/05/22 04:18 Nucleated RBC % (auto) 0 % 08/05/22 04:18 Nucleated RBCs # 0.0 /100WBC 08/05/22 04:18 Sodium 133 mmol/L (136-145) L 08/05/22 04:18 Potassium 4.2 mmol/L (3.5-5.1) 08/05/22 04:18 Chloride 102 mmol/L (98-107) 08/05/22 04:18 Carbon Dioxide 23 mmol/L (22-29) 08/05/22 04:18 Anion Gap 12.2 (5-19) 08/05/22 04:18 BUN 28 mg/dL (8-23) H 08/05/22 04:18 Creatinine 1.6 mg/dL (0.7-1.2) H 08/05/22 04:18 GFR Calculation Not Reportable 08/05/22 04:18 Glucose 94 mg/dL (65-115) 08/05/22 04:18 Calculated Osmolality 281 mOsm/kg (285-295) L 08/05/22 04:18 Lactate 1.8 mmol/L (0.5-2.2) 08/02/22 23:29 Calcium 8.6 mg/dL (8.5-10.5) 08/05/22 04:18 Total Bilirubin 1.4 mg/dL (0.15-1.2) H 08/05/22 04:18 AST 15 U/L (0-40) 08/05/22 04:18 ALT 14 U/L (0-41) 08/05/22 04:18 Alkaline Phosphatase 73 U/L (40-130) 08/05/22 04:18 Total Protein 5.7 g/dL (6.6-8.7) L 08/05/22 04:18 Albumin 3.1 g/dL (3.5-5.2) L 08/05/22 04:18 Globulin 2.6 g/dL (1.3-4.6) 08/05/22 04:18 Lipase 59 U/L (13-60) 08/02/22 22:30 Urine Color Yellow (Yellow) 08/03/22 06:10 Urine Appearance Hazy (CLEAR) A 08/03/22 06:10 Urine pH 5 (5-7) 08/03/22 06:10 Ur Specific [place] 1.025 (1.005-1.030) 08/03/22 06:10 Urine Protein Neg (Negative) 08/03/22 06:10 Urine Glucose (UA) Norm (Normal) 08/03/22 06:10 Urine Ketones 1+ (Negative) H 08/03/22 06:10 Urine Blood Neg (Negative) 08/03/22 06:10 Urine Nitrate Negative (Negative) 08/03/22 06:10 Urine Bilirubin Neg (Negative) 08/03/22 06:10 Urine Urobilinogen Neg mg/dL (Negative) 08/03/22 06:10 Ur Leukocyte Esterase Trace (Negative) H 08/03/22 06:10 Urine RBC None /hpf (0-2) 08/03/22 06:10 Urine WBC 15-25 /hpf (0-5) H 08/03/22 06:10 Ur Squamous Epith Cells None /hpf (0-5) 08/03/22 06:10 Calcium Oxalate Crystal 5-10 /hpf H 08/03/22 06:10 Amorphous Sediment Not Reportable 08/03/22 06:10 Urine Bacteria 1+ /hpf (NONE) H 08/03/22 06:10 Vitals Last Vital Signs Temp 98.3 F 08/05/22 08:00 Pulse 80 08/05/22 08:00 Resp 16 08/05/22 08:00 BP 158/75 08/05/22 08:00 Pulse Ox 94 08/05/22 08:00 O2 Del Method 08/05/22 08:00 Discharge Plan Discharge Patient Disposition: Home Condition: Stable Prescriptions: Continued triamcinolone acetonide 0.1 % ointment 1 applic TOPICAL DAILY PRN (Reason: unknown) tamsulosin 0.4 mg capsule 0.4 mg PO .Twice daily Qty: 180 3RF pantoprazole 40 mg tablet,delayed release (DR/EC) 40 mg PO DAILY furosemide [Lasix] 40 mg tablet 40 mg PO DAILY PRN (Reason: edema) 30 Days Qty: 30 3RF metoprolol succinate 50 mg tablet extended release 24 hr 50 mg PO BID Qty: 60 5RF Xarelto 20 mg tablet 20 mg PO DAILY@2200 Qty: 90 3RF Hold Instructions: Home Medication placed on hold at Doctor's office Rx Instructions: must administer with a meal/food Plavix 75 mg tablet 75 mg PO BEDTIME ciprofloxacin HCl [Cipro] 250 mg tablet 250 mg PO BID Qty: 30 3RF Held potassium chloride 8 mEq capsule, extended release 8 meq PO DAILY 30 Days Qty: 30 5RF Hold Instructions: see pcp chlorthalidone 25 mg tablet 25 mg PO DAILY 30 Days Qty: 30 5RF Hold Instructions: see pcp lisinopril 5 mg tablet 5 mg PO DAILY 90 Days Qty: 90 3RF Hold Instructions: Resume on 01/13/22. Discharge Orders: Discharge Order (Routine); Ordered 08/05/22 Ordered By: Vishnu Brothers Other Ambulatory Orders: Basic Metabolic Panel (Routine) Timeframe: 3 Days Facility: [facility] - Location: Lab - Main Lab Ordered By: Isabel Middleton Referrals: Luis Yang MD [Primary Care Provider] - 4-7 days Discharge Diet: Regular Discharge Activity: Resume usual activity Patient Instructions: Opioid Safety Activity Restrictions/Additional Instructions: Please follow-up with your primary care provider within next 1 week for repeat BMP. Please do not take chlorthalidone, lisinopril, potassium for now. Please check your blood pressure daily at home and maintain a blood pressure diary and follow-up with a primary care provider within next 1 week for further adjustment of antihypertensives. Please continue take your other medications as before. Discharge Attestations Time Spent in Discharge Care*: greater than 30 min Specific Discharge Activities: educating patient, educating and/or supporting family/caregiver, discussing with manager rn case/social workers/dc planners, documenting/other paperwork and evaluating patient/reviewing data Status at Discharge: Cognitive status at discharge: cognitively intact, Behavioral status at discharge: cooperative, Functional status at discharge: independent ambulation, Overall status at discharge: patient is back to baseline Quality Metrics Clinical Quality Measures [ No reported AMI, CVA or VTE this stay] Coding Level of Care Code Acute Chg FW DC note Diagnoses Hypotension I95.9 Diarrhea R19.7 Acute kidney injury N17.9 Dehydration E86.0 Benign hypertension I10 Paroxysmal atrial fibrillation I48.0 Iron deficiency anemia D50.9 GERD (gastroesophageal reflux disease) K21.9 CKD (chronic kidney disease) N18.2 Chronic kidney disease stage: stage 2 (mild)
[2022-08-05 12:00] VITALS: BP 119/81; PULSE 88; RESP 16
[2022-08-05 13:25] VITALS: BP 119/81; PULSE 88; RESP 16; TEMP 36.7; O2SAT 94
== END 2022-08-05 12:00 | disposition home or self-care (01) ==
LOC: ER 08-03 00:02 → MEDSURG 08-03 02:22
PROVIDERS: Internal Medicine; Admitting Provider Internal Medicine; Emergency Provider Emergency Medicine; PCP Internal Medicine; Visit Provider Student in an Organized Health Care Education/Training Program
DX: N17.9 Acute kidney failure, unspecified (principal); R19.7 Diarrhea, unspecified; E86.0 Dehydration; I95.9 Hypotension, unspecified; I48.0 Paroxysmal atrial fibrillation; D50.9 Iron deficiency anemia, unspecified; K21.9 Gastro-esophageal reflux disease without esophagitis; I13.0 Hypertensive heart and chronic kidney disease with heart failure and stage 1 through stage 4 chronic kidney disease, or unspecified chronic kidney disease; N18.2 Chronic kidney disease, stage 2 (mild); I50.30 Unspecified diastolic (congestive) heart failure; Z90.49 Acquired absence of other specified parts of digestive tract; I25.10 Atherosclerotic heart disease of native coronary artery without angina pectoris; Z95.5 Presence of coronary angioplasty implant and graft; N40.1 Benign prostatic hyperplasia with lower urinary tract symptoms; N13.8 Other obstructive and reflux uropathy; I10 Essential (primary) hypertension; G47.33 Obstructive sleep apnea (adult) (pediatric)
CPT/HCPCS: 36415; 71045; 80048; 80053; 81001; 83605; 83690; 85025; 87040; 87086; 87177; 87209; 87493; 87506; 93005; 96360; 96361; 96372; 99285; G0378; J1644; J7030; J7040; J7120

== ENCOUNTER → 2022-08-15 15:26 | Outpatient (BNVA) | payer MEDICARE, SELFPAY | PROVIDERS: PCP Internal Medicine; Visit Provider Internal Medicine | DX: E87.6 Hypokalemia (principal); N17.9 Acute kidney failure, unspecified | CPT/HCPCS: 80048 ==

== ENCOUNTER 2022-11-07 08:39 | Emergency (ER) | payer MEDICARE, SELFPAY ==
[2022-11-07] VITALS (7 sets, daily range): BP systolic 107–132; BP diastolic 72–87; PULSE 76–112; RESP 18–28; TEMP 36.5; O2SAT 95–97; BMI 37.3
--- NOTE | 2022-11-07 08:50 | CT_ITS ---
WS: [id number] CT HEAD NONCONTRAST HISTORY: Dizziness TECHNIQUE: Contiguous axial imaging performed through the brain in 2.5 mm imaging. Bone and soft tiss ue windows. Sagittal and coronal reformats reviewed. All CT scans at [facility] use at least one of these dose optimization techniques: automated exposure control; mA and/or kV adjustment per pa tient size (includes targeted exams where dose is matched to clinical indication); or iterative recon struction. DLP: 1090.45 mGy.cm COMPARISON: None available. No acute intracranial hemorrhage, midline shift or mass effect. Very mild atrophy and small vessel ischemic disease. No acute infarct or sulcal effacement. Ventricles: Normal size with no hydrocephalus. No inferior displacement of the cerebellar tonsils. Paranasal sinuses: As visualized are clear. Mastoid air cells: Well pneumatized. Calvarium and scalp: Skull is intact with no soft tissue edema or swelling. CT/CT head wo con* [id number] IMPRESSION: 1. No acute intracranial hemorrhage or edema. 2. Mild atrophy and small vessel ischemic disease.
--- NOTE | 2022-11-07 08:50 | ECG_ITS ---
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 Measurements Intervals [place] Rate: 116 P: 0 IL: 0 QRS: 266 QRSD: 115 T: 27 QT: 348 QTc: 485 Interpretive Statements ATRIAL FIBRILLATION WITH RAPID VENTRICULAR RESPONSE PATTERN CONSISTENT WITH PULMONARY DISEASE INCOMPLETE RIGHT BUNDLE BRANCH BLOCK [90+ ms QRS DURATION, TERMINAL R IN V1/V2, 40+ ms S IN I/aVL/V4/V5/V6] RIGHT VENTRICULAR HYPERTROPHY [SOME/ALL OF: PROMINENT R IN V1, LATE TRANSITION, RAD, ALYSHA, SSS] Compared to ECG 08/02/2022 22:46:04 Atrial abnormality now present Right ventricular hypertrophy now present Left-axis deviation no longer present Electronically Signed On 11-07-2022 16:29:14 PATIENT TRANSPORT ORDERLY by Garry Russell M.D. [id number]
--- NOTE | 2022-11-07 08:50 | XRR_ITS ---
PROCEDURE INFORMATION: Exam: XR Chest Exam date and time: 11/07/2022 9:11 AM Age: 72 years old Clinical indication: Shortness of breath; Prior surgery; Surgery type: Ileostomy; Patient HX: Diarrhea, dehydration, dizzy, muscle cramps x 3 days; Additional info: SOB TECHNIQUE: Imaging protocol: Radiologic exam of the chest. Views: 1 view. COMPARISON: CR (CHEST, ) 08/02/2022 10:41 PM FINDINGS: Lungs: Minimal compressive atelectasis in the left lower lobe. No consolidation. Pleural spaces: Unremarkable. No pleural effusion. No pneumothorax. Heart/Mediastinum: Stable cardiomediastinal silhouette. Hiatal hernia is again noted. Bones/joints: Unremarkable. XR/XR chest 1V portable [id number] IMPRESSION: No evidence of active cardiopulmonary disease.
--- NOTE | 2022-11-07 09:06 | ED_ITS ---
Documented by User: NIA Aguilar 11/07/22 16:48 HPI - Nausea/Vomiting/Diarrhea General: Chief complaint: Shortness of Breath/Dyspnea Stated complaint: possible dehydration Time Seen by Provider: 11/07/22 08:50 History of Present Illness: Patient is a 72-year-old male comes to the ED with dizziness and diarrhea. Past medical history of A-fib, GERD, hypertension and CKD. He has had his colon resected and has ileostomy. Symptoms started approximately 3 days ago. He is having a lot of watery stool out of his ileostomy. He states that he is having to empty his bag over 4-5 times a night. He endorses having generalized weakness, fatigue, shortness of breath and dizziness. Shortness of breath occurs upon exertion. His dizziness occurs when he is sitting upright or standing. He describes the dizziness as room spinning. He does not have a lot of energy since start of symptoms and says he cannot be up ambulating very long. He denies any chest pain, abdominal pain, fevers, vomiting or dysuria or hematuria. Patient states he took his metoprolol this morning. Associated nausea: Yes Associated symtoms: Reports dizziness, fatigue (Generalized weakness) and nausea; Denies change in vision, chest pain, dysuria, headache(s) or palpitations Review of Systems Const: Reports: fatigue (Generalized weakness); Denies: fever(s) or chills Eyes: Denies: change in vision or eye discomfort ENMT: Denies: throat pain, odynophagia, nasal discharge or nasal congestion Card: Denies: chest pain, palpitations, edema, swelling of feet/ankles, dyspnea on exertion or orthopnea Resp: Denies: dyspnea, productive cough or non-productive cough GI: Reports: nausea and diarrhea; Denies: abdominal pain, vomiting, constipation or hematochezia : Denies: flank pain, difficulty urinating, dysuria or hematuria Musc: Denies: neck pain, back pain or extremity swelling Skin/Breast: Denies: rash or new lesions Neuro: Reports: dizziness; Denies: headache(s), numbness in extremities or weakness in extremities [facility] ED PFSH: Medical History A-fib Abdominal pain in male Acute kidney injury superimposed on chronic kidney disease Resolved Acute urinary retention Resolved BPH loc w urin obs/LUTS Coagulopathy Diarrhea Chronic Elevated brain natriuretic peptide (BNP) level GERD (gastroesophageal reflux disease) Gout of ankle History of SCC (squamous cell carcinoma) of skin HTN (hypertension) Iron deficiency anemia EDITH on CPAP Paroxysmal atrial fibrillation Permanent atrial fibrillation Polycystic kidney disease Polycythemia Surgical History History of circumcision History of colectomy History of hernia repair History of penile implant History of shoulder surgery History of total colectomy History of total knee replacement Family History Mother , at age 87 Atrial fibrillation Cancer Father , at age 64 CAD (coronary artery disease) [place] 64 Brother Diabetes Denies family history of Clotting disorder Dementia Chronic kidney disease (CKD) Suicide Anesthesia complication Bleeding disorder Lung disease Stroke Social History Smoking and tobacco status: never smoked Alcohol intake: current Alcohol intake frequency: holidays/special occasions only Household members: spouse Housing: House Marital status: Current occupational status: retired History of recent travel: Yes (cruise) Physical Exam Const: COMMON NORMALS: patient oriented x3 and alert GENERAL APPEARANCE: cooperative HENMT: COMMON NORMALS: normocephalic HEAD & SCALP: normocephalic MOUTH: Normal oral and palatal mucosa present THROAT: posterior oropharynx normal and uvula midline Neck/C-Spine: COMMON NORMALS: supple GENERAL: Yes normal visual inspection Resp: COMMON NORMALS: normal respiratory effort, No retractions, No use of accessory muscles and clear to auscultation bilaterally AUSCULTATION: clear to auscultation bilaterally Cardio: COMMON NORMALS: regular rate, regular rhythm, S1 normal heart sound present, S2 normal heart sound present, No gallops present (Cardio), No clicks present (Cardio), No murmurs present (Cardio) and Peripheral pulses 2+ throughout RATE: regular rate RHYTHM: regular rhythm HEART SOUNDS: S1 normal heart sound present and S2 normal heart sound present PERIPHERAL PULSES: Peripheral pulses 2+ throughout GI: COMMON NORMALS: Normal to inspection, nondistended, normoactive bowel sounds present, Soft to palpation, non-tender and no masses PALPATION: Yes Soft to palpation : COMMON NORMALS: Yes no CVA tenderness BLADDER/KIDNEY EXAM: Yes no CVA tenderness Back/Pelvis: COMMON NORMALS: no CVA tenderness Extremity: COMMON NORMALS: normal to inspection Neuro: COMMON NORMALS: patient oriented x3 SENSORIUM/ORIENTATION: Yes alert GAIT: Yes Normal gait present Skin: GENERAL SKIN EXAM: dry skin Course Vital Signs: Vital signs: Vital Signs Temperature 97.7 F 11/07/22 08:44 Pulse Rate 109 H 11/07/22 12:35 Respiratory Rate 28 H 11/07/22 11:30 Blood Pressure 128/86 11/07/22 12:35 Pulse Oximetry 96 11/07/22 12:35 Oxygen Delivery Me thod 11/07/22 11:30 MDM - Nausea/Vomiting/Diarrhea Medical Decision Making Patient is a 72-year-old male comes to the ED with dizziness and diarrhea. Past medical history of A-fib, GERD, hypertension and CKD. He has had his colon resected and has ileostomy. Symptoms started approximately 3 days ago. He is having a lot of watery stool out of his ileostomy. He states that he is having to empty his bag over 4-5 times a night. He endorses having generalized weakness, fatigue, shortness of breath and dizziness. Shortness of breath occurs upon exertion. His dizziness occurs when he is sitting upright or standing. He describes the dizziness as room spinning. He does not have a lot of energy since start of symptoms and says he cannot be up ambulating very long. He denies any chest pain, abdominal pain, fevers, vomiting or dysuria or hematuria. Patient's heart rates around 110-120 the rest of vitals are stable. He appears nontoxic in no acute distress or pain. White blood cell 11.9. Creatinine level was 2.2 which is slightly elevated compared to 1.6 back in early August 2022. Rest of CBC and CMP were unremarkable.. Troponins negative. Chest x-ray shows no acute findings. Head CT shows no acute findings. EKG shows A-fib with RVR and a rate of 106. No other acute findings noted. Patient was then given a total of 1 L of IV fluids and some metoprolol. Patient was feeling a lot better after getting IV fluids. I discussed patient case with orthospine and he agreed with plan and dispo home. Patient was diagnosed with high output of ileostomy, dehydration, creatinine elevation and A-fib. He was told to follow-up with his PCP within the next couple days for reevaluation. Continue taking all home meds as previously prescribed. Return to ED precautions given. Patient understood and agreed with plan. Lab Data I reviewed the patient's lab results. 11/07/22 09:03 11/07/22 09:03 Radiology Impressions Chest X-Ray 11/07/22 08:50 IMPRESSION: No evidence of active cardiopulmonary disease. Head CT 11/07/22 08:50 IMPRESSION: 1. No acute intracranial hemorrhage or edema. 2. Mild atrophy and small vessel ischemic disease. Laboratory Results WBC 11.9 10^3/uL (4.0-10.0) H 11/07/22 09:03 RBC 8.16 10^6/uL (4.1-5.3) H 11/07/22 09:03 Hgb 18.6 g/dL (11.7-16.6) H 11/07/22 09:03 Hct 61.1 % (42.0-52.0) H 11/07/22 09:03 MCV 74.9 fl (80-94) L 11/07/22 09:03 MCH 22.8 pg (28.0-34.0) L 11/07/22 09:03 MCHC 30.4 g/dL (30.0-36.0) 11/07/22 09:03 RDW 20.6 % (12.1-15.1) H 11/07/22 09:03 Plt Count 322 10^3/cmm (130-400) 11/07/22 09:03 MPV 9.0 fL (7.4-10.4) 11/07/22 09:03 Neut % (Auto) 76.6 % 11/07/22 09:03 Lymph % (Auto) 13.1 % 11/07/22 09:03 [place] % (Auto) 9.6 % 11/07/22 09:03 Eos % (Auto) 0.0 % 11/07/22 09:03 Baso % (Auto) 0.2 % 11/07/22 09:03 Neut # (Auto) 9.09 10^3/uL (1.8-7.7) H 11/07/22 09:03 Lymph # (Auto) 1.6 10^3/uL (0.8-4.8) 11/07/22 09:03 [place] # (Auto) 1.1 10^3/uL (0.2-0.9) H 11/07/22 09:03 Eos # (Auto) 0.0 10^3/uL (0.0-0.8) 11/07/22 09:03 Baso # (Auto) 0.0 10^3/uL (0.0-0.1) 11/07/22 09:03 Nucleated RBC % (auto) 0 % 11/07/22 09:03 Nucleated RBCs # 0.0 /100WBC 11/07/22 09:03 Sodium 132 mmol/L (136-145) L 11/07/22 09:03 Potassium 3.7 mmol/L (3.5-5.1) 11/07/22 09:03 Chloride 88 mmol/L (98-107) L 11/07/22 09:03 Carbon Dioxide 28 mmol/L (22-29) 11/07/22 09:03 Anion Gap 19.7 (5-19) H 11/07/22 09:03 BUN 35 mg/dL (8-23) H 11/07/22 09:03 Creatinine 2.2 mg/dL (0.7-1.2) H 11/07/22 09:03 GFR Calculation Not Reportable 11/07/22 09:03 Glucose 147 mg/dL (65-115) H 11/07/22 09:03 Calculated Osmolality 285 mOsm/kg (285-295) 11/07/22 09:03 Calcium 9.7 mg/dL (8.5-10.5) 11/07/22 09:03 Total Bilirubin 2.3 mg/dL (0.15-1.2) H 11/07/22 09:03 AST 19 U/L (0-40) 11/07/22 09:03 ALT 18 U/L (0-41) 11/07/22 09:03 Alkaline Phosphatase 97 U/L (40-130) 11/07/22 09:03 Troponin T Baseline 37 ng/L (0-15) H 11/07/22 09:03 Troponin T 120 Minute 29.58 ng/L (0-15) H 11/07/22 11:00 Delta Troponin T -7.42 ABS# (0-10) L 11/07/22 11:00 NT-Pro-B Natriuret Pep 493 pg/mL (0-125) H 11/07/22 09:03 Total Protein 8.1 g/dL (6.6-8.7) 11/07/22 09:03 Albumin 4.3 g/dL (3.5-5.2) 11/07/22 09:03 Globulin 3.8 g/dL (1.3-4.6) 11/07/22 09:03 EKG Data EKG 1: EKG interpretation date: 11/07/22 Interpretation: [address] [place] [address] Electrocardiograph Report Signed Patient: Earle Mireles Unit #: [id number] : 1950 Age/Sex: 72 / M ADM Date: 11/07/22 Loc: ER Room/Bed: Attending Dr: Ordering Provider/Ordering MD: Parvez Leiva Date of Service: 11/07/22 Procedure(s): ECG 12 lead EKG Accession Number(s): [id number] Report Number: [id number] ? [facility] ? Test Date:? ? 2022-11-07 Pat Name: ? ? Earle Mireles ? Department: ? Patient ID: ? [id number] ? Room: ? Gender: ? ? ? Male ? Machine Setter Automatic: ? :? 1950 ? Requested By: Parvez Leiva Order Number: [id number]? Reading : ? Garry Russell M.D. ? Measurements Intervals? [place]? Rate: ? 106? P:? 0 MS: ? 0? QRS:? -89 QRSD: ? 122? T:? 50 QT: ? 372? QTc:? 495? Interpretive Statements ATRIAL FIBRILLATION WITH RAPID VENTRICULAR RESPONSE RIGHT BUNDLE BRANCH BLOCK? [120+ ms QRS DURATION, UPRIGHT V1, 40+ ms S IN I/aVL/V4/V5/V6] LEFT ANTERIOR FASCICULAR BLOCK? [QRS AXIS <= -45, QR IN I, RS IN II] Compared to ECG 11/07/2022 09:08:02 Right bundle-branch block now present Left anterior fascicular block now present Incomplete right bundle-branch block no longer present Atrial abnormality no longer present Right ventricular hypertrophy no longer present Electronically Signed On 11-07-2022 16:33:21 [facility] by Garry Russell M.D. [email or web address] [id number] Dictated By: Garry Russell MD Signed By: Garry Russell MD Signed Date/Time:11/07/22 1635 DD/ 1103 Discharge Plan Discharge Patient Disposition: Home Clinical Impression: High output ileostomy, Dehydration, Creatinine elevation, Atrial fibrillation Condition: Stable Prescriptions: New dicyclomine 20 mg tablet 20 mg PO TID PRN (Reason: diarrhea) Qty: 30 0RF ondansetron 4 mg tablet,disintegrating 4 mg PO Q8H PRN (Reason: nausea and vomiting) Qty: 20 0RF No Action pantoprazole 40 mg tablet,delayed release (DR/EC) 40 mg PO BID potassium chloride 8 mEq capsule, extended release 8 meq PO DAILY 30 Days Qty: 30 5RF Hold Instructions: see pcp chlorthalidone 25 mg tablet 25 mg PO DAILY 30 Days Qty: 30 5RF Hold Instructions: see pcp furosemide [Lasix] 40 mg tablet 40 mg PO DAILY PRN (Reason: edema) 30 Days Qty: 30 3RF metoprolol succinate 50 mg tablet extended release 24 hr 50 mg PO BID Qty: 60 5RF lisinopril 5 mg tablet 5 mg PO DAILY 90 Days Qty: 90 3RF Hold Instructions: Resume on 01/13/22. clopidogrel [Plavix] 75 mg tablet 75 mg PO BEDTIME ciprofloxacin HCl [Cipro] 250 mg tablet 250 mg PO BID Qty: 30 3RF tamsulosin 0.4 mg capsule 0.4 mg PO BID Xarelto 20 mg tablet 20 mg PO QPM Rx Instructions: must administer with a meal/food clonazepam 0.5 mg tablet 0.5 mg PO Q12H PRN (Reason: Unobtainable) hydrocodone-acetaminophen 10-325 mg tablet 1 tab PO Q8H PRN (Reason: Pain) duloxetine 30 mg capsule,delayed release(DR/EC) 30 mg PO DAILY Uloric 40 mg Tablet 40 mg PO DAILY Discharge Orders: Discharge ED (Routine); Ordered 11/07/22 Ordered By: Parvez Leiva Referrals: Luis Yang MD [Primary Care Provider] - Discharge Diet: Regular Discharge Activity: Increase activity as tolerated Activity Restrictions/Additional Instructions: Follow-up with medical provider as directed in the next 3 days for reevaluation. Take medications as prescribed. Return to the ER or your medical provider if condition worsens. Please read and understand discharge instructions. Thank you for choosing [facility] for your healthcare needs today. Please realize this is an emergency room and that we are providing you with a me dical screening exam and this may not be complete and all inclusive of all the testing and or work up that you may need to determine your ailment or severity of your illness. It is very important that you follow up as instructed or that you return to the Emergency Department should you have concerns or if your condition changes or worsens in any way. Coding Level of Care Code ED Office Cleaner for Chg Fwd Exam Comprehensive Documented by User: Riley Comer DO 11/07/22 17:51 HPI - Nausea/Vomiting/Diarrhea General: Chief complaint: Shortness of Breath/Dyspnea Stated complaint: possible dehydration Time Seen by Provider: 11/07/22 08:50 PFSH ED PFSH: Medical History A-fib Abdominal pain in male Acute kidney injury superimposed on chronic kidney disease Resolved Acute urinary retention Resolved BPH loc w urin obs/LUTS Coagulopathy Diarrhea Chronic Elevated brain natriuretic peptide (BNP) level GERD (gastroesophageal reflux disease) Gout of ankle History of SCC (squamous cell carcinoma) of skin HTN (hypertension) Iron deficiency anemia EDITH on CPAP Paroxysmal atrial fibrillation Permanent atrial fibrillation Polycystic kidney disease Polycythemia Surgical History History of circumcision History of colectomy History of hernia repair History of penile implant History of shoulder surgery History of total colectomy History of total knee replacement Family History Mother , at age 87 Atrial fibrillation Cancer Father , at age 64 CAD (coronary artery disease) [place] 64 Brother Diabetes Denies family history of Clotting disorder Dementia Chronic kidney disease (CKD) Suicide Anesthesia complication Bleeding disorder Lung disease Stroke Social History Smoking and tobacco status: never smoked Alcohol intake: current Alcohol intake frequency: holidays/special occasions only Household members: spouse Housing: House Marital status: Current occupational status: retired History of recent travel: Yes (cruise) Course Vital Signs: Vital signs: Vital Signs Temperature 97.7 F 11/07/22 08:44 Pulse Rate 109 H 11/07/22 12:35 Respiratory Rate 28 H 11/07/22 11:30 Blood Pressure 128/86 11/07/22 12:35 Pulse Oximetry 96 11/07/22 12:35 Oxygen Delivery Me thod 11/07/22 11:30 MDM - Nausea/Vomiting/Diarrhea Medical Decision Making Patient is a 72-year-old male comes to the ED with dizziness and diarrhea. Past medical history of A-fib, GERD, hypertension and CKD. He has had his colon resected and has ileostomy. Symptoms started approximately 3 days ago. He is having a lot of watery stool out of his ileostomy. He states that he is having to empty his bag over 4-5 times a night. He endorses having generalized weakness, fatigue, shortness of breath and dizziness. Shortness of breath occurs upon exertion. His dizziness occurs when he is sitting upright or standing. He describes the dizziness as room spinning. He does not have a lot of energy since start of symptoms and says he cannot be up ambulating very long. He denies any chest pain, abdominal pain, fevers, vomiting or dysuria or hematu deacon. Patient's heart rates around 110-120 the rest of vitals are stable. He appears nontoxic in no acute distress or pain. White blood cell 11.9. Creatinine level was 2.2 which is slightly elevated compared to 1.6 back in early August 2022. Rest of CBC and CMP were unremarkable.. Troponins n egative. Chest x-ray shows no acute findings. Head CT shows no acute findings. EKG shows A-fib with RVR and a rate of 106. No other acute findings noted. Patient was then given a total of 1 L of IV fluids and some metoprolol. Patient was feeling a lot better after getting IV fluids. I discussed patient case with orthospine and he agreed with plan and dispo home. Patient was diagnosed with high output of ileostomy, dehydration, creatinine elevation and A-fib. He was told to follow-up with his PCP within the next couple days for reevaluation. Continue taking all home meds as previously prescribed. Return to ED precautions given. Patient understood and agreed with plan. Chart reviewed and patient discussed with midlevel. Agree with assessment and plan. Lab Data 11/07/22 09:03 11/07/22 09:03 Radiology Impressions Chest X-Ray 11/07/22 08:50 IMPRESSION: No evidence of active cardiopulmonary disease. Head CT 11/07/22 08:50 IMPRESSION: 1. No acute intracranial hemorrhage or edema. 2. Mild atrophy and small vessel ischemic disease. Laboratory Results WBC 11.9 10^3/uL (4.0-10.0) H 11/07/22 09:03 RBC 8.16 10^6/uL (4.1-5.3) H 11/07/22 09:03 Hgb 18.6 g/dL (11.7-16.6) H 11/07/22 09:03 Hct 61.1 % (42.0-52.0) H 11/07/22 09:03 MCV 74.9 fl (80-94) L 11/07/22 09:03 MCH 22.8 pg (28.0-34.0) L 11/07/22 09:03 MCHC 30.4 g/dL (30.0-36.0) 11/07/22 09:03 RDW 20.6 % (12.1-15.1) H 11/07/22 09:03 Plt Count 322 10^3/cmm (130-400) 11/07/22 09:03 MPV 9.0 fL (7.4-10.4) 11/07/22 09:03 Neut % (Auto) 76.6 % 11/07/22 09:03 Lymph % (Auto) 13.1 % 11/07/22 09:03 [place] % (Auto) 9.6 % 11/07/22 09:03 Eos % (Auto) 0.0 % 11/07/22 09:03 Baso % (Auto) 0.2 % 11/07/22 09:03 Neut # (Auto) 9.09 10^3/uL (1.8-7.7) H 11/07/22 09:03 Lymph # (Auto) 1.6 10^3/uL (0.8-4.8) 11/07/22 09:03 [place] # (Auto) 1.1 10^3/uL (0.2-0.9) H 11/07/22 09:03 Eos # (Auto) 0.0 10^3/uL (0.0-0.8) 11/07/22 09:03 Baso # (Auto) 0.0 10^3/uL (0.0-0.1) 11/07/22 09:03 Nucleated RBC % (auto) 0 % 11/07/22 09:03 Nucleated RBCs # 0.0 /100WBC 11/07/22 09:03 Sodium 132 mmol/L (136-145) L 11/07/22 09:03 Potassium 3.7 mmol/L (3.5-5.1) 11/07/22 09:03 Chloride 88 mmol/L (98-107) L 11/07/22 09:03 Carbon Dioxide 28 mmol/L (22-29) 11/07/22 09:03 Anion Gap 19.7 (5-19) H 11/07/22 09:03 BUN 35 mg/dL (8-23) H 11/07/22 09:03 Creatinine 2.2 mg/dL (0.7-1.2) H 11/07/22 09:03 GFR Calculation Not Reportable 11/07/22 09:03 Glucose 147 mg/dL (65-115) H 11/07/22 09:03 Calculated Osmolality 285 mOsm/kg (285-295) 11/07/22 09:03 Calcium 9.7 mg/dL (8.5-10.5) 11/07/22 09:03 Total Bilirubin 2.3 mg/dL (0.15-1.2) H 11/07/22 09:03 AST 19 U/L (0-40) 11/07/22 09:03 ALT 18 U/L (0-41) 11/07/22 09:03 Alkaline Phosphatase 97 U/L (40-130) 11/07/22 09:03 Troponin T Baseline 37 ng/L (0-15) H 11/07/22 09:03 Troponin T 120 Minute 29.58 ng/L (0-15) H 11/07/22 11:00 Delta Troponin T -7.42 ABS# (0-10) L 11/07/22 11:00 NT-Pro-B Natriuret Pep 493 pg/mL (0-125) H 11/07/22 09:03 Total Protein 8.1 g/dL (6.6-8.7) 11/07/22 09:03 Albumin 4.3 g/dL (3.5-5.2) 11/07/22 09:03 Globulin 3.8 g/dL (1.3-4.6) 11/07/22 09:03 Discharge Plan Discharge Patient Disposition: Home Clinical Impression: High output ileostomy, Dehydration, Creatinine elevation, Atrial fibrillation Condition: Stable Prescriptions: New dicyclomine 20 mg tablet 20 mg PO TID PRN (Reason: diarrhea) Qty: 30 0RF ondansetron 4 mg tablet,disintegrating 4 mg PO Q8H PRN (Reason: nausea and vomiting) Qty: 20 0RF No Action pantoprazole 40 mg tablet,delayed release (DR/EC) 40 mg PO BID potassium chloride 8 mEq capsule, extended release 8 meq PO DAILY 30 Days Qty: 30 5RF Hold Instructions: see pcp chlorthalidone 25 mg tablet 25 mg PO DAILY 30 Days Qty: 30 5RF Hold Instructions: see pcp furosemide [Lasix] 40 mg tablet 40 mg PO DAILY PRN (Reason: edema) 30 Days Qty: 30 3RF metoprolol succinate 50 mg tablet extended release 24 hr 50 mg PO BID Qty: 60 5RF lisinopril 5 mg tablet 5 mg PO DAILY 90 Days Qty: 90 3RF Hold Instructions: Resume on 01/13/22. clopidogrel [Plavix] 75 mg tablet 75 mg PO BEDTIME ciprofloxacin HCl [Cipro] 250 mg tablet 250 mg PO BID Qty: 30 3RF tamsulosin 0.4 mg capsule 0.4 mg PO BID Xarelto 20 mg tablet 20 mg PO QPM Rx Instructions: must administer with a meal/food clonazepam 0.5 mg tablet 0.5 mg PO Q12H PRN (Reason: Unobtainable) hydrocodone-acetaminophen 10-325 mg tablet 1 tab PO Q8H PRN (Reason: Pain) duloxetine 30 mg capsule,delayed release(DR/EC) 30 mg PO DAILY Uloric 40 mg Tablet 40 mg PO DAILY Discharge Orders: Discharge ED (Routine); Ordered 11/07/22 Ordered By: Parvez Leiva Referrals: Luis Yang MD [Primary Care Provider] - Discharge Diet: Regular Discharge Activity: Increase activity as tolerated Activity Restrictions/Additional Instructions: Follow-up with medical provider as directed in the next 3 days for reevaluation. Take medications as prescribed. Return to the ER or your medical provider if condition worsens. Please read and understand discharge instructions. Thank you for choosing [facility] for your healthcare needs today. Please realize this is an emergency room and that we are providing you with a medical screening exam and this may not be complete and all inclusive of all the testing and or work up that you may need to determine your ailment or severity of your illness. It is very important that you follow up as instructed or that you return to the Emergency Department should you have concerns or if your condition changes or worsens in any way. Coding Level of Care Code ED Office Cleaner for Chg Fwd Exam Comprehensive
[2022-11-07 09:14] LABS: Basophils % 0.2 %; Hematocrit 61.1 % (42.0-52.0); Hemoglobin 18.6 g/dL (11.7-16.6); Lymphocytes # 1.6 10^3/uL (0.8-4.8); Lymphocytes % 13.1 %; Mean Corpuscular HGB Conc 30.4 g/dL (30.0-36.0); Mean Corpuscular Hemoglobin 22.8 pg (28.0-34.0); Mean Corpuscular Volume 74.9 fl (80-94); Monocytes # 1.1 10^3/uL (0.2-0.9); Monocytes % 9.6 %; Neutrophils # 9.09 10^3/uL (1.8-7.7); Neutrophils % 76.6 %; Nucleated Red Blood Cells % 0 %; Platelet Count 322 10^3/cmm (130-400); Red Blood Count 8.16 10^6/uL (4.1-5.3); Red Cell Distribution Width 20.6 % (12.1-15.1); White Blood Count 11.9 10^3/uL (4.0-10.0)
[2022-11-07 09:35] LABS: Troponin(5th) Baseline 37 ng/L (0-15)
[2022-11-07 09:43] LABS: Alanine Aminotransferase 18 U/L (0-41); Albumin Level 4.3 g/dL (3.5-5.2); Alkaline Phosphatase 97 U/L (40-130); Anion Gap 19.7 (5-19); Aspartate Amino Transferase 19 U/L (0-40); Blood Urea Nitrogen 35 mg/dL (8-23); Calcium 9.7 mg/dL (8.5-10.5); Carbon Dioxide 28 mmol/L (22-29); Chloride 88 mmol/L (98-107); Globulin 3.8 g/dL (1.3-4.6); Glucose 147 mg/dL (65-115); NT Pro B Type Natriuretic Pept 493 pg/mL (0-125); Osmolality Calculated 285 mOsm/kg (285-295); Potassium 3.7 mmol/L (3.5-5.1); Sodium 132 mmol/L (136-145); Total Bilirubin 2.3 mg/dL (0.15-1.2); Total Protein 8.1 g/dL (6.6-8.7)
[2022-11-07] MEDS: sodium chloride 0.9% 500 ML 999 ML IV ×2 (09:55→11:48)
[2022-11-07] MEDS: ondansetron 2 mg/ML SDV 2 mL 4 MG IVP (09:56)
--- NOTE | 2022-11-07 10:50 | ECG_ITS ---
[facility] Test Date: 2022-11-07 Pat Name: Earle Mireles Department: Room: Gender: Male Expediter: : 1950 Requested By: Parvez Leiva Order Number: [id number] Perez MD: Garry Russell M.D. Measurements Intervals [place] Rate: 106 P: 0 CA: 0 QRS: -89 QRSD: 122 T: 50 QT: 372 QTc: 495 Interpretive Statements ATRIAL FIBRILLATION WITH RAPID VENTRICULAR RESPONSE RIGHT BUNDLE BRANCH BLOCK [120+ ms QRS DURATION, UPRIGHT V1, 40+ ms S IN I/aVL/V4/V5/V6] LEFT ANTERIOR FASCICULAR BLOCK [QRS AXIS <= -45, QR IN I, RS IN II] Compared to ECG 11/07/2022 09:08:02 Right bundle-branch block now present Left anterior fascicular block now present Incomplete right bundle-branch block no longer present Atrial abnormality no longer present Right ventricular hypertrophy no longer present Electronically Signed On 11-07-2022 16:33:21 [employer] by Garry Russell M.D. [id number]
[2022-11-07 11:27] LABS: Troponin 5 2HR 29.58 ng/L (0-15)
[2022-11-07 11:30] LABS: Troponin 5 2HR Delta -7.42 ABS# (0-10)
[2022-11-07] MEDS: metoprolol succinate ER (24 HR) 25 mg Tablet PO (11:48)
== END 2022-11-07 12:37 | disposition home or self-care (01) ==
PROVIDERS: Emergency Provider Physician Assistant; PCP Internal Medicine
DX: R06.02 Shortness of breath (principal); E86.0 Dehydration; I48.91 Unspecified atrial fibrillation; R79.82 Elevated C-reactive protein (CRP); Z93.2 Ileostomy status
CPT/HCPCS: 70450; 71045; 80053; 83880; 84484; 85025; 93005; 96361; 96374; 99285; J2405; J7040

== ENCOUNTER → 2022-12-11 12:55 | Outpatient (BNVA) | payer MEDICARE, SELFPAY | PROVIDERS: PCP Internal Medicine; Visit Provider Urology | DX: N17.9 Acute kidney failure, unspecified (principal); N40.1 Benign prostatic hyperplasia with lower urinary tract symptoms | CPT/HCPCS: 36415; 80048; 81003; 99213 ==

== ENCOUNTER 2023-01-23 09:00 | Outpatient (CLI) | payer MEDICARE, SELFPAY ==
--- NOTE | 2023-01-23 09:30 | USCV_ITS ---
Earle Mireles Age: 72 Gender: M : 1950 Exam Date: 01/23/2023 09:44 Ordering Phys: Jak Pandey MD ([email or web address]) Technologist: TERESA [place] [facility] [place]: H[place]ORY: PROCEDURES: FINDINGS: The veins were found to be easily compressible with spontaneous blood flow. Non pulsatile flow pattern. Significant venous reflux were noted at the proximal, mid, distal and below-knee segments of the greater saphenous vein on the right side. The reflux times were 1.38, 2.67, 2.65 and 3.23 seconds respectively in the segments. Significant venous reflux also was noted on the left side at the proximal , distal and below-knee segments of the greater saphenous vein. Reflux times where 1.18, 1.23, and 2.18 secs respectively. There was significant reflux also noted at the mid to small saphenous vein segment of the left side-1.83 seconds. But this segment was only 0.47 cm deep from the surface CONCLUSIONS #1. No evidence of DVT in the above-mentioned identifiable veins. #2. Significant venous reflux were noted throughout the greater saphenous vein segments on the right side. However the distal and the below-knee segments less than 1 cm deep from the surface. The venous segments are measuring anywhere from 0.75 to 0.85 cm in diameter. For the details of the reflux times, please refer to the description above. #3. Significant venous reflux of greater than 500 ms were noted at the proximal, distal and below-knee segments of the greater saphenous vein on the left side. However the distal and below-knee segments were less than 1 cm deep from the surface. The venous segments are measuring anywhere from 0.65 to 0.84 cm in diameter #4. Significant venous reflux of greater than 500 ms also was noted at the mid segment of the small saphenous vein on the left side. But these venous segments also was found to be less than 1 cm deep from the surface. Dr Jak Pandey MD [facility] (Electronically Signed) Final Date: 26 January 2023 13:48 S
== END 2023-01-23 09:01 | disposition home or self-care (01) ==
LOC: RAD 09:09
PROVIDERS: PCP Internal Medicine; Visit Provider Internal Medicine Cardiovascular Disease
DX: R06.00 Dyspnea, unspecified (principal); I48.0 Paroxysmal atrial fibrillation; I10 Essential (primary) hypertension; I25.118 Atherosclerotic heart disease of native coronary artery with other forms of angina pectoris; I50.32 Chronic diastolic (congestive) heart failure; I25.10 Atherosclerotic heart disease of native coronary artery without angina pectoris; M79.89 Other specified soft tissue disorders
CPT/HCPCS: 93970; 99214

== ENCOUNTER 2023-08-06 09:56 | Oncology outpatient (recurring) (ONCR) | payer MEDICARE, SELFPAY ==
[2023-07-23 10:35] VITALS: BP 119/74; PULSE 88; RESP 18; TEMP 36.6; O2SAT 98
[2023-07-23] MEDS: iron sucrose 500 MG in sodium chloride 0.9% 250 ML 78 MG IV (10:55)
[2023-07-23 15:27] VITALS: BP 129/78; PULSE 77; RESP 16; TEMP 36.5; O2SAT 98
== END 2023-08-06 23:59 | disposition home or self-care (01) ==
PROVIDERS: PCP Internal Medicine; Visit Provider Internal Medicine
DX: Z53.9 Procedure and treatment not carried out, unspecified reason (principal)
CPT/HCPCS: 96365; 96366; J1756; J7050

== ENCOUNTER 2023-08-07 09:25 | Oncology outpatient (recurring) (ONCR) | payer MEDICARE, SELFPAY ==
[2023-08-07 10:28] VITALS: BP 144/82; PULSE 84; RESP 18; TEMP 36.3; O2SAT 98
[2023-08-07] MEDS: sodium chloride 0.9% 250 ML 75 ML IV (10:40)
[2023-08-07] MEDS: iron sucrose 500 MG in sodium chloride 0.9% 250 ML 78 MG IV (11:03)
[2023-08-07 15:05] VITALS: BP 159/82; PULSE 87; RESP 17; TEMP 36.2; O2SAT 96
== END 2023-09-05 23:59 | disposition home or self-care (01) ==
PROVIDERS: PCP Internal Medicine; Visit Provider Internal Medicine
DX: D50.9 Iron deficiency anemia, unspecified (principal)
CPT/HCPCS: 96365; 96366; J1756; J7050

== ENCOUNTER → 2023-11-22 10:43 | Outpatient (BNVA) | payer MEDICARE, SELFPAY | PROVIDERS: PCP Internal Medicine; Visit Provider Internal Medicine Cardiovascular Disease | DX: R06.00 Dyspnea, unspecified (principal); I25.118 Atherosclerotic heart disease of native coronary artery with other forms of angina pectoris; I13.0 Hypertensive heart and chronic kidney disease with heart failure and stage 1 through stage 4 chronic kidney disease, or unspecified chronic kidney disease; I50.32 Chronic diastolic (congestive) heart failure; N18.2 Chronic kidney disease, stage 2 (mild); I48.20 Chronic atrial fibrillation, unspecified; Z79.01 Long term (current) use of anticoagulants | CPT/HCPCS: 99214 ==

== ENCOUNTER 2023-11-29 09:06 | Outpatient (CLI) | payer MEDICARE, SELFPAY ==
--- NOTE | 2023-11-29 09:30 | USCV_ITS ---
Earle Mireles Age: 73 Gender: M : 1950 Exam Date: 11/29/2023 09:23 Ordering Phys: Mat Cotton MD ([email or web address]) Technologist: Daniel Wong Exam Location: [facility] – [place] Indication: sob BP: 140 / 86 HR: Rhythm: Sinus Technical Quality: Adequate MEASUREMENTS (Male / Female) Normal Values 2D ECHO LVOT Diameter 2.4 cm LV Ejection Fraction MOD 2C 60.1 % LV Ejection Fraction 2C AL 0.0 % LA Diameter 4.3 cm IVC Diameter 2.4 cm M-MODE LA Ao Ratio MM 1.6 AV Cusp Separation MM 2.2 cm DOPPLER AV Peak Velocity 131.0 cm/s LVOT Peak Velocity 83.0 cm/s AV Area Cont Eq vti 2.7 cm squared AV Area Cont Eq pk 3.0 cm squared MV Peak Velocity 455.5 cm/s MV Area PHT 5.5 cm squared Mitral E to A Ratio 16.4 TV Peak Velocity 280.0 cm/s TR Peak Velocity 293.0 cm/s TR Peak Gradient 34.3 mmHg TR Mean Velocity 237.0 cm/s TR Mean Gradient 24.3 mmHg TR Velocity Time Integral 72.7 cm PV Peak Velocity 72.0 cm/s RV Ejection Time 0.2 s FINDINGS Left Ventricle Normal left ventricular size and systolic function, EF 60%. No gross wall motion normalities Right Ventricle The right ventricle is normal in size and function. Right Atrium Mildly increased right atrial size. Left Atrium Mildly increased left atrial size. Mitral Valve Thickened mitral valve. Trace mitral valve regurgitation. Mild mitral annular calcification. Aortic Valve Thickened aortic valve. Tricuspid Valve No gross abnormalities noted Pulmonic Valve No gross abnormalities noted Pericardium Normal pericardium without effusion. Aorta Normal ascending aorta dimension. IVC The inferior vena cava appears normal. CONCLUSIONS Normal left ventricular size and systolic function, EF 60%. No gross wall motion normalities. Mild biatrial enlargement Normal RV size and ejection fraction. Thickened mitral valve. Trace mitral valve regurgitation. Mild mitral annular calcification. Thickened aortic valve. There are no intracardiac masses. Compared to the study from 08/16/2021, there may not be significant change Dr Jak Pandey MD [facility] (Electronically Signed) Final Date: 30 November 2023 14:05 S
== END 2023-11-29 09:07 | disposition home or self-care (01) ==
LOC: RAD 09:06
PROVIDERS: PCP Internal Medicine; Visit Provider Internal Medicine Cardiovascular Disease
DX: R06.00 Dyspnea, unspecified (principal)
CPT/HCPCS: 93306

== ENCOUNTER → 2024-04-07 11:59 | Outpatient (BNVA) | payer MEDICARE, SELFPAY | PROVIDERS: PCP Internal Medicine; Visit Provider Internal Medicine Cardiovascular Disease | DX: R06.00 Dyspnea, unspecified (principal); I25.118 Atherosclerotic heart disease of native coronary artery with other forms of angina pectoris; I13.0 Hypertensive heart and chronic kidney disease with heart failure and stage 1 through stage 4 chronic kidney disease, or unspecified chronic kidney disease; I50.32 Chronic diastolic (congestive) heart failure; N18.2 Chronic kidney disease, stage 2 (mild); I48.21 Permanent atrial fibrillation; Z79.01 Long term (current) use of anticoagulants | CPT/HCPCS: 99213 ==

== ENCOUNTER 2024-07-28 16:35 | Emergency (ER) | payer MEDICARE, SELFPAY ==
[2024-07-28 17:00] VITALS: BP 156/73; PULSE 100; RESP 16; TEMP 36.7; O2SAT 97
[2024-07-28 18:51] VITALS: BP 160/100; PULSE 97; RESP 18; O2SAT 92
--- NOTE | 2024-07-28 18:55 | W.ED.EXTPRO ---
HPI - Extremity Problem General: Chief complaint: Extremity Problem,Nontraumatic Stated complaint: right leg swelling, Fever Time Seen by Provider: 07/28/24 18:51 History of Present Illness: 74-year-old man who presents emergency room with anterior knee and del toro redness warmth and swelling. This been present for several days. They report fevers at home. He had finally come in because tomorrow he is wanting to drive to [place] because his son is receiving chemotherapy. Pain is not inside the joint but more anterior to the joint and superior to the joint. He is afebrile here. Related Data Home Medications Medication Instructions Recorded Confirmed pantoprazole 40 mg tablet,delayed 40 mg PO BID 07/11/22 04/07/24 release clopidogrel 75 mg tablet (Plavix) 75 mg PO BEDTIME 08/03/22 04/07/24 rivaroxaban 20 mg tablet (Xarelto) 20 mg PO QPM 11/07/22 04/07/24 tamsulosin 0.4 mg capsule 0.4 mg PO BID 11/07/22 04/07/24 ciprofloxacin HCl 250 mg tablet 250 mg PO BID PRN 11/22/23 04/07/24 (Cipro) duloxetine 30 mg capsule,delayed 60 mg PO DAILY 11/22/23 04/07/24 release metoprolol succinate 50 mg 50 mg PO DAILY 11/22/23 04/07/24 tablet,extended release 24 hr Previous Rx's Medication Instructions Recorded furosemide 40 mg tablet (Lasix) 40 mg PO DAILY PRN edema 30 days 07/11/22 #30 tabs amlodipine 2.5 mg tablet 2.5 mg PO DAILY HTN #90 tabs 06/01/24 doxycycline monohydrate 100 mg 100 mg PO BID 10 days #20 caps 07/28/24 capsule Allergies Allergy/AdvReac Type Severity Reaction Status Date / Time No Known Allergies Allergy Verified 04/07/24 12:17 Review of Systems Narrative: Constitutional symptoms: Negative except as documented in HPI. Skin symptoms: Negative except as documented in HPI. Eye symptoms: Negative except as documented in HPI. ENMT symptoms: Negative except as documented in HPI. Respiratory symptoms: Negative except as documented in HPI. Cardiovascular symptoms: Negative except as documented in HPI. Gastrointestinal symptoms: Negative except as documented in HPI. Genitourinary symptoms: Negative except as documented in HPI. Musculoskeletal symptoms: Negative except as documented in HPI. Neurologic symptoms: Negative except as documented in HPI. Psychiatric symptoms: Negative except as documented in HPI. Endocrine symptoms: Negative except as documented in HPI. PFSH ED PFSH: Medical History Permanent atrial fibrillation BPH loc w urin obs/LUTS Polycythemia Coagulopathy Elevated brain natriuretic peptide (BNP) level A-fib Polycystic kidney disease History of SCC (squamous cell carcinoma) of skin Acute kidney injury superimposed on chronic kidney disease Resolved Acute urinary retention Resolved Abdominal pain in male Diarrhea Chronic Gout of ankle GERD (gastroesophageal reflux disease) HTN (hypertension) EDITH on CPAP Iron deficiency anemia Paroxysmal atrial fibrillation Surgical History History of penile implant History of total knee replacement History of colectomy History of hernia repair History of circumcision History of total colectomy History of shoulder surgery Family History Mother , at age 87 Atrial fibrillation Cancer Father , at age 64 CAD (coronary artery disease) [place] 64 Brother Diabetes Denies family history of Clotting disorder Dementia Chronic kidney disease (CKD) Suicide Anesthesia complication Bleeding disorder Lung disease Stroke Social History Smoking and tobacco/nicotine status: unknown if used tobacco/nicotine Alcohol intake: current Alcohol intake frequency: holidays/special occasions only Substance/Drug Use: never Household members: spouse Housing: House Marital status: Current occupational status: retired Physical Exam Narrative: EXAM NARRATIVE: General: Alert, no acute distress. Skin: Warm, dry. Head: Normocephalic, atraumatic. Neck: Supple, trachea midline. Eye: Extraocular movements are intact. Ears, nose, mouth and throat: mucosa moist. Cardiovascular: Regular, Normal peripheral perfusion. Respiratory: Lungs are clear to auscultation, respirations are non-labored, breath sounds are equal, Symmetrical chest wall expansion. Gastrointestinal: Soft, Nontender, Non distended Musculoskeletal: There is redness and edema about the knee and del toro. Does not appear to be an internal joint infection. Neurological: Alert and oriented, No focal neurological deficit observed. Psychiatric: Cooperative, appropriate mood & affect. Course Vital Signs: Vital signs: Vital Signs Temperature 98.1 F 07/28/24 17:00 Pulse Rate 96 07/28/24 20:45 Respiratory Rate 18 07/28/24 18:51 Blood Pressure 142/78 07/28/24 20:45 Pulse Oximetry 95 07/28/24 20:45 Oxygen Delivery Me thod Room Air 07/28/24 18:51 MDM - Extremity (Nontraumatic) Medical Decision Making Ultrasound shows no DVT. This was reviewed and interpreted by myself the emergency room physician. I also reviewed the radiology report. Lab Review: Laboratory results were reviewed and interpreted by myself the emergency room physician. No leukocytosis. ESR and CRP are elevated which would indicate cellulitis. I reviewed the patient's medical record. Reexamination: Patient has remained stable. No increased work of breathing. No altered mental status. No changes in the infected area. Assessment and plan: Cellulitis ?IV doxycycline in the emergency room - Discharged home - Discussed plan with patient. Answered any questions. - Evaluation and treatment of this problem were appropriate in the emergency setting. Lab Data 07/28/24 19:16 07/28/24 19:16 Radiology Impressions Venous Duplex 07/28/24 18:58 IMPRESSION: No evidence of deep vein thrombosis in the right lower extremity. Laboratory Results WBC 9.91 10^3/uL (3.29-11.43) 07/28/24 19:16 RBC 5.65 10^6/uL (3.85-5.65) 07/28/24 19:16 Hgb 12.90 g/dL (11.27-16.99) 07/28/24 19:16 Hct 44.9 % (37-53) 07/28/24 19:16 MCV 79.5 fl (82-101) L 07/28/24 19:16 MCH 22.8 pg (27-33) L 07/28/24 19:16 MCHC 28.7 g/dL (30-55) L 07/28/24 19:16 RDW 26.9 % (12.1-15.1) H 07/28/24 19:16 Plt Count 263 10^3/cmm (157-399) 07/28/24 19:16 MPV 9.4 fL (7.4-10.4) 07/28/24 19:16 Neut % (Auto) 77.9 % 07/28/24 19:16 Lymph % (Auto) 10.1 % 07/28/24 19:16 Swift % (Auto) 11.3 % 07/28/24 19:16 Eos % (Auto) 0.1 % 07/28/24 19:16 Baso % (Auto) 0.3 % 07/28/24 19:16 Neut # (Auto) 7.72 10^3/uL (1.8-7.7) H 07/28/24 19:16 Lymph # (Auto) 1.0 10^3/uL (0.8-4.8) 07/28/24 19:16 Swift # (Auto) 1.1 10^3/uL (0.2-0.9) H 07/28/24 19:16 Eos # (Auto) 0.0 10^3/uL (0.0-0.8) 07/28/24 19:16 Baso # (Auto) 0.0 10^3/uL (0.0-0.1) 07/28/24 19:16 Nucleated RBC % (auto) 0 % 07/28/24 19:16 Nucleated RBCs # 0.0 /100WBC 07/28/24 19:16 ESR 29 mm/hr (0-10) H 07/28/24 19:16 Sodium 136 mmol/L (136-145) 07/28/24 19:16 Potassium 4.6 mmol/L (3.5-5.1) 07/28/24 19:16 Chloride 105 mmol/L (98-107) 07/28/24 19:16 Carbon Dioxide 22 mmol/L (22-29) 07/28/24 19:16 Anion Gap 13.6 (5-19) 07/28/24 19:16 BUN 16 mg/dL (8-23) 07/28/24 19:16 Creatinine 1.3 mg/dL (0.7-1.2) H 07/28/24 19:16 GFR Calculation Not Reportable 07/28/24 19:16 Glucose 96 mg/dL (65-115) 07/28/24 19:16 Calculated Osmolality 283 mOsm/kg (285-295) L 07/28/24 19:16 Calcium 8.2 mg/dL (8.5-10.5) L 07/28/24 19:16 Total Bilirubin 1.6 mg/dL (0.15-1.2) H 07/28/24 19:16 AST 26 U/L (0-40) 07/28/24 19:16 ALT 14 U/L (0-41) 07/28/24 19:16 Alkaline Phosphatase 75 U/L (40-130) 07/28/24 19:16 C-Reactive Protein 122.0 mg/L (0.0-4.9) H 07/28/24 19:16 Total Protein 6.8 g/dL (6.6-8.7) 07/28/24 19:16 Albumin 3.5 g/dL (3.5-5.2) 07/28/24 19:16 Globulin 3.3 g/dL (1.3-4.6) 07/28/24 19:16 All radiology interpretation(s) finalized by discharge Discharge Plan Discharge Patient Disposition: Home Clinical Impression: Cellulitis Condition: Stable Prescriptions: New doxycycline monohydrate 100 mg capsule 100 mg PO BID 10 Days Qty: 20 0RF No Action ciprofloxacin HCl [Cipro] 250 mg tablet 250 mg PO BID PRN metoprolol succinate 50 mg tablet extended release 24 hr 50 mg PO DAILY pantoprazole 40 mg tablet,delayed release (DR/EC) 40 mg PO BID furosemide [Lasix] 40 mg tablet 40 mg PO DAILY PRN (Reason: edema) 30 Days Qty: 30 3RF amlodipine 2.5 mg tablet 2.5 mg PO DAILY Qty: 90 3RF clopidogrel [Plavix] 75 mg tablet 75 mg PO BEDTIME tamsulosin 0.4 mg capsule 0.4 mg PO BID Xarelto 20 mg tablet 20 mg PO QPM Rx Instructions: must administer with a meal/food duloxetine 30 mg capsule,delayed release(DR/EC) 60 mg PO DAILY Discharge Orders: Discharge ED (Routine); Ordered 07/28/24 Ordered By: Pilar Morton Referrals: Luis Yang MD [Primary Care Provider] - Discharge Diet: Usual diet Discharge Activity: Increase activity as tolerated Patient Instructions: Cellulitis (ED) Activity Restrictions/Additional Instructions: Thank you for choosing [facility] for your healthcare needs today. Please realize this is an emergency room and that we are providing you with a medical screening exam and this may not be complete and all inclusive of all the testing and or work up that you may need to determine your ailment or severity of your illness. You have been screened and evaluated and felt safe for discharge. Health conditions do change or evolve sometimes and as such it is important that you follow up with your Primary Doctor to be re checked, 3-5 days is a general good time frame for follow up. You are always welcome to return to the ED for re assessment if your symptoms are worsening or you have new concerns Coding Level of Care Code ED Chief Compressor Station Engineer for Pankaj Mooney
--- NOTE | 2024-07-28 18:58 | USR_ITS ---
PROCEDURE INFORMATION: Exam: US Duplex Right Lower Extremity Veins, Limited Exam date and time: 07/28/2024 7:43 PM Age: 74 years old Clinical indication: Pain; Edema, localized; Lower extremity, right; Leg, lower; Additional info: Right-sided calf pain and swelling. Concern for dvt TECHNIQUE: Imaging protocol: Real-time duplex ultrasound of the right extremity with 2-D poe scale, color Doppler flow and spectral waveform analysis including responses to compression and other maneuvers (when performed) with image documentation. Limited exam was focused on the right lower extremity veins. COMPARISON: US soft tissue/extremity [id number] 05/10/2021 3:22 PM FINDINGS: Right deep veins: Unremarkable. The common femoral, femoral, proximal profunda femoral and popliteal veins are patent without thrombus. Normal Doppler waveforms. Normal compressibility and/or augmentation response. Superficial veins: Greater saphenous vein at the saphenofemoral junction is patent without thrombus. Soft tissues: Unremarkable. US/[place] [id number] IMPRESSION: No evidence of deep vein thrombosis in the right lower extremity.
[2024-07-28 19:25] LABS: Basophils % 0.3 %; Eosinophils % 0.1 %; Hematocrit 44.9 % (37-53); Lymphocytes % 10.1 %; Mean Corpuscular HGB Conc 28.7 g/dL (30-55); Mean Corpuscular Hemoglobin 22.8 pg (27-33); Mean Corpuscular Volume 79.5 fl (82-101); Mean Platelet Volume 9.4 fL (7.4-10.4); Monocytes # 1.1 10^3/uL (0.2-0.9); Monocytes % 11.3 %; Neutrophils # 7.72 10^3/uL (1.8-7.7); Neutrophils % 77.9 %; Nucleated Red Blood Cells % 0 %; Platelet Count 263 10^3/cmm (157-399); Red Blood Count 5.65 10^6/uL (3.85-5.65); Red Cell Distribution Width 26.9 % (12.1-15.1); White Blood Count 9.91 10^3/uL (3.29-11.43)
[2024-07-28 19:38] LABS: Erythrocyte Sedimentation Rate 29 mm/hr (0-10)
[2024-07-28 19:41] LABS: Albumin Level 3.5 g/dL (3.5-5.2); Alkaline Phosphatase 75 U/L (40-130); Blood Urea Nitrogen 16 mg/dL (8-23); Calcium 8.2 mg/dL (8.5-10.5); Carbon Dioxide 22 mmol/L (22-29); Chloride 105 mmol/L (98-107); Globulin 3.3 g/dL (1.3-4.6); Glucose 96 mg/dL (65-115); Osmolality Calculated 283 mOsm/kg (285-295); Sodium 136 mmol/L (136-145); Total Bilirubin 1.6 mg/dL (0.15-1.2); Total Protein 6.8 g/dL (6.6-8.7)
[2024-07-28 19:51] LABS: Alanine Aminotransferase 14 U/L (0-41); Anion Gap 13.6 (5-19); Aspartate Amino Transferase 26 U/L (0-40); Potassium 4.6 mmol/L (3.5-5.1)
[2024-07-28 20:45] VITALS: BP 142/78; PULSE 96; O2SAT 95
[2024-07-28] MEDS: doxycycline 100 MG in sodium chloride 0.9% (plus) 100 ML IV (21:03)
[2024-07-28] MEDS: doxycycline 100 mg Tablet 200 MG PO (21:10)
--- NOTE | 2024-07-28 21:12 | PC.NURSE ---
2 tabs of doxycycline sent home with patient per MD Morton.
[2024-07-28 21:31] VITALS: BP 141/84; PULSE 103; O2SAT 96
[2024-07-28 22:21] VITALS: BP 136/74; PULSE 105; O2SAT 95
== END 2024-07-28 22:22 | disposition home or self-care (01) ==
PROVIDERS: Emergency Provider Emergency Medicine; PCP Internal Medicine
DX: L03.90 Cellulitis, unspecified (principal)
CPT/HCPCS: 80053; 85025; 85651; 86140; 93971; 96374; 99284; J3490

== ENCOUNTER → 2024-09-14 14:21 | Outpatient (BNVA) | payer MEDICARE, SELFPAY | PROVIDERS: PCP Internal Medicine; Visit Provider Internal Medicine | DX: I25.10 Atherosclerotic heart disease of native coronary artery without angina pectoris (principal); I48.91 Unspecified atrial fibrillation; I10 Essential (primary) hypertension; Z79.01 Long term (current) use of anticoagulants; R06.00 Dyspnea, unspecified | CPT/HCPCS: 99214 ==

== ENCOUNTER → 2024-10-13 10:30 | Outpatient (BNVA) | payer MEDICARE, SELFPAY | PROVIDERS: PCP Family Medicine; Visit Provider Family Medicine | DX: R79.89 Other specified abnormal findings of blood chemistry (principal); I10 Essential (primary) hypertension; I25.10 Atherosclerotic heart disease of native coronary artery without angina pectoris; I48.20 Chronic atrial fibrillation, unspecified; N18.2 Chronic kidney disease, stage 2 (mild); D50.9 Iron deficiency anemia, unspecified; M10.9 Gout, unspecified; G62.9 Polyneuropathy, unspecified; I48.0 Paroxysmal atrial fibrillation; Z12.5 Encounter for screening for malignant neoplasm of prostate; E83.39 Other disorders of phosphorus metabolism; E83.42 Hypomagnesemia; R17 Unspecified jaundice; E55.9 Vitamin D deficiency, unspecified | CPT/HCPCS: 80053; 80061; 82306; 82310; 82533; 82607; 82728; 82746; 83550; 83735; 83880; 83970; 84100; 84439; 84443; 84550; 85025; 85651; 86140; G0103 ==

== ENCOUNTER 2024-12-01 14:00 | Oncology outpatient (recurring) (ONCR) | payer MEDICARE, SELFPAY ==
[2024-11-17] MEDS: iron sucrose 200 MG in sodium chloride 0.9% (100 ml) 100 ML IV (15:13)
[2024-11-17 15:56] VITALS: BP 168/90; PULSE 81; RESP 16; TEMP 36.1; O2SAT 95
[2024-11-24] MEDS: iron sucrose 200 MG in sodium chloride 0.9% (100 ml) 100 ML IV (10:27)
[2024-11-24 11:03] VITALS: BP 157/79; PULSE 93; RESP 16; TEMP 37.1; O2SAT 97
[2024-12-01] MEDS: iron sucrose 200 MG in sodium chloride 0.9% (100 ml) 100 ML IV (14:26)
[2024-12-01 15:10] VITALS: BP 132/83; PULSE 80; RESP 17; TEMP 36.4; O2SAT 97
== END 2024-12-04 23:59 | disposition home or self-care (01) ==
PROVIDERS: Visit Provider Internal Medicine
DX: Z53.9 Procedure and treatment not carried out, unspecified reason (principal); D50.9 Iron deficiency anemia, unspecified; Z79.899 Other long term (current) drug therapy
CPT/HCPCS: 36415; 96365; J1756

== ENCOUNTER 2024-12-15 09:00 | Oncology outpatient (recurring) (ONCR) | payer MEDICARE, SELFPAY ==
[2024-12-08] MEDS: iron sucrose 200 MG in sodium chloride 0.9% (100 ml) 100 ML IV (14:08)
[2024-12-15] MEDS: iron sucrose 200 MG in sodium chloride 0.9% (100 ml) 100 ML IV (09:17)
[2024-12-15 10:00] VITALS: BP 154/74; PULSE 83; RESP 18; TEMP 36.8; O2SAT 96
== END 2025-01-04 23:59 | disposition home or self-care (01) ==
PROVIDERS: PCP Internal Medicine; Visit Provider Internal Medicine
DX: Z53.9 Procedure and treatment not carried out, unspecified reason; D50.9 Iron deficiency anemia, unspecified; Z79.899 Other long term (current) drug therapy
CPT/HCPCS: 96365; J1756

== ENCOUNTER 2024-12-28 09:35 | Emergency (ER) | payer MEDICARE, SELFPAY ==
[2024-12-28 09:50] VITALS: BP 137/78; PULSE 82; TEMP 36.5; O2SAT 98; BMI 38.6
[2024-12-28 10:45] LABS: Basophils % 0.6 %; Hematocrit 48.6 % (37-53); Lymphocytes # 1.1 10^3/uL (0.8-4.8); Lymphocytes % 17.2 %; Mean Corpuscular HGB Conc 27.6 g/dL (30-55); Mean Corpuscular Hemoglobin 20.6 pg (27-33); Mean Corpuscular Volume 74.8 fl (82-101); Mean Platelet Volume 9.1 fL (7.4-10.4); Monocytes # 0.7 10^3/uL (0.2-0.9); Monocytes % 11.4 %; Neutrophils # 4.59 10^3/uL (1.8-7.7); Neutrophils % 70.5 %; Nucleated Red Blood Cells % 0 %; Platelet Count 267 10^3/cmm (157-399); Red Cell Distribution Width 25.7 % (12.1-15.1); White Blood Count 6.51 10^3/uL (3.29-11.43)
[2024-12-28 10:58] LABS: INR 1.41 (0.8-1.2)
[2024-12-28 10:59] LABS: Partial Thromboplastin Time 41.4 SECONDS (23.9-36.7)
[2024-12-28 11:08] VITALS: BP 143/102; PULSE 80; O2SAT 98
--- NOTE | 2024-12-28 11:08 | CT_ITS ---
WS: [id number] CT ABDOMEN PELVIS TECHNIQUE: Contrast-enhanced CT of the abdomen and pelvis with coronal and sagittal reformatted images. CLINICAL INFORMATION: blood in stool COMPARISON: 2021 DLP: 1171.[address] scans at [facility] use at least one of these dose optimization techniques: automated exposure control; mA and/or kV adjustment per patient size (includes targeted exams where dose is matched to clinical indication); or iterative reconstruction. FINDINGS: Prior colectomy with RIGHT lower quadrant ileostomy. Multicystic LEFT kidney with the largest cyst along the lower pole measuring 15.4 x 14.2 cm. This is increased slightly from previous. Otherwise the multicystic LEFT kidney is similar in appearance to a few septal calcifications. RIGHT renal cyst the largest measuring 4.1 x 2.9 cm. Partial intrathoracic stomach. Normal portal vein and splenic vein. Normal spleen. Small splenule. Lung bases are well aerated. Umbilical hernia with a small loop of nonobstructed protruding small bowel unchanged from previous. Penile prosthesis. Severe central canal stenosis L3-L4 and moderate L4-5. CT/CT abdomen pelvis w con* [id number] IMPRESSION: 1. No acute findings in the abdomen or pelvis. 2. Prior colectomy with RIGHT lower quadrant ileostomy 3. Multicystic LEFT kidney described above. 4. Umbilical hernia with a small herniated loop of nonobstructed small bowel u nchanged
[2024-12-28 11:12] LABS: Alanine Aminotransferase 15 U/L (0-41); Albumin Level 4.2 g/dL (3.5-5.2); Alkaline Phosphatase 76 U/L (40-130); Anion Gap 13.6 (5-19); Aspartate Amino Transferase 21 U/L (0-40); Blood Urea Nitrogen 20 mg/dL (8-23); Calcium 9.1 mg/dL (8.5-10.5); Carbon Dioxide 28 mmol/L (22-29); Chloride 103 mmol/L (98-107); Creatinine Clr Calc Pharmacy 75.0671; Globulin 2.6 g/dL (1.3-4.6); Glucose 102 mg/dL (65-115); Lipase 25 U/L (13-60); Osmolality Calculated 293 mOsm/kg (285-295); Potassium 4.6 mmol/L (3.5-5.1); Sodium 140 mmol/L (136-145); Total Bilirubin 1.8 mg/dL (0.15-1.2); Total Protein 6.8 g/dL (6.6-8.7)
--- NOTE | 2024-12-28 11:12 | W.ED.GIBLEED ---
HPI - GI Bleed General: Chief complaint: GI Bleed Stated complaint: thinks he has interal bleedings Time Seen by Provider: 12/28/24 10:56 Source: patient Mode of arrival: ambulatory Limitations: no limitations History of Present Illness: 74-year-old male states that this morning noticed some bright red blood in his ileostomy bag. 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 He states he is having no pain he denies any weakness states he wanted to get it checked out. Said no fever no vomiting. He is on blood thinners due to A-fib. Associated symptoms: Denies abdominal pain, chills, fever(s), headache(s), nausea, rash or vomiting Related Data Home Medications ?Medication ?Instructions ?Recorded ?Confirmed clopidogrel 75 mg tablet (Plavix) 75 mg PO BEDTIME 08/03/22 12/28/24 rivaroxaban 20 mg tablet (Xarelto) 20 mg PO QPM 11/07/22 12/28/24 tamsulosin 0.4 mg capsule 0.4 mg PO BID 11/07/22 12/28/24 duloxetine 30 mg capsule,delayed 60 mg PO DAILY 11/22/23 12/28/24 release pantoprazole 40 mg tablet,delayed 40 mg PO DAILY 10/13/24 12/28/24 release metoprolol succinate 100 mg 150 mg PO DAILY 12/28/24 12/28/24 tablet,extended release 24 hr triamcinolone acetonide 0.1 % 1 applic topical BID 12/28/24 12/28/24 topical ointment Previous Rx's ?Medication ?Instructions ?Recorded furosemide 40 mg tablet (Lasix) 40 mg PO DAILY PRN edema 30 days 07/11/22 #30 tabs amlodipine 2.5 mg tablet 2.5 mg PO DAILY HTN #90 tabs 06/01/24 Allergies Allergy/AdvReac Type Severity Reaction Status Date / Time No Known Allergies Allergy Verified 12/28/24 09:56 Review of Systems Const: Denies: fever(s), chills, body aches or change in appetite ENMT: Denies: throat pain or dental pain Card: Denies: chest pain Resp: Denies: dyspnea GI: Reports: hematochezia; Denies: abdominal pain, nausea, vomiting or diarrhea Musc: Denies: neck pain or back pain Skin/Breast: Denies: rash Neuro: Denies: headache(s) PFSH ED PFSH: Medical History Permanent atrial fibrillation BPH loc w urin obs/LUTS Polycythemia Coagulopathy Elevated brain natriuretic peptide (BNP) level A-fib Polycystic kidney disease History of SCC (squamous cell carcinoma) of skin Acute kidney injury superimposed on chronic kidney disease Resolved Acute urinary retention Resolved Abdominal pain in male Diarrhea Chronic Gout of ankle GERD (gastroesophageal reflux disease) HTN (hypertension) EDITH on CPAP Iron deficiency anemia Paroxysmal atrial fibrillation Surgical History History of penile implant History of total knee replacement History of colectomy History of hernia repair History of circumcision History of total colectomy History of shoulder surgery Family History Mother , at age 87 Atrial fibrillation Cancer Father , at age 64 CAD (coronary artery disease) [place] 64 Brother Diabetes Denies family history of Clotting disorder Dementia Chronic kidney disease (CKD) Suicide Anesthesia complication Bleeding disorder Lung disease Stroke Social History Smoking and tobacco/nicotine status: never used tobacco/nicotine Alcohol intake: current Alcohol intake frequency: holidays/special occasions only Substance/Drug Use: never Household members: spouse Housing: House Marital status: Current occupational status: retired Physical Exam Const: COMMON NORMALS: no acute distress, patient oriented x3 and healthy appearing HENMT: COMMON NORMALS: normocephalic and atraumatic HEAD & SCALP: normocephalic and atraumatic Eye: COMMON NORMALS: Equal, round and reactive pupils present and EOMs intact bilaterally PUPIL: Yes Equal, round and reactive pupils present Neck/C-Spine: COMMON NORMALS: full ROM and supple Chest: COMMONS NORMALS: normal inspection of the chest and normal palpation of entire chest wall Resp: COMMON NORMALS: normal respiratory effort, No retractions, No use of accessory muscles and clear to auscultation bilaterally AUSCULTATION: clear to auscultation bilaterally Cardio: COMMON NORMALS: regular rate, regular rhythm and No murmurs present (Cardio) RATE: regular rate RHYTHM: regular rhythm GI: COMMON NORMALS: Normal to inspection, nondistended, normoactive bowel sounds present, Soft to palpation, non-tender and no masses PALPATION: Yes Soft to palpation Extremity: COMMON NORMALS: normal to inspection and full ROM Neuro: COMMON NORMALS: patient oriented x3, moves all extremities and no focal motor deficits Psych: COMMON NORMALS: mental status grossly normal, Normal thought process present and cooperative THOUGHT PROCESS: Normal thought process present Skin: COMMON NORMALS: no rashes or lesions noted and no wounds GENERAL SKIN EXAM: no rashes or lesions noted Course Vital Signs: Vital signs: Vital Signs Temperature 97.7 F 12/28/24 09:50 Pulse Rate 86 12/28/24 11:30 Blood Pressure 149/82 12/28/24 11:30 Pulse Oximetry 98 12/28/24 11:30 Oxygen Delivery Me thod Room Air 12/28/24 11:30 MDM - GI Bleed Medical Decision Making Patient presents here with concerns of blood in his ostomy. His hemoglobin here is normal CT showed no acute findings and did not empty his ostomy here in he had no bright red blood in the ostomy at this time he is well-appearing here feel he is stable for discharge she is to follow-up with PCP I informed if he has worsening bleeding he is to return he understands agrees to plan Medical Records I reviewed the patient's medical records. Lab Data I reviewed the patient's lab results. 12/28/24 10:37 12/28/24 10:37 Laboratory Results WBC 6.51 10^3/uL (3.29-11.43) 12/28/24 10:37 RBC 6.50 10^6/uL (3.85-5.65) H 12/28/24 10:37 Hgb 13.40 g/dL (11.27-16.99) 12/28/24 10:37 Hct 48.6 % (37-53) 12/28/24 10:37 MCV 74.8 fl (82-101) L 12/28/24 10:37 MCH 20.6 pg (27-33) L 12/28/24 10:37 MCHC 27.6 g/dL (30-55) L 12/28/24 10:37 RDW 25.7 % (12.1-15.1) H 12/28/24 10:37 Plt Count 267 10^3/cmm (157-399) 12/28/24 10:37 MPV 9.1 fL (7.4-10.4) 12/28/24 10:37 Neut % (Auto) 70.5 % 12/28/24 10:37 Lymph % (Auto) 17.2 % 12/28/24 10:37 Chambers % (Auto) 11.4 % 12/28/24 10:37 Eos % (Auto) 0.0 % 12/28/24 10:37 Baso % (Auto) 0.6 % 12/28/24 10:37 Neut # (Auto) 4.59 10^3/uL (1.8-7.7) 12/28/24 10:37 Lymph # (Auto) 1.1 10^3/uL (0.8-4.8) 12/28/24 10:37 Chambers # (Auto) 0.7 10^3/uL (0.2-0.9) 12/28/24 10:37 Eos # (Auto) 0.0 10^3/uL (0.0-0.8) 12/28/24 10:37 Baso # (Auto) 0.0 10^3/uL (0.0-0.1) 12/28/24 10:37 Nucleated RBC % (auto) 0 % 12/28/24 10:37 Nucleated RBCs # 0.0 /100WBC 12/28/24 10:37 PT 18.20 SECONDS (12.1-14.9) H 12/28/24 10:37 INR 1.41 (0.8-1.2) H 12/28/24 10:37 APTT 41.4 SECONDS (23.9-36.7) H 12/28/24 10:37 Sodium 140 mmol/L (136-145) 12/28/24 10:37 Potassium 4.6 mmol/L (3.5-5.1) 12/28/24 10:37 Chloride 103 mmol/L (98-107) 12/28/24 10:37 Carbon Dioxide 28 mmol/L (22-29) 12/28/24 10:37 Anion Gap 13.6 (5-19) 12/28/24 10:37 BUN 20 mg/dL (8-23) 12/28/24 10:37 Creatinine 1.2 mg/dL (0.7-1.2) 12/28/24 10:37 GFR Calculation Not Reportable 12/28/24 10:37 Glucose 102 mg/dL (65-115) 12/28/24 10:37 Calculated Osmolality 293 mOsm/kg (285-295) 12/28/24 10:37 Calcium 9.1 mg/dL (8.5-10.5) 12/28/24 10:37 Total Bilirubin 1.8 mg/dL (0.15-1.2) H 12/28/24 10:37 AST 21 U/L (0-40) 12/28/24 10:37 ALT 15 U/L (0-41) 12/28/24 10:37 Alkaline Phosphatase 76 U/L (40-130) 12/28/24 10:37 Total Protein 6.8 g/dL (6.6-8.7) 12/28/24 10:37 Albumin 4.2 g/dL (3.5-5.2) 12/28/24 10:37 Globulin 2.6 g/dL (1.3-4.6) 12/28/24 10:37 Lipase 25 U/L (13-60) 12/28/24 10:37 All radiology interpretation(s) finalized by discharge Discharge Plan Discharge Patient Disposition: Home Clinical Impression: Bloody stool Condition: Stable Prescriptions: No Action pantoprazole 40 mg tablet,delayed release (DR/EC) 40 mg PO DAILY furosemide [Lasix] 40 mg tablet 40 mg PO DAILY PRN (Reason: edema) 30 Days Qty: 30 3RF amlodipine 2.5 mg tablet 2.5 mg PO DAILY Qty: 90 3RF metoprolol succinate 100 mg tablet extended release 24 hr 150 mg PO DAILY triamcinolone acetonide 0.1 % ointment 1 applic TOPICAL BID clopidogrel [Plavix] 75 mg tablet 75 mg PO BEDTIME tamsulosin 0.4 mg capsule 0.4 mg PO BID Xarelto 20 mg tablet 20 mg PO QPM Rx Instructions: must administer with a meal/food duloxetine 30 mg capsule,delayed release(DR/EC) 60 mg PO DAILY Discharge Orders: Discharge ED (Routine); Ordered 12/28/24 Ordered By: Rosetta Xavier Referrals: Luis Yang MD [Primary Care Provider] - 4-7 days Discharge Diet: Advance as tolerated Discharge Activity: Resume usual activity Patient Instructions: Gastrointestinal Bleeding (ED) Print Language: Georgian Coding Level of Care Code ED Assistant Pressman for Pankaj Mooney
--- NOTE | 2024-12-28 11:26 | PC.NURSE ---
Collected and showed Dr. Xavier stool specimen.
[2024-12-28 11:30] VITALS: BP 149/82; PULSE 86; O2SAT 98
[2024-12-28] MEDS: iohexol 350 mg/mL 500 mL Btl (per mL) IV (11:34)
[2024-12-28 12:24] VITALS: BP 138/90; PULSE 83; O2SAT 97
== END 2024-12-28 12:25 | disposition home or self-care (01) ==
PROVIDERS: Physician Assistant; Emergency Provider Emergency Medicine; PCP Internal Medicine
DX: K92.1 Melena (principal); Z79.02 Long term (current) use of antithrombotics/antiplatelets; I10 Essential (primary) hypertension
CPT/HCPCS: 36415; 74177; 80053; 83690; 85025; 85610; 85730; 99285

== ENCOUNTER 2025-03-04 11:00 | Oncology outpatient (recurring) (ONCR) | payer MEDICARE, SELFPAY ==
[2025-02-05] MEDS: iron sucrose 200 MG in sodium chloride 0.9% (100 ml) 100 ML IV (09:09)
[2025-02-05 09:54] VITALS: BP 127/76; PULSE 81; RESP 16; TEMP 36.5; O2SAT 96
[2025-02-18] MEDS: iron sucrose 200 MG in sodium chloride 0.9% (100 ml) 100 ML IV (14:41)
[2025-02-18 15:15] VITALS: BP 124/78; PULSE 74; RESP 18; TEMP 36.6; O2SAT 98
[2025-03-04] MEDS: iron sucrose 200 MG in sodium chloride 0.9% (100 ml) 100 ML IV (11:35)
[2025-03-04 12:19] VITALS: BP 118/67; PULSE 58; RESP 18; TEMP 36.4; O2SAT 96
== END 2025-03-06 23:59 | disposition home or self-care (01) ==
PROVIDERS: PCP Internal Medicine; Visit Provider Internal Medicine
DX: Z53.9 Procedure and treatment not carried out, unspecified reason (principal); D50.9 Iron deficiency anemia, unspecified; Z79.899 Other long term (current) drug therapy
CPT/HCPCS: 96365; J1756

== ENCOUNTER 2025-03-18 07:52 | Oncology outpatient (recurring) (ONCR) | payer MEDICARE, SELFPAY ==
[2025-03-18] MEDS: iron sucrose 200 MG in sodium chloride 0.9% (100 ml) 100 ML 220 MG IV (09:31)
[2025-03-18 10:20] VITALS: BP 136/74; PULSE 74; RESP 16; TEMP 36.3
== END 2025-04-05 23:59 | disposition home or self-care (01) ==
LOC: ONCMED 07:53
PROVIDERS: PCP Internal Medicine; Visit Provider Internal Medicine
DX: D50.9 Iron deficiency anemia, unspecified (principal); Z79.899 Other long term (current) drug therapy
CPT/HCPCS: 96365; J1756

== ENCOUNTER 2025-05-26 11:44 | Oncology outpatient (recurring) (ONCR) | payer MEDICARE, SELFPAY ==
[2025-05-26] MEDS: iron sucrose 200 MG in sodium chloride 0.9% (100 ml) 100 ML IV (12:27)
[2025-05-26 13:11] VITALS: BP 124/74; PULSE 69; RESP 17; TEMP 36.6; O2SAT 100
== END 2025-06-06 23:59 | disposition home or self-care (01) ==
PROVIDERS: PCP Internal Medicine; Visit Provider Internal Medicine
DX: D50.9 Iron deficiency anemia, unspecified (principal); Z79.899 Other long term (current) drug therapy
CPT/HCPCS: 96365; J1756

== ENCOUNTER 2025-06-30 12:00 | Oncology outpatient (recurring) (ONCR) | payer MEDICARE, SELFPAY ==
[2025-06-09 11:55] VITALS: BP 124/73; PULSE 64; TEMP 36.2; O2SAT 96
[2025-06-09] MEDS: iron sucrose 200 MG in sodium chloride 0.9% (100 ml) 100 ML IV (12:09)
[2025-06-09 12:45] VITALS: BP 128/76; PULSE 55; TEMP 36.2; O2SAT 97
[2025-06-30] MEDS: iron sucrose 200 MG in sodium chloride 0.9% (100 ml) 100 ML IV (12:15)
[2025-06-30 12:55] VITALS: BP 123/70; PULSE 80; RESP 16; TEMP 36.7; O2SAT 98
== END 2025-07-06 23:59 | disposition home or self-care (01) ==
PROVIDERS: PCP Internal Medicine; Visit Provider Internal Medicine
DX: Z53.9 Procedure and treatment not carried out, unspecified reason; D50.9 Iron deficiency anemia, unspecified; Z79.899 Other long term (current) drug therapy
CPT/HCPCS: 96365; J1756

== ENCOUNTER 2025-07-16 09:48 | Oncology outpatient (recurring) (ONCR) | payer MEDICARE, SELFPAY ==
[2025-07-16] MEDS: iron sucrose 200 MG in sodium chloride 0.9% (100 ml) 100 ML IV (10:07)
[2025-07-16 10:49] VITALS: BP 131/78; PULSE 55; RESP 16; TEMP 36.8; O2SAT 97
== END 2025-08-06 23:59 | disposition home or self-care (01) ==
PROVIDERS: PCP Internal Medicine; Visit Provider Internal Medicine
DX: D50.9 Iron deficiency anemia, unspecified (principal); Z79.899 Other long term (current) drug therapy
CPT/HCPCS: 96365; J1756